=== PATIENT | male | born 1990 | race American Indian/Alaskan Native ===

== ENCOUNTER 2017-01-20 08:18 | Emergency (ER) | payer SELFPAY ==
[2017-01-20] MEDS ORDERED: CLEOCIN 600 MG/50 mL 600 MG/50 ML BAG IV ONE (11:25)
[2017-01-20] MEDS ORDERED: XYLOCAINE 2% INFILTRATI ONE (11:29)
--- NOTE | 2017-01-20 11:35 | Emergency Department Report ---
ED General Adult HPI - General Chief complaint: Skin/Abscess/Foreign Body Stated complaint: LEFT ARMPIT ABSCESS Time Seen by Provider: 01/20/17 11:24 Source: patient Mode of arrival: Ambulatory Limitations: No Limitations - History of Present Illness -: Gradual, days(s) Consistency: constant Worsens with: none Associated Symptoms: denies other symptoms Treatments Prior to Arrival: NSAID - Related Data Previous Rx's Medication Instructions Recorded Last Taken Type Gentamicin 0.3% Ophth Soln 2 drops OP Q4H #1 bottle 12/28/13 Unknown Rx HYDROcodone/ACETAMINOPHEN [[place] 1 each PO Q6HR #20 tablet 12/28/13 Unknown Rx 5/325 Tablet] Ibuprofen [Motrin] 600 mg PO Q8H PRN #50 tablet 12/28/13 Unknown Rx HYDROcodone/ACETAMINOPHEN 1 each PO BID #10 tablet 01/20/17 Unknown Rx [Hydrocodon-Acetaminophen 5-325] Sulfamethoxazole/Trimethoprim 1 each PO BID #20 tablet 01/20/17 Unknown Rx [Bactrim DS TAB] Allergies Allergy/AdvReac Type Severity Reaction Status Date / Time No Known Allergies Allergy Verified 12/28/13 04:32 ED Review of Systems ROS: Stated complaint: LEFT ARMPIT ABSCESS Other details as noted in HPI Comment: Unobtainable due to pts medical conditions Constitutional: no symptoms reported, see HPI. denies: chills, fever, malaise Eyes: as per HPI. denies: eye pain ENT: as per HPI. denies: ear pain, throat pain Respiratory: no symptoms reported, see HPI. denies: cough, orthopnea Cardiovascular: as per HPI. denies: chest pain, palpitations, dyspnea on exertion, orthopnea Endocrine: no symptoms reported, see HPI. denies: excessive sweating, flushing , intolerance to cold, intolerance to heat Gastrointestinal: as per HPI. denies: abdominal pain, nausea, vomiting Genitourinary: as per HPI. denies: urgency, dysuria Musculoskeletal: as per HPI. denies: back pain Skin: as per HPI, lesions. denies: rash Neurological: as per HPI. denies: headache, weakness Psychiatric: as per HPI. denies: anxiety, depression Hematological/Lymphatic: as per HPI. denies: easy bleeding ED Past Medical Hx - Past Medical History Previous Medical History?: Yes Hx HIV: Yes - Social History Smoking Status: Current Every Day Smoker Substance Use Type: None - Medications Home Medications: Home Medications Medication Instructions Recorded Confirmed Last Taken Type Gentamicin 0.3% Ophth Soln 2 drops OP Q4H #1 bottle 12/28/13 Unknown Rx HYDROcodone/ACETAMINOPHEN [[place] 1 each PO Q6HR #20 tablet 12/28/13 Unknown Rx 5/325 Tablet] Ibuprofen [Motrin] 600 mg PO Q8H PRN #50 tablet 12/28/13 Unknown Rx HYDROcodone/ACETAMINOPHEN 1 each PO BID #10 tablet 01/20/17 Unknown Rx [Hydrocodon-Acetaminophen 5-325] Sulfamethoxazole/Trimethoprim 1 each PO BID #20 tablet 01/20/17 Unknown Rx [Bactrim DS TAB] ED Physical Exam - General Limitations: No Limitations General appearance: alert, in no apparent distress - Head Head exam: Present: atraumatic - Eye Eye exam: Present: PERRL Pupils: Present: normal accommodation - ENT ENT exam: Present: mucous membranes moist - Neck Neck exam: Present: full ROM - Respiratory Respiratory exam: Present: normal lung sounds bilaterally - Cardiovascular Cardiovascular Exam: Present: regular rate - GI/Abdominal GI/Abdominal exam: Present: soft - Rectal Rectal exam: Present: deferred - Extremities Exam Extremities exam: Present: full ROM, tenderness, normal capillary refill - Back Exam Back exam: Present: normal inspection, full ROM. Absent: tenderness, CVA tenderness (R), CVA tenderness (L) - Neurological Exam Neurological exam: Present: alert, oriented X3, CN II-XII intact, normal gait - Psychiatric Psychiatric exam: Present: normal affect, normal mood - Skin Skin exam: Present: warm, dry, intact, normal color, other (ABSCESS UNDER L ARM) . Absent: rash ED Course Vital Signs 01/20/17 01/20/17 08:25 13:15 Temperature 98 F Pulse Rate 86 Respiratory 20 18 Rate Blood Pressure 136/85 O2 Sat by Pulse 99 Oximetry - Reevaluation(s) Reevaluation #1: 01/20/17 13:19 TO ER TODAY W LARGE L AXILLA ABSCESS HE HAS HAD BEFORE HIV OFF MEDS FOR YEARS HAD LABS DRAWN 2 W AGO AND HAS APPNT END MONTH FOR ANTIVIRALS NO FEVER NON TOXIC APPEARING CBC NOTED I/D PACKING IV ANBX RETURN TOMORROW FOR RECHECK Reevaluation #2: 01/20/17 12:57 PAIN MED PRN ON DC- HANDWRITTEN ON RX - I & D L AXILLA Type of Procedure: Simple Site: L AXILLA Blade Size: 11 I & D Procedure: betadine prep, sterile drapes applied, sterile dressing applied Progress: LIDO 2 ML FOR ANESTH. I/D WO DIFF LOCULATIONS OPENED LARGE AMOUNT DRAINAGE PACKING INSERTED ED Medical Decision Making - Lab Data Result diagrams: 01/20/17 11:50 01/20/17 11:50 - Medical Decision Making NO FEVER CBC WNL I/D W PACKING RETURN TOMORROW Critical care attestation.: If time is entered above; I have spent that time in minutes in the direct care of this critically ill patient, excluding procedure time. ED Disposition Clinical Impression: Abscess, HIV (human immunodeficiency virus infection) Disposition: DC-01 TO HOME OR SELFCARE Is pt being admited?: No Does the pt Need Aspirin: No Condition: Stable Instructions: Abscess (ED) Additional Instructions: RETURN HERE TOMORROW AFTERNOON MED ORDERED EPSOM SALT SOAKS IN TUB FOR 20 MINUTES THREE TIMES PER DAY LEAVE PACKING IN UNTIL YOU COME TOMORROW FU WITH HIV Prescriptions: HYDROcodone/ACETAMINOPHEN [Hydrocodon-Acetaminophen 5-325] 1 each PO BID #10 tablet Sulfamethoxazole/Trimethoprim [Bactrim DS TAB] 1 each PO BID #20 tablet Referrals: PRIMARY CARE, [Primary Care Provider] - 3-5 Days JAXON ORTIZ MD [Staff Physician] - 3-5 Days [facility] [Outside] - [facility] - 3[facility]5 Days [facility] [place] [place]] - 3-5 Days [facility] [Outside] - 3-5 Days [facility] [Outside] - 3-5 Days [facility] [Outside] - 3-5 Days Time of Disposition: 12:51
[2017-01-20 12:01] LABS: Basophils % (Auto) 0.2 % (0.0-1.8); Eosinophils % (Auto) 0.7 % (0.0-4.3); Hematocrit 30.1 % (35.5-45.6); Hemoglobin 10.1 gm/dl (11.8-15.2); Mean Corpuscular HGB Conc 34 % (32-34); Mean Corpuscular Hemoglobin 31 pg (28-32); Mean Corpuscular Volume 92 fl (84-94); Platelet Count 295 K/mm3 (140-440); Red Blood Count 3.26 M/mm3 (3.65-5.03); Red Cell Distribution Width 14.8 % (13.2-15.2); White Blood Count 5.7 K/mm3 (4.5-11.0)
[2017-01-20 12:19] LABS: Alanine Aminotransferase 36 units/L (7-56); Albumin 3.8 g/dL (3.9-5); Albumin/Globulin Ratio 0.8 %; Alkaline Phosphatase 107 units/L (35-129); Anion Gap 15 mmol/L; BUN/Creatinine Ratio 17; Blood Urea Nitrogen 12 mg/dL (9-20); Calcium 9.2 mg/dL (8.4-10.2); Carbon Dioxide 27 mmol/L (22-30); Chloride 102.7 mmol/L (98-107); Glucose 79 mg/dL (75-100); Potassium 4.3 mmol/L (3.6-5.0); Sodium 140 mmol/L (137-145); Total Protein 8.8 g/dL (6.3-8.2)
[2017-01-20] MEDS ORDERED: PERCOCET 5/325 PO ONE (12:54)
[2017-01-20 13:25] VITALS: BP 148/107
== END 2017-01-20 13:26 | disposition home or self-care (01) ==
LOC: ED 08:18
DX: L02.412 Cutaneous abscess of left axilla (principal); Z53.21 Procedure and treatment not carried out due to patient leaving prior to being seen by health care provider
CPT/HCPCS: 36415; 80053; 85025; 96365; 99283

== ENCOUNTER 2017-01-21 08:24 | Emergency (ER) | payer SELFPAY ==
--- NOTE | 2017-01-21 08:59 | Emergency Department Report ---
Abscess Boil HPI - HPI Chief Complaint: Wound/Laceration Stated Complaint: RECHECK Time Seen by Provider: 01/21/17 08:57 Duration: 3 Days Location: Upper Extremity Severity: Mild History: Yes Purulent Drainage, Yes Previous History (recheck), No Fever, No Pain, No Numbness, No Foreign Body, No Insect Bite Home Medications: Previous Rx's Medication Instructions Recorded Last Taken Type Gentamicin 0.3% Ophth Soln 2 drops OP Q4H #1 bottle 12/28/13 Unknown Rx HYDROcodone/ACETAMINOPHEN [[place] 1 each PO Q6HR #20 tablet 12/28/13 Unknown Rx 5/325 Tablet] Ibuprofen [Motrin] 600 mg PO Q8H PRN #50 tablet 12/28/13 Unknown Rx HYDROcodone/ACETAMINOPHEN 1 each PO BID #10 tablet 01/20/17 Unknown Rx [Hydrocodon-Acetaminophen 5-325] Sulfamethoxazole/Trimethoprim 1 each PO BID #20 tablet 01/20/17 Unknown Rx [Bactrim DS TAB] Allergies/Adverse Reactions: Allergies Allergy/AdvReac Type Severity Reaction Status Date / Time No Known Allergies Allergy Verified 12/28/13 04:32 ED Review of Systems ROS: Stated complaint: RECHECK Other details as noted in HPI Comment: Unobtainable due to pts medical conditions Constitutional: no symptoms reported, see HPI. denies: chills, fever Eyes: as per HPI. denies: eye pain ENT: as per HPI. denies: ear pain, throat pain Respiratory: no symptoms reported, see HPI. denies: cough, orthopnea Cardiovascular: as per HPI. denies: chest pain, palpitations, dyspnea on exertion, orthopnea Endocrine: no symptoms reported, see HPI. denies: excessive sweating, flushing Gastrointestinal: as per HPI. denies: abdominal pain, nausea, vomiting Genitourinary: as per HPI. denies: urgency, dysuria Musculoskeletal: as per HPI. denies: back pain Skin: as per HPI, lesions. denies: rash Neurological: as per HPI. denies: headache, weakness Psychiatric: as per HPI. denies: anxiety, depression Hematological/Lymphatic: as per HPI. denies: easy bleeding ED Past Medical Hx - Past Medical History Previous Medical History?: Yes Hx HIV: Yes Additional medical history: Boils, Left axillary boil - Surgical History Past Surgical History?: No - Social History Smoking Status: Current Every Day Smoker Substance Use Type: Alcohol, Marijuana, Prescribed - Medications Home Medications: Home Medications Medication Instructions Recorded Confirmed Last Taken Type Gentamicin 0.3% Ophth Soln 2 drops OP Q4H #1 bottle 12/28/13 Unknown Rx HYDROcodone/ACETAMINOPHEN [[place] 1 each PO Q6HR #20 tablet 12/28/13 Unknown Rx 5/325 Tablet] Ibuprofen [Motrin] 600 mg PO Q8H PRN #50 tablet 12/28/13 Unknown Rx HYDROcodone/ACETAMINOPHEN 1 each PO BID #10 tablet 01/20/17 Unknown Rx [Hydrocodon-Acetaminophen 5-325] Sulfamethoxazole/Trimethoprim 1 each PO BID #20 tablet 01/20/17 Unknown Rx [Bactrim DS TAB] ED Abscess Boil Physical Exam - Exam General: Vital signs noted. No distress. Alert and acting appropriately. Front/Back of Body, Lg (Color): 1 - MUCH IMPROVED TODAY. PACKING REMOVED. NO FEVER. Exam: Yes Tenderness, Yes Normal Neurologic Exam, Yes Normal Circulation, No Fluctuance, No Surrounding Cellulites/Erythema, No Lymphangitis, No Crepitation , No Heart Murmur ED Course Vital Signs 01/21/17 08:28 Temperature 98.7 F Pulse Rate 100 H Respiratory 20 Rate Blood Pressure 135/81 O2 Sat by Pulse 98 Oximetry - Reevaluation(s) Reevaluation #1: 01/21/17 12:25 VSS NAD NO FEVER MUCH IMPROVED TODAY IV ANBX MOM W PT- EDUCATED ON CARE DC HOME W FU Critical care attestation.: If time is entered above; I have spent that time in minutes in the direct care of this critically ill patient, excluding procedure time. ED Medical Decision Making - Medical Decision Making FOLLOW UP SEE NOTE ED Disposition Clinical Impression: Hidradenitis, HIV (human immunodeficiency virus infection) Disposition: DC-01 TO HOME OR SELFCARE Is pt being admited?: No Does the pt Need Aspirin: No Condition: Stable Additional Instructions: SAME PLAN YESTERDAY EPSOM SALTS ANTIBIOTICS PAIN MED PRN FU FOR HIV MEDS GEN SURG FOR EVAL OF HIRDRAD. Time of Disposition: 10:54
[2017-01-21] MEDS ORDERED: CLEOCIN 300 MG/50 mL 300 MG/50 ML BAG IV ONE (09:30)
[2017-01-21 11:37] VITALS: BP 119/67
== END 2017-01-21 11:41 | disposition home or self-care (01) ==
LOC: ED 08:24
DX: L73.2 Hidradenitis suppurativa (principal); F17.200 Nicotine dependence, unspecified, uncomplicated; F12.10 Cannabis abuse, uncomplicated
CPT/HCPCS: 96365; 99282

== ENCOUNTER 2018-10-23 07:21 | Emergency (ER) | payer SELFPAY ==
[2018-10-23 08:37] LABS: Basophils % (Auto) 0.3 % (0.0-1.8); Eosinophils # (Auto) 0.1 K/mm3 (0.0-0.4); Eosinophils % (Auto) 1.3 % (0.0-4.3); Hematocrit 41.2 % (35.5-45.6); Lymphocytes # (Auto) 2.3 K/mm3 (1.2-5.4); Lymphocytes % (Auto) 47.1 % (13.4-35.0); Mean Corpuscular HGB Conc 34 % (32-34); Mean Corpuscular Volume 101 fl (84-94); Monocytes # (Auto) 0.3 K/mm3 (0.0-0.8); Monocytes % (Auto) 6.7 % (0.0-7.3); Platelet Count 235 K/mm3 (140-440); Red Blood Count 4.06 M/mm3 (3.65-5.03); Red Cell Distribution Width 12.7 % (13.2-15.2)
[2018-10-23] MEDS ORDERED: ZOFRAN IV ONE (09:00)
[2018-10-23] MEDS ORDERED: MORPHINE IV ONE (09:00)
[2018-10-23] MEDS ORDERED: NACL 0.9% 1000 ML 1,000 ML IV ONE (09:00)
[2018-10-23 09:05] LABS: Bilirubin,Urine NEG (Negative); Blood,Urine NEG (Negative); Color,Urine Yellow (Yellow); Mucus,Urine 1+ /HPF; Urobilinogen,Urine < 2.0 mg/dL (<2.0)
[2018-10-23 09:09] LABS: Alanine Aminotransferase 7 units/L (7-56); Albumin 3.8 g/dL (3.9-5); BUN/Creatinine Ratio 11; Blood Urea Nitrogen 11 mg/dL (9-20); Calcium 8.8 mg/dL (8.4-10.2); Hemolysis Index 20
--- NOTE | 2018-10-23 09:26 | Emergency Department Report ---
ED Abdominal Pain HPI - General Chief Complaint: Abdominal Pain Stated Complaint: HEADACHE/CRAMPS/RECTAL AND ORAL Time Seen by Provider: 10/23/18 08:10 Source: patient Mode of arrival: Ambulatory Limitations: No Limitations - History of Present Illness Initial Comments: This is a 28-year-old male nontoxic, well nourished in appearance, no acute signs of distress presents to the ED with c/o of nausea and vomiting and abdominal pain 1 day. Patient describes vomiting as food content and yellow gastric acid. Patient describes abdominal pain as cramping and aching with level of 3/10 diffuse. Patient denies chest pain, short of breath, fever, chill s, headache, stiff neck, numbness or tingling. Patient denies any diarrhea or constipation. Patient denies any recent travels. Patient denies any drug allergies. PMH includes HIV with last CD4 count was 3 months ago and is unsure of results. Agrees to following a provider for HIV. MD Complaint: abdominal pain -: days(s) (1) Location: diffuse Radiation: none Migration to: no migration Severity: mild Severity scale (0 -10): 3 Quality: cramping, aching Consistency: constant Improves With: nothing Worsens With: nothing Associated Symptoms: nausea, vomiting. denies: diarrhea, fever, chills, c onstipation, dysuria, hematemesis, hematochezia, melena, hematuria, anorexia, syncope - Related Data Previous Rx's Medication Instructions Recorded Last Taken Type Gentamicin 0.3% Ophth Soln 2 drops OP Q4H #1 bottle 12/28/13 Unknown Rx HYDROcodone/ACETAMINOPHEN [[place] 1 each PO Q6HR #20 tablet 12/28/13 Unknown Rx 5/325 Tablet] Ibuprofen [Motrin] 600 mg PO Q8H PRN #50 tablet 12/28/13 Unknown Rx HYDROcodone/ACETAMINOPHEN 1 each PO BID #10 tablet 01/20/17 Unknown Rx [Hydrocodon-Acetaminophen 5-325] Sulfamethoxazole/Trimethoprim 1 each PO BID #20 tablet 01/20/17 Unknown Rx [Bactrim DS TAB] Clindamycin [Clindamycin CAP] 300 mg PO Q8H 10 Days #30 cap 02/16/18 Unknown Rx Ibuprofen [Motrin] 600 mg PO Q8H PRN #12 tablet 02/16/18 Unknown Rx Acetaminophen/Codeine [Tylenol 1 tab PO Q6H PRN #12 tab 10/23/18 Unknown Rx /Codeine # 3 tab] Ciprofloxacin HCl [Ciprofloxacin 500 mg PO Q12HR #14 tab 10/23/18 Unknown Rx TAB] Ondansetron [Zofran Odt] 4 mg PO Q8HR PRN #20 tab.rapdis 10/23/18 Unknown Rx metroNIDAZOLE [Flagyl] 500 mg PO Q12HR #14 tab 10/23/18 Unknown Rx Allergies Allergy/AdvReac Type Severity Reaction Status Date / Time No Known Allergies Allergy Verified 12/28/13 04:32 ED Review of Systems ROS: Stated complaint: HEADACHE/CRAMPS/RECTAL AND ORAL Other details as noted in HPI Constitutional: denies: chills, fever Eyes: denies: eye pain, eye discharge, vision change ENT: denies: ear pain, throat pain Respiratory: denies: cough, shortness of breath, wheezing Cardiovascular: denies: chest pain, palpitations Endocrine: no symptoms reported Gastrointestinal: abdominal pain, nausea, vomiting. denies: diarrhea Genitourinary: denies: urgency, dysuria Musculoskeletal: denies: back pain, joint swelling, arthralgia Skin: denies: rash, lesions Neurological: denies: headache, weakness, paresthesias Psychiatric: denies: anxiety, depression Hematological/Lymphatic: denies: easy bleeding, easy bruising ED Past Medical Hx - Past Medical History Previous Medical History?: Yes Hx HIV: Yes Additional medical history: Boils, Left axillary boil - Surgical History Past Surgical History?: No - Social History Smoking Status: Current Some Day Smoker Substance Use Type: None - Medications Home Medications: Home Medications Medication Instructions Recorded Confirmed Last Taken Type Gentamicin 0.3% Ophth Soln 2 drops OP Q4H #1 bottle 12/28/13 Unknown Rx HYDROcodone/ACETAMINOPHEN [[place] 1 each PO Q6HR #20 tablet 12/28/13 Unknown Rx 5/325 Tablet] Ibuprofen [Motrin] 600 mg PO Q8H PRN #50 tablet 12/28/13 Unknown Rx HYDROcodone/ACETAMINOPHEN 1 each PO BID #10 tablet 01/20/17 Unknown Rx [Hydrocodon-Acetaminophen 5-325] Sulfamethoxazole/Trimethoprim 1 each PO BID #20 tablet 01/20/17 Unknown Rx [Bactrim DS TAB] Clindamycin [Clindamycin CAP] 300 mg PO Q8H 10 Days #30 cap 02/16/18 Unknown Rx Ibuprofen [Motrin] 600 mg PO Q8H PRN #12 tablet 02/16/18 Unknown Rx Acetaminophen/Codeine [Tylenol 1 tab PO Q6H PRN #12 tab 10/23/18 Unknown Rx /Codeine # 3 tab] Ciprofloxacin HCl [Ciprofloxacin 500 mg PO Q12HR #14 tab 10/23/18 Unknown Rx TAB] Ondansetron [Zofran Odt] 4 mg PO Q8HR PRN #20 tab.rapdis 10/23/18 Unknown Rx metroNIDAZOLE [Flagyl] 500 mg PO Q12HR #14 tab 10/23/18 Unknown Rx ED Physical Exam - General Limitations: No Limitations General appearance: alert, in no apparent distress - Head Head exam: Present: atraumatic, normocephalic - Eye Eye exam: Present: normal appearance - Neck Neck exam: Present: normal inspection, full ROM. Absent: tenderness, meningismus, lymphadenopathy - Respiratory Respiratory exam: Present: normal lung sounds bilaterally. Absent: respiratory distress, wheezes, rales, rhonchi, stridor, chest wall tenderness, accessory muscle use, decreased breath sounds, prolonged expiratory - Cardiovascular Cardiovascular Exam: Present: regular rate, normal rhythm, normal heart sounds. Absent: bradycardia, tachycardia, irregular rhythm, systolic murmur, diastolic murmur, rubs, gallop - GI/Abdominal GI/Abdominal exam: Present: soft, tenderness (diffuse), normal bowel sounds. Absent: distended, guarding, rebound, rigid, diminished bowel sounds - Expanded GI/Abdominal Exam Expanded GI/Abdominal exam: Absent: psoas sign, Desir's sign, Rovsing's sign, tenderness at Mcburney's Point, ascites - Extremities Exam Extremities exam: Present: normal inspection, full ROM, normal capillary refill. Absent: tenderness - Back Exam Back exam: Present: normal inspection, full ROM. Absent: tenderness, CVA tenderness (R), CVA tenderness (L), muscle spasm, paraspinal tenderness, v ertebral tenderness, rash noted - Neurological Exam Neurological exam: Present: alert, oriented X3, normal gait - Psychiatric Psychiatric exam: Present: normal affect, normal mood - Skin Skin exam: Present: warm, dry, intact, normal color. Absent: rash ED Course Vital Signs 10/23/18 10/23/18 10/23/18 08:35 08:37 08:40 Temperature 98.7 F Pulse Rate 69 Respiratory 18 Rate Blood Pressure 119/83 O2 Sat by Pulse 100 99 Oximetry - Reevaluation(s) Reevaluation #1: 10/23/18 09:26 Patient is speaking in full sentences with no signs of distress noted. - Consultations Consultation #1: 10/23/18 12:13 Patient has been consulted with Osei Lee about patient history, physical exam, and labs/CT results and examined and screened patient and agrees to ED plan of care and discharge plan of care. ED Medical Decision Making - Lab Data Result diagrams: 10/23/18 08:22 10/23/18 08:22 - Medical Decision Making This is a 28-year-old male that presents with colitis. Patient is stable and was examined by me. There is no abdominal tenderness. Negative signs of symptoms of appendicitis. Labs obtained. UA obtained. CT of abdomen obtained and dictated by the radiologist. Patient is notified of the report with no questions noted by the patient. Vital signs are stable prior to discharge. Patient received Flagyl and Levaquin in the ER. Patient received medical treatment in the ED which patient stated symptoms has resovled and subsided. Was instructed note to operate any machinery due to possible drowsiness and stated someone will drive the patient home. A by mouth challenge has been obtained and patient tolerated well with no nausea vomiting. Patient was notified of strict precatuions of appendictis symptoms and to return to the ED if symptoms occurs as soon as possible. Patient was also instructed to Follow-up with a primary care doctor in 3-5 days or if symptoms worsen and continue return to emergency room as soon as possible. At time of discharge, the patient does not seem toxic or ill in appearance. No acute signs of distress noted. Patient agrees to discharge treatment plan of care. No further questions noted by the patient. Critical care attestation.: If time is entered above; I have spent that time in minutes in the direct care of this critically ill patient, excluding procedure time. ED Disposition Clinical Impression: Colitis Disposition: DC-01 TO HOME OR SELFCARE Is pt being admited?: No Does the pt Need Aspirin: No Condition: Stable Instructions: Infectious Colitis (ED) Additional Instructions: Follow-up with a primary care/solutions engineer doctor in 2 days or if symptoms worsen and continue return to emergency room as soon as possible. Prescriptions: Ciprofloxacin HCl [Ciprofloxacin TAB] 500 mg PO Q12HR #14 tab metroNIDAZOLE [Flagyl] 500 mg PO Q12HR #14 tab Acetaminophen/Codeine [Tylenol /Codeine # 3 tab] 1 tab PO Q6H PRN #12 tab PRN Reason: Pain , Severe (7-10) Ondansetron [Zofran Odt] 4 mg PO Q8HR PRN #20 tab.rapdis PRN Reason: Nausea Referrals: JR ROUSSEAU MD [Primary Care Provider] - 3-5 Days PRIMARY CAREMD [Referring] - 3-5 Days GEMMA LAFLEUR MD [Staff Physician] - 2-3 Days [facility] [Provider Group] - 2-3 Days Forms: Work/School Release Form(ED)
--- NOTE | 2018-10-23 11:24 | Cat Scan Report ---
CT ABDOMEN AND PELVIS WITH CONTRAST HISTORY: abd pain COMPARISON: None TECHNIQUE: Routine abdominal and pelvic CT exam performed with IV contrast but no oral contrast. CONTRAST: 100 cc of Omnipaque 300 was injected intravenously without incident. Informed consent was o btained prior to the administration of the contrast. FINDINGS: CT ABDOMEN: Lung Bases: Clear. Liver: A 12 mm right hepatic hypodensity is likely a benign cavernous hemangioma. Biliary: No significant abnormality. Spleen: No significant abnormality. Unenlarged. Pancreas: No significant abnormality. Adrenals: No significant abnormality. Kidneys: No significant abnormality. Lymphatics: No lymphadenopathy. Vasculature: No significant abnormality. Bowel/Peritoneum: Concentric wall thickening and edema of the a ascending and transverse colon. The r est of the colon is normal. The appendix is normal. Normal small bowel. CT PELVIC: : Normal urinary bladder, prostate and seminal vesicles.. Osseous Structures: No significant abnormality. Additional Findings: Normal rectum and sigmoid colon. No free air or ascites. IMPRESSION: 1. Nonspecific colitis involving the ascending and transverse colon. No signs of abscess or perforati on. 2. Appendix with no evidence of acute appendicitis. 3. Probable benign cavernous hemangioma of the right hepatic lobe. Signer Name: Bruno Gee MD Signed: 10/23/2018 11:20 AM Workstation Name: [id number]
[2018-10-23] MEDS ORDERED: FLAGYL 500 MG/100 ML 500 MG/100 ML BAG IV ONE (11:28)
[2018-10-23] MEDS ORDERED: LEVAQUIN 750MG/150ML 750 MG/150 ML BAG IV ONE (11:28)
[2018-10-23 13:09] VITALS: BP 121/81
== END 2018-10-23 13:08 | disposition home or self-care (01) ==
LOC: ED 07:21
DX: K52.9 Noninfective gastroenteritis and colitis, unspecified (principal); Z79.899 Other long term (current) drug therapy
CPT/HCPCS: 36415; 74177; 80053; 81001; 83690; 85025; 96361; 96365; 96367; 96375; 99284; J1956; J2270; J2405; J7030; Q9967

== ENCOUNTER 2020-10-09 12:55 | Inpatient (IN) | payer SELFPAY ==
[2020-10-09 13:35] LABS: Hemoglobin 11.1 gm/dl (11.8-15.2); Mean Corpuscular HGB Conc 35 % (32-34); Mean Corpuscular Volume 90 fl (84-94); Platelet Count 562 K/mm3 (140-440); Red Blood Count 3.54 M/mm3 (3.65-5.03); Red Cell Distribution Width 14.2 % (13.2-15.2)
[2020-10-09 13:52] LABS: Albumin 3.1 g/dL (3.9-5); BUN/Creatinine Ratio 15; Blood Urea Nitrogen 17 mg/dL (9-20); Calcium 8.9 mg/dL (8.4-10.2); Hemolysis Index 0
[2020-10-09 13:53] LABS: Alanine Aminotransferase < 5 units/L (7-56)
[2020-10-09] MEDS ORDERED: cefTRIAXone/NS 2 GM/100 ML 2 GM/100 ML BAG IV ONE (14:05)
[2020-10-09] MEDS ORDERED: VANCOMYCIN 750 MG in SODIUM CHLORIDE 0.9% 500 ML 500 ML IV ONE (14:05)
[2020-10-09] MEDS ORDERED: AZITHROMYCIN/NS 500 MG/250 ML 500 MG/250 ML BAG IV ONE (14:05)
[2020-10-09] MEDS ORDERED: SODIUM CHLORIDE 0.9% 1000 ML 1,000 ML IV ONE (14:10)
--- NOTE | 2020-10-09 14:17 | Emergency Department Report ---
HPI - General Chief Complaint: Dyspnea/Respdistress Time Seen by Provider: 10/09/20 13:47 - HPI HPI: 29-year-old male with history of hidradenitis suppurativa and HIV not on antiretroviral therapy for the past 1.5 years presents with numerous complaints, most significantly shortness of breath for the past 3 months which has been acutely worsening over the past week. The patient states that he has felt short of breath persistently for the past 3 months it has slowly but progressively gotten worse. For the past 1 month he has had a cough which is mostly dry but sometimes produces scant mucus. His shortness of breath has worsened over the last week to the point where he feels profoundly short of breath when he tries to exert himself even minimally. He has been having night sweats and subjective fevers. He also states that for the past 6 months he has had an open wound above his rectum with pus. He has had diarrhea for the past 6 months. He says he also has some nausea. He denies any associated chest pain, headache, neck pain, vision change, back pain, dysuria, focal weakness, sensory changes. He denies any penile lesions or rashes. He denies testicular pain. ED Past Medical Hx - Past Medical History Previous Medical History?: Yes Hx HIV: Yes Additional medical history: Boils, Left axillary boil, Rectal boil - Surgical History Past Surgical History?: No - Social History Smoking Status: Current Some Day Smoker Substance Use Type: Alcohol, Marijuana - Medications Home Medications: Home Medications Medication Instructions Recorded Confirmed Last Taken Type Gentamicin 0.3% Ophth Soln 2 drops OP Q4H #1 bottle 12/28/13 Unknown Rx HYDROcodone/ACETAMINOPHEN [[place] 1 each PO Q6HR #20 tablet 12/28/13 Unknown Rx 5/325 Tablet] Ibuprofen [Motrin] 600 mg PO Q8H PRN #50 tablet 12/28/13 Unknown Rx HYDROcodone/ACETAMINOPHEN 1 each PO BID #10 tablet 01/20/17 Unknown Rx [Hydrocodon-Acetaminophen 5-325] Sulfamethoxazole/Trimethoprim 1 each PO BID #20 tablet 01/20/17 Unknown Rx [Bactrim DS TAB] Clindamycin [Clindamycin CAP] 300 mg PO Q8H 10 Days #30 cap 02/16/18 Unknown Rx Ibuprofen [Motrin] 600 mg PO Q8H PRN #12 tablet 02/16/18 Unknown Rx Acetaminophen/Codeine [Tylenol 1 tab PO Q6H PRN #12 tab 10/23/18 Unknown Rx /Codeine # 3 tab] Ciprofloxacin HCl [Ciprofloxacin 500 mg PO Q12HR #14 tab 10/23/18 Unknown Rx TAB] Ondansetron [Zofran Odt] 4 mg PO Q8HR PRN #20 tab.rapdis 10/23/18 Unknown Rx metroNIDAZOLE [Flagyl] 500 mg PO Q12HR #14 tab 10/23/18 Unknown Rx Clindamycin [Clindamycin CAP] 300 mg PO Q8H 10 Days #30 cap 11/07/18 Unknown Rx Ondansetron [Zofran Odt] 4 mg PO Q8HR PRN #12 tab.rapdis 11/07/18 Unknown Rx diphenhydrAMINE [Benadryl CAP] 25 mg PO Q6HR PRN #30 capsule 11/07/18 Unknown Rx predniSONE [Deltasone] 40 mg PO QDAY 5 Days #10 tab 11/07/18 Unknown Rx ED Review of Systems ROS: Stated complaint: SOB,RECTAL INFECTION,OPEN WOUND Other details as noted in HPI Constitutional: chills, fever, malaise Eyes: denies: eye pain, vision change ENT: denies: throat pain, congestion Respiratory: cough, shortness of breath, SOB with exertion. denies: wheezing Cardiovascular: denies: chest pain, palpitations, edema, syncope Gastrointestinal: abdominal pain, nausea, diarrhea, other (Open wound to buttocks). denies: vomiting, melena Genitourinary: denies: dysuria, frequency, hematuria, testicular pain Musculoskeletal: denies: back pain, joint swelling Skin: denies: rash Neurological: denies: headache, weakness, numbness Physical Exam - Physical Exam Vital Signs: Vital Signs 10/09/20 13:09 Temperature 98.9 F Pulse Rate 128 H Respiratory 22 Rate Blood Pressure 135/97 O2 Sat by Pulse 88 Oximetry Physical Exam: GENERAL: Thin, frail appearing male in no acute distress. HEENT: Normocephalic. No obvious signs of trauma. Dry mucous membranes. No signs of thrush EYES: Extraocular movements are intact. Pupils are equal round and reactive to light bilaterally NECK: Supple. Trachea is midline. LUNGS: Tachypneic but without accessory muscle use. equal chest rise bilaterally. Coarse breath sounds throughout without discrete wheezes, rales, or rhonchi. HEART/CARDIOVASCULAR: Tachycardic but with regular rhythm. No murmurs or rubs. VASCULAR: 2+ peripheral pulses. Cap refill < 2 seconds ABDOMEN: Abdomen is soft and nondistended. There is mild generalized tenderness but no guarding or rebound tenderness RECTAL: ([place] present) digital rectal exam deferred. The anus appears within normal limits. Superior to the anus/rectum, in the superior aspect of t he gluteal cleft is a 2 x 2 centimeter open wound with exposed granulation tissue. No surrounding erythema, warmth, or fluctuance. SKIN: Skin is warm and dry NEURO: Patient is awake, alert, and oriented. transfer controller II-XII grossly intact. No focal deficits. Normal motor and sensory exam throughout. Normal speech. MUSCULOSKELETAL: No obvious deformities. No significant tenderness. Normal ROM throughout. BACK/SPINE: No costovertebral angle tenderness. ED Course Vital Signs 10/09/20 13:09 Temperature 98.9 F Pulse Rate 128 H Respiratory 22 Rate Blood Pressure 135/97 O2 Sat by Pulse 88 Oximetry ED Medical Decision Making - Lab Data Result diagrams: 10/09/20 13:18 10/09/20 14:22 Lab Results 10/09/20 10/09/20 10/09/20 Range/Units 13:18 13:18 14:14 WBC 5.1 (4.5-11.0) K/mm3 RBC 3.54 L (3.65-5.03) M/mm3 Hgb 11.1 L (11.8-15.2) gm/dl Hct 32.0 L (35.5-45.6) % MCV 90 (84-94) fl MCH 31 (28-32) pg MCHC 35 H (32-34) % RDW 14.2 (13.2-15.2) % Plt Count 562 H (140-440) K/mm3 Add Manual Diff Complete Total Counted 100 Seg Neuts % (Manual) 86.0 H (40.0-70.0) % Lymphocytes % (Manual) 11.0 L (13.4-35.0) % Monocytes % (Manual) 3.0 (0.0-7.3) % Nucleated RBC % Not Reportable Seg Neutrophils # Man 4.4 (1.8-7.7) K/mm3 Band Neutrophils # 0.0 K/mm3 Lymphocytes # (Manual) 0.6 L (1.2-5.4) K/mm3 Abs React Lymphs (Man) 0.0 K/mm3 Monocytes # (Manual) 0.2 (0.0-0.8) K/mm3 Eosinophils # (Manual) 0.0 (0.0-0.4) K/mm3 Basophils # (Manual) 0.0 (0.0-0.1) K/mm3 Metamyelocytes # 0.0 K/mm3 Myelocytes # 0.0 K/mm3 Promyelocytes # 0.0 K/mm3 Blast Cells # 0.0 K/mm3 WBC Morphology Not Reportable Hypersegmented Neuts Not Reportable Hyposegmented Neuts Not Reportable Hypogranular Neuts Not Reportable Smudge Cells Not Reportable Toxic Granulation Not Reportable Toxic Vacuolation Not Reportable Dohle Bodies Not Reportable Pelger-Huet Anomaly Not Reportable Yuri Rods Not Reportable Platelet Estimate Consistent w auto Clumped Platelets Not Reportable Plt Clumps, EDTA Not Reportable Large Platelets Not Reportable Giant Platelets Rare Platelet Satelliting Not Reportable Plt Morphology Comment Not Reportable RBC Morphology Normal Dimorphic RBCs Not Reportable Polychromasia Not Reportable Hypochromasia Not Reportable Poikilocytosis Not Reportable Anisocytosis Not Reportable Microcytosis Not Reportable Macrocytosis Not Reportable Spherocytes Not Reportable Pappenheimer Bodies Not Reportable Sickle Cells Not Reportable Target Cells Not Reportable Tear Drop Cells Not Reportable Ovalocytes Not Reportable Helmet Cells Not Reportable Doe-[place] Bodies Not Reportable Elwin Rings Not Reportable Naz Cells Not Reportable Bite Cells Not Reportable Crenated Cell Not Reportable Elliptocytes Not Reportable Acanthocytes (Spur) Not Reportable Rouleaux Not Reportable Hemoglobin C Crystals Not Reportable Schistocytes Not Reportable Malaria parasites Not Reportable Benigno Bodies Not Reportable Hem Pathologist Commnt No D-Dimer (0-234) ng/mlDDU ABG pH 7.462 H (7.320-7.450) POC ABG pCO2 22.1 L (32.0-48.0) mmHg POC ABG pO2 76.8 L (83-108) mmHg POC ABG HCO3 15.4 ABG O2 Saturation 94.5 (0-100) POC ABG Base Excess -6.7 ABG Hemoglobin 11.1 L (12.0-17.5) ABG Oxyhemoglobin 93.8 L (94-98) ABG Methemoglobin 0.3 (0.0-1.5) ABG Sodium 133.8 L (136.0-145.0) mmol/L ABG Potassium 3.5 (3.40-4.50) mmol/L ABG Chloride 105.0 (98-107) mmol/L ABG Glucose 94 (65-95) mg/dL ABG Lactate 1.54 (0.18-30.0) Carboxyhemoglobin 0.4 L (0.5-1.5) FiO2 % 21.0 Sodium 132 L (137-145) mmol/L Potassium 3.6 (3.6-5.0) mmol/L Chloride 100.7 (98-107) mmol/L Carbon Dioxide 16 L (22-30) mmol/L Anion Gap 19 mmol/L BUN 17 (9-20) mg/dL Creatinine 1.1 (0.8-1.3) mg/dL Estimated GFR > 60 ml/min BUN/Creatinine Ratio 15 % Glucose 102 H (75-100) mg/dL Lactic Acid (0.7-2.0) mmol/L Calcium 8.9 (8.4-10.2) mg/dL Ferritin (30.0-300.0) ng/mL Total Bilirubin 0.30 (0.1-1.2) mg/dL AST 38 (5-40) units/L ALT < 5 L (7-56) units/L Alkaline Phosphatase 77 (35-129) units/L Lactate Dehydrogenase (91-180) units/L Troponin T (0.00-0.029) ng/mL C-Reactive Protein (0.00-1.30) mg/dL NT-Pro-B Natriuret Pep (0-450) pg/mL Total Protein 8.7 H (6.3-8.2) g/dL Albumin 3.1 L (3.9-5) g/dL Albumin/Globulin Ratio 0.6 % Procalcitonin (<0.15) ng/mL Arterial Blood Glucose 94 (65-95) mg/dL 10/09/20 10/09/20 10/09/20 Range/Units 14:22 14:22 14:22 WBC (4.5-11.0) K/mm3 RBC (3.65-5.03) M/mm3 Hgb (11.8-15.2) gm/dl Hct (35.5-45.6) % MCV (84-94) fl MCH (28-32) pg MCHC (32-34) % RDW (13.2-15.2) % Plt Count (140-440) K/mm3 Add Manual Diff Total Counted Seg Neuts % (Manual) (40.0-70.0) % Lymphocytes % (Manual) (13.4-35.0) % Monocytes % (Manual) (0.0-7.3) % Nucleated RBC % Seg Neutrophils # Man (1.8-7.7) K/mm3 Band Neutrophils # K/mm3 Lymphocytes # (Manual) (1.2-5.4) K/mm3 Abs React Lymphs (Man) K/mm3 Monocytes # (Manual) (0.0-0.8) K/mm3 Eosinophils # (Manual) (0.0-0.4) K/mm3 Basophils # (Manual) (0.0-0.1) K/mm3 Metamyelocytes # K/mm3 Myelocytes # K/mm3 Promyelocytes # K/mm3 Blast Cells # K/mm3 WBC Morphology Hypersegmented Neuts Hyposegmented Neuts Hypogranular Neuts Smudge Cells Toxic Granulation Toxic Vacuolation Dohle Bodies Pelger-Huet Anomaly Yuri Rods Platelet Estimate Clumped Platelets Plt Clumps, EDTA Large Platelets Giant Platelets Platelet Satelliting Plt Morphology Comment RBC Morphology Dimorphic RBCs Polychromasia Hypochromasia Poikilocytosis Anisocytosis Microcytosis Macrocytosis Spherocytes Pappenheimer Bodies Sickle Cells Target Cells Tear Drop Cells Ovalocytes Helmet Cells Doe-[place] Bodies Elwin Rings Naz Cells Bite Cells Crenated Cell Elliptocytes Acanthocytes (Spur) Rouleaux Hemoglobin C Crystals Schistocytes Malaria parasites Benigno Bodies Hem Pathologist Commnt D-Dimer 365.83 H (0-234) ng/mlDDU ABG pH (7.320-7.450) POC ABG pCO2 (32.0-48.0) mmHg POC ABG pO2 (83-108) mmHg POC ABG HCO3 ABG O2 Saturation (0-100) POC ABG Base Excess ABG Hemoglobin (12.0-17.5) ABG Oxyhemoglobin (94-98) ABG Methemoglobin (0.0-1.5) ABG Sodium (136.0-145.0) mmol/L ABG Potassium (3.40-4.50) mmol/L ABG Chloride (98-107) mmol/L ABG Glucose (65-95) mg/dL ABG Lactate (0.18-30.0) Carboxyhemoglobin (0.5-1.5) FiO2 % Sodium (137-145) mmol/L Potassium (3.6-5.0) mmol/L Chloride (98-107) mmol/L Carbon Dioxide (22-30) mmol/L Anion Gap mmol/L BUN (9-20) mg/dL Creatinine (0.8-1.3) mg/dL Estimated GFR ml/min BUN/Creatinine Ratio % Glucose 94 (75-100) mg/dL Lactic Acid 1.40 (0.7-2.0) mmol/L Calcium (8.4-10.2) mg/dL Ferritin (30.0-300.0) ng/mL Total Bilirubin (0.1-1.2) mg/dL AST (5-40) units/L ALT (7-56) units/L Alkaline Phosphatase (35-129) units/L Lactate Dehydrogenase 581 H (91-180) units/L Troponin T (0.00-0.029) ng/mL C-Reactive Protein 5.50 H (0.00-1.30) mg/dL NT-Pro-B Natriuret Pep (0-450) pg/mL Total Protein (6.3-8.2) g/dL Albumin (3.9-5) g/dL Albumin/Globulin Ratio % Procalcitonin (<0.15) ng/mL Arterial Blood Glucose (65-95) mg/dL 10/09/20 10/09/20 10/09/20 Range/Units 14:22 14:22 14:22 WBC (4.5-11.0) K/mm3 RBC (3.65-5.03) M/mm3 Hgb (11.8-15.2) gm/dl Hct (35.5-45.6) % MCV (84-94) fl MCH (28-32) pg MCHC (32-34) % RDW (13.2-15.2) % Plt Count (140-440) K/mm3 Add Manual Diff Total Counted Seg Neuts % (Manual) (40.0-70.0) % Lymphocytes % (Manual) (13.4-35.0) % Monocytes % (Manual) (0.0-7.3) % Nucleated RBC % Seg Neutrophils # Man (1.8-7.7) K/mm3 Band Neutrophils # K/mm3 Lymphocytes # (Manual) (1.2-5.4) K/mm3 Abs React Lymphs (Man) K/mm3 Monocytes # (Manual) (0.0-0.8) K/mm3 Eosinophils # (Manual) (0.0-0.4) K/mm3 Basophils # (Manual) (0.0-0.1) K/mm3 Metamyelocytes # K/mm3 Myelocytes # K/mm3 Promyelocytes # K/mm3 Blast Cells # K/mm3 WBC Morphology Hypersegmented Neuts Hyposegmented Neuts Hypogranular Neuts Smudge Cells Toxic Granulation Toxic Vacuolation Dohle Bodies Pelger-Huet Anomaly Yuri Rods Platelet Estimate Clumped Platelets Plt Clumps, EDTA Large Platelets Giant Platelets Platelet Satelliting Plt Morphology Comment RBC Morphology Dimorphic RBCs Polychromasia Hypochromasia Poikilocytosis Anisocytosis Microcytosis Macrocytosis Spherocytes Pappenheimer Bodies Sickle Cells Target Cells Tear Drop Cells Ovalocytes Helmet Cells Doe-[place] Bodies Elwin Rings [place] Cells Bite Cells Crenated Cell Elliptocytes Acanthocytes (Spur) Rouleaux Hemoglobin C Crystals Schistocytes Malaria parasites Benigno Bodies Hem Pathologist Commnt D-Dimer (0-234) ng/mlDDU ABG pH (7.320-7.450) POC ABG pCO2 (32.0-48.0) mmHg POC ABG pO2 (83-108) mmHg POC ABG HCO3 ABG O2 Saturation (0-100) POC ABG Base Excess ABG Hemoglobin (12.0-17.5) ABG Oxyhemoglobin (94-98) ABG Methemoglobin (0.0-1.5) ABG Sodium (136.0-145.0) mmol/L ABG Potassium (3.40-4.50) mmol/L ABG Chloride (98-107) mmol/L ABG Glucose (65-95) mg/dL ABG Lactate (0.18-30.0) Carboxyhemoglobin (0.5-1.5) FiO2 % Sodium (137-145) mmol/L Potassium (3.6-5.0) mmol/L Chloride (98-107) mmol/L Carbon Dioxide (22-30) mmol/L Anion Gap mmol/L BUN (9-20) mg/dL Creatinine (0.8-1.3) mg/dL Estimated GFR ml/min BUN/Creatinine Ratio % Glucose (75-100) mg/dL Lactic Acid (0.7-2.0) mmol/L Calcium (8.4-10.2) mg/dL Ferritin 1322.0 H (30.0-300.0) ng/mL Total Bilirubin (0.1-1.2) mg/dL AST (5-40) units/L ALT (7-56) units/L Alkaline Phosphatase (35-129) units/L Lactate Dehydrogenase (91-180) units/L Troponin T < 0.010 (0.00-0.029) ng/mL C-Reactive Protein (0.00-1.30) mg/dL NT-Pro-B Natriuret Pep 47.57 (0-450) pg/mL Total Protein (6.3-8.2) g/dL Albumin (3.9-5) g/dL Albumin/Globulin Ratio % Procalcitonin 0.07 (<0.15) ng/mL Arterial Blood Glucose (65-95) mg/dL - Radiology Data CHEST 2 VIEWS INDICATION: SOB with Hx of HIV. COMPARISON: None. FINDINGS: Support devices: None. Heart: Within normal limits. Lungs/Pleura: Relatively diffuse bilateral lung opacity. No significant pleural effusion. IMPRESSION: Bilateral pneumonia. Signer Name: Rad Fowler MD Signed: 10/09/2020 1:15 PM Workstation Name: [email or web address] CTA CHEST WITH CONTRAST INDICATION / CLINICAL INFORMATION: SOB, assess for PE omni 350 100 ml. History of HIV. TECHNIQUE: Axial CT images were obtained through the chest after injection of IV contrast. 3 plane MIP and/or 3D reconstructions were produced. All CT scans at this location are performed using CT dose reduction for ALARA by means of automated exposure control. COMPARISON: No prior chest CT. CT abdomen pelvis dated 10/23/18. FINDINGS: PULMONARY ARTERIES: No pulmonary emboli. THORACIC AORTA: No significant abnormality. HEART: No significant abnormality. CORONARY ARTERY CALCIFICATION: None. MEDIASTINUM / TROY: No significant abnormality. PLEURA: No pleural effusion. No pneumothorax. LUNGS: Extensive, bilateral reticular and airspace opacities which are new since the prior study. On there are some groundglass opacities, this is not a dominant feature. ADDITIONAL FINDINGS: None. UPPER ABDOMEN: No acute findings. SKELETAL STRUCTURES: No significant osseous abnormality. IMPRESSION: 1. No CT evidence for pulmonary embolism. 2. Extensive bilateral reticular and airspace pulmonary opacities likely representing atypical/viral pneumonia. Findings are not typical of Covid pneumonia. Findings could represent other atypical pneumonia such as pneumocystis pneumonia. Signer Name: Yuli Quintana MD Signed: 10/09/2020 2:04 PM Workstation Name: [id number] CT ABDOMEN AND PELVIS WITH CONTRAST INDICATION / CLINICAL INFORMATION: HIV, abdominal/rectal pain OMNI 350 100 ML. TECHNIQUE: Axial CT images were obtained through the abdomen and pelvis after IV contrast. All CT scans at this location are performed using CT dose reduction for ALARA by means of automated exposure control. COMPARISON: CT dated 10/13/18 FINDINGS: LOWER CHEST: Extensive bibasilar reticular and airspace opacities. LIVER: No significant abnormality. GALLBLADDER: No significant abnormality. BILE DUCTS: No significant abnormality. PANCREAS: No significant abnormality. SPLEEN: No significant abnormality. ADRENALS: No significant abnormality. RIGHT KIDNEY / URETER: No significant abnormality. LEFT KIDNEY / URETER: No significant abnormality. STOMACH / SMALL BOWEL: Fluid-filled small bowel with nonobstructive pattern. Short segment intussusception in the mid small bowel best seen on axial series 3 image 97 and coronal image 26. COLON: No significant abnormality of the colon. There is a small gas and fluid collection along the right side of the distal rectum as seen on axial image 160. This collection measures 1.5 x 1.0 x 1.1 cm. APPENDIX: No significant abnormality. PERITONEUM: No free fluid. No free air. No fluid collection. LYMPH NODES: No significant adenopathy. AORTA / ARTERIES: No s ignificant abnormality. IVC / VEINS: No significant abnormality. URINARY BLADDER: No significant abnormality. REPRODUCTIVE ORGANS: No significant abnormality. ADDITIONAL FINDINGS: None. SKELETAL SYSTEM: No significant abnormality. IMPRESSION: 1. Small right perirectal gas and fluid collection may represent a small perirectal abscess. 2. Small, short segment small bowel intussusception. This finding is typically transient. 3. Extensive bibasilar pulmonary opacities likely representing atypical/viral pneumonia. Signer Name: Yuli Quintana MD Signed: 10/09/2020 2:10 PM Workstation Name: [id number] - Medical Decision Making 29-year-old male with history of HIV and hidradenitis not currently on antiretroviral therapy presents with a number of complaints. The patient has had shortness of breath for the last 3 months which is worsening and progressive as well as 1 month of cough and shortness of breath on exertion. He has been having night sweats and subjective fevers. He is also had 6 months of diarrhea as well as an open wound superior to his rectum. On initial assessment, he is afebrile but with heart rate in the 120s. His oxygen saturation was measured at 88% on room air. He is in no acute distress but he is tachypneic. He has dry mucous membranes but no signs of thrush. Lung auscultation reveals coarse breath sounds throughout. He has minimal generalized abdominal tenderness without guarding or rebound. He has a 2 x 2 centimeter open wound in the superior aspect of the gluteal cleft without surrounding erythema, warmth, or fluctuance. Work-up was started in triage and the patient underwent chest x-ray which showed signs of bilateral pneumonia. Given concern for possible PCP pneumonia, I have ordered a room air arterial blood gas. In the meantime we will treat for sepsis with IV vancomycin, IV ceftriaxone, and IV azithromycin. We will also order the coronavirus order set. We will obtain a full set of labs and cultures as per sepsis order set. We will give 2 L of IV fluids. We will follow up the result of the ABG and initiate supplemental oxygen to keep his oxygen saturation above 92%. ABG reveals pH of 7.46, PCO2 of 20.1, and PO2 of 76.8 on room air. The AA gradient is 45.3. Given my clinical suspicion for possible PCP pneumonia we will administer Bactrim DS x2 and 40 mg of prednisone now. 2 L via nasal ca nnula been provided and the patient's oxygen saturation is now 99 to 100%. Labs have resulted and reveal white blood cell count of 5.1, hemoglobin of 11.1. There is no significant kidney dysfunction, creatinine is at 1.1. He does have hyponatremia with a sodium of 132. His bicarb is 16. IV fluids are running. CTA of the chest reveals no evidence of pulmonary embolism but there are bilateral reticular opacities most typical of PCP pneumonia and not typical of Covid pneumonia. CT of the abdomen and pelvis reveals small rectal abscess. There is also finding of short segment intussusception although there are no signs of obstruction. The patient has minimal abdominal tenderness on exam. We will add metronidazole for anaerobic coverage. Given that the CT findings support my clinical suspicion for PCP pneumonia, he will be put on 2 L nasal cannula of supplemental oxygen continuously. I discussed with the patient all of the diagnostic results and his diagnoses along with the need for admission for further management. The patient expressed understanding and agreement with the plan of care. The patient's absolute lymphocyte count is 600, which correlates with a CD4 count less than 200, consistent with AIDS I spoke with Dr. Tay regarding the case and he accepts the patient for admission and will assume care. Critical Care Time: Yes (40 mins) Critical care time in (mins) excluding proc time.: 40 Critical care attestation.: If time is entered above; I have spent that time in minutes in the direct care of this critically ill patient, excluding procedure time. Critical care time was spent in the evaluation, work-up, and management of critical hypoxic respiratory failure requiring supplemental oxygen and in the interpretation of arterial blood gases ED Disposition Clinical Impression: PCP (pneumocystis jiroveci pneumonia), Rectal abscess, AIDS (acquired immune deficiency syndrome), HIV (human immunodeficiency virus infection), Sepsis Respiratory failure Qualifiers: Chronicity: acute on chronic Respiratory failure complication: hypoxia Qualified Code(s): J96.21 - Acute and chronic respiratory failure with hypoxia Disposition: 09 OP ADMIT IP TO THIS HOSP Is pt being admited?: Yes Condition: Fair Instructions: Bacterial Pneumonia (ED) Referrals: PRIMARY CARE, [Primary Care Provider] - 3-5 Days
--- NOTE | 2020-10-09 14:20 | XRay Report ---
CHEST 2 VIEWS INDICATION: SOB with Hx of HIV. COMPARISON: None. FINDINGS: Support devices: None. Heart: Within normal limits. Lungs/Pleura: Relatively diffuse bilateral lung opacity. No significant pleural effusion. IMPRESSION: Bilateral pneumonia. Signer Name: Rad Fowler MD Signed: 10/09/2020 2:15 PM Workstation Name: [id number]
[2020-10-09] MEDS ORDERED: predniSONE 20 MG TAB PO ONE (14:36)
[2020-10-09] MEDS ORDERED: SULFAMETHOXAZOLE/TRIMETHOPRIM 800/160MG DS TAB PO ONE (14:36)
[2020-10-09] MEDS ORDERED: metroNIDAZOLE 500 MG TAB PO ONE (14:38)
[2020-10-09] MEDS ORDERED: VANCOMYCIN/NS 1 GM/250 ML 1 GM/250 ML BAG IV ONE (15:00)
[2020-10-09 15:05] LABS: Total Cells Counted 100
[2020-10-09 15:06] LABS: C-Reactive Protein 5.5 mg/dL (0.00-1.30)
[2020-10-09 15:07] LABS: Giant Platelets Rare; Platelet Estimate Consistent w Auto; RBC Morphology Normal
--- NOTE | 2020-10-09 15:09 | Cat Scan Report ---
CTA CHEST WITH CONTRAST INDICATION / CLINICAL INFORMATION: SOB, assess for PE omni 350 100 ml. History of HIV. TECHNIQUE: Axial CT images were obtained through the chest after injection of IV contrast. 3 plane ND P and/or 3D reconstructions were produced. All CT scans at this location are performed using CT dose reduction for ALARA by means of automated exposure control. COMPARISON: No prior chest CT. CT abdomen pelvis dated 10/23/18. FINDINGS: PULMONARY ARTERIES: No pulmonary emboli. THORACIC AORTA: No significant abnormality. HEART: No significant abnormality. CORONARY ARTERY CALCIFICATION: None. MEDIASTINUM / TROY: No significant abnormality. PLEURA: No pleural effusion. No pneumothorax. LUNGS: Extensive, bilateral reticular and airspace opacities which are new since the prior study. On there are some groundglass opacities, this is not a dominant feature. ADDITIONAL FINDINGS: None. UPPER ABDOMEN: No acute findings. SKELETAL STRUCTURES: No significant osseous abnormality. IMPRESSION: 1. No CT evidence for pulmonary embolism. 2. Extensive bilateral reticular and airspace pulmonary opacities likely representing atypical/viral pneumonia. Findings are not typical of Covid pneumonia. Findings could represent other atypical pneum onia such as pneumocystis pneumonia. Signer Name: Yuli Quintana MD Signed: 10/09/2020 3:04 PM Workstation Name: [id number]
--- NOTE | 2020-10-09 15:14 | Cat Scan Report ---
CT ABDOMEN AND PELVIS WITH CONTRAST INDICATION / CLINICAL INFORMATION: HIV, abdominal/rectal pain OMNI 350 100 ML. TECHNIQUE: Axial CT images were obtained through the abdomen and pelvis after IV contrast. All CT sc ans at this location are performed using CT dose reduction for ALARA by means of automated exposure c ontrol. COMPARISON: CT dated 10/13/18 FINDINGS: LOWER CHEST: Extensive bibasilar reticular and airspace opacities. LIVER: No significant abnormality. GALLBLADDER: No significant abnormality. BILE DUCTS: No significant abnormality. PANCREAS: No significant abnormality. SPLEEN: No significant abnormality. ADRENALS: No significant abnormality. RIGHT KIDNEY / URETER: No significant abnormality. LEFT KIDNEY / URETER: No significant abnormality. STOMACH / SMALL BOWEL: Fluid-filled small bowel with nonobstructive pattern. Short segment intussusce ption in the mid small bowel best seen on axial series 3 image 97 and coronal image 26. COLON: No significant abnormality of the colon. There is a small gas and fluid collection along the r ight side of the distal rectum as seen on axial image 160. This collection measures 1.5 x 1.0 x 1.1 c m. APPENDIX: No significant abnormality. PERITONEUM: No free fluid. No free air. No fluid collection. LYMPH NODES: No significant adenopathy. AORTA / ARTERIES: No significant abnormality. IVC / VEINS: No significant abnormality. URINARY BLADDER: No significant abnormality. REPRODUCTIVE ORGANS: No significant abnormality. ADDITIONAL FINDINGS: None. SKELETAL SYSTEM: No significant abnormality. IMPRESSION: 1. Small right perirectal gas and fluid collection may represent a small perirectal abscess. 2. Small, short segment small bowel intussusception. This finding is typically transient. 3. Extensive bibasilar pulmonary opacities likely representing atypical/viral pneumonia. Signer Name: Yuli Quintana MD Signed: 10/09/2020 3:10 PM Workstation Name: [id number]
[2020-10-09 17:35] LABS: Bilirubin,Urine NEG (Negative); Blood,Urine NEG (Negative); Color,Urine Yellow (Yellow); Mucus,Urine FEW /HPF; Urobilinogen,Urine < 2.0 mg/dL (<2.0)
[2020-10-09] MEDS: SODIUM CHLORIDE 0.9% 1000 ML 1,000 ML IV SCH (21:23)
--- NOTE | 2020-10-10 06:11 | History and Physical Report ---
History of Present Illness Date of examination: 10/09/20 Date of admission: 10/09/20 19:48 Chief complaint: Shortness of breath for 3 months History of present illness: 29-year-old male with history of HIV not on any antiretroviral therapy along with her chronic gluteal cleft ulcer presents with shortness of breath for 3 months which has been worsening over the past 1 week. Patient feels short of breath on minimal exertion. Patient was hypoxic when he came to the emergency room. Patient had a work-up in facility and is not sure of what the diagnosis was. He states he is not Covid. No exposure to Covid. No other symptoms of HIV. Like chronic diarrhea. All seizures. His main complaint is shortness of breath on minimal exertion for the past 3 months. No penile lesions. Gluteal cleft ulcer 3 to 6 months. - Past Medical History Previous Medical History?: Yes --HIV: Yes Additional medical history: Boils, Left axillary boil, Rectal boil - Surgical History Past Surgical History?: No - Social History Smoking Status: Current Some Day Smoker Substance Use Type: Alcohol, Marijuana Family history Htn -Review of Systems ROS: Stated complaint: SOB,RECTAL INFECTION,OPEN WOUND Other details as noted in HPI Constitutional: chills, fever, malaise Eyes: denies: eye pain, vision change ENT: denies: throat pain, congestion Respiratory: cough, shortness of breath, SOB with exertion. denies: wheezing Cardiovascular: denies: chest pain, palpitations, edema, syncope Gastrointestinal: abdominal pain, nausea, diarrhea, other (Open wound to b uttocks). denies: vomiting, melena Genitourinary: denies: dysuria, frequency, hematuria, testicular pain Musculoskeletal: denies: back pain, joint swelling Skin: denies: rash Neurological: denies: headache, weakness, numbness Medications and Allergies Allergies Allergy/AdvReac Type Severity Reaction Status Date / Time No Known Allergies Allergy Verified 12/28/13 04:32 Home Medications Medication Instructions Recorded Confirmed Last Taken Type HYDROcodone/ACETAMINOPHEN [[place] 1 each PO Q6HR #20 tablet 12/28/13 10/09/20 Unknown Rx 5/325 Tablet] Active Meds: Active Medications Acetaminophen (Acetaminophen 325 Mg Tab) 650 mg PO Q4H PRN PRN Reason: Pain MILD(1-3)/Fever >100.5/LAMA Sodium Chloride (Nacl 0.9% 1000 Ml) 1,000 mls @ 75 mls/hr IV DIRECT [facility] Last Admin: 10/09/20 21:23 Dose: 75 mls/hr Documented by: Ondansetron HCl (Ondansetron 4 Mg/2 Ml Inj) 4 mg IV Q8H PRN PRN Reason: Nausea And Vomiting Pneumococcal Polyvalent Vaccine (Pneumococcal 23 Valent 0.5 Ml Vial) 0.5 ml IM .ONCE ONE Stop: 10/10/20 12:01 Sodium Chloride (Sodium Chloride 0.9% 10 Ml Flush Syringe) 10 ml IV BID [facility] Last Admin: 10/09/20 21:23 Dose: 10 ml Documented by: Sodium Chloride (Sodium Chloride 0.9% 10 Ml Flush Syringe) 10 ml IV PRN PRN PRN Reason: LINE FLUSH Exam - Constitutional Vitals: Temp Pulse Resp BP Pulse Ox 97.7 F 85 16 127/92 94 10/10/20 04:52 10/10/20 04:52 10/10/20 04:52 10/10/20 04:52 10/10/20 04:52 General appearance: Present: mild distress, cachectic - EENT Eyes: Present: PERRL ENT: hearing intact, clear oral mucosa - Neck Neck: Present: supple, normal ROM - Respiratory Respiratory effort: normal Respiratory: bilateral: CTA, rhonchi, wheezing - Cardiovascular Heart rate: 78 Rhythm: regular Heart Sounds: Present: S1 & S2. Absent: rub, click - Extremities Extremities: no ischemia, pulses intact, pulses symmetrical, No edema Peripheral Pulses: within normal limits - Abdominal General gastrointestinal: Present: soft, non-tender, non-distended, normal bowel sounds, other (2 cm x 1 cm superficial ulcer on the gluteal cleft. [place]. No active drainage.) Male genitourinary: Present: normal - Rectal Rectal Exam: deferred - Integumentary Integumentary: Present: clear, warm, dry - Musculoskeletal Musculoskeletal: gait normal, strength equal bilaterally - Psychiatric Psychiatric: appropriate mood/affect, intact judgment & insight - Neurologic Neurologic: CNII-XII intact, moves all extremities - Allied Health Allied health notes reviewed: nursing, case management HEART Score - HEART Score Troponin: Troponin T < 0.010 ng/mL (0.00-0.029) 10/09/20 14:22 Results - Labs CBC & Chem 7: 10/09/20 13:18 10/09/20 14:22 Labs: Laboratory Last Values WBC 5.1 K/mm3 (4.5-11.0) 10/09/20 13:18 RBC 3.54 M/mm3 (3.65-5.03) L 10/09/20 13:18 Hgb 11.1 gm/dl (11.8-15.2) L 10/09/20 13:18 Hct 32.0 % (35.5-45.6) L 10/09/20 13:18 MCV 90 fl (84-94) 10/09/20 13:18 MCH 31 pg (28-32) 10/09/20 13:18 MCHC 35 % (32-34) H 10/09/20 13:18 RDW 14.2 % (13.2-15.2) 10/09/20 13:18 Plt Count 562 K/mm3 (140-440) H 10/09/20 13:18 Add Manual Diff Complete 10/09/20 13:18 Total Counted 100 10/09/20 13:18 Seg Neuts % (Manual) 86.0 % (40.0-70.0) H 10/09/20 13:18 Lymphocytes % (Manual) 11.0 % (13.4-35.0) L 10/09/20 13:18 Monocytes % (Manual) 3.0 % (0.0-7.3) 10/09/20 13:18 Nucleated RBC % Not Reportable 10/09/20 13:18 Seg Neutrophils # Man 4.4 K/mm3 (1.8-7.7) 10/09/20 13:18 Band Neutrophils # 0.0 K/mm3 10/09/20 13:18 Lymphocytes # (Manual) 0.6 K/mm3 (1.2-5.4) L 10/09/20 13:18 Abs React Lymphs (Man) 0.0 K/mm3 10/09/20 13:18 Monocytes # (Manual) 0.2 K/mm3 (0.0-0.8) 10/09/20 13:18 Eosinophils # (Manual) 0.0 K/mm3 (0.0-0.4) 10/09/20 13:18 Basophils # (Manual) 0.0 K/mm3 (0.0-0.1) 10/09/20 13:18 Metamyelocytes # 0.0 K/mm3 10/09/20 13:18 Myelocytes # 0.0 K/mm3 10/09/20 13:18 Promyelocytes # 0.0 K/mm3 10/09/20 13:18 Blast Cells # 0.0 K/mm3 10/09/20 13:18 WBC Morphology Not Reportable 10/09/20 13:18 Hypersegmented Neuts Not Reportable 10/09/20 13:18 Hyposegmented Neuts Not Reportable 10/09/20 13:18 Hypogranular Neuts Not Reportable 10/09/20 13:18 Smudge Cells Not Reportable 10/09/20 13:18 Toxic Granulation Not Reportable 10/09/20 13:18 Toxic Vacuolation Not Reportable 10/09/20 13:18 Dohle Bodies Not Reportable 10/09/20 13:18 Pelger-Huet Anomaly Not Reportable 10/09/20 13:18 Yuri Rods Not Reportable 10/09/20 13:18 Platelet Estimate Consistent w auto 10/09/20 13:18 Clumped Platelets Not Reportable 10/09/20 13:18 Plt Clumps, EDTA Not Reportable 10/09/20 13:18 Large Platelets Not Reportable 10/09/20 13:18 Giant Platelets Rare 10/09/20 13:18 Platelet Satelliting Not Reportable 10/09/20 13:18 Plt Morphology Comment Not Reportable 10/09/20 13:18 RBC Morphology Normal 10/09/20 13:18 Dimorphic RBCs Not Reportable 10/09/20 13:18 Polychromasia Not Reportable 10/09/20 13:18 Hypochromasia Not Reportable 10/09/20 13:18 Poikilocytosis Not Reportable 10/09/20 13:18 Anisocytosis Not Reportable 10/09/20 13:18 Microcytosis Not Reportable 10/09/20 13:18 Macrocytosis Not Reportable 10/09/20 13:18 Spherocytes Not Reportable 10/09/20 13:18 Pappenheimer Bodies Not Reportable 10/09/20 13:18 Sickle Cells Not Reportable 10/09/20 13:18 Target Cells Not Reportable 10/09/20 13:18 Tear Drop Cells Not Reportable 10/09/20 13:18 Ovalocytes Not Reportable 10/09/20 13:18 Helmet Cells Not Reportable 10/09/20 13:18 Doe-Townsend Bodies Not Reportable 10/09/20 13:18 Cedar Rings Not Reportable 10/09/20 13:18 Naz Cells Not Reportable 10/09/20 13:18 Bite Cells Not Reportable 10/09/20 13:18 Crenated Cell Not Reportable 10/09/20 13:18 Elliptocytes Not Reportable 10/09/20 13:18 Acanthocytes (Spur) Not Reportable 10/09/20 13:18 Rouleaux Not Reportable 10/09/20 13:18 Hemoglobin C Crystals Not Reportable 10/09/20 13:18 Schistocytes Not Reportable 10/09/20 13:18 Malaria parasites Not Reportable 10/09/20 13:18 Benigno Bodies Not Reportable 10/09/20 13:18 Hem Pathologist Commnt No 10/09/20 13:18 D-Dimer 365.83 ng/mlDDU (0-234) H 10/09/20 14:22 ABG pH 7.462 (7.320-7.450) H 10/09/20 14:14 POC ABG pCO2 22.1 mmHg (32.0-48.0) L 10/09/20 14:14 POC ABG pO2 76.8 mmHg (83-108) L 10/09/20 14:14 POC ABG HCO3 15.4 10/09/20 14:14 ABG O2 Saturation 94.5 (0-100) 10/09/20 14:14 POC ABG Base Excess -6.7 10/09/20 14:14 ABG Hemoglobin 11.1 (12.0-17.5) L 10/09/20 14:14 ABG Oxyhemoglobin 93.8 (94-98) L 10/09/20 14:14 ABG Methemoglobin 0.3 (0.0-1.5) 10/09/20 14:14 ABG Sodium 133.8 mmol/L (136.0-145.0) L 10/09/20 14:14 ABG Potassium 3.5 mmol/L (3.40-4.50) 10/09/20 14:14 ABG Chloride 105.0 mmol/L (98-107) 10/09/20 14:14 ABG Glucose 94 mg/dL (65-95) 10/09/20 14:14 ABG Lactate 1.54 (0.18-30.0) 10/09/20 14:14 Carboxyhemoglobin 0.4 (0.5-1.5) L 10/09/20 14:14 FiO2 % 21.0 10/09/20 14:14 Sodium 132 mmol/L (137-145) L 10/09/20 13:18 Potassium 3.6 mmol/L (3.6-5.0) 10/09/20 13:18 Chloride 100.7 mmol/L (98-107) 10/09/20 13:18 Carbon Dioxide 16 mmol/L (22-30) L 10/09/20 13:18 Anion Gap 19 mmol/L 10/09/20 13:18 BUN 17 mg/dL (9-20) 10/09/20 13:18 Creatinine 1.1 mg/dL (0.8-1.3) 10/09/20 13:18 Estimated GFR > 60 ml/min 10/09/20 13:18 BUN/Creatinine Ratio 15 % 10/09/20 13:18 Glucose 94 mg/dL (75-100) 10/09/20 14:22 Lactic Acid 2.40 mmol/L (0.7-2.0) H* 10/09/20 16:44 Calcium 8.9 mg/dL (8.4-10.2) 10/09/20 13:18 Ferritin 1322.0 ng/mL (30.0-300.0) H 10/09/20 14:22 Total Bilirubin 0.30 mg/dL (0.1-1.2) 10/09/20 13:18 AST 38 units/L (5-40) 10/09/20 13:18 ALT < 5 units/L (7-56) L 10/09/20 13:18 Alkaline Phosphatase 77 units/L (35-129) 10/09/20 13:18 Lactate Dehydrogenase 581 units/L (91-180) H 10/09/20 14:22 Troponin T < 0.010 ng/mL (0.00-0.029) 10/09/20 14:22 C-Reactive Protein 5.50 mg/dL (0.00-1.30) H 10/09/20 14:22 NT-Pro-B Natriuret Pep 47.57 pg/mL (0-450) 10/09/20 14:22 Total Protein 8.7 g/dL (6.3-8.2) H 10/09/20 13:18 Albumin 3.1 g/dL (3.9-5) L 10/09/20 13:18 Albumin/Globulin Ratio 0.6 % 10/09/20 13:18 Procalcitonin 0.07 ng/mL (<0.15) 10/09/20 14:22 Arterial Blood Glucose 94 mg/dL (65-95) 10/09/20 14:14 Urine Color Yellow (Yellow) 10/09/20 Unknown Urine Turbidity Clear (Clear) 10/09/20 Unknown Urine pH 6.0 (5.0-7.0) 10/09/20 Unknown Ur Specific [place] 1.054 (1.003-1.030) H 10/09/20 Unknown Urine Protein 30 mg/dl mg/dL (Negative) 10/09/20 Unknown Urine Glucose (UA) Neg mg/dL (Negative) 10/09/20 Unknown Urine Ketones Neg mg/dL (Negative) 10/09/20 Unknown Urine Blood Neg (Negative) 10/09/20 Unknown Urine Nitrite Neg (Negative) 10/09/20 Unknown Urine Bilirubin Neg (Negative) 10/09/20 Unknown Urine Urobilinogen < 2.0 mg/dL (<2.0) 10/09/20 Unknown Ur Leukocyte Esterase Neg (Negative) 10/09/20 Unknown Urine WBC (Auto) 4.0 /HPF (0.0-6.0) 10/09/20 Unknown Urine RBC (Auto) 1.0 /HPF (0.0-6.0) 10/09/20 Unknown U Epithel Cells (Auto) < 1.0 /HPF (0-13.0) 10/09/20 Unknown Urine Mucus Few /HPF 10/09/20 Unknown Short CBC 10/09/20 Range/Units 13:18 WBC 5.1 (4.5-11.0) K/mm3 Hgb 11.1 L (11.8-15.2) gm/dl Hct 32.0 L (35.5-45.6) % Plt Count 562 H (140-440) K/mm3 BMP 10/09/20 10/09/20 13:18 14:22 Sodium 132 L Potassium 3.6 Chloride 100.7 Carbon Dioxide 16 L BUN 17 Creatinine 1.1 Glucose 102 H 94 Calcium 8.9 Cardiac Enzymes 10/09/20 Range/Units 14:22 Troponin T < 0.010 (0.00-0.029) ng/mL Liver Function 10/09/20 Range/Units 13:18 Total Bilirubin 0.30 (0.1-1.2) mg/dL AST 38 (5-40) units/L ALT < 5 L (7-56) units/L Alkaline Phosphatase 77 (35-129) units/L Albumin 3.1 L (3.9-5) g/dL Urine 10/09/20 Range/Units Unknown Urine Color Yellow (Yellow) Urine pH 6.0 (5.0-7.0) Ur Specific [place] 1.054 H (1.003-1.030) Urine Protein 30 mg/dl (Negative) mg/dL Urine Glucose (UA) Neg (Negative) mg/dL Microbiology: Microbiology 10/09/20 14:22 Peripheral/Venous Blood Culture - Preliminary Culture in Progress 10/09/20 14:22 Peripheral/Venous Blood Culture - Preliminary Culture in Progress - Imaging and Cardiology Chest x-ray: report reviewed CT scan - abdomen: report reviewed CT scan - chest: report reviewed Imaging and Cardiology: Chest x-ray Bilateral pneumonia Abdominal CAT scan/pelvis CAT scan Small perirectal gas and fluid collection may represent a small perirectal abscess Small short segment small bowel intussusception and this finding is very transient. Extensive bibasilar pulmonary opacities likely representing atypical very viral pneumonia. Chest CTA No CT evidence for pulmonary embolism. Extensive bilateral reticular and airspace pulmonary opacities likely representing atypical/viral pneumonia. Findings are not typical for Covid pneumonia. Findings could represent other reticular atypical pneumonia such as pneumocystis pneumonia. Lal/IV: Voiding Method Urinal Assessment and Plan Advance Directives: Yes (Full code) VTE prophylaxis?: Chemical Plan of care discussed with patient/family: Yes - Patient Problems (1) Acute respiratory failure with hypoxia Current Visit: Yes Status: Acute Plan to address problem: Patient on supplemental oxygen (2) PCP (pneumocystis jiroveci pneumonia) Current Visit: Yes Status: Acute Qualifiers: Laterality: bilateral Plan to address problem: Clinical picture consistent with PCP pneumonia Patient is IV Zithromax and IV Bactrim ID consult requested (3) HIV (human immunodeficiency virus infection) Current Visit: Yes Status: Chronic Qualifiers: HIV symptom status: symptomatic Qualified Code(s): B20 - Human immunodeficiency virus [HIV] disease Plan to address problem: Patient not taking antiretroviral because HIV program was called on from April 09, 2020 Patient encouraged to get Medicaid and gyne HIV program and follow-up with ID (4) Rectal abscess Current Visit: Yes Status: Acute Plan to address problem: Surgical consult requested wound care consult requested (5) Hyponatremia Current Visit: Yes Status: Acute Plan to address problem: IV normal saline for now (6) Malnutrition Current Visit: Yes Status: Chronic Qualifiers: Protein-calorie malnutrition severity: mild Plan to address problem: Patient started on dietary supplements (7) DVT prophylaxis Current Visit: Yes Status: Acute Plan to address problem: On heparin and GI prophylaxis
[2020-10-10] MEDS ORDERED: IPRATROPIUM/ALBUTEROL SULFATE 3 ML AMPUL.NEB IH PRN (06:19)
[2020-10-10] MEDS: WATER IV SCH ×2 (07:00→13:28)
[2020-10-10] MEDS: TMP IV SCH ×2 (07:00→13:28)
[2020-10-10] MEDS: DEXTROSE 5% IV SCH ×2 (07:00→13:28)
[2020-10-10] MEDS: SMX IV SCH ×2 (07:00→13:28)
--- NOTE | 2020-10-10 10:37 | Progress Note ---
Subjective Date of service: 10/10/20 Interval history: Shortness of breath for 3 months History of present illness: 29-year-old male with history of HIV not on any antiretroviral therapy along w ith her chronic gluteal cleft ulcer presents with shortness of breath for 3 months which has been worsening over the past 1 week. Patient feels short of breath on minimal exertion. Patient was hypoxic when he came to the emergency room. Patient had a work-up in facility and is not sure of what the diagnosis was. He states he is not Covid. No exposure to Covid. No other symptoms of HIV. Like chronic diarrhea. All seizures. His main complaint is shortness of breath on minimal exertion for the past 3 months. No penile lesions. Gluteal cleft ulcer 3 to 6 months. 10/10 patient is alert and oriented, no apparent distress and he offers no specific complaints except shortness of breath on exertion, denies fever chills Denies chest pain, palpitations, dizziness or nausea or abdominal pain. Lab results reviewed. Assessment and plan Shortness of breath/hypoxia Rule out COVID-19 pneumonia Patient states his shortness of breath is worse for the past 1 week with minimal effort Denies paroxysmal nocturnal dyspnea Chest x-ray reviewed Oxygen saturation 93 to 94% with oxygen supplements via nasal cannula Check echocardiogram to rule out LV dysfunction Covid 19 test ordered Patient states that he was tested negative for COVID-19, 4 months ago CTA chest results reviewed-negative for PE Inflammatory markers reviewed/elevated CRP, LDH and ferritin Check D-dimer Procalcitonin in the normal range HIV positive Bilateral infiltrates on chest x-ray Rule out PCP pneumonia ID consulted Continue present antibiotics Perirectal abscess CT of the abdomen pelvis results reviewed Continue present antibiotic Await ID evaluation General surgery consulted Anemia Normocytic type No overt bleed Hyponatremia Mild Monitor electrolytes Protein calorie malnutrition Severe Patient states that he lost 35 pounds in the past 6 months Dietary consult Tobacco abuse Smoking cessation counseling was done Objective - Constitutional Vitals: Vital Signs - 12hr 10/10/20 04:52 Temperature 97.7 F Pulse Rate 85 Respiratory 16 Rate Blood Pressure 127/92 O2 Sat by Pulse 94 Oximetry General appearance: Present: no acute distress, cachectic - EENT Eyes: PERRL, EOM intact ENT: hearing intact, clear oral mucosa, no thrush - Neck Neck: supple, normal ROM, no masses or JVD - Respiratory Respiratory effort: normal Respiratory: bilateral: CTA, diminished, negative: rhonchi - Cardiovascular Rhythm: regular Heart Sounds: Present: S1 & S2 Extremities: No edema - Gastrointestinal General gastrointestinal: Present: soft, non-tender Rectal Exam: deferred - Genitourinary Male genitourinary: deferred - Musculoskeletal Musculoskeletal: strength equal bilaterally - Neurologic Neurologic: no focal deficits, moves all extremities - Psychiatric Psychiatric: appropriate mood/affect - Labs CBC & Chem 7: 10/09/20 13:18 10/09/20 14:22 Labs: Abnormal lab results 10/09/20 10/09/20 10/09/20 Range/Units 13:18 13:18 14:14 RBC 3.54 L (3.65-5.03) M/mm3 Hgb 11.1 L (11.8-15.2) gm/dl Hct 32.0 L (35.5-45.6) % MCHC 35 H (32-34) % Plt Count 562 H (140-440) K/mm3 Seg Neuts % (Manual) 86.0 H (40.0-70.0) % Lymphocytes % (Manual) 11.0 L (13.4-35.0) % Lymphocytes # (Manual) 0.6 L (1.2-5.4) K/mm3 D-Dimer (0-234) ng/mlDDU ABG pH 7.462 H (7.320-7.450) POC ABG pCO2 22.1 L (32.0-48.0) mmHg POC ABG pO2 76.8 L (83-108) mmHg ABG Hemoglobin 11.1 L (12.0-17.5) ABG Oxyhemoglobin 93.8 L (94-98) ABG Sodium 133.8 L (136.0-145.0) mmol/L Carboxyhemoglobin 0.4 L (0.5-1.5) Sodium 132 L (137-145) mmol/L Carbon Dioxide 16 L (22-30) mmol/L Glucose 102 H (75-100) mg/dL Lactic Acid (0.7-2.0) mmol/L Ferritin (30.0-300.0) ng/mL ALT < 5 L (7-56) units/L Lactate Dehydrogenase (91-180) units/L C-Reactive Protein (0.00-1.30) mg/dL Total Protein 8.7 H (6.3-8.2) g/dL Albumin 3.1 L (3.9-5) g/dL Ur Specific [place] (1.003-1.030) 10/09/20 10/09/20 10/09/20 Range/Units 14:22 14:22 14:22 RBC (3.65-5.03) M/mm3 Hgb (11.8-15.2) gm/dl Hct (35.5-45.6) % MCHC (32-34) % Plt Count (140-440) K/mm3 Seg Neuts % (Manual) (40.0-70.0) % Lymphocytes % (Manual) (13.4-35.0) % Lymphocytes # (Manual) (1.2-5.4) K/mm3 D-Dimer 365.83 H (0-234) ng/mlDDU ABG pH (7.320-7.450) POC ABG pCO2 (32.0-48.0) mmHg POC ABG pO2 (83-108) mmHg ABG Hemoglobin (12.0-17.5) ABG Oxyhemoglobin (94-98) ABG Sodium (136.0-145.0) mmol/L Carboxyhemoglobin (0.5-1.5) Sodium (137-145) mmol/L Carbon Dioxide (22-30) mmol/L Glucose (75-100) mg/dL Lactic Acid (0.7-2.0) mmol/L Ferritin 1322.0 H (30.0-300.0) ng/mL ALT (7-56) units/L Lactate Dehydrogenase 581 H (91-180) units/L C-Reactive Protein 5.50 H (0.00-1.30) mg/dL Total Protein (6.3-8.2) g/dL Albumin (3.9-5) g/dL Ur Specific [place] (1.003-1.030) 10/09/20 10/09/20 Range/Units 16:44 Unknown RBC (3.65-5.03) M/mm3 Hgb (11.8-15.2) gm/dl Hct (35.5-45.6) % MCHC (32-34) % Plt Count (140-440) K/mm3 Seg Neuts % (Manual) (40.0-70.0) % Lymphocytes % (Manual) (13.4-35.0) % Lymphocytes # (Manual) (1.2-5.4) K/mm3 D-Dimer (0-234) ng/mlDDU ABG pH (7.320-7.450) POC ABG pCO2 (32.0-48.0) mmHg POC ABG pO2 (83-108) mmHg ABG Hemoglobin (12.0-17.5) ABG Oxyhemoglobin (94-98) ABG Sodium (136.0-145.0) mmol/L Carboxyhemoglobin (0.5-1.5) Sodium (137-145) mmol/L Carbon Dioxide (22-30) mmol/L Glucose (75-100) mg/dL Lactic Acid 2.40 H* (0.7-2.0) mmol/L Ferritin (30.0-300.0) ng/mL ALT (7-56) units/L Lactate Dehydrogenase (91-180) units/L C-Reactive Protein (0.00-1.30) mg/dL Total Protein (6.3-8.2) g/dL Albumin (3.9-5) g/dL Ur Specific [place] 1.054 H (1.003-1.030) HEART Score - HEART Score Troponin: Troponin T < 0.010 ng/mL (0.00-0.029) 10/09/20 14:22
[2020-10-10] MEDS: HEPARIN 5,000 UNIT/1 ML VIAL SUB-Q SCH ×2 (10:48→21:43)
[2020-10-10] MEDS: SODIUM CHLORIDE 0.9% 1000 ML 1,000 ML IV SCH (11:03)
--- NOTE | 2020-10-10 11:33 | Consultation ---
History of Present Illness Consult date: 10/10/20 - History of present illness History of present illness: 29 year old HIV+ male presented to ED with chief complaint of worsening shortness of breath of the last 3 months. He has been having chronic gluteal ulcers for the last 3-6 months that have been painful. He had a CT scan of the abdomen and pelvis that a 1x1 cm lea-rectal abscess in the distal segment. Pt denies any rectal pain, fever, chills or drainage from his anus. Past History Past Medical History: other (HIV) Past Surgical History: No surgical history Medications and Allergies Allergies Allergy/AdvReac Type Severity Reaction Status Date / Time No Known Allergies Allergy Verified 12/28/13 04:32 Home Medications Medication Instructions Recorded Confirmed Last Taken Type HYDROcodone/ACETAMINOPHEN [[place] 1 each PO Q6HR #20 tablet 12/28/13 10/09/20 Unknown Rx 5/325 Tablet] Active Meds: Active Medications Acetaminophen (Acetaminophen 325 Mg Tab) 650 mg PO Q4H PRN PRN Reason: Pain MILD(1-3)/Fever >100.5/LAMA Albuterol (Albuterol 2.5 Mg/3 Ml Nebu) 2.5 mg IH Q3HRT PRN PRN Reason: Wheezing Heparin Sodium (Porcine) (Heparin 5,000 Unit/1 Ml Vial) 5,000 unit SUB-Q Q12HR IRIS Last Admin: 10/10/20 10:48 Dose: 5,000 unit Documented by: Sodium Chloride (Nacl 0.9% 1000 Ml) 1,000 mls @ 75 mls/hr IV DIRECT IRIS Last Admin: 10/10/20 11:03 Dose: 75 mls/hr Documented by: Trimethoprim/Sulfamethoxazole (260 mg/ Dextrose) 516.25 mls @ 350 mls/hr IV Q6H IRIS; Protocol Last Admin: 10/10/20 07:00 Dose: 350 mls/hr Documented by: Azithromycin (Zithromax/Ns) 500 mg in 250 mls @ 250 mls/hr IV Q24H [facility] Ondansetron HCl (Ondansetron 4 Mg/2 Ml Inj) 4 mg IV Q8H PRN PRN Reason: Nausea And Vomiting Pneumococcal Polyvalent Vaccine (Pneumococcal 23 Valent 0.5 Ml Vial) 0.5 ml IM .ONCE ONE Stop: 10/10/20 12:01 Sodium Chloride (Sodium Chloride 0.9% 10 Ml Flush Syringe) 10 ml IV BID IRIS Last Admin: 10/09/20 21:23 Dose: 10 ml Documented by: Sodium Chloride (Sodium Chloride 0.9% 10 Ml Flush Syringe) 10 ml IV PRN PRN PRN Reason: LINE FLUSH Review of Systems All systems: negative - Constitutional no fever, no chills - Cardiovascular no chest pain - Respiratory cough, shortness of breath, dyspnea on exertion - Gastrointestinal diarrhea, no abdominal pain, no nausea, no vomiting - Genitourinary no dysuria - Integumentary wounds Exam Vital Signs Temp Pulse Resp BP Pulse Ox 98.9 F 128 H 22 135/97 88 10/09/20 13:09 10/09/20 13:09 10/09/20 13:09 10/09/20 13:10/09/20 13:09 - General physical appearance Positive: well developed, no distress, moderate pain - Respiratory Positive: normal respiratory effort, other (coughing) - Rectum Rectum: normal spincter tone, no tenderness, other (no defnintive areas of fluctuance) - Integumentary other (chronic ulcerated wound at the apex of gluteal cleft. a smaller one on the left buttock cheek. no active drainage) - Neurologic Neurologic: alert and oriented to time, place and person Results - Labs 10/09/20 13:18 10/09/20 14:22 Abnormal lab results 10/09/20 10/09/20 10/09/20 Range/Units 13:18 13:18 14:14 RBC 3.54 L (3.65-5.03) M/mm3 Hgb 11.1 L (11.8-15.2) gm/dl Hct 32.0 L (35.5-45.6) % MCHC 35 H (32-34) % Plt Count 562 H (140-440) K/mm3 Seg Neuts % (Manual) 86.0 H (40.0-70.0) % Lymphocytes % (Manual) 11.0 L (13.4-35.0) % Lymphocytes # (Manual) 0.6 L (1.2-5.4) K/mm3 D-Dimer (0-234) ng/mlDDU ABG pH 7.462 H (7.320-7.450) POC ABG pCO2 22.1 L (32.0-48.0) mmHg POC ABG pO2 76.8 L (83-108) mmHg ABG Hemoglobin 11.1 L (12.0-17.5) ABG Oxyhemoglobin 93.8 L (94-98) ABG Sodium 133.8 L (136.0-145.0) mmol/L Carboxyhemoglobin 0.4 L (0.5-1.5) Sodium 132 L (137-145) mmol/L Carbon Dioxide 16 L (22-30) mmol/L Glucose 102 H (75-100) mg/dL Lactic Acid (0.7-2.0) mmol/L Ferritin (30.0-300.0) ng/mL ALT < 5 L (7-56) units/L Lactate Dehydrogenase (91-180) units/L C-Reactive Protein (0.00-1.30) mg/dL Total Protein 8.7 H (6.3-8.2) g/dL Albumin 3.1 L (3.9-5) g/dL Ur Specific [place] (1.003-1.030) 10/09/20 10/09/20 10/09/20 Range/Units 14:22 14:22 14:22 RBC (3.65-5.03) M/mm3 Hgb (11.8-15.2) gm/dl Hct (35.5-45.6) % MCHC (32-34) % Plt Count (140-440) K/mm3 Seg Neuts % (Manual) (40.0-70.0) % Lymphocytes % (Manual) (13.4-35.0) % Lymphocytes # (Manual) (1.2-5.4) K/mm3 D-Dimer 365.83 H (0-234) ng/mlDDU ABG pH (7.320-7.450) POC ABG pCO2 (32.0-48.0) mmHg POC ABG pO2 (83-108) mmHg ABG Hemoglobin (12.0-17.5) ABG Oxyhemoglobin (94-98) ABG Sodium (136.0-145.0) mmol/L Carboxyhemoglobin (0.5-1.5) Sodium (137-145) mmol/L Carbon Dioxide (22-30) mmol/L Glucose (75-100) mg/dL Lactic Acid (0.7-2.0) mmol/L Ferritin 1322.0 H (30.0-300.0) ng/mL ALT (7-56) units/L Lactate Dehydrogenase 581 H (91-180) units/L C-Reactive Protein 5.50 H (0.00-1.30) mg/dL Total Protein (6.3-8.2) g/dL Albumin (3.9-5) g/dL Ur Specific [place] (1.003-1.030) 10/09/20 10/09/20 Range/Units 16:44 Unknown RBC (3.65-5.03) M/mm3 Hgb (11.8-15.2) gm/dl Hct (35.5-45.6) % MCHC (32-34) % Plt Count (140-440) K/mm3 Seg Neuts % (Manual) (40.0-70.0) % Lymphocytes % (Manual) (13.4-35.0) % Lymphocytes # (Manual) (1.2-5.4) K/mm3 D-Dimer (0-234) ng/mlDDU ABG pH (7.320-7.450) POC ABG pCO2 (32.0-48.0) mmHg POC ABG pO2 (83-108) mmHg ABG Hemoglobin (12.0-17.5) ABG Oxyhemoglobin (94-98) ABG Sodium (136.0-145.0) mmol/L Carboxyhemoglobin (0.5-1.5) Sodium (137-145) mmol/L Carbon Dioxide (22-30) mmol/L Glucose (75-100) mg/dL Lactic Acid 2.40 H* (0.7-2.0) mmol/L Ferritin (30.0-300.0) ng/mL ALT (7-56) units/L Lactate Dehydrogenase (91-180) units/L C-Reactive Protein (0.00-1.30) mg/dL Total Protein (6.3-8.2) g/dL Albumin (3.9-5) g/dL Ur Specific [place] 1.054 H (1.003-1.030) Diabetes panel 10/09/20 10/09/20 Range/Units 13:18 14:22 Sodium 132 L (137-145) mmol/L Potassium 3.6 (3.6-5.0) mmol/L Chloride 100.7 (98-107) mmol/L Carbon Dioxide 16 L (22-30) mmol/L BUN 17 (9-20) mg/dL Creatinine 1.1 (0.8-1.3) mg/dL Glucose 102 H 94 (75-100) mg/dL Calcium 8.9 (8.4-10.2) mg/dL AST 38 (5-40) units/L ALT < 5 L (7-56) units/L Alkaline Phosphatase 77 (35-129) units/L Total Protein 8.7 H (6.3-8.2) g/dL Albumin 3.1 L (3.9-5) g/dL Calcium panel 10/09/20 Range/Units 13:18 Calcium 8.9 (8.4-10.2) mg/dL Albumin 3.1 L (3.9-5) g/dL Pituitary panel 10/09/20 10/09/20 Range/Units 13:18 14:22 Sodium 132 L (137-145) mmol/L Potassium 3.6 (3.6-5.0) mmol/L Chloride 100.7 (98-107) mmol/L Carbon Dioxide 16 L (22-30) mmol/L BUN 17 (9-20) mg/dL Creatinine 1.1 (0.8-1.3) mg/dL Glucose 102 H 94 (75-100) mg/dL Calcium 8.9 (8.4-10.2) mg/dL Adrenal panel 10/09/20 10/09/20 Range/Units 13:18 14:22 Sodium 132 L (137-145) mmol/L Potassium 3.6 (3.6-5.0) mmol/L Chloride 100.7 (98-107) mmol/L Carbon Dioxide 16 L (22-30) mmol/L BUN 17 (9-20) mg/dL Creatinine 1.1 (0.8-1.3) mg/dL Glucose 102 H 94 (75-100) mg/dL Calcium 8.9 (8.4-10.2) mg/dL Total Bilirubin 0.30 (0.1-1.2) mg/dL AST 38 (5-40) units/L ALT < 5 L (7-56) units/L Alkaline Phosphatase 77 (35-129) units/L Total Protein 8.7 H (6.3-8.2) g/dL Albumin 3.1 L (3.9-5) g/dL - Imaging CT scan - abdomen: report reviewed, image reviewed CT scan - chest: report reviewed CT scan - pelvis: report reviewed, image reviewed Assessment and Plan 29 year old male, HIV + with chronic skin ulcers on buttocks that ave very symptomatic. Incidental finding of small lea-rectal abscess. Pt is afberile and stable. After discussing with patient options for treatment, pt would like to hold off on surgical I&D of lea-rectal abscess at this time as he is not having any symptoms of it currently. His focus is on the painful skin ulcers at the top of his gluteal left and left cheek. Continue wound care per wound care nurse and would recommend outpatient wound care follow up.
[2020-10-10] MEDS ORDERED: PNEUMOCOCCAL 23 Valent 0.5 ML VIAL IM ONE (12:00)
--- NOTE | 2020-10-10 13:56 | Consultation ---
History of Present Illness - Reason for Consult Consult date: 10/10/20 HIV, ?PJP pneumonia Requesting physician: GIBSON BARKSDALE - History of Present Illness 29-year-old male with history of HIV diagnosed in 2010, off ART for 18 months since he loss his insurance due to unemployment, used to be seen by IDP, was on descovy and prezcovix, chronic gluteal cleft ulcer, admitted on 11/05/2020 secondary to 2-month history of worsening dry cough and shortness of breath. Patient also reports 40+ pounds weight loss in 6 months. Patient reports that he developed a gluteal cleft ulcer that has not healed for over 6 months. Patient reports he was not able to ambulate due to shortness of breath. Denies any nausea, vomiting, diarrhea. Upon arrival, temperature 98.9, HR 128, RR 22, O2 sat 88%, BP 135/97. Initial WBC 5.1, hemoglobin 11.1, platelets 562. D- dimer 365. CRP 1.1. Ferritin 1322. Urinalysis negative. Blood cultures no growth today. CTA shows no PE, extensive reticular airspace disease bilaterally. Review of Systems: positive in bold print General: fever, chills, malaise, 40+ weight loss in 6 m Cutaneous: Mid gluteal cleft ulcer Head: headaches or injury Eyes: changes in vision, eye pain, double vision Ears: ear pain, ear discharge, ringing or hearing loss Nose: nose bleeding, stuffiness Mouth & throat: bleeding gums, horseness, no dental problems, or swollen glands Neck: no pain, node enlargement/lumps, tyroid enlargement or tenderness Respiratory: SOB, cough, GÓMEZ, wheezing, sputum, hemoptysis, pleuritic chest pain Cardiovascular: chest pain, leg edema, cyanosis, GÓMEZ, orthopnea Musculoskeletal: edema, deformities, pain Gastrointestinal: nausea, vomiting, hematemesis, diarrhea, constipation, melena, bright red blood in stools, fecal incontinence, jaundice Genitourinary/Reproductive: frequent urination, dysuria, hematuria, incontinence Neurogical: seizures, headaches, weakness, paresthesias, loss of speech or vision; memory loss, vertigo, tremors, numbness Psychiatric: stable mood; excessive anxiety, sadness or moodiness Past History Past Medical History: other (HIV) Past Surgical History: No surgical history Medications and Allergies Allergies Allergy/AdvReac Type Severity Reaction Status Date / Time No Known Allergies Allergy Verified 12/28/13 04:32 Home Medications Medication Instructions Recorded Confirmed Last Taken Type HYDROcodone/ACETAMINOPHEN [[place] 1 each PO Q6HR #20 tablet 12/28/13 10/09/20 Unknown Rx 5/325 Tablet] Active Meds: Active Medications Acetaminophen (Acetaminophen 325 Mg Tab) 650 mg PO Q4H PRN PRN Reason: Pain MILD(1-3)/Fever >100.5/LAMA Albuterol (Albuterol 2.5 Mg/3 Ml Nebu) 2.5 mg IH Q3HRT PRN PRN Reason: Wheezing Heparin Sodium (Porcine) (Heparin 5,000 Unit/1 Ml Vial) 5,000 unit SUB-Q Q12HR [facility] Last Admin: 10/10/20 10:48 Dose: 5,000 unit Documented by: Sodium Chloride (Nacl 0.9% 1000 Ml) 1,000 mls @ 75 mls/hr IV DIRECT IRIS Last Admin: 10/10/20 11:03 Dose: 75 mls/hr Documented by: Trimethoprim/Sulfamethoxazole (260 mg/ Dextrose) 516.25 mls @ 350 mls/hr IV Q6H [facility]; Protocol Last Admin: 10/10/20 13:28 Dose: 350 mls/hr Documented by: Azithromycin (Zithromax/Ns) 500 mg in 250 mls @ 250 mls/hr IV Q24H [facility] Last Admin: 10/10/20 13:00 Dose: 250 mls/hr Documented by: Ondansetron HCl (Ondansetron 4 Mg/2 Ml Inj) 4 mg IV Q8H PRN PRN Reason: Nausea And Vomiting Sodium Chloride (Sodium Chloride 0.9% 10 Ml Flush Syringe) 10 ml IV BID [facility] Last Admin: 10/10/20 10:00 Dose: 10 ml Documented by: Sodium Chloride (Sodium Chloride 0.9% 10 Ml Flush Syringe) 10 ml IV PRN PRN PRN Reason: LINE FLUSH Physical Examination - Physical Exam Narrative exam: General appearance: Alert in NAD cachectic Eyes: anicteric sclerae, moist conjunctivae; no lid-lag; PERRLA HENT: Normocephalic, Atraumatic; normal external ears, nares open, oropharynx clear Neck: supple, tracheal midline, no JVD Lungs: Bilateral crackles CV: RRR no murmur Abdomen: Soft, non-tender; no masses or hepatosplenomegaly Extremities: no edema, no cyanosis Skin: Mid gluteal cleft ulcer with exudate and whitish slough Psych: no agitated Neuro: alert and oriented x 3. Moving all extermities - Constitutional Vitals: Vital Signs Temp Pulse Resp BP Pulse Ox 97.5 F L 92 H 20 132/88 96 10/10/20 10:16 10/10/20 10:16 10/10/20 10:16 10/10/20 10:16 10/10/20 10:16 Temperature -Last 24 Hours Temperature 97.5 F Temperature 97.7 F Temperature 97.6 F Results - Labs CBC & Chem 7: 10/09/20 13:18 10/09/20 14:22 Labs: Abnormal lab results 10/09/20 10/09/20 10/09/20 Range/Units 13:18 13:18 14:14 RBC 3.54 L (3.65-5.03) M/mm3 Hgb 11.1 L (11.8-15.2) gm/dl Hct 32.0 L (35.5-45.6) % MCHC 35 H (32-34) % Plt Count 562 H (140-440) K/mm3 Seg Neuts % (Manual) 86.0 H (40.0-70.0) % Lymphocytes % (Manual) 11.0 L (13.4-35.0) % Lymphocytes # (Manual) 0.6 L (1.2-5.4) K/mm3 D-Dimer (0-234) ng/mlDDU ABG pH 7.462 H (7.320-7.450) POC ABG pCO2 22.1 L (32.0-48.0) mmHg POC ABG pO2 76.8 L (83-108) mmHg ABG Hemoglobin 11.1 L (12.0-17.5) ABG Oxyhemoglobin 93.8 L (94-98) ABG Sodium 133.8 L (136.0-145.0) mmol/L Carboxyhemoglobin 0.4 L (0.5-1.5) Sodium 132 L (137-145) mmol/L Carbon Dioxide 16 L (22-30) mmol/L Glucose 102 H (75-100) mg/dL Lactic Acid (0.7-2.0) mmol/L Ferritin (30.0-300.0) ng/mL ALT < 5 L (7-56) units/L Lactate Dehydrogenase (91-180) units/L C-Reactive Protein (0.00-1.30) mg/dL Total Protein 8.7 H (6.3-8.2) g/dL Albumin 3.1 L (3.9-5) g/dL Ur Specific [place] (1.003-1.030) 10/09/20 10/09/20 10/09/20 Range/Units 14:22 14:22 14:22 RBC (3.65-5.03) M/mm3 Hgb (11.8-15.2) gm/dl Hct (35.5-45.6) % MCHC (32-34) % Plt Count (140-440) K/mm3 Seg Neuts % (Manual) (40.0-70.0) % Lymphocytes % (Manual) (13.4-35.0) % Lymphocytes # (Manual) (1.2-5.4) K/mm3 D-Dimer 365.83 H (0-234) ng/mlDDU ABG pH (7.320-7.450) POC ABG pCO2 (32.0-48.0) mmHg POC ABG pO2 (83-108) mmHg ABG Hemoglobin (12.0-17.5) ABG Oxyhemoglobin (94-98) ABG Sodium (136.0-145.0) mmol/L Carboxyhemoglobin (0.5-1.5) Sodium (137-145) mmol/L Carbon Dioxide (22-30) mmol/L Glucose (75-100) mg/dL Lactic Acid (0.7-2.0) mmol/L Ferritin 1322.0 H (30.0-300.0) ng/mL ALT (7-56) units/L Lactate Dehydrogenase 581 H (91-180) units/L C-Reactive Protein 5.50 H (0.00-1.30) mg/dL Total Protein (6.3-8.2) g/dL Albumin (3.9-5) g/dL Ur Specific [place] (1.003-1.030) 10/09/20 10/09/20 Range/Units 16:44 Unknown RBC (3.65-5.03) M/mm3 Hgb (11.8-15.2) gm/dl Hct (35.5-45.6) % MCHC (32-34) % Plt Count (140-440) K/mm3 Seg Neuts % (Manual) (40.0-70.0) % Lymphocytes % (Manual) (13.4-35.0) % Lymphocytes # (Manual) (1.2-5.4) K/mm3 D-Dimer (0-234) ng/mlDDU ABG pH (7.320-7.450) POC ABG pCO2 (32.0-48.0) mmHg POC ABG pO2 (83-108) mmHg ABG Hemoglobin (12.0-17.5) ABG Oxyhemoglobin (94-98) ABG Sodium (136.0-145.0) mmol/L Carboxyhemoglobin (0.5-1.5) Sodium (137-145) mmol/L Carbon Dioxide (22-30) mmol/L Glucose (75-100) mg/dL Lactic Acid 2.40 H* (0.7-2.0) mmol/L Ferritin (30.0-300.0) ng/mL ALT (7-56) units/L Lactate Dehydrogenase (91-180) units/L C-Reactive Protein (0.00-1.30) mg/dL Total Protein (6.3-8.2) g/dL Albumin (3.9-5) g/dL Ur Specific [place] 1.054 H (1.003-1.030) Assessment and Plan Cultures: Blood culture pending Urine culture pending Assessment: 29-year-old male with history of HIV diagnosed in 2010, off ART for 18 months since he loss his insurance due to unemployment, used to be seen by IDP, was on descovy and prezcovix, chronic gluteal cleft ulcer, admitted on 11/05/2020 secondary to 2-month history of worsening dry cough and shortness of breath/GÓMEZ and 40+ pounds weight loss in 6 months: #Sepsis: Present on admission with elevated lactate, tachycardia, tachypnea and hypoxia; likely secondary to bilateral pneumonia. #Bilateral pneumonia: Highly suspicious for moderate PJP pneumonia. pO2>70. SARS-CoV-2 PCR negative. LDH>500. Patient with HIV without any ART for 18 months. #Acute hypoxic respiratory failure: Currently on nasal cannula oxygen. pO2>70. #Mid gluteal cleft chronic ulcer infection and right sided perirectal abscess: Unclear etiology. Patient denies history of genital herpes. CRP 5.5. CT shows small right-sided perirectal abscess 1.5 x 1 x 1 cm. No evidence of osteomyelitis. #HIV: diagnosed in 2010, off ART for 18 months since he loss his insurance due to unemployment, used to be seen by IDP, was on descovy and prezcovix, unknown CD4 and viral load. Recommendations: - Induced sputum for PJP DFA - Serum Beta glucan - Start Bactrim DS 2 tablets p.o. daily for PJP - Obtain gluteal ulcer wound culture - Start ceftriaxone, flagyl and vanco for mid gluteal cleft chronic ulcer infec tion and right sided perirectal abscess - Wound care consult - Check Cd4/VL - Check RPR/Crypto ag Will follow. Babs Stanton MD Infectious Diseases Computer Repairer [facility] M [phone] O [phone]
[2020-10-10] MEDS ORDERED: AZITHROMYCIN/NS 500 MG/250 ML 500 MG/250 ML BAG IV SCH (14:00)
[2020-10-10] MEDS: metroNIDAZOLE/NS 500 MG/100 ML 500 MG/100 ML BAG IV SCH ×2 (15:00→21:42)
[2020-10-10] MEDS ORDERED: VANCOMYCIN PHARMACY TO DOSE IV SCH (15:00)
[2020-10-10] MEDS: cefTRIAXone/NS 2 GM/100 ML 2 GM/100 ML BAG IV SCH (16:23)
[2020-10-10] MEDS ORDERED: VANCOMYCIN/NS 1 GM/250 ML 1 GM/250 ML BAG IV ONE (18:00)
[2020-10-10] MEDS: ALBUTEROL 2.5 MG/3 ML NEBU IH PRN (19:03)
[2020-10-10] MEDS: ACETAMINOPHEN 325 MG TAB PO PRN (20:10)
[2020-10-10] MEDS: LORazepam 2 MG/ML VIAL IV PRN (20:11)
[2020-10-10] MEDS: SULFAMETHOXAZOLE/TRIMETHOPRIM 800/160MG DS TAB PO SCH (21:43)
[2020-10-11] MEDS: SODIUM CHLORIDE 0.9% 1000 ML 1,000 ML IV SCH (03:23)
[2020-10-11] MEDS: LORazepam 2 MG/ML VIAL IV PRN ×2 (03:32→10:07)
[2020-10-11] MEDS: metroNIDAZOLE/NS 500 MG/100 ML 500 MG/100 ML BAG IV SCH ×2 (05:06→13:20)
[2020-10-11] MEDS: SULFAMETHOXAZOLE/TRIMETHOPRIM 800/160MG DS TAB PO SCH (05:08)
[2020-10-11] MEDS ORDERED: ALPRAZolam 0.25 MG TAB PO ONE (05:10)
[2020-10-11] MEDS ORDERED: SODIUM CHLORIDE 0.9% 1000 ML 1,000 ML IV SCH (05:15)
[2020-10-11] MEDS: VANCOMYCIN 750 MG in SODIUM CHLORIDE 0.9% 250ML 250 ML IV SCH ×2 (05:49→17:38)
[2020-10-11] MEDS: ALBUTEROL 2.5 MG/3 ML NEBU IH PRN (07:20)
--- NOTE | 2020-10-11 09:32 | Progress Note ---
Assessment and Plan Cultures: Blood culture pending Urine culture pending Assessment: 29-year-old male with history of HIV diagnosed in 2010, off ART for 18 months since he loss his insurance due to unemployment, used to be seen by IDP, was on descovy and prezcovix, chronic gluteal cleft ulcer, admitted on 11/05/2020 secondary to 2-month history of worsening dry cough and shortness of breath/GÓMEZ and 40+ pounds weight loss in 6 months: #Sepsis: Present on admission with elevated lactate, tachycardia, tachypnea and hypoxia; likely secondary to bilateral pneumonia. #Bilateral pneumonia: Highly suspicious for moderate PJP pneumonia. pO2>70. SARS-CoV-2 PCR negative. LDH>500. Patient with HIV without any ART for 18 gerry hs. #Acute hypoxic respiratory failure: Currently on nasal cannula oxygen. pO2>70. #Mid gluteal cleft chronic ulcer infection and right sided perirectal abscess: Unclear etiology. Patient denies history of genital herpes. CRP 5.5. CT shows small right-sided perirectal abscess 1.5 x 1 x 1 cm. No evidence of osteomyelitis. #HIV: diagnosed in 2010, off ART for 18 months since he loss his insurance due to unemployment, used to be seen by IDP, was on descovy and prezcovix, unknown CD4 and viral load. Recommendations: - Pulmonary consult, hypoxia worsening - Close monitoring - Obtain ABG - Induced sputum for PJP DFA - Ordered Serum Beta glucan - Change Bactrim DS 2 tablets p.o. TID to IV Bactrim 15-20 mg/kg/day of trimethopin for PJP - Add prednisone 40 mg PO BID for 5 days then taper - Obtain gluteal ulcer wound culture, pending - Continue ceftriaxone, flagyl and vanco for mid gluteal cleft chronic ulcer infection and right sided perirectal abscess - Wound care consult - Check Cd4/VL - Check RPR/Crypto ag Will follow. Babs Stanton MD Infectious Diseases Oncology Nurse [facility] M [phone] O [phone] Subjective Date of service: 10/11/20 Principal diagnosis: Bilateral pneumonia Interval history: Patient feels about the same, still shortness of breath and cough. No fever. Objective - Exam Narrative Exam: General appearance: Alert in NAD cachectic Eyes: anicteric sclerae, moist conjunctivae; no lid-lag; PERRLA HENT: Normocephalic, Atraumatic; normal external ears, nares open, oropharynx clear Neck: supple, tracheal midline, no JVD Lungs: Bilateral crackles CV: RRR no murmur Abdomen: Soft, non-tender; no masses or hepatosplenomegaly Extremities: no edema, no cyanosis Skin: Mid gluteal cleft ulcer with exudate and whitish slough Psych: no agitated Neuro: alert and oriented x 3. Moving all extermities - Constitutional Vitals: Vital Signs Temp Pulse Resp BP Pulse Ox 98.6 F 125 H 24 122/78 90 10/11/20 04:41 10/11/20 08:17 10/11/20 08:07 10/11/20 08:16 10/11/20 08:07 Temperature -Last 24 Hours Temperature 98.6 F Temperature 98.5 F Temperature 98.4 F Temperature 97.5 F - Labs CBC & Chem 7: 10/09/20 13:18 10/09/20 14:22
--- NOTE | 2020-10-11 09:34 | Progress Note ---
Subjective Date of service: 10/11/20 Interval history: Shortness of breath for 3 months History of present illness: 29-year-old male with history of HIV not on any antiretroviral therapy along w ith her chronic gluteal cleft ulcer presents with shortness of breath for 3 months which has been worsening over the past 1 week. Patient feels short of breath on minimal exertion. Patient was hypoxic when he came to the emergency room. Patient had a work-up in facility and is not sure of what the diagnosis was. He states he is not Covid. No exposure to Covid. No other symptoms of HIV. Like chronic diarrhea. All seizures. His main complaint is shortness of breath on minimal exertion for the past 3 months. No penile lesions. Gluteal cleft ulcer 3 to 6 months. 10/10 patient is alert and oriented, no apparent distress and he offers no specific complaints except shortness of breath on exertion, denies fever chills Denies chest pain, palpitations, dizziness or nausea or abdominal pain. Lab results reviewed. 10/11 patient is alert and oriented resting with eyes closed, responds appro priately, is severely tachypneic with respiratory rate around 40-50, denies any chest pain. Denies nausea or abdominal pain. Denies fever. Patient is on 10 L via [place] nasal cannula. Transfer patient to [facility] Assessment and plan Acute hypoxic respiratory failure/severe dyspnea tested negative for COVID-19 Patient states his shortness of breath is worse for the past 1 week with minimal effort Denies paroxysmal nocturnal dyspnea We will order stat chest x-ray and stat ABG Patient is placed on [place] nasal cannula at 10 L We will give 1 dose of IV Lasix 20 mg empirically Discussed with respiratory therapist to get a stat ABG We will transfer the patient to [facility] We will request pulmonary consult with Dr. Loving Oxygen saturation 93 to 94% with oxygen supplements via salter nasal cannula Check echocardiogram to rule out LV dysfunction Patient states that he was tested negative for COVID-19, 4 months ago CTA chest results reviewed-negative for PE Inflammatory markers reviewed/elevated CRP, LDH and ferritin Procalcitonin in the normal range HIV positive Bilateral infiltrates on chest x-ray Likely PCP pneumonia ID consulted and ID note reviewed Medications reviewed Perirectal abscess/perineal wounds CT of the abdomen pelvis results reviewed General surgery consulted and note reviewed Medical management with no plans for surgery Continue IV antibiotics as recommended by ID Anemia Normocytic type No overt bleed Hyponatremia Mild Monitor electrolytes Today's labs are pending Protein calorie malnutrition Severe Patient states that he lost 35 pounds in the past 6 months Dietary consult Tobacco abuse Smoking cessation counseling was done Objective - Constitutional Vitals: Vital Signs - 12hr 10/10/20 10/10/20 10/11/20 21:32 22:00 04:41 Temperature 98.5 F 98.6 F Pulse Rate 119 H 151 H Pulse Rate [ Apical] Respiratory 24 18 32 H Rate Respiratory 18 Rate [Sacrum] Blood Pressure 125/76 167/100 O2 Sat by Pulse 88 100 81 L Oximetry 10/11/20 10/11/20 10/11/20 08:07 08:16 08:17 Temperature Pulse Rate 125 H Pulse Rate [ 133 H Apical] Respiratory 24 Rate Respiratory Rate [Sacrum] Blood Pressure 122/78 O2 Sat by Pulse 90 Oximetry General appearance: Present: severe distress (Severely tachypneic but alert and oriented), cachectic - EENT Eyes: PERRL, EOM intact ENT: hearing intact, clear oral mucosa - Neck Neck: supple, normal ROM - Respiratory Respiratory effort: labored Respiratory: bilateral: CTA, negative: rales (Faint basal Rales) - Cardiovascular Rhythm: other (Tachycardia) Heart Sounds: Present: S1 & S2 Extremities: No edema - Gastrointestinal General gastrointestinal: Present: soft, non-tender Rectal Exam: deferred - Genitourinary Male genitourinary: deferred - Integumentary Integumentary: clear - Neurologic Neurologic: no focal deficits, moves all extremities - Psychiatric Psychiatric: appropriate mood/affect - Labs CBC & Chem 7: 10/09/20 13:18 10/09/20 14:22 HEART Score - HEART Score Troponin: Troponin T < 0.010 ng/mL (0.00-0.029) 10/09/20 14:22
[2020-10-11] MEDS ORDERED: FUROSEMIDE 40 MG/4 ML INJ IV NR (09:38)
[2020-10-11] MEDS: ACETAMINOPHEN 325 MG TAB PO PRN (09:57)
[2020-10-11] MEDS: cefTRIAXone/NS 2 GM/100 ML 2 GM/100 ML BAG IV SCH (09:58)
[2020-10-11] MEDS: HEPARIN 5,000 UNIT/1 ML VIAL SUB-Q SCH ×2 (09:59→22:33)
[2020-10-11] MEDS: methylPREDNISolone Sod Succinate 40 MG/1 ML INJ IV SCH (09:59)
[2020-10-11] MEDS ORDERED: predniSONE 20 MG TAB PO SCH (10:00)
--- NOTE | 2020-10-11 10:03 | XRay Report ---
CHEST 1 VIEW 10/11/2020 8:55 AM INDICATION / CLINICAL INFORMATION: dyspnea. COMPARISON: 10/09/2020. FINDINGS: SUPPORT DEVICES: None. HEART / MEDIASTINUM: No significant abnormality. LUNGS / PLEURA: Persistent bilateral interstitial/airspace disease with overall slight worsening. Thi s is predominantly on the basis of mild decrease in lung volumes. No pneumothorax or pleural fluid. ADDITIONAL FINDINGS: No significant additional findings. IMPRESSION: Mild interval worsening. Signer Name: Rad Fowler MD Signed: 10/11/2020 9:59 AM Workstation Name: [id number]
[2020-10-11] MEDS: SMX IV SCH ×2 (11:06→19:21)
[2020-10-11] MEDS: TMP IV SCH ×2 (11:06→19:21)
[2020-10-11] MEDS: DEXTROSE 5% IV SCH ×2 (11:06→19:21)
[2020-10-11] MEDS: WATER IV SCH ×2 (11:06→19:21)
[2020-10-11 14:47] LABS: Albumin 2.8 g/dL (3.9-5); BUN/Creatinine Ratio 10; Blood Urea Nitrogen 11 mg/dL (9-20); Calcium 8.8 mg/dL (8.4-10.2); Hemolysis Index 0
[2020-10-11 14:53] LABS: Alanine Aminotransferase < 5 units/L (7-56)
--- NOTE | 2020-10-12 00:11 | Consultation ---
History of Present Illness Consult date: 10/12/20 Requesting physician: GABRIELLE SLOAN Reason for consult: dyspnea History of present illness: 29 yo admitted with weight loss, fevers, SOB, dry cough, poor appetite. No chest pain or hemoptysis. Notably has HIV and off his meds for > 1 year. Admits to substance abuse issues with THC. Active Medications Acetaminophen (Acetaminophen 325 Mg Tab) 650 mg PO Q4H PRN PRN Reason: Pain MILD(1-3)/Fever >100.5/LAMA Last Admin: 10/11/20 09:57 Dose: 650 mg Documented by: Albuterol (Albuterol 2.5 Mg/3 Ml Nebu) 2.5 mg IH Q3HRT PRN PRN Reason: Wheezing Last Admin: 10/11/20 07:20 Dose: 2.5 mg Documented by: Heparin Sodium (Porcine) (Heparin 5,000 Unit/1 Ml Vial) 5,000 unit SUB-Q Q12HR IRIS Last Admin: 10/11/20 09:59 Dose: 5,000 unit Documented by: Ceftriaxone Sodium (Rocephin/Ns 2 Gm/100 Ml) 2 gm in 100 mls @ 200 mls/hr IV Q24HR IRIS; Protocol Last Admin: 10/11/20 09:58 Dose: 200 mls/hr Documented by: Metronidazole (Flagyl 500 Mg/100 Ml) 500 mg in 100 mls @ 100 mls/hr IV Q8HR S ; Protocol Last Admin: 10/11/20 13:20 Dose: 100 mls/hr Documented by: Vancomycin HCl 750 mg/ Sodium (Chloride) 265 mls @ 166.667 mls/hr IV Q12H IRIS Last Admin: 10/11/20 17:38 Dose: 166.667 mls/hr Documented by: Sodium Chloride (Nacl 0.9% 1000 Ml) 1,000 mls @ 42 mls/hr IV DIRECT IRIS Trimethoprim/Sulfamethoxazole (300 mg/ Dextrose) 518.75 mls @ 350 mls/hr IV Q6H IRIS; Protocol Stop: 11/01/20 06:29 Last Admin: 10/11/20 19:21 Dose: 350 mls/hr Documented by: Lorazepam (Lorazepam 2 Mg/Ml Vial) 1 mg IV Q6HR PRN PRN Reason: Anxiety Last Admin: 10/11/20 10:07 Dose: 1 mg Documented by: Methylprednisolone Sodium Succinate (Methylprednisolone Sod Succinate 40 Mg/1 Ml Inj) 40 mg IV Q12HR IRIS Stop: 10/15/20 22:01 Last Admin: 10/11/20 09:59 Dose: 40 mg Documented by: Methylprednisolone Sodium Succinate (Methylprednisolone Sod Succinate 40 Mg/1 Ml Inj) 40 mg IV Q24HR IRIS Stop: 10/20/20 10:01 Methylprednisolone Sodium Succinate (Methylprednisolone Sod Succinate 40 Mg/1 Ml Inj) 20 mg IV Q24HR IRIS Stop: 10/31/20 10:01 Ondansetron HCl (Ondansetron 4 Mg/2 Ml Inj) 4 mg IV Q8H PRN PRN Reason: Nausea And Vomiting Sodium Chloride (Sodium Chloride 0.9% 10 Ml Flush Syringe) 10 ml IV BID [facility] Last Admin: 10/11/20 09:59 Dose: Not Given Documented by: Sodium Chloride (Sodium Chloride 0.9% 10 Ml Flush Syringe) 10 ml IV PRN PRN PRN Reason: LINE FLUSH Past History Past Medical History: other (HIV) Past Surgical History: No surgical history Social history: smoking, full code. denies: alcohol abuse, prescription drug abuse, IV drug use Family history: other (no pulm issues reported) Medications and Allergies Allergies Allergy/AdvReac Type Severity Reaction Status Date / Time No Known Allergies Allergy Verified 12/28/13 04:32 Home Medications Medication Instructions Recorded Confirmed Last Taken Type HYDROcodone/ACETAMINOPHEN [Enochs 1 each PO Q6HR #20 tablet 12/28/13 10/09/20 Unknown Rx 5/325 Tablet] Active Meds: Active Medications Acetaminophen (Acetaminophen 325 Mg Tab) 650 mg PO Q4H PRN PRN Reason: Pain MILD(1-3)/Fever >100.5/LAMA Last Admin: 10/11/20 09:57 Dose: 650 mg Documented by: Albuterol (Albuterol 2.5 Mg/3 Ml Nebu) 2.5 mg IH Q3HRT PRN PRN Reason: Wheezing Last Admin: 10/11/20 07:20 Dose: 2.5 mg Documented by: Heparin Sodium (Porcine) (Heparin 5,000 Unit/1 Ml Vial) 5,000 unit SUB-Q Q12HR IRIS Last Admin: 10/11/20 09:59 Dose: 5,000 unit Documented by: Ceftriaxone Sodium (Rocephin/Ns 2 Gm/100 Ml) 2 gm in 100 mls @ 200 mls/hr IV Q24HR [facility]; Protocol Last Admin: 10/11/20 09:58 Dose: 200 mls/hr Documented by: Metronidazole (Flagyl 500 Mg/100 Ml) 500 mg in 100 mls @ 100 mls/hr IV Q8HR IRIS; Protocol Last Admin: 10/11/20 13:20 Dose: 100 mls/hr Documented by: Vancomycin HCl 750 mg/ Sodium (Chloride) 265 mls @ 166.667 mls/hr IV Q12H [facility] Last Admin: 10/11/20 17:38 Dose: 166.667 mls/hr Documented by: Sodium Chloride (Nacl 0.9% 1000 Ml) 1,000 mls @ 42 mls/hr IV DIRECT IRIS Trimethoprim/Sulfamethoxazole (300 mg/ Dextrose) 518.75 mls @ 350 mls/hr IV Q6H [facility]; Protocol Stop: 11/01/20 06:29 Last Admin: 10/11/20 19:21 Dose: 350 mls/hr Documented by: Lorazepam (Lorazepam 2 Mg/Ml Vial) 1 mg IV Q6HR PRN PRN Reason: Anxiety Last Admin: 10/11/20 10:07 Dose: 1 mg Documented by: Methylprednisolone Sodium Succinate (Methylprednisolone Sod Succinate 40 Mg/1 Ml Inj) 40 mg IV Q12HR [facility] Stop: 10/15/20 22:01 Last Admin: 10/11/20 09:59 Dose: 40 mg Documented by: Methylprednisolone Sodium Succinate (Methylprednisolone Sod Succinate 40 Mg/1 Ml Inj) 40 mg IV Q24HR [facility] Stop: 10/20/20 10:01 Methylprednisolone Sodium Succinate (Methylprednisolone Sod Succinate 40 Mg/1 Ml Inj) 20 mg IV Q24HR [facility] Stop: 10/31/20 10:01 Ondansetron HCl (Ondansetron 4 Mg/2 Ml Inj) 4 mg IV Q8H PRN PRN Reason: Nausea And Vomiting Sodium Chloride (Sodium Chloride 0.9% 10 Ml Flush Syringe) 10 ml IV BID [facility] Last Admin: 10/11/20 09:59 Dose: Not Given Documented by: Sodium Chloride (Sodium Chloride 0.9% 10 Ml Flush Syringe) 10 ml IV PRN PRN PRN Reason: LINE FLUSH Review of Systems All systems: negative Physical Examination Vital signs: Vital Signs Temp Pulse Resp BP Pulse Ox 98.9 F 128 H 22 135/97 88 10/09/20 13:09 10/09/20 13:09 10/09/20 13:09 10/09/20 13:09 10/09/20 13:09 General appearance: no acute distress, alert Eyes: non-icteric Neck: supple Effort: mildly labored Ascultation: Bilateral: rales Cardiovascular: regular rate and rhythm (no mrg) Gastrointestinal: normoactive bowel sounds, soft, non-tender, non-distended Integumentary: normal Extremities: no cyanosis, no edema, pink and warm Musculoskeletal: no deformities normal mental status, non-focal exam, pupils equal and round, CN II-XII normal mood appropriate, affect normal Results - Laboratory Findings CBC and BMP: 10/09/20 13:18 10/11/20 13:41 ABG ABG pH 7.403 (7.320-7.450) 10/11/20 09:20 POC ABG pCO2 25.5 mmHg (32.0-48.0) L 10/11/20 09:20 POC ABG pO2 65.7 mmHg (83-108) L 10/11/20 09:20 POC ABG HCO3 15.5 10/11/20 09:20 ABG O2 Saturation 91.8 (0-100) 10/11/20 09:20 PT/INR, D-dimer D-Dimer 365.83 ng/mlDDU (0-234) H 10/09/20 14:22 Abnormal lab findings: Abnormal Labs 10/09/20 10/09/20 10/09/20 13:18 13:18 14:14 RBC 3.54 L Hgb 11.1 L Hct 32.0 L MCHC 35 H Plt Count 562 H Seg Neuts % (Manual) 86.0 H Lymphocytes % (Manual) 11.0 L Lymphocytes # (Manual) 0.6 L D-Dimer ABG pH 7.462 H POC ABG pCO2 22.1 L POC ABG pO2 76.8 L ABG Hemoglobin 11.1 L ABG Oxyhemoglobin 93.8 L ABG Sodium 133.8 L ABG Chloride ABG Glucose Carboxyhemoglobin 0.4 L Sodium 132 L Carbon Dioxide 16 L Glucose 102 H Lactic Acid Ferritin AST ALT < 5 L Lactate Dehydrogenase C-Reactive Protein Total Protein 8.7 H Albumin 3.1 L Arterial Blood Glucose Arterial Blood Ionized Calcium Ur Specific [place] 10/09/20 10/09/20 10/09/20 14:22 14:22 14:22 RBC Hgb Hct MCHC Plt Count Seg Neuts % (Manual) Lymphocytes % (Manual) Lymphocytes # (Manual) D-Dimer 365.83 H ABG pH POC ABG pCO2 POC ABG pO2 ABG Hemoglobin ABG Oxyhemoglobin ABG Sodium ABG Chloride ABG Glucose Carboxyhemoglobin Sodium Carbon Dioxide Glucose Lactic Acid Ferritin 1322.0 H AST ALT Lactate Dehydrogenase 581 H C-Reactive Protein 5.50 H Total Protein Albumin Arterial Blood Glucose Arterial Blood Ionized Calcium Ur Specific [place] 10/09/20 10/09/20 10/11/20 16:44 Unknown 09:20 RBC Hgb Hct MCHC Plt Count Seg Neuts % (Manual) Lymphocytes % (Manual) Lymphocytes # (Manual) D-Dimer ABG pH POC ABG pCO2 25.5 L POC ABG pO2 65.7 L ABG Hemoglobin 8.7 L ABG Oxyhemoglobin 90.7 L ABG Sodium 134.1 L ABG Chloride 112.0 H ABG Glucose 101 H Carboxyhemoglobin Sodium Carbon Dioxide Glucose Lactic Acid 2.40 H* Ferritin AST ALT Lactate Dehydrogenase C-Reactive Protein Total Protein Albumin Arterial Blood Glucose 101 H Arterial Blood Ionized Calcium 4.5 L Ur Specific [place] 1.054 H 10/11/20 13:41 RBC Hgb Hct MCHC Plt Count Seg Neuts % (Manual) Lymphocytes % (Manual) Lymphocytes # (Manual) D-Dimer ABG pH POC ABG pCO2 POC ABG pO2 ABG Hemoglobin ABG Oxyhemoglobin ABG Sodium ABG Chloride ABG Glucose Carboxyhemoglobin Sodium 133 L Carbon Dioxide 16 L Glucose Lactic Acid Ferritin AST 42 H ALT < 5 L Lactate Dehydrogenase C-Reactive Protein Total Protein Albumin 2.8 L Arterial Blood Glucose Arterial Blood Ionized Calcium Ur Specific [place] - Diagnostic Findings Chest x-ray: report reviewed, image reviewed CT scan - chest: report reviewed, image reviewed Assessment and Plan Imp: 1. HIV/AIDS 2. Pneumonia, probably PJP 3. Acute respiratory failure, hypoxia 4. Sepsis 5. Hyponatremia Rec: 1. Agree with empiric treatment for PJP + IV steroids as ordered; obtain sputum samples is possible but may require Bronch/BAL this week; Dr. Loving to review in AM 2. Cont. O2 support, DVT PPx 3. D/c IVFs 4. Further plans pending clinical course Plan of care reviewed with patient, he understands/agrees Thanks kindly for the consult; will follow with you
[2020-10-12] MEDS: metroNIDAZOLE/NS 500 MG/100 ML 500 MG/100 ML BAG IV SCH ×4 (00:25→21:16)
[2020-10-12] MEDS: WATER IV SCH ×4 (03:36→23:11)
[2020-10-12] MEDS: DEXTROSE 5% IV SCH ×4 (03:36→23:11)
[2020-10-12] MEDS: SMX IV SCH ×4 (03:36→23:11)
[2020-10-12] MEDS: TMP IV SCH ×4 (03:36→23:11)
[2020-10-12] MEDS: methylPREDNISolone Sod Succinate 40 MG/1 ML INJ IV SCH ×3 (03:40→21:20)
[2020-10-12] MEDS: VANCOMYCIN 750 MG in SODIUM CHLORIDE 0.9% 250ML 250 ML IV SCH ×2 (05:23→18:47)
[2020-10-12 07:56] LABS: Hematocrit 24.4 % (35.5-45.6); Hemoglobin 8.5 gm/dl (11.8-15.2); Mean Corpuscular HGB Conc 35 % (32-34); Mean Corpuscular Volume 89 fl (84-94); Platelet Count 543 K/mm3 (140-440); Red Blood Count 2.74 M/mm3 (3.65-5.03); Red Cell Distribution Width 14.3 % (13.2-15.2)
[2020-10-12 08:20] LABS: BUN/Creatinine Ratio 15; Blood Urea Nitrogen 16 mg/dL (9-20); Hemolysis Index 0
[2020-10-12] MEDS ORDERED: FUROSEMIDE 20 MG/2 ML INJ IV NR (09:11)
--- NOTE | 2020-10-12 09:29 | Progress Note ---
Assessment and Plan Cultures: Blood culture pending Urine culture pending Assessment: 29-year-old male with history of HIV diagnosed in 2010, off ART for 18 months since he loss his insurance due to unemployment, used to be seen by IDP, was on descovy and prezcovix, chronic gluteal cleft ulcer, admitted on 11/05/2020 secondary to 2-month history of worsening dry cough and shortness of breath/GÓMEZ and 40+ pounds weight loss in 6 months: #Sepsis: Present on admission with elevated lactate, tachycardia, tachypnea and hypoxia; likely secondary to bilateral pneumonia. #Bilateral pneumonia: Highly suspicious for moderate PJP pneumonia. pO2>70. SARS-CoV-2 PCR negative. LDH>500. Patient with HIV without any ART for 18 months. #Acute hypoxic respiratory failure: Currently on nasal cannula oxygen. pO2>70. #Mid gluteal cleft chronic ulcer infection and right sided perirectal abscess: Unclear etiology. Patient denies history of genital herpes. CRP 5.5. CT shows small right-sided perirectal abscess 1.5 x 1 x 1 cm. No evidence of osteomyelitis. #HIV: diagnosed in 2010, off ART for 18 months since he loss his insurance due to unemployment, used to be seen by IDP, was on descovy and prezcovix, unknown CD4 and viral load. Recommendations: - Induced sputum for PJP DFA - Ordered Serum Beta glucan - IV Bactrim 15-20 mg/kg/day of trimethopin for PJP - prednisone 40 mg PO BID for 5 days then taper - Obtain gluteal ulcer wound culture, pending - Continue ceftriaxone, flagyl and vanco for mid gluteal cleft chronic ulcer infection and right sided perirectal abscess - Wound care consult - Check Cd4/VL - Check RPR/Crypto ag Nicanor Reynolds MD [facility] O: [phone] F: [phone] Subjective Date of service: 10/12/20 Principal diagnosis: Bilateral pneumonia Interval history: Afebrile over the last 24 hours, white count 9.9. Cultures remain no growth so far. Objective - Exam Narrative Exam: Physical Exam: Constitutional: Alert, cooperative. No acute distress Head, Ears, Nose: Normocephalic, atraumatic. Eyes: Conjunctivae/corneas clear. No icterus. No ptosis. Neck: Supple, no meningeal signs Oral: dentition fair, no thrush Cardiovascular: S1, S2 normal. Respiratory: Good air entry, clear to auscultation bilaterally GI: Soft, non-tender; bowel sounds normal. No peritoneal signs. Musculoskeletal: No pedal edema, no cyanosis. Skin: No rash or abscess Hem/Lymphatic: No palpable cervical or supraclavicular nodes. Psych: Mood ok. Affect normal Neurological: Awake, alert, oriented. No gross abnormality - Constitutional Vitals: Vital Signs Temp Pulse Resp BP Pulse Ox 99.1 F 86 28 H 127/79 95 10/12/20 04:53 10/12/20 04:53 10/12/20 04:53 10/12/20 04:53 10/12/20 07:47 Temperature -Last 24 Hours Temperature 99.1 F Temperature 99 F Temperature 97.8 F Temperature 98.6 F Temperature 97.9 F Temperature 100.0 F - Labs CBC & Chem 7: 10/12/20 07:02 10/12/20 07:02 Labs: Abnormal lab results 10/11/20 10/11/20 10/12/20 Range/Units 09:20 13:41 07:02 RBC 2.74 L (3.65-5.03) M/mm3 Hgb 8.5 L (11.8-15.2) gm/dl Hct 24.4 L D (35.5-45.6) % MCHC 35 H (32-34) % Plt Count 543 H (140-440) K/mm3 POC ABG pCO2 25.5 L (32.0-48.0) mmHg POC ABG pO2 65.7 L (83-108) mmHg ABG Hemoglobin 8.7 L (12.0-17.5) ABG Oxyhemoglobin 90.7 L (94-98) ABG Sodium 134.1 L (136.0-145.0) mmol/L ABG Chloride 112.0 H (98-107) mmol/L ABG Glucose 101 H (65-95) mg/dL Sodium 133 L (137-145) mmol/L Carbon Dioxide 16 L (22-30) mmol/L Glucose (75-100) mg/dL AST 42 H (5-40) units/L ALT < 5 L (7-56) units/L Albumin 2.8 L (3.9-5) g/dL Arterial Blood Glucose 101 H (65-95) mg/dL Arterial Blood Ionized Calcium 4.5 L (4.6-5.3) mg/dL 10/12/20 Range/Units 07:02 RBC (3.65-5.03) M/mm3 Hgb (11.8-15.2) gm/dl Hct (35.5-45.6) % MCHC (32-34) % Plt Count (140-440) K/mm3 POC ABG pCO2 (32.0-48.0) mmHg POC ABG pO2 (83-108) mmHg ABG Hemoglobin (12.0-17.5) ABG Oxyhemoglobin (94-98) ABG Sodium (136.0-145.0) mmol/L ABG Chloride (98-107) mmol/L ABG Glucose (65-95) mg/dL Sodium 135 L (137-145) mmol/L Carbon Dioxide 17 L (22-30) mmol/L Glucose 149 H (75-100) mg/dL AST (5-40) units/L ALT (7-56) units/L Albumin (3.9-5) g/dL Arterial Blood Glucose (65-95) mg/dL Arterial Blood Ionized Calcium (4.6-5.3) mg/dL
[2020-10-12] MEDS: HEPARIN 5,000 UNIT/1 ML VIAL SUB-Q SCH ×2 (09:42→21:18)
[2020-10-12] MEDS: cefTRIAXone/NS 2 GM/100 ML 2 GM/100 ML BAG IV SCH (09:42)
--- NOTE | 2020-10-12 09:44 | Progress Note ---
Assessment and Plan 29 y/o male with known HIV, noncompliant with therapy admitted with acute respiratory failure concern for PJP 1. Agree with empiric therapy for PJP 2. Agree with steroids 3. Gave lasix again today, follow up echo 4. Ordered continuous bipap therapy to help ease work of breathing 5. Discussed the possibility of intubation with patient and he is in agreement if this necessary, hopeful we can avoid this. Guarded prognosis. Subjective Date of service: 10/12/20 Principal diagnosis: Bilateral pneumonia Interval history: No acute events. Was moved to IMCU but then moved back to floor. Currently on 30 and 80%. Patient is awake and alert, tachypnic. Objective Vital Signs - 12hr 10/11/20 10/11/20 10/11/20 21:41 21:51 22:00 Temperature Pulse Rate 92 H 93 H 92 H Pulse Rate [ From Monitor] Respiratory 40 H 42 H 41 H Rate Blood Pressure 111/67 111/67 111/77 O2 Sat by Pulse 94 95 94 Oximetry 10/11/20 10/12/20 10/12/20 23:14 00:00 01:13 Temperature 97.8 F 99 F Pulse Rate 87 Pulse Rate [ From Monitor] Respiratory 22 26 H 91 H Rate Blood Pressure 130/80 127/79 O2 Sat by Pulse 96 98 90 Oximetry 10/12/20 10/12/20 10/12/20 02:00 04:00 04:53 Temperature 99.1 F Pulse Rate 86 Pulse Rate [ 96 H From Monitor] Respiratory 26 H 28 H Rate Blood Pressure 127/79 O2 Sat by Pulse 100 98 95 Oximetry 10/12/20 07:47 Temperature Pulse Rate Pulse Rate [ From Monitor] Respiratory Rate Blood Pressure O2 Sat by Pulse 95 Oximetry Constitutional: no acute distress, alert Eyes: non-icteric Neck: supple Effort: mildly labored Ascultation: Bilateral: rales Cardiovascular: regular rate and rhythm (no mrg) Gastrointestinal: normoactive bowel sounds, soft, non-tender, non-distended Integumentary: normal Extremities: no cyanosis, no edema, pink and warm Neurologic: normal mental status, non-focal exam, pupils equal and round, CN II- XII normal Psychiatric: mood appropriate, affect normal CBC and BMP: 10/12/20 07:02 10/12/20 07:02 ABG, PT/INR, D-dimer: ABG ABG pH 7.403 (7.320-7.450) 10/11/20 09:20 POC ABG pCO2 25.5 mmHg (32.0-48.0) L 10/11/20 09:20 POC ABG pO2 65.7 mmHg (83-108) L 10/11/20 09:20 POC ABG HCO3 15.5 10/11/20 09:20 ABG O2 Saturation 91.8 (0-100) 10/11/20 09:20 PT/INR, D-dimer D-Dimer 365.83 ng/mlDDU (0-234) H 10/09/20 14:22 Abnormal lab findings: Abnormal Labs 10/09/20 10/09/20 10/09/20 13:18 13:18 14:14 RBC 3.54 L Hgb 11.1 L Hct 32.0 L MCHC 35 H Plt Count 562 H Seg Neuts % (Manual) 86.0 H Lymphocytes % (Manual) 11.0 L Lymphocytes # (Manual) 0.6 L D-Dimer ABG pH 7.462 H POC ABG pCO2 22.1 L POC ABG pO2 76.8 L ABG Hemoglobin 11.1 L ABG Oxyhemoglobin 93.8 L ABG Sodium 133.8 L ABG Chloride ABG Glucose Carboxyhemoglobin 0.4 L Sodium 132 L Carbon Dioxide 16 L Glucose 102 H Lactic Acid Ferritin AST ALT < 5 L Lactate Dehydrogenase C-Reactive Protein Total Protein 8.7 H Albumin 3.1 L Arterial Blood Glucose Arterial Blood Ionized Calcium Ur Specific [place] 10/09/20 10/09/20 10/09/20 14:22 14:22 14:22 RBC Hgb Hct MCHC Plt Count Seg Neuts % (Manual) Lymphocytes % (Manual) Lymphocytes # (Manual) D-Dimer 365.83 H ABG pH POC ABG pCO2 POC ABG pO2 ABG Hemoglobin ABG Oxyhemoglobin ABG Sodium ABG Chloride ABG Glucose Carboxyhemoglobin Sodium Carbon Dioxide Glucose Lactic Acid Ferritin 1322.0 H AST ALT Lactate Dehydrogenase 581 H C-Reactive Protein 5.50 H Total Protein Albumin Arterial Blood Glucose Arterial Blood Ionized Calcium Ur Specific [place] 10/09/20 10/09/20 10/11/20 16:44 Unknown 09:20 RBC Hgb Hct MCHC Plt Count Seg Neuts % (Manual) Lymphocytes % (Manual) Lymphocytes # (Manual) D-Dimer ABG pH POC ABG pCO2 25.5 L POC ABG pO2 65.7 L ABG Hemoglobin 8.7 L ABG Oxyhemoglobin 90.7 L ABG Sodium 134.1 L ABG Chloride 112.0 H ABG Glucose 101 H Carboxyhemoglobin Sodium Carbon Dioxide Glucose Lactic Acid 2.40 H* Ferritin AST ALT Lactate Dehydrogenase C-Reactive Protein Total Protein Albumin Arterial Blood Glucose 101 H Arterial Blood Ionized Calcium 4.5 L Ur Specific [place] 1.054 H 10/11/20 10/12/20 10/12/20 13:41 07:02 07:02 RBC 2.74 L Hgb 8.5 L Hct 24.4 L D MCHC 35 H Plt Count 543 H Seg Neuts % (Manual) Lymphocytes % (Manual) Lymphocytes # (Manual) D-Dimer ABG pH POC ABG pCO2 POC ABG pO2 ABG Hemoglobin ABG Oxyhemoglobin ABG Sodium ABG Chloride ABG Glucose Carboxyhemoglobin Sodium 133 L 135 L Carbon Dioxide 16 L 17 L Glucose 149 H Lactic Acid Ferritin AST 42 H ALT < 5 L Lactate Dehydrogenase C-Reactive Protein Total Protein Albumin 2.8 L Arterial Blood Glucose Arterial Blood Ionized Calcium Ur Specific [place]
[2020-10-12] MEDS: LORazepam 2 MG/ML VIAL IV PRN (09:49)
[2020-10-13] MEDS: LORazepam 2 MG/ML VIAL IV PRN (00:27)
[2020-10-13] MEDS: SMX IV SCH ×5 (05:15→23:24)
[2020-10-13] MEDS: WATER IV SCH ×5 (05:15→23:24)
[2020-10-13] MEDS: DEXTROSE 5% IV SCH ×5 (05:15→23:24)
[2020-10-13] MEDS: TMP IV SCH ×5 (05:15→23:24)
[2020-10-13] MEDS: metroNIDAZOLE/NS 500 MG/100 ML 500 MG/100 ML BAG IV SCH ×3 (05:30→22:10)
[2020-10-13] MEDS: VANCOMYCIN 750 MG in SODIUM CHLORIDE 0.9% 250ML 250 ML IV SCH ×2 (06:55→17:53)
--- NOTE | 2020-10-13 08:17 | Progress Note ---
Assessment and Plan - Patient Problems (1) Acute respiratory failure with hypoxia Current Visit: Yes Status: Acute Plan to address problem: Patient on supplemental oxygen On 40 liters HFNC O2 (2) PCP (pneumocystis jiroveci pneumonia) Current Visit: Yes Status: Acute Qualifiers: Laterality: bilateral Plan to address problem: Clinical picture consistent with PCP pneumonia Patient is IV Zithromax and IV Bactrim ID consult requested (3) HIV (human immunodeficiency virus infection) Current Visit: Yes Status: Chronic Qualifiers: HIV symptom status: symptomatic Qualified Code(s): B20 - Human immunode ficiency virus [HIV] disease Plan to address problem: Patient not taking antiretroviral because HIV program was called on from April 09, 2020 Patient encouraged to get Medicaid and gyne HIV program and follow-up with ID (4) Rectal abscess Current Visit: Yes Status: Acute Plan to address problem: Surgical consult requested wound care consult requested (5) Hyponatremia Current Visit: Yes Status: Acute Plan to address problem: IV normal saline for now (6) Malnutrition Current Visit: Yes Status: Chronic Qualifiers: Protein-calorie malnutrition severity: mild Plan to address problem: Patient started on dietary supplements (7) DVT prophylaxis Current Visit: Yes Status: Acute Plan to address problem: On heparin and GI prophylaxis Subjective Date of service: 10/12/20 Principal diagnosis: Bilateral pneumonia Interval history: History of present illness: 29-year-old male with history of HIV not on any antiretroviral therapy along wit h her chronic gluteal cleft ulcer presents with shortness of breath for 3 months which has been worsening over the past 1 week. Patient feels short of breath on minimal exertion. Patient was hypoxic when he came to the emergency room. Patient had a work-up in facility and is not sure of what the diagnosis was. He states he is not Covid. No exposure to Covid. No other symptoms of HIV. Like chronic diarrhea. All seizures. His main complaint is shortness of breath on minimal exertion for the past 3 months. No penile lesions. Gluteal cleft ulcer 3 to 6 months. 10/12/2020 On 40 L nasal cannula oxygen Objective - Constitutional Vitals: Vital Signs - 12hr 10/12/20 10/12/20 10/12/20 21:45 21:47 21:51 Temperature 98.1 F Pulse Rate 73 98 H Respiratory 38 H 32 H Rate Blood Pressure 123/77 O2 Sat by Pulse 94 96 91 Oximetry 10/13/20 10/13/20 10/13/20 03:00 05:17 05:20 Temperature 98.0 F 98.0 F Pulse Rate 87 87 Respiratory 36 H 26 H Rate Blood Pressure 117/81 O2 Sat by Pulse 95 100 Oximetry General appearance: Present: mild distress, well-nourished - EENT Eyes: PERRL, EOM intact ENT: hearing intact, clear oral mucosa Ears: bilateral: normal - Neck Neck: supple, normal ROM - Respiratory Respiratory effort: normal Respiratory: bilateral: CTA - Breasts Breasts: normal - Cardiovascular Heart rate: 78 Rhythm: regular Heart Sounds: Present: S1 & S2. Absent: gallop, rub Extremities: pulses intact, No edema, normal color, Full ROM - Gastrointestinal General gastrointestinal: Present: soft, non-tender, non-distended, normal bowel sounds - Genitourinary Male genitourinary: normal - Integumentary Integumentary: clear, warm, dry - Musculoskeletal Musculoskeletal: 1, strength equal bilaterally - Neurologic Neurologic: moves all extremities - Psychiatric Psychiatric: memory intact, appropriate mood/affect, intact judgment & insight - Labs CBC & Chem 7: 10/12/20 07:02 10/12/20 07:02 Labs: Abnormal lab results 10/12/20 10/12/20 Range/Units 07:02 07:02 Hct 24.4 L D (35.5-45.6) % Sodium 135 L (137-145) mmol/L Carbon Dioxide 17 L (22-30) mmol/L Glucose 149 H (75-100) mg/dL HEART Score - HEART Score Troponin: Troponin T < 0.010 ng/mL (0.00-0.029) 10/09/20 14:22
[2020-10-13] MEDS: cefTRIAXone/NS 2 GM/100 ML 2 GM/100 ML BAG IV SCH (09:43)
[2020-10-13] MEDS: HEPARIN 5,000 UNIT/1 ML VIAL SUB-Q SCH ×2 (09:44→22:11)
[2020-10-13] MEDS: methylPREDNISolone Sod Succinate 40 MG/1 ML INJ IV SCH ×2 (09:44→22:11)
--- NOTE | 2020-10-13 13:35 | Progress Note ---
Assessment and Plan Cultures: Blood culture pending Urine culture pending Assessment: 29-year-old male with history of HIV diagnosed in 2010, off ART for 18 months since he loss his insurance due to unemployment, used to be seen by IDP, was on descovy and prezcovix, chronic gluteal cleft ulcer, admitted on 11/05/2020 secondary to 2-month history of worsening dry cough and shortness of breath/GÓMEZ and 40+ pounds weight loss in 6 months: #Sepsis: Present on admission with elevated lactate, tachycardia, tachypnea and hypoxia; likely secondary to bilateral pneumonia. #Bilateral pneumonia: Highly suspicious for moderate PJP pneumonia. pO2>70. SARS-CoV-2 PCR negative. LDH>500. Patient with HIV without any ART for 18 months. #Acute hypoxic respiratory failure: Currently on nasal cannula oxygen. pO2>70. #Mid gluteal cleft chronic ulcer infection and right sided perirectal abscess: Unclear etiology. Patient denies history of genital herpes. CRP 5.5. CT shows small right-sided perirectal abscess 1.5 x 1 x 1 cm. No evidence of osteomyelitis. #HIV: diagnosed in 2010, off ART for 18 months since he loss his insurance due to unemployment, used to be seen by IDP, was on descovy and prezcovix, unknown CD4 and viral load. Recommendations: - Induced sputum for PJP DFA - Ordered Serum Beta glucan - IV Bactrim 15-20 mg/kg/day of trimethopin for PJP - prednisone 40 mg PO BID for 5 days then taper - Obtain gluteal ulcer wound culture, pending - Continue ceftriaxone, flagyl and vanco for mid gluteal cleft chronic ulcer infection and right sided perirectal abscess - Wound care consult - Check Cd4/VL - Check RPR/Crypto ag Nicanor Reynolds MD [facility], [place], [facility] ([facility]) O: [phone] F: [phone] Subjective Date of service: 10/13/20 Principal diagnosis: Bilateral pneumonia Interval history: Afebrile, white count 9.9. Cultures remain no growth so far. Requiring BiPAP Objective - Exam Narrative Exam: Physical Exam: Constitutional: Alert, cooperative. No acute distress Head, Ears, Nose: Normocephalic, atraumatic. Eyes: Conjunctivae/corneas clear. No icterus. Neck: Supple, no meningeal signs Oral: dentition fair, no thrush Cardiovascular: S1, S2 normal. Respiratory: Good air entry, clear to auscultation bilaterally GI: Soft, non-tender; bowel sounds normal. No peritoneal signs. Musculoskeletal: No pedal edema, no cyanosis. Skin: No rash or abscess Hem/Lymphatic: No palpable cervical or supraclavicular nodes. Psych: Mood ok. Affect normal Neurological: Awake, alert, oriented. No gross abnormality - Constitutional Vitals: Vital Signs Temp Pulse Resp BP Pulse Ox 98.0 F 87 26 H 117/81 100 10/13/20 05:20 10/13/20 05:17 10/13/20 05:17 10/13/20 05:17 10/13/20 05:17 Temperature -Last 24 Hours Temperature 98.0 F Temperature 98.0 F Temperature 98.1 F Temperature 98.2 F - Labs CBC & Chem 7: 10/12/20 07:02 10/12/20 07:02
--- NOTE | 2020-10-13 14:42 | Progress Note ---
Assessment and Plan 29 y/o male with known HIV, noncompliant with therapy admitted with acute respiratory failure concern for PJP 10/13/20: Continue supplemental oxygen and bipap PRN. Prognosis still remains very guarded. 1. Agree with empiric therapy for PJP 2. Agree with steroids 3. Gave lasix again today, follow up echo 4. Ordered continuous bipap therapy to help ease work of breathing 5. Discussed the possibility of intubation with patient and he is in agreement if this necessary, hopeful we can avoid this. Guarded prognosis. Subjective Date of service: 10/13/20 Principal diagnosis: Bilateral pneumonia Interval history: Patient did bipap for a few hours and then requested to be off. Stable on HFNC but at 40 and 100%. Sat documented at 96. Objective Vital Signs - 12hr 10/13/20 10/13/20 10/13/20 03:00 05:17 05:20 Temperature 98.0 F 98.0 F Pulse Rate 87 87 Respiratory 36 H 26 H Rate Blood Pressure 117/81 O2 Sat by Pulse 95 100 Oximetry 10/13/20 14:00 Temperature Pulse Rate Respiratory Rate Blood Pressure O2 Sat by Pulse 96 Oximetry Constitutional: no acute distress, alert Eyes: non-icteric Neck: supple Effort: mildly labored Ascultation: Bilateral: rales Cardiovascular: regular rate and rhythm (no mrg) Gastrointestinal: normoactive bowel sounds, soft, non-tender, non-distended Integumentary: normal Extremities: no cyanosis, no edema, pink and warm Neurologic: normal mental status, non-focal exam, pupils equal and round, CN II- XII normal Psychiatric: mood appropriate, affect normal CBC and BMP: 10/12/20 07:02 10/12/20 07:02 ABG, PT/INR, D-dimer: ABG ABG pH 7.403 (7.320-7.450) 10/11/20 09:20 POC ABG pCO2 25.5 mmHg (32.0-48.0) L 10/11/20 09:20 POC ABG pO2 65.7 mmHg (83-108) L 10/11/20 09:20 POC ABG HCO3 15.5 10/11/20 09:20 ABG O2 Saturation 91.8 (0-100) 10/11/20 09:20 PT/INR, D-dimer D-Dimer 365.83 ng/mlDDU (0-234) H 10/09/20 14:22 Abnormal lab findings: Abnormal Labs 10/09/20 10/09/20 10/09/20 13:18 13:18 14:14 RBC 3.54 L Hgb 11.1 L Hct 32.0 L MCHC 35 H Plt Count 562 H Seg Neuts % (Manual) 86.0 H Lymphocytes % (Manual) 11.0 L Lymphocytes # (Manual) 0.6 L D-Dimer ABG pH 7.462 H POC ABG pCO2 22.1 L POC ABG pO2 76.8 L ABG Hemoglobin 11.1 L ABG Oxyhemoglobin 93.8 L ABG Sodium 133.8 L ABG Chloride ABG Glucose Carboxyhemoglobin 0.4 L Sodium 132 L Carbon Dioxide 16 L Glucose 102 H Lactic Acid Ferritin AST ALT < 5 L Lactate Dehydrogenase C-Reactive Protein Total Protein 8.7 H Albumin 3.1 L Arterial Blood Glucose Arterial Blood Ionized Calcium Ur Specific [place] 10/09/20 10/09/20 10/09/20 14:22 14:22 14:22 RBC Hgb Hct MCHC Plt Count Seg Neuts % (Manual) Lymphocytes % (Manual) Lymphocytes # (Manual) D-Dimer 365.83 H ABG pH POC ABG pCO2 POC ABG pO2 ABG Hemoglobin ABG Oxyhemoglobin ABG Sodium ABG Chloride ABG Glucose Carboxyhemoglobin Sodium Carbon Dioxide Glucose Lactic Acid Ferritin 1322.0 H AST ALT Lactate Dehydrogenase 581 H C-Reactive Protein 5.50 H Total Protein Albumin Arterial Blood Glucose Arterial Blood Ionized Calcium Ur Specific [place] 10/09/20 10/09/20 10/11/20 16:44 Unknown 09:20 RBC Hgb Hct MCHC Plt Count Seg Neuts % (Manual) Lymphocytes % (Manual) Lymphocytes # (Manual) D-Dimer ABG pH POC ABG pCO2 25.5 L POC ABG pO2 65.7 L ABG Hemoglobin 8.7 L ABG Oxyhemoglobin 90.7 L ABG Sodium 134.1 L ABG Chloride 112.0 H ABG Glucose 101 H Carboxyhemoglobin Sodium Carbon Dioxide Glucose Lactic Acid 2.40 H* Ferritin AST ALT Lactate Dehydrogenase C-Reactive Protein Total Protein Albumin Arterial Blood Glucose 101 H Arterial Blood Ionized Calcium 4.5 L Ur Specific [place] 1.054 H 10/11/20 10/12/2021 13:41 07:02 07:02 RBC 2.74 L Hgb 8.5 L Hct 24.4 L D MCHC 35 H Plt Count 543 H Seg Neuts % (Manual) Lymphocytes % (Manual) Lymphocytes # (Manual) D-Dimer ABG pH POC ABG pCO2 POC ABG pO2 ABG Hemoglobin ABG Oxyhemoglobin ABG Sodium ABG Chloride ABG Glucose Carboxyhemoglobin Sodium 133 L 135 L Carbon Dioxide 16 L 17 L Glucose 149 H Lactic Acid Ferritin AST 42 H ALT < 5 L Lactate Dehydrogenase C-Reactive Protein Total Protein Albumin 2.8 L Arterial Blood Glucose Arterial Blood Ionized Calcium Ur Specific [place]
[2020-10-13] MEDS: FLORANEX GRANULE PACKET PO SCH (23:23)
[2020-10-14] MEDS: DEXTROSE 5% IV SCH ×3 (05:09→18:50)
[2020-10-14] MEDS: WATER IV SCH ×3 (05:09→18:50)
[2020-10-14] MEDS: TMP IV SCH ×3 (05:09→18:50)
[2020-10-14] MEDS: SMX IV SCH ×3 (05:09→18:50)
[2020-10-14] MEDS: VANCOMYCIN 750 MG in SODIUM CHLORIDE 0.9% 250ML 250 ML IV SCH ×2 (05:10→17:14)
[2020-10-14] MEDS: metroNIDAZOLE/NS 500 MG/100 ML 500 MG/100 ML BAG IV SCH ×3 (05:10→21:42)
--- NOTE | 2020-10-14 06:58 | Progress Note ---
Assessment and Plan - Patient Problems (1) Acute respiratory failure with hypoxia Current Visit: Yes Status: Acute Plan to address problem: Patient on supplemental oxygen On 40 liters HFNC O2 (2) PCP (pneumocystis jiroveci pneumonia) Current Visit: Yes Status: Acute Qualifiers: Laterality: bilateral Plan to address problem: Clinical picture consistent with PCP pneumonia Patient is IV Zithromax and IV Bactrim ID consult appreciated Highly suspicious for moderate PJP pneumonia. pO2>70. SARS-CoV-2 PCR negative. LDH>500. Patient with HIV without any ART for 18 months. (3) HIV (human immunodeficiency virus infection) Current Visit: Yes Status: Chronic Qualifiers: HIV symptom status: symptomatic Qualified Code(s): B20 - Human immunodeficiency virus [HIV] disease Plan to address problem: Patient not taking antiretroviral because HIV program was called on from April 09, 2020 Patient encouraged to get Medicaid and gyne HIV program and follow-up with ID (4) Rectal abscess Current Visit: Yes Status: Acute Plan to address problem: Surgical consult requested wound care consult requested Mid gluteal cleft chronic ulcer infection and right sided perirectal abscess: Unclear etiology. Patient denies history of genital herpes. CRP 5.5. CT shows small right-sided perirectal abscess 1.5 x 1 x 1 cm. No evidence of osteomyelitis. (5) Hyponatremia Current Visit: Yes Status: Acute Plan to address problem: IV normal saline for now Na 135 (6) Malnutrition Current Visit: Yes Status: Chronic Qualifiers: Protein-calorie malnutrition severity: mild Plan to address problem: Patient started on dietary supplements (7) DVT prophylaxis Current Visit: Yes Status: Acute Plan to address problem: On heparin and GI prophylaxis Subjective Date of service: 10/13/20 Principal diagnosis: Bilateral pneumonia Interval history: History of present illness: 29-year-old male with history of HIV not on any antiretroviral therapy along with her chronic gluteal cleft ulcer presents with shortness of breath for 3 months which has been worsening over the past 1 week. Patient feels short of breath on minimal exertion. Patient was hypoxic when he came to the emergency room. Patient had a work-up in facility and is not sure of what the diagnosis was. He states he is not Covid. No exposure to Covid. No other symptoms of HIV. Like chronic diarrhea. All seizures. His main complaint is shortness of breath on minimal exertion for the past 3 months. No penile lesions. Gluteal cleft ulcer 3 to 6 months. 10/12/2020 On 40 L nasal cannula oxygen 10/13/2020 On 40 L high flow nasal cannula oxygen Objective - Constitutional Vitals: Vital Signs - 12hr 10/13/20 10/13/20 10/13/20 21:23 21:25 21:26 Temperature 98.0 F 98.0 F Pulse Rate 92 H Respiratory 24 Rate Blood Pressure 121/79 O2 Sat by Pulse 91 99 Oximetry 10/14/20 10/14/20 02:55 04:17 Temperature Pulse Rate 90 Respiratory 26 H Rate Blood Pressure O2 Sat by Pulse 94 95 Oximetry General appearance: Present: mild distress, well-nourished - EENT Eyes: PERRL, EOM intact ENT: hearing intact, clear oral mucosa Ears: bilateral: normal - Neck Neck: supple, normal ROM - Respiratory Respiratory effort: normal Respiratory: bilateral: CTA, rhonchi (Scattered rhonchi) - Breasts Breasts: normal - Cardiovascular Rhythm: regular Heart Sounds: Present: S1 & S2. Absent: gallop, rub Extremities: pulses intact, No edema, normal color, Full ROM - Gastrointestinal General gastrointestinal: Present: soft, non-tender, non-distended, normal bowel sounds - Genitourinary Male genitourinary: normal - Integumentary Integumentary: clear, warm, dry - Musculoskeletal Musculoskeletal: 1, strength equal bilaterally - Neurologic Neurologic: moves all extremities - Psychiatric Psychiatric: memory intact, appropriate mood/affect, intact judgment & insight - Labs CBC & Chem 7: 10/12/20 07:02 10/12/20 07:02 HEART Score - HEART Score Troponin: Troponin T < 0.010 ng/mL (0.00-0.029) 10/09/20 14:22
[2020-10-14] MEDS: cefTRIAXone/NS 2 GM/100 ML 2 GM/100 ML BAG IV SCH (09:29)
[2020-10-14] MEDS: HEPARIN 5,000 UNIT/1 ML VIAL SUB-Q SCH ×2 (09:30→21:41)
[2020-10-14] MEDS: methylPREDNISolone Sod Succinate 40 MG/1 ML INJ IV SCH ×2 (09:30→21:40)
[2020-10-14] MEDS: FLORANEX GRANULE PACKET PO SCH ×2 (09:36→21:41)
[2020-10-14] MEDS: ONDANSETRON 4 MG/2 ML INJ IV PRN ×2 (10:15→21:40)
--- NOTE | 2020-10-14 12:53 | Progress Note ---
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 Patient feels short of breath on minimal exertion. Patient was hypoxic when he came to the emergency room. Patient had a work-up in facility and is not sure of what the diagnosis was. He states he is not Covid. No exposure to Covid. No other symptoms of HIV. Like chronic diarrhea. All seizures. His main complaint is shortness of breath on minimal exertion for the past 3 months. No penile lesions. Gluteal cleft ulcer 3 to 6 months. 10/12/2020 On 40 L nasal cannula oxygen 10/13/2020 On 40 L high flow nasal cannula oxygen 10/14: Patient remains on high flow oxygen, Pulmonary FOLLOWING, Metabolic Acidosis noted, will give some sodium bicarb. Continue weaning oxygen. Anemia. (1) Acute respiratory failure with hypoxia Current Visit: Yes Status: Acute Plan to address problem: Patient on supplemental oxygen On 40 liters HFNC O2 (2) PCP (pneumocystis jiroveci pneumonia) Current Visit: Yes Status: Acute Qualifiers: Laterality: bilateral Plan to address problem: Clinical picture consistent with PCP pneumonia Patient is IV Zithromax and IV Bactrim ID consult appreciated Highly suspicious for moderate PJP pneumonia. pO2>70. SARS-CoV-2 PCR negative. LDH>500. Patient with HIV without any ART for 18 months. (3) HIV (human immunodeficiency virus infection) Current Visit: Yes Status: Chronic Qualifiers: HIV symptom status: symptomatic Qualified Code(s): B20 - Human immunodeficiency virus [HIV] disease Plan to address problem: Patient not taking antiretroviral because HIV program was called on from April 09, 2020 Patient encouraged to get Medicaid and gyne HIV program and follow-up with ID (4) Rectal abscess Current Visit: Yes Status: Acute Plan to address problem: Surgical consult requested wound care consult requested Mid gluteal cleft chronic ulcer infection and right sided perirectal abscess: Unclear etiology. Patient denies history of genital herpes. CRP 5.5. CT shows small right-sided perirectal abscess 1.5 x 1 x 1 cm. No evidence of osteomyelitis. (5) Hyponatremia Current Visit: Yes Status: Acute Plan to address problem: IV normal saline for now Na 135 (6) Malnutrition Current Visit: Yes Status: Chronic Qualifiers: Protein-calorie malnutrition severity: mild Plan to address problem: Patient started on dietary supplements (7) DVT prophylaxis Current Visit: Yes Status: Acute Plan to address problem: On heparin and GI prophylaxis History Interval history: Patient seen and examined still on high flow oxygen but with good positive attitude. Hospitalist Physical - Physical exam Narrative exam: General appearance: Present: mild distress on high flow oxygen, well-nourished - EENT Eyes: PERRL, EOM intact ENT: hearing intact, clear oral mucosa Ears: bilateral: normal - Neck Neck: supple, normal ROM - Respiratory Respiratory effort: normal Respiratory: bilateral: CTA, rhonchi (Scattered rhonchi) - Breasts Breasts: normal - Cardiovascular Rhythm: regular Heart Sounds: Present: S1 & S2. Absent: gallop, rub Extremities: pulses intact, No edema, normal color, Full ROM - Gastrointestinal General gastrointestinal: Present: soft, non-tender, non-distended, normal bowel sounds - Genitourinary Male genitourinary: normal - Integumentary Integumentary: clear, warm, dry - Musculoskeletal Musculoskeletal: 1, strength equal bilaterally - Neurologic Neurologic: moves all extremities - Psychiatric Psychiatric: memory intact, appropriate mood/affect, intact judgment & insight - Constitutional Vitals: Temp Pulse Resp BP Pulse Ox 98.0 F 90 26 H 121/79 97 10/13/20 21:25 10/14/20 02:55 10/14/20 02:55 10/13/20 21:23 10/14/20 08:00 General appearance: Present: mild distress, well-nourished HEART Score - HEART Score Troponin: Troponin T < 0.010 ng/mL (0.00-0.029) 10/09/20 14:22 Results - Labs CBC & Chem 7: 10/12/20 07:02 10/12/20 07:02 Labs: Laboratory Last Values WBC 9.9 K/mm3 (4.5-11.0) 10/12/20 07:02 RBC 2.74 M/mm3 (3.65-5.03) L 10/12/20 07:02 Hgb 8.5 gm/dl (11.8-15.2) L 10/12/20 07:02 Hct 24.4 % (35.5-45.6) L D 10/12/20 07:02 MCV 89 fl (84-94) 10/12/20 07:02 MCH 31 pg (28-32) 10/12/20 07:02 MCHC 35 % (32-34) H 10/12/20 07:02 RDW 14.3 % (13.2-15.2) 10/12/20 07:02 Plt Count 543 K/mm3 (140-440) H 10/12/20 07:02 Add Manual Diff Complete 10/09/20 13:18 Total Counted 100 10/09/20 13:18 Seg Neuts % (Manual) 86.0 % (40.0-70.0) H 10/09/20 13:18 Lymphocytes % (Manual) 11.0 % (13.4-35.0) L 10/09/20 13:18 Monocytes % (Manual) 3.0 % (0.0-7.3) 10/09/20 13:18 Nucleated RBC % Not Reportable 10/09/20 13:18 Seg Neutrophils # Man 4.4 K/mm3 (1.8-7.7) 10/09/20 13:18 Band Neutrophils # 0.0 K/mm3 10/09/20 13:18 Lymphocytes # (Manual) 0.6 K/mm3 (1.2-5.4) L 10/09/20 13:18 Abs React Lymphs (Man) 0.0 K/mm3 10/09/20 13:18 Monocytes # (Manual) 0.2 K/mm3 (0.0-0.8) 10/09/20 13:18 Eosinophils # (Manual) 0.0 K/mm3 (0.0-0.4) 10/09/20 13:18 Basophils # (Manual) 0.0 K/mm3 (0.0-0.1) 10/09/20 13:18 Metamyelocytes # 0.0 K/mm3 10/09/20 13:18 Myelocytes # 0.0 K/mm3 10/09/20 13:18 Promyelocytes # 0.0 K/mm3 10/09/20 13:18 Blast Cells # 0.0 K/mm3 10/09/20 13:18 WBC Morphology Not Reportable 10/09/20 13:18 Hypersegmented Neuts Not Reportable 10/09/20 13:18 Hyposegmented Neuts Not Reportable 10/09/20 13:18 Hypogranular Neuts Not Reportable 10/09/20 13:18 Smudge Cells Not Reportable 10/09/20 13:18 Toxic Granulation Not Reportable 10/09/20 13:18 Toxic Vacuolation Not Reportable 10/09/20 13:18 Dohle Bodies Not Reportable 10/09/20 13:18 Pelger-Huet Anomaly Not Reportable 10/09/20 13:18 Yuri Rods Not Reportable 10/09/20 13:18 Platelet Estimate Consistent w auto 10/09/20 13:18 Clumped Platelets Not Reportable 10/09/20 13:18 Plt Clumps, EDTA Not Reportable 10/09/20 13:18 Large Platelets Not Reportable 10/09/20 13:18 Giant Platelets Rare 10/09/20 13:18 Platelet Satelliting Not Reportable 10/09/20 13:18 Plt Morphology Comment Not Reportable 10/09/20 13:18 RBC Morphology Normal 10/09/20 13:18 Dimorphic RBCs Not Reportable 10/09/20 13:18 Polychromasia Not Reportable 10/09/20 13:18 Hypochromasia Not Reportable 10/09/20 13:18 Poikilocytosis Not Reportable 10/09/20 13:18 Anisocytosis Not Reportable 10/09/20 13:18 Microcytosis Not Reportable 10/09/20 13:18 Macrocytosis Not Reportable 10/09/20 13:18 Spherocytes Not Reportable 10/09/20 13:18 Pappenheimer Bodies Not Reportable 10/09/20 13:18 Sickle Cells Not Reportable 10/09/20 13:18 Target Cells Not Reportable 10/09/20 13:18 Tear Drop Cells Not Reportable 10/09/20 13:18 Ovalocytes Not Reportable 10/09/20 13:18 Helmet Cells Not Reportable 10/09/20 13:18 [place] Bodies Not Reportable 10/09/20 13:18 [place] Rings Not Reportable 10/09/20 13:18 Naz Cells Not Reportable 10/09/20 13:18 Bite Cells Not Reportable 10/09/20 13:18 Crenated Cell Not Reportable 10/09/20 13:18 Elliptocytes Not Reportable 10/09/20 13:18 Acanthocytes (Spur) Not Reportable 10/09/20 13:18 Rouleaux Not Reportable 10/09/20 13:18 Hemoglobin C Crystals Not Reportable 10/09/20 13:18 Schistocytes Not Reportable 10/09/20 13:18 Malaria parasites Not Reportable 10/09/20 13:18 Benigno Bodies Not Reportable 10/09/20 13:18 Hem Pathologist Commnt No 10/09/20 13:18 D-Dimer 365.83 ng/mlDDU (0-234) H 10/09/20 14:22 ABG pH 7.403 (7.320-7.450) 10/11/20 09:20 POC ABG pCO2 25.5 mmHg (32.0-48.0) L 10/11/20 09:20 POC ABG pO2 65.7 mmHg (83-108) L 10/11/20 09:20 POC ABG HCO3 15.5 10/11/20 09:20 ABG O2 Saturation 91.8 (0-100) 10/11/20 09:20 POC ABG Base Excess -8.1 10/11/20 09:20 ABG Hemoglobin 8.7 (12.0-17.5) L 10/11/20 09:20 ABG Oxyhemoglobin 90.7 (94-98) L 10/11/20 09:20 ABG Methemoglobin 0.3 (0.0-1.5) 10/11/20 09:20 ABG Sodium 134.1 mmol/L (136.0-145.0) L 10/11/20 09:20 ABG Potassium 3.7 mmol/L (3.40-4.50) 10/11/20 09:20 ABG Chloride 112.0 mmol/L (98-107) H 10/11/20 09:20 ABG Glucose 101 mg/dL (65-95) H 10/11/20 09:20 ABG Lactate 1.54 (0.18-30.0) 10/09/20 14:14 Carboxyhemoglobin 0.9 (0.5-1.5) 10/11/20 09:20 FiO2 % 68.0 10/11/20 09:20 Sodium 135 mmol/L (137-145) L 10/12/20 07:02 Potassium 4.2 mmol/L (3.6-5.0) 10/12/20 07:02 Chloride 103.3 mmol/L (98-107) 10/12/20 07:02 Carbon Dioxide 17 mmol/L (22-30) L 10/12/20 07:02 Anion Gap 19 mmol/L 10/12/20 07:02 BUN 16 mg/dL (9-20) 10/12/20 07:02 Creatinine 1.1 mg/dL (0.8-1.3) 10/12/20 07:02 Estimated GFR > 60 ml/min 10/12/20 07:02 BUN/Creatinine Ratio 15 % 10/12/20 07:02 Glucose 149 mg/dL (75-100) H 10/12/20 07:02 Lactic Acid 1.00 mmol/L (0.7-2.0) 10/10/20 06:57 Calcium 9.0 mg/dL (8.4-10.2) 10/12/20 07:02 Ferritin 1322.0 ng/mL (30.0-300.0) H 10/09/20 14:22 Total Bilirubin < 0.20 mg/dL (0.1-1.2) 10/11/20 13:41 AST 42 units/L (5-40) H 10/11/20 13:41 ALT < 5 units/L (7-56) L 10/11/20 13:41 Alkaline Phosphatase 59 units/L (35-129) 10/11/20 13:41 Lactate Dehydrogenase 581 units/L (91-180) H 10/09/20 14:22 Troponin T < 0.010 ng/mL (0.00-0.029) 10/09/20 14:22 C-Reactive Protein 5.50 mg/dL (0.00-1.30) H 10/09/20 14:22 NT-Pro-B Natriuret Pep 47.57 pg/mL (0-450) 10/09/20 14:22 Total Protein 6.7 g/dL (6.3-8.2) D 10/11/20 13:41 Albumin 2.8 g/dL (3.9-5) L 10/11/20 13:41 Albumin/Globulin Ratio 0.7 % 10/11/20 13:41 Procalcitonin 0.07 ng/mL (<0.15) 10/09/20 14:22 Arterial Blood Glucose 101 mg/dL (65-95) H 10/11/20 09:20 Arterial Blood Ionized Calcium 4.5 mg/dL (4.6-5.3) L 10/11/20 09:20 Urine Color Yellow (Yellow) 10/09/20 Unknown Urine Turbidity Clear (Clear) 10/09/20 Unknown Urine pH 6.0 (5.0-7.0) 10/09/20 Unknown Ur Specific [place] 1.054 (1.003-1.030) H 10/09/20 Unknown Urine Protein 30 mg/dl mg/dL (Negative) 10/09/20 Unknown Urine Glucose (UA) Neg mg/dL (Negative) 10/09/20 Unknown Urine Ketones Neg mg/dL (Negative) 10/09/20 Unknown Urine Blood Neg (Negative) 10/09/20 Unknown Urine Nitrite Neg (Negative) 10/09/20 Unknown Urine Bilirubin Neg (Negative) 10/09/20 Unknown Urine Urobilinogen < 2.0 mg/dL (<2.0) 10/09/20 Unknown Ur Leukocyte Esterase Neg (Negative) 10/09/20 Unknown Urine WBC (Auto) 4.0 /HPF (0.0-6.0) 10/09/20 Unknown Urine RBC (Auto) 1.0 /HPF (0.0-6.0) 10/09/20 Unknown U Epithel Cells (Auto) < 1.0 /HPF (0-13.0) 10/09/20 Unknown Urine Mucus Few /HPF 10/09/20 Unknown Vancomycin Trough 14.2 ug/mL (5.0-20.0) 10/12/20 16:41 Coronavirus (PCR) Negative (Negative) 10/10/20 09:50 Microbiology: Microbiology 10/09/20 14:22 Peripheral/Venous Blood Culture - Preliminary NO GROWTH AFTER 4 DAYS 10/09/20 14:22 Peripheral/Venous Blood Culture - Preliminary NO GROWTH AFTER 4 DAYS Lal/IV: Voiding Method Urinal Active Medications - Current Medications Current Medications: Generic Name Dose Route Start Last Admin Trade Name Freq PRN Reason Stop Dose Admin Acetaminophen 650 mg 10/09/20 18:00 10/11/20 09:57 Acetaminophen 325 Mg Tab PO 650 mg Q4H PRN Administration Pain MILD(1-3)/Fever >100.5/LAMA Albuterol 2.5 mg 10/10/20 06:41 10/11/20 07:20 Albuterol 2.5 Mg/3 Ml Nebu IH 2.5 mg Q3HRT PRN Administration Wheezing Heparin Sodium (Porcine) 5,000 unit 10/10/20 10:00 10/14/20 09:30 Heparin 5,000 Unit/1 Ml Vial SUB-Q 5,000 unit Q12HR IRIS Administration Ceftriaxone Sodium 2 gm in 100 mls @ 200 mls/hr 10/10/20 16:00 10/14/20 09:29 Rocephin/Ns 2 Gm/100 Ml IV 200 mls/hr Q24HR IRIS Administration Protocol Metronidazole 500 mg in 100 mls @ 100 mls/hr 10/10/20 15:00 10/14/20 05:10 Flagyl 500 Mg/100 Ml IV 100 mls/hr Q8HR IRIS Administration Protocol Vancomycin HCl 750 mg/ Sodium 265 mls @ 166.667 mls/hr 10/11/20 06:00 10/14/20 05:10 Chloride IV 166.667 mls/hr Q12H IRIS Administration Trimethoprim/Sulfamethoxazole 518.75 mls @ 350 mls/hr 10/11/20 11:00 10/14/20 10:15 300 mg/ Dextrose IV 11/01/20 06:29 350 mls/hr Q6H IRIS Administration Protocol Lactobacillus Acidophilus 1 each 10/13/20 22:00 10/14/20 09:36 Floranex Granule Packet PO 1 each BID IRIS Administration Lorazepam 1 mg 10/10/20 19:20 10/13/20 00:27 Lorazepam 2 Mg/Ml Vial IV 1 mg Q6HR PRN Administration Anxiety Methylprednisolone Sodium Succinate 40 mg 10/11/20 10:00 10/14/20 09:30 Methylprednisolone Sod Succinate 40 Mg/1 Ml Inj IV 10/15/20 22:01 40 mg Q12HR IRIS Administration Methylprednisolone Sodium Succinate 40 mg 10/16/20 10:00 Methylprednisolone Sod Succinate 40 Mg/1 Ml Inj IV 10/20/20 10:01 Q24HR IRIS Methylprednisolone Sodium Succinate 20 mg 10/21/20 10:00 Methylprednisolone Sod Succinate 40 Mg/1 Ml Inj IV 10/31/20 10:01 Q24HR IRIS Ondansetron HCl 4 mg 10/09/20 18:00 10/14/20 10:15 Ondansetron 4 Mg/2 Ml Inj IV 4 mg Q8H PRN Administration Nausea And Vomiting Sodium Chloride 10 ml 10/09/20 22:00 10/14/20 09:36 Sodium Chloride 0.9% 10 Ml Flush Syringe IV 10 ml BID IRIS Administration Sodium Chloride 10 ml 10/09/20 18:00 Sodium Chloride 0.9% 10 Ml Flush Syringe IV PRN PRN LINE FLUSH Nutrition/Malnutrition Assess - Dietary Evaluation Nutrition/Malnutrition Findings: Nutrition Notes Start: 10/10/20 09: 11 Freq: Status: Active Protocol: Document 10/13/20 10:53 (Rec: 10/13/20 10:56 [email or web address]) Nutrition Notes Initial or Follow up Reassessment Current Diagnosis Respiratory Failure Other Pertinent Diagnosis HIV, SOB, Pneumocystis jiroveci Pneumonia Current Diet regular Labs/Tests Na 135 Pertinent Medications Reviewed Height 5 ft 6 in Weight 58.8 kg [place] Body Weight (kg) 64.54 BMI 20.9 Weight change and time frame wt change noted Weight Status Underweight Subjective/Other Information Pt reports eating 80% of meals when he is hungry for them. If not, he will drink 2 ONS. Pt states diarrhea is improving. Percent of energy/protein needs met: 100%/100% Burn Absent Trauma Absent GI Symptoms None Current % PO Negligible Minimum of two criteria Yes Energy Intake (non-severe) <75% Estimated Energy Requirement >7 days Interpretation of Weight Loss (severe) >10% in 6 months Body Fat Depletion Mild depletion (non-severe) Muscle Mass Mild Depletion (non-severe) #2 Nutrition Diagnosis Increased nutrient needs ( specify in comment below) Comments: protein Diagnosis Progress(for reassessment Continues documentation) #1 Nutrition Diagnosis Malnutrition Diagnosis Progress(for reassessment Continues documentation) Is patient on ventilator? No Is Patient Ambulatory and/or Out of Bed No REE-([facility]-confined to bed) 7465.870 Calculation Used for Recommendations [facility] Additional Notes Protein: (1.25-1.5g/kg) 66-79g Fluid: 1 ml/kcal Nutrition Intervention Change Diet Order: Continue Add Supplement/Snack (indicate name/kcal Ensure Enlive BID /protein ) Provides kCal: 700 Provides Protein (gm) 40 Goal #1 Meet at least 80% of protein and energy needs Goal #2 Wound healing Goal #3 Weight gain/maintenance Follow-Up By: 10/18/20 Additional Comments FU for intakes
--- NOTE | 2020-10-14 14:27 | Progress Note ---
Assessment and Plan 29 y/o male with known HIV, noncompliant with therapy admitted with acute respiratory failure concern for PJP 10/14/20: Slow improvement. Continue to wean FiO2 as tolerated for sats >88%. 10/13/20: Continue supplemental oxygen and bipap PRN. Prognosis still remains very guarded. 1. Agree with empiric therapy for PJP 2. Agree with steroids 3. Gave lasix again today, follow up echo 4. Ordered continuous bipap therapy to help ease work of breathing 5. Discussed the possibility of intubation with patient and he is in agreement if this necessary, hopeful we can avoid this. Guarded prognosis. Subjective Date of service: 10/14/20 Principal diagnosis: Bilateral pneumonia Interval history: No acute events. Remains on HFNC. Stable. Objective Vital Signs - 12hr 10/14/20 10/14/20 10/14/20 02:55 04:17 08:00 Temperature Pulse Rate 90 Respiratory 26 H Rate Blood Pressure O2 Sat by Pulse 94 95 97 Oximetry 10/14/20 12:14 Temperature 97.7 F Pulse Rate 84 Respiratory 20 Rate Blood Pressure 134/96 O2 Sat by Pulse 95 Oximetry Constitutional: no acute distress, alert Eyes: non-icteric Neck: supple Effort: mildly labored Ascultation: Bilateral: rales Cardiovascular: regular rate and rhythm (no mrg) Gastrointestinal: normoactive bowel sounds, soft, non-tender, non-distended Integumentary: normal Extremities: no cyanosis, no edema, pink and warm Neurologic: normal mental status, non-focal exam, pupils equal and round, CN II- XII normal Psychiatric: mood appropriate, affect normal CBC and BMP: 10/12/20 07:02 10/12/20 07:02 ABG, PT/INR, D-dimer: ABG ABG pH 7.403 (7.320-7.450) 10/11/20 09:20 POC ABG pCO2 25.5 mmHg (32.0-48.0) L 10/11/20 09:20 POC ABG pO2 65.7 mmHg (83-108) L 10/11/20 09:20 POC ABG HCO3 15.5 10/11/20 09:20 ABG O2 Saturation 91.8 (0-100) 10/11/20 09:20 PT/INR, D-dimer D-Dimer 365.83 ng/mlDDU (0-234) H 10/09/20 14:22 Abnormal lab findings: Abnormal Labs 10/09/20 10/09/20 10/09/20 13:18 13:18 14:14 RBC 3.54 L Hgb 11.1 L Hct 32.0 L MCHC 35 H Plt Count 562 H Seg Neuts % (Manual) 86.0 H Lymphocytes % (Manual) 11.0 L Lymphocytes # (Manual) 0.6 L D-Dimer ABG pH 7.462 H POC ABG pCO2 22.1 L POC ABG pO2 76.8 L ABG Hemoglobin 11.1 L ABG Oxyhemoglobin 93.8 L ABG Sodium 133.8 L ABG Chloride ABG Glucose Carboxyhemoglobin 0.4 L Sodium 132 L Carbon Dioxide 16 L Glucose 102 H Lactic Acid Ferritin AST ALT < 5 L Lactate Dehydrogenase C-Reactive Protein Total Protein 8.7 H Albumin 3.1 L Arterial Blood Glucose Arterial Blood Ionized Calcium Ur Specific [place] 10/09/20 10/09/20 10/09/20 14:22 14:22 14:22 RBC Hgb Hct MCHC Plt Count Seg Neuts % (Manual) Lymphocytes % (Manual) Lymphocytes # (Manual) D-Dimer 365.83 H ABG pH POC ABG pCO2 POC ABG pO2 ABG Hemoglobin ABG Oxyhemoglobin ABG Sodium ABG Chloride ABG Glucose Carboxyhemoglobin Sodium Carbon Dioxide Glucose Lactic Acid Ferritin 1322.0 H AST ALT Lactate Dehydrogenase 581 H C-Reactive Protein 5.50 H Total Protein Albumin Arterial Blood Glucose Arterial Blood Ionized Calcium Ur Specific [place] 10/09/20 10/09/20 10/11/20 16:44 Unknown 09:20 RBC Hgb Hct MCHC Plt Count Seg Neuts % (Manual) Lymphocytes % (Manual) Lymphocytes # (Manual) D-Dimer ABG pH POC ABG pCO2 25.5 L POC ABG pO2 65.7 L ABG Hemoglobin 8.7 L ABG Oxyhemoglobin 90.7 L ABG Sodium 134.1 L ABG Chloride 112.0 H ABG Glucose 101 H Carboxyhemoglobin Sodium Carbon Dioxide Glucose Lactic Acid 2.40 H* Ferritin AST ALT Lactate Dehydrogenase C-Reactive Protein Total Protein Albumin Arterial Blood Glucose 101 H Arterial Blood Ionized Calcium 4.5 L Ur Specific [place] 1.054 H 10/11/20 10/12/20 10/12/20 13:41 07:02 07:02 RBC 2.74 L Hgb 8.5 L Hct 24.4 L D MCHC 35 H Plt Count 543 H Seg Neuts % (Manual) Lymphocytes % (Manual) Lymphocytes # (Manual) D-Dimer ABG pH POC ABG pCO2 POC ABG pO2 ABG Hemoglobin ABG Oxyhemoglobin ABG Sodium ABG Chloride ABG Glucose Carboxyhemoglobin Sodium 133 L 135 L Carbon Dioxide 16 L 17 L Glucose 149 H Lactic Acid Ferritin AST 42 H ALT < 5 L Lactate Dehydrogenase C-Reactive Protein Total Protein Albumin 2.8 L Arterial Blood Glucose Arterial Blood Ionized Calcium Ur Specific [place]
--- NOTE | 2020-10-14 15:27 | Progress Note ---
Assessment and Plan Cultures: Blood culture pending Urine culture pending Assessment: 29-year-old male with history of HIV diagnosed in 2010, off ART for 18 months since he loss his insurance due to unemployment, used to be seen by IDP, was on descovy and prezcovix, chronic gluteal cleft ulcer, admitted on 11/05/2020 secondary to 2-month history of worsening dry cough and shortness of breath/GÓMEZ and 40+ pounds weight loss in 6 months: #Sepsis: Present on admission with elevated lactate, tachycardia, tachypnea and hypoxia; likely secondary to bilateral pneumonia. #Bilateral pneumonia: Highly suspicious for moderate PJP pneumonia. pO2>70. SARS-CoV-2 PCR negative. LDH>500. Patient with HIV without any ART for 18 months. #Acute hypoxic respiratory failure: Currently on nasal cannula oxygen. pO2>70. #Mid gluteal cleft chronic ulcer infection and right sided perirectal abscess: Unclear etiology. Patient denies history of genital herpes. CRP 5.5. CT shows small right-sided perirectal abscess 1.5 x 1 x 1 cm. No evidence of osteomyelitis. #HIV: diagnosed in 2010, off ART for 18 months since he loss his insurance due to unemployment, used to be seen by IDP, was on descovy and prezcovix, unknown CD4 and viral load. Recommendations: - Induced sputum for PJP DFA - Ordered Serum Beta glucan - IV Bactrim 15-20 mg/kg/day of trimethopin for PJP, when improved enough for discharge can send with Bactrim 2xDS every 8 hours - prednisone 40 mg PO BID for 5 days then taper - Obtain gluteal ulcer wound culture, pending - Continue ceftriaxone, flagyl and vanco for mid gluteal cleft chronic ulcer infection and right sided perirectal abscess - Wound care consult - Check Cd4/VL - Check RPR/Crypto ag Nicanor Reynolds MD [facility] O: [phone] F: [phone] Subjective Date of service: 10/14/20 Principal diagnosis: Bilateral pneumonia Interval history: Afebrile, normal white count. Requiring 40 L high flow nasal cannula Objective - Exam Narrative Exam: Physical Exam: Constitutional: Alert, cooperative. No acute distress Head, Ears, Nose: Normocephalic, atraumatic. Eyes: Conjunctivae/corneas clear. Neck: Supple, no meningeal signs Oral: dentition fair, no thrush Cardiovascular: S1, S2 normal. Respiratory: Good air entry, clear to auscultation bilaterally GI: Soft, non-tender; bowel sounds normal. No peritoneal signs. Musculoskeletal: No pedal edema, no cyanosis. Skin: No rash or abscess Hem/Lymphatic: No palpable cervical or supraclavicular nodes. Psych: Mood ok. Affect normal Neurological: Awake, alert, oriented. No gross abnormality - Constitutional Vitals: Vital Signs Temp Pulse Resp BP Pulse Ox 97.7 F 84 20 134/96 93 10/14/20 12:14 10/14/20 12:14 10/14/20 12:14 10/14/20 12:14 10/14/20 14:00 Temperature -Last 24 Hours Temperature 97.7 F Temperature 98.0 F Temperature 98.0 F - Labs CBC & Chem 7: 10/12/20 07:02 10/12/20 07:02
[2020-10-15] MEDS: DEXTROSE 5% IV SCH ×4 (00:09→17:17)
[2020-10-15] MEDS: SMX IV SCH ×4 (00:09→17:17)
[2020-10-15] MEDS: WATER IV SCH ×4 (00:09→17:17)
[2020-10-15] MEDS: TMP IV SCH ×4 (00:09→17:17)
[2020-10-15] MEDS: LORazepam 2 MG/ML VIAL IV PRN (01:27)
[2020-10-15] MEDS: VANCOMYCIN 750 MG in SODIUM CHLORIDE 0.9% 250ML 250 ML IV SCH ×2 (05:17→19:00)
[2020-10-15] MEDS: metroNIDAZOLE/NS 500 MG/100 ML 500 MG/100 ML BAG IV SCH ×3 (05:17→23:05)
--- NOTE | 2020-10-15 11:56 | Progress Note ---
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 Patient feels short of breath on minimal exertion. Patient was hypoxic when he came to the emergency room. Patient had a work-up in facility and is not sure of what the diagnosis was. He states he is not Covid. No exposure to Covid. No other symptoms of HIV. Like chronic diarrhea. All seizures. His main complaint is shortness of breath on minimal exertion for the past 3 months. No penile lesions. Gluteal cleft ulcer 3 to 6 months. 10/12/2020 On 40 L nasal cannula oxygen 10/13/2020 On 40 L high flow nasal cannula oxygen 10/14: Patient remains on high flow oxygen, Pulmonary FOLLOWING, Metabolic Acidosis noted, will give some sodium bicarb. Continue weaning oxygen. Anemia. 10/15: Patient with complex medical condition continues on recommendation by ID including Bactrim and Zithromax. Noted some nausea. Will premedicate before administration of Bactrim. Wound care consult recommended again. Follow cultures. Prior cultures showing staph aureus sensitivity not yet determined. Patient continues to require high flow oxygen and pulmonary is following weaning as tolerated. Continue aggressive pulmonary toilet. Monitor labs. Dietitian input for moderate to severe protein calorie malnutrition. (1) Acute respiratory failure with hypoxia Current Visit: Yes Status: Acute Plan to address problem: Patient on supplemental oxygen On 40 liters HFNC O2 (2) PCP (pneumocystis jiroveci pneumonia) Current Visit: Yes Status: Acute Qualifiers: Laterality: bilateral Plan to address problem: Clinical picture consistent with PCP pneumonia Patient is IV Zithromax and IV Bactrim ID consult appreciated Highly suspicious for moderate PJP pneumonia. pO2>70. SARS-CoV-2 PCR negative. LDH>500. Patient with HIV without any ART for 18 months. (3) HIV (human immunodeficiency virus infection) Current Visit: Yes Status: Chronic Qualifiers: HIV symptom status: symptomatic Qualified Code(s): B20 - Human immunodeficiency virus [HIV] disease Plan to address problem: Patient not taking antiretroviral because HIV program was called on from April 09, 2020 Patient encouraged to get Medicaid and gyne HIV program and follow-up with ID (4) Rectal abscess Current Visit: Yes Status: Acute Plan to address problem: Surgical consult requested wound care consult requested Mid gluteal cleft chronic ulcer infection and right sided perirectal abscess: Unclear etiology. Patient denies history of genital herpes. CRP 5.5. CT shows small right-sided perirectal abscess 1.5 x 1 x 1 cm. No evidence of osteomyelitis. (5) Hyponatremia Current Visit: Yes Status: Acute Plan to address problem: IV normal saline for now Na 135 (6) Malnutrition moderate to severe Current Visit: Yes Status: Chronic Qualifiers: Protein-calorie malnutrition severity: mild Plan to address problem: Patient started on dietary supplements (7) DVT prophylaxis Current Visit: Yes Status: Acute Plan to address problem: On heparin and GI prophylaxis History Interval history: Patient seen and examined still on high flow oxygen but with good positive attitude. Sleeping but arousable Hospitalist Physical - Physical exam Narrative exam: General appearance: Present: mild distress on high flow oxygen, well-nourished - EENT Eyes: PERRL, EOM intact ENT: hearing intact, clear oral mucosa Ears: bilateral: normal - Neck Neck: supple, normal ROM - Respiratory Respiratory effort: normal Respiratory: bilateral: CTA, rhonchi (Scattered rhonchi) - Breasts Breasts: normal - Cardiovascular Rhythm: regular Heart Sounds: Present: S1 & S2. Absent: gallop, rub Extremities: pulses intact, No edema, normal color, Full ROM - Gastrointestinal General gastrointestinal: Present: soft, non-tender, non-distended, normal bowel sounds - Genitourinary Male genitourinary: normal - Integumentary Integumentary: Sacral wound dressing noted - Musculoskeletal Musculoskeletal: 1, strength equal bilaterally - Neurologic Neurologic: moves all extremities - Psychiatric Psychiatric: memory intact, appropriate mood/affect, intact judgment & insight - Constitutional Vitals: Temp Pulse Resp BP Pulse Ox 97.9 F 94 H 24 162/102 96 10/14/20 20:08 10/14/20 20:08 10/14/20 20:08 10/14/20 20:08 10/15/20 11:28 General appearance: Present: mild distress, well-nourished HEART Score - HEART Score Troponin: Troponin T < 0.010 ng/mL (0.00-0.029) 10/09/20 14:22 Results - Labs CBC & Chem 7: 10/12/20 07:02 10/12/20 07:02 Labs: Laboratory Last Values WBC 9.9 K/mm3 (4.5-11.0) 10/12/20 07:02 RBC 2.74 M/mm3 (3.65-5.03) L 10/12/20 07:02 Hgb 8.5 gm/dl (11.8-15.2) L 10/12/20 07:02 Hct 24.4 % (35.5-45.6) L D 10/12/20 07:02 MCV 89 fl (84-94) 10/12/20 07:02 MCH 31 pg (28-32) 10/12/20 07:02 MCHC 35 % (32-34) H 10/12/20 07:02 RDW 14.3 % (13.2-15.2) 10/12/20 07:02 Plt Count 543 K/mm3 (140-440) H 10/12/20 07:02 Add Manual Diff Complete 10/09/20 13:18 Total Counted 100 10/09/20 13:18 Seg Neuts % (Manual) 86.0 % (40.0-70.0) H 10/09/20 13:18 Lymphocytes % (Manual) 11.0 % (13.4-35.0) L 10/09/20 13:18 Monocytes % (Manual) 3.0 % (0.0-7.3) 10/09/20 13:18 Nucleated RBC % Not Reportable 10/09/20 13:18 Seg Neutrophils # Man 4.4 K/mm3 (1.8-7.7) 10/09/20 13:18 Band Neutrophils # 0.0 K/mm3 10/09/20 13:18 Lymphocytes # (Manual) 0.6 K/mm3 (1.2-5.4) L 10/09/20 13:18 Abs React Lymphs (Man) 0.0 K/mm3 10/09/20 13:18 Monocytes # (Manual) 0.2 K/mm3 (0.0-0.8) 10/09/20 13:18 Eosinophils # (Manual) 0.0 K/mm3 (0.0-0.4) 10/09/20 13:18 Basophils # (Manual) 0.0 K/mm3 (0.0-0.1) 10/09/20 13:18 Metamyelocytes # 0.0 K/mm3 10/09/20 13:18 Myelocytes # 0.0 K/mm3 10/09/20 13:18 Promyelocytes # 0.0 K/mm3 10/09/20 13:18 Blast Cells # 0.0 K/mm3 10/09/20 13:18 WBC Morphology Not Reportable 10/09/20 13:18 Hypersegmented Neuts Not Reportable 10/09/20 13:18 Hyposegmented Neuts Not Reportable 10/09/20 13:18 Hypogranular Neuts Not Reportable 10/09/20 13:18 Smudge Cells Not Reportable 10/09/20 13:18 Toxic Granulation Not Reportable 10/09/20 13:18 Toxic Vacuolation Not Reportable 10/09/20 13:18 Dohle Bodies Not Reportable 10/09/20 13:18 Pelger-Huet Anomaly Not Reportable 10/09/20 13:18 Yuri Rods Not Reportable 10/09/20 13:18 Platelet Estimate Consistent w auto 10/09/20 13:18 Clumped Platelets Not Reportable 10/09/20 13:18 Plt Clumps, EDTA Not Reportable 10/09/20 13:18 Large Platelets Not Reportable 10/09/20 13:18 Giant Platelets Rare 10/09/20 13:18 Platelet Satelliting Not Reportable 10/09/20 13:18 Plt Morphology Comment Not Reportable 10/09/20 13:18 RBC Morphology Normal 10/09/20 13:18 Dimorphic RBCs Not Reportable 10/09/20 13:18 Polychromasia Not Reportable 10/09/20 13:18 Hypochromasia Not Reportable 10/09/20 13:18 Poikilocytosis Not Reportable 10/09/20 13:18 Anisocytosis Not Reportable 10/09/20 13:18 Microcytosis Not Reportable 10/09/20 13:18 Macrocytosis Not Reportable 10/09/20 13:18 Spherocytes Not Reportable 10/09/20 13:18 Pappenheimer Bodies Not Reportable 10/09/20 13:18 Sickle Cells Not Reportable 10/09/20 13:18 Target Cells Not Reportable 10/09/20 13:18 Tear Drop Cells Not Reportable 10/09/20 13:18 Ovalocytes Not Reportable 10/09/20 13:18 Helmet Cells Not Reportable 10/09/20 13:18 [place] Bodies Not Reportable 10/09/20 13:18 Weare Rings Not Reportable 10/09/20 13:18 Naz Cells Not Reportable 10/09/20 13:18 Bite Cells Not Reportable 10/09/20 13:18 Crenated Cell Not Reportable 10/09/20 13:18 Elliptocytes Not Reportable 10/09/20 13:18 Acanthocytes (Spur) Not Reportable 10/09/20 13:18 Rouleaux Not Reportable 10/09/20 13:18 Hemoglobin C Crystals Not Reportable 10/09/20 13:18 Schistocytes Not Reportable 10/09/20 13:18 Malaria parasites Not Reportable 10/09/20 13:18 Benigno Bodies Not Reportable 10/09/20 13:18 Hem Pathologist Commnt No 10/09/20 13:18 D-Dimer 365.83 ng/mlDDU (0-234) H 10/09/20 14:22 ABG pH 7.403 (7.320-7.450) 10/11/20 09:20 POC ABG pCO2 25.5 mmHg (32.0-48.0) L 10/11/20 09:20 POC ABG pO2 65.7 mmHg (83-108) L 10/11/20 09:20 POC ABG HCO3 15.5 10/11/20 09:20 ABG O2 Saturation 91.8 (0-100) 10/11/20 09:20 POC ABG Base Excess -8.1 10/11/20 09:20 ABG Hemoglobin 8.7 (12.0-17.5) L 10/11/20 09:20 ABG Oxyhemoglobin 90.7 (94-98) L 10/11/20 09:20 ABG Methemoglobin 0.3 (0.0-1.5) 10/11/20 09:20 ABG Sodium 134.1 mmol/L (136.0-145.0) L 10/11/20 09:20 ABG Potassium 3.7 mmol/L (3.40-4.50) 10/11/20 09:20 ABG Chloride 112.0 mmol/L (98-107) H 10/11/20 09:20 ABG Glucose 101 mg/dL (65-95) H 10/11/20 09:20 ABG Lactate 1.54 (0.18-30.0) 10/09/20 14:14 Carboxyhemoglobin 0.9 (0.5-1.5) 10/11/20 09:20 FiO2 % 68.0 10/11/20 09:20 Sodium 135 mmol/L (137-145) L 10/12/20 07:02 Potassium 4.2 mmol/L (3.6-5.0) 10/12/20 07:02 Chloride 103.3 mmol/L (98-107) 10/12/20 07:02 Carbon Dioxide 17 mmol/L (22-30) L 10/12/20 07:02 Anion Gap 19 mmol/L 10/12/20 07:02 BUN 16 mg/dL (9-20) 10/12/20 07:02 Creatinine 1.1 mg/dL (0.8-1.3) 10/12/20 07:02 Estimated GFR > 60 ml/min 10/12/20 07:02 BUN/Creatinine Ratio 15 % 10/12/20 07:02 Glucose 149 mg/dL (75-100) H 10/12/20 07:02 Lactic Acid 1.00 mmol/L (0.7-2.0) 10/10/20 06:57 Calcium 9.0 mg/dL (8.4-10.2) 10/12/20 07:02 Ferritin 1322.0 ng/mL (30.0-300.0) H 10/09/20 14:22 Total Bilirubin < 0.20 mg/dL (0.1-1.2) 10/11/20 13:41 AST 42 units/L (5-40) H 10/11/20 13:41 ALT < 5 units/L (7-56) L 10/11/20 13:41 Alkaline Phosphatase 59 units/L (35-129) 10/11/20 13:41 Lactate Dehydrogenase 581 units/L (91-180) H 10/09/20 14:22 Troponin T < 0.010 ng/mL (0.00-0.029) 10/09/20 14:22 C-Reactive Protein 5.50 mg/dL (0.00-1.30) H 10/09/20 14:22 NT-Pro-B Natriuret Pep 47.57 pg/mL (0-450) 10/09/20 14:22 Total Protein 6.7 g/dL (6.3-8.2) D 10/11/20 13:41 Albumin 2.8 g/dL (3.9-5) L 10/11/20 13:41 Albumin/Globulin Ratio 0.7 % 10/11/20 13:41 Procalcitonin 0.07 ng/mL (<0.15) 10/09/20 14:22 Arterial Blood Glucose 101 mg/dL (65-95) H 10/11/20 09:20 Arterial Blood Ionized Calcium 4.5 mg/dL (4.6-5.3) L 10/11/20 09:20 Urine Color Yellow (Yellow) 10/09/20 Unknown Urine Turbidity Clear (Clear) 10/09/20 Unknown Urine pH 6.0 (5.0-7.0) 10/09/20 Unknown Ur Specific [place] 1.054 (1.003-1.030) H 10/09/20 Unknown Urine Protein 30 mg/dl mg/dL (Negative) 10/09/20 Unknown Urine Glucose (UA) Neg mg/dL (Negative) 10/09/20 Unknown Urine Ketones Neg mg/dL (Negative) 10/09/20 Unknown Urine Blood Neg (Negative) 10/09/20 Unknown Urine Nitrite Neg (Negative) 10/09/20 Unknown Urine Bilirubin Neg (Negative) 10/09/20 Unknown Urine Urobilinogen < 2.0 mg/dL (<2.0) 10/09/20 Unknown Ur Leukocyte Esterase Neg (Negative) 10/09/20 Unknown Urine WBC (Auto) 4.0 /HPF (0.0-6.0) 10/09/20 Unknown Urine RBC (Auto) 1.0 /HPF (0.0-6.0) 10/09/20 Unknown U Epithel Cells (Auto) < 1.0 /HPF (0-13.0) 10/09/20 Unknown Urine Mucus Few /HPF 10/09/20 Unknown Vancomycin Trough 14.2 ug/mL (5.0-20.0) 10/12/20 16:41 Coronavirus (PCR) Negative (Negative) 10/10/20 09:50 Microbiology: Microbiology 10/09/20 14:22 Peripheral/Venous Blood Culture - Final NO GROWTH AFTER 5 DAYS 10/09/20 14:22 Peripheral/Venous Blood Culture - Final NO GROWTH AFTER 5 DAYS 10/11/20 00:39 Buttock Wound Culture - Preliminary Staphylococcus Aureus Lal/IV: Voiding Method Bedpan Active Medications - Current Medications Current Medications: Generic Name Dose Route Start Last Admin Trade Name Freq PRN Reason Stop Dose Admin Acetaminophen 650 mg 10/09/20 18:00 10/11/20 09:57 Acetaminophen 325 Mg Tab PO 650 mg Q4H PRN Administration Pain MILD(1-3)/Fever >100.5/LAMA Albuterol 2.5 mg 10/10/20 06:41 10/11/20 07:20 Albuterol 2.5 Mg/3 Ml Nebu IH 2.5 mg Q3HRT PRN Administration Wheezing Heparin Sodium (Porcine) 5,000 unit 10/10/20 10:00 10/14/20 21:41 Heparin 5,000 Unit/1 Ml Vial SUB-Q 5,000 unit Q12HR IRIS Administration Ceftriaxone Sodium 2 gm in 100 mls @ 200 mls/hr 10/10/20 16:00 10/14/20 09:29 Rocephin/Ns 2 Gm/100 Ml IV 200 mls/hr Q24HR IRIS Administration Protocol Metronidazole 500 mg in 100 mls @ 100 mls/hr 10/10/20 15:00 10/15/20 06:44 Flagyl 500 Mg/100 Ml IV Infused Q8HR IRIS Infusion Protocol Vancomycin HCl 750 mg/ Sodium 265 mls @ 166.667 mls/hr 10/11/20 06:00 10/15/20 05:17 Chloride IV 166.667 mls/hr Q12H IRIS Administration Trimethoprim/Sulfamethoxazole 518.75 mls @ 350 mls/hr 10/11/20 11:00 10/15/20 06:44 300 mg/ Dextrose IV 11/01/20 06:29 Infused Q6H IRIS Infusion Protocol Lactobacillus Acidophilus 1 each 10/13/20 22:00 10/14/20 21:41 Floranex Granule Packet PO 1 each BID IRIS Administration Lorazepam 1 mg 10/10/20 19:20 10/15/20 01:27 Lorazepam 2 Mg/Ml Vial IV 1 mg Q6HR PRN Administration Anxiety Methylprednisolone Sodium Succinate 40 mg 10/11/20 10:00 10/14/20 21:40 Methylprednisolone Sod Succinate 40 Mg/1 Ml Inj IV 10/15/20 22:01 40 mg Q12HR IRIS Administration Methylprednisolone Sodium Succinate 40 mg 10/16/20 10:00 Methylprednisolone Sod Succinate 40 Mg/1 Ml Inj IV 10/20/20 10:01 Q24HR IRIS Methylprednisolone Sodium Succinate 20 mg 10/21/20 10:00 Methylprednisolone Sod Succinate 40 Mg/1 Ml Inj IV 10/31/20 10:01 Q24HR IRIS Ondansetron HCl 4 mg 10/09/20 18:00 10/14/20 21:40 Ondansetron 4 Mg/2 Ml Inj IV 4 mg Q8H PRN Administration Nausea And Vomiting Sodium Chloride 10 ml 10/09/20 22:00 10/14/20 21:43 Sodium Chloride 0.9% 10 Ml Flush Syringe IV 10 ml BID IIRS Administration Sodium Chloride 10 ml 10/09/20 18:00 Sodium Chloride 0.9% 10 Ml Flush Syringe IV PRN PRN LINE FLUSH Nutrition/Malnutrition Assess - Dietary Evaluation Nutrition/Malnutrition Findings: Nutrition Notes Start: 10/10/20 09:11 Freq: Status: Active Protocol: Document 10/13/20 10:53 (Rec: 10/13/20 10:56 [email or web address]) Nutrition Notes Initial or Follow up Reassessment Current Diagnosis Respiratory Failure Other Pertinent Diagnosis HIV, SOB, Pneumocystis jiroveci Pneumonia Current Diet regular Labs/Tests Na 135 Pertinent Medications Reviewed Height 5 ft 6 in Weight 58.8 kg [place] Body Weight (kg) 64.54 BMI 20.9 Weight change and time frame wt change noted Weight Status Underweight Subjective/Other Information Pt reports eating 80% of meals when he is hungry for them. If not, he will drink 2 ONS. Pt states diarrhea is improving. Percent of energy/protein needs met: 100%/100% Burn Absent Trauma Absent GI Symptoms None Current % PO Negligible Minimum of two criteria Yes Energy Intake (non-severe) <75% Estimated Energy Requirement >7 days Interpretation of Weight Loss (severe) >10% in 6 months Body Fat Depletion Mild depletion (non-severe) Muscle Mass Mild Depletion (non-severe) #2 Nutrition Diagnosis Increased nutrient needs ( specify in comment below) Comments: protein Diagnosis Progress(for reassessment Continues documentation) #1 Nutrition Diagnosis Malnutrition Diagnosis Progress(for reassessment Continues documentation) Is patient on ventilator? No Is Patient Ambulatory and/or Out of Bed No [facility] 8035.945 Calculation Used for Recommendations [facility] Additional Notes Protein: (1.25-1.5g/kg) 66-79g Fluid: 1 ml/kcal Nutrition Intervention Change Diet Order: Continue Add Supplement/Snack (indicate name/kcal Ensure Enlive BID /protein ) Provides kCal: 700 Provides Protein (gm) 40 Goal #1 Meet at least 80% of protein and energy needs Goal #2 Wound healing Goal #3 Weight gain/maintenance Follow-Up By: 10/18/20 Additional Comments FU for intakes
[2020-10-15] MEDS: HEPARIN 5,000 UNIT/1 ML VIAL SUB-Q SCH ×2 (12:13→23:05)
[2020-10-15] MEDS: methylPREDNISolone Sod Succinate 40 MG/1 ML INJ IV SCH ×2 (12:14→23:04)
--- NOTE | 2020-10-15 12:16 | Progress Note ---
Assessment and Plan 29 y/o male with known HIV, noncompliant with therapy admitted with acute respiratory failure concern for PJP 10/15/20: Echo essentially normal. Improving with steroids and abx. Would keep as dry as possible. Continue to wean HFNC for sats >88% 10/14/20: Slow improvement. Continue to wean FiO2 as tolerated for sats >88%. 10/13/20: Continue supplemental oxygen and bipap PRN. Prognosis still remains very guarded. 1. Agree with empiric therapy for PJP 2. Agree with steroids 3. Gave lasix again today, follow up echo 4. Ordered continuous bipap therapy to help ease work of breathing 5. Discussed the possibility of intubation with patient and he is in agreement if this necessary, hopeful we can avoid this. Guarded prognosis. Subjective Date of service: 10/15/20 Principal diagnosis: Bilateral pneumonia Interval history: No acute events. Down to 50%. Was found off of HFNC all together and room air sat was 85%. No distress noted. Feels better and worse, per patient. Remainder is negative. Objective Vital Signs - 12hr 10/15/20 10/15/20 10:35 11:28 O2 Sat by Pulse 99 96 Oximetry Constitutional: no acute distress, alert Eyes: non-icteric Neck: supple Effort: mildly labored Ascultation: Bilateral: rales Cardiovascular: regular rate and rhythm (no mrg) Gastrointestinal: normoactive bowel sounds, soft, non-tender, non-distended Integumentary: normal Extremities: no cyanosis, no edema, pink and warm Neurologic: normal mental status, non-focal exam, pupils equal and round, CN II- XII normal Psychiatric: mood appropriate, affect normal CBC and BMP: 10/12/20 07:02 10/12/20 07:02 ABG, PT/INR, D-dimer: ABG ABG pH 7.403 (7.320-7.450) 10/11/20 09:20 POC ABG pCO2 25.5 mmHg (32.0-48.0) L 10/11/20 09:20 POC ABG pO2 65.7 mmHg (83-108) L 10/11/20 09:20 POC ABG HCO3 15.5 10/11/20 09:20 ABG O2 Saturation 91.8 (0-100) 10/11/20 09:20 PT/INR, D-dimer D-Dimer 365.83 ng/mlDDU (0-234) H 10/09/20 14:22 Abnormal lab findings: Abnormal Labs 10/09/20 10/09/20 10/09/20 13:18 13:18 14:14 RBC 3.54 L Hgb 11.1 L Hct 32.0 L MCHC 35 H Plt Count 562 H Seg Neuts % (Manual) 86.0 H Lymphocytes % (Manual) 11.0 L Lymphocytes # (Manual) 0.6 L D-Dimer ABG pH 7.462 H POC ABG pCO2 22.1 L POC ABG pO2 76.8 L ABG Hemoglobin 11.1 L ABG Oxyhemoglobin 93.8 L ABG Sodium 133.8 L ABG Chloride ABG Glucose Carboxyhemoglobin 0.4 L Sodium 132 L Carbon Dioxide 16 L Glucose 102 H Lactic Acid Ferritin AST ALT < 5 L Lactate Dehydrogenase C-Reactive Protein Total Protein 8.7 H Albumin 3.1 L Arterial Blood Glucose Arterial Blood Ionized Calcium Ur Specific [place] 10/09/20 10/09/20 10/09/20 14:22 14:22 14:22 RBC Hgb Hct MCHC Plt Count Seg Neuts % (Manual) Lymphocytes % (Manual) Lymphocytes # (Manual) D-Dimer 365.83 H ABG pH POC ABG pCO2 POC ABG pO2 ABG Hemoglobin ABG Oxyhemoglobin ABG Sodium ABG Chloride ABG Glucose Carboxyhemoglobin Sodium Carbon Dioxide Glucose Lactic Acid Ferritin 1322.0 H AST ALT Lactate Dehydrogenase 581 H C-Reactive Protein 5.50 H Total Protein Albumin Arterial Blood Glucose Arterial Blood Ionized Calcium Ur Specific [place] 10/09/20 10/09/20 10/11/20 16:44 Unknown 09:20 RBC Hgb Hct MCHC Plt Count Seg Neuts % (Manual) Lymphocytes % (Manual) Lymphocytes # (Manual) D-Dimer ABG pH POC ABG pCO2 25.5 L POC ABG pO2 65.7 L ABG Hemoglobin 8.7 L ABG Oxyhemoglobin 90.7 L ABG Sodium 134.1 L ABG Chloride 112.0 H ABG Glucose 101 H Carboxyhemoglobin Sodium Carbon Dioxide Glucose Lactic Acid 2.40 H* Ferritin AST ALT Lactate Dehydrogenase C-Reactive Protein Total Protein Albumin Arterial Blood Glucose 101 H Arterial Blood Ionized Calcium 4.5 L Ur Specific [place] 1.054 H 10/11/20 10/12/20 10/12/20 13:41 07:02 07:02 RBC 2.74 L Hgb 8.5 L Hct 24.4 L D MCHC 35 H Plt Count 543 H Seg Neuts % (Manual) Lymphocytes % (Manual) Lymphocytes # (Manual) D-Dimer ABG pH POC ABG pCO2 POC ABG pO2 ABG Hemoglobin ABG Oxyhemoglobin ABG Sodium ABG Chloride ABG Glucose Carboxyhemoglobin Sodium 133 L 135 L Carbon Dioxide 16 L 17 L Glucose 149 H Lactic Acid Ferritin AST 42 H ALT < 5 L Lactate Dehydrogenase C-Reactive Protein Total Protein Albumin 2.8 L Arterial Blood Glucose Arterial Blood Ionized Calcium Ur Specific [place]
[2020-10-15] MEDS: FLORANEX GRANULE PACKET PO SCH ×2 (12:17→23:05)
--- NOTE | 2020-10-15 14:22 | Progress Note ---
Assessment and Plan Cultures: Blood culture pending Urine culture pending Wound culture (gluteal wound): staph aureus pending FARHAN Assessment: 29-year-old male with history of HIV diagnosed in 2010, off ART for 18 months since he loss his insurance due to unemployment, used to be seen by IDP, was on descovy and prezcovix, chronic gluteal cleft ulcer, admitted on 11/05/2020 secondary to 2-month history of worsening dry cough and shortness of breath/GÓMEZ and 40+ pounds weight loss in 6 months: #Sepsis: Present on admission with elevated lactate, tachycardia, tachypnea and hypoxia; likely secondary to bilateral pneumonia. #Bilateral pneumonia: Highly suspicious for moderate PJP pneumonia. pO2>70. SARS-CoV-2 PCR negative. LDH>500. Patient with HIV without any ART for 18 months. #Acute hypoxic respiratory failure: Currently on nasal cannula oxygen. pO2>70. #Mid gluteal cleft chronic ulcer infection and right sided perirectal abscess: Unclear etiology. Patient denies history of genital herpes. CRP 5.5. CT shows small right-sided perirectal abscess 1.5 x 1 x 1 cm. No evidence of osteomyelitis. #HIV: diagnosed in 2010, off ART for 18 months since he loss his insurance due to unemployment, used to be seen by IDP, was on descovy and prezcovix, unknown CD4 and viral load. Recommendations: - Induced sputum for PJP DFA - Ordered Serum Beta glucan - IV Bactrim 15-20 mg/kg/day of trimethopin for PJP, when improved enough for discharge can send with Bactrim 2xDS every 8 hours - prednisone 40 mg PO BID for 5 days then taper - Continue ceftriaxone, flagyl and vanco for mid gluteal cleft chronic ulcer infection and right sided perirectal abscess - Wound care consult - Check Cd4/VL - Check RPR/Crypto ag Nicanor Reynolds MD [facility] [place] [facility] O: [phone] F: [phone] Subjective Date of service: 10/15/20 Principal diagnosis: Bilateral pneumonia Interval history: Afebrile, remains on high flow nasal cannula now 20 L. Objective - Exam Narrative Exam: Physical Exam: Constitutional: Alert, cooperative. No acute distress Head, Ears, Nose: Normocephalic, atraumatic. Eyes: Conjunctivae/corneas clear. Neck: Supple, no meningeal signs Oral: dentition fair, no thrush Cardiovascular: S1, S2 normal. Respiratory: Good air entry, clear to auscultation bilaterally GI: Soft, non-tender; bowel sounds normal. No peritoneal signs. Musculoskeletal: No pedal edema, no cyanosis. Skin: No rash or abscess Hem/Lymphatic: No palpable cervical or supraclavicular nodes. Psych: Mood ok. Affect normal Neurological: Awake, alert, oriented. No gross abnormality - Constitutional Vitals: Vital Signs Temp Pulse Resp BP Pulse Ox 97.9 F 94 H 24 162/102 96 10/14/20 20:08 10/14/20 20:08 10/14/20 20:08 10/14/20 20:08 10/15/20 11:28 Temperature -Last 24 Hours Temperature 97.9 F Temperature 97.9 F - Labs CBC & Chem 7: 10/12/20 07:02 10/12/20 07:02
[2020-10-15] MEDS: cefTRIAXone/NS 2 GM/100 ML 2 GM/100 ML BAG IV SCH (15:30)
[2020-10-15] MEDS: ONDANSETRON 4 MG/2 ML INJ IV PRN (23:04)
[2020-10-16] MEDS: TMP IV SCH ×4 (00:45→16:44)
[2020-10-16] MEDS: SMX IV SCH ×4 (00:45→16:44)
[2020-10-16] MEDS: WATER IV SCH ×4 (00:45→16:44)
[2020-10-16] MEDS: DEXTROSE 5% IV SCH ×4 (00:45→16:44)
[2020-10-16] MEDS ORDERED: ONDANSETRON 4 MG/2 ML INJ IV ONE (03:11)
[2020-10-16 05:55] LABS: Hematocrit 25.8 % (35.5-45.6); Hemoglobin 8.8 gm/dl (11.8-15.2); Mean Corpuscular HGB Conc 34 % (32-34); Mean Corpuscular Volume 88 fl (84-94); Platelet Count 662 K/mm3 (140-440); Red Blood Count 2.92 M/mm3 (3.65-5.03); Red Cell Distribution Width 14.4 % (13.2-15.2)
[2020-10-16 06:15] LABS: BUN/Creatinine Ratio 19; Blood Urea Nitrogen 19 mg/dL (9-20); Calcium 9.2 mg/dL (8.4-10.2); Hemolysis Index 4
[2020-10-16] MEDS: metroNIDAZOLE/NS 500 MG/100 ML 500 MG/100 ML BAG IV SCH ×3 (06:45→21:27)
[2020-10-16] MEDS ORDERED: VANCOMYCIN 750 MG in SODIUM CHLORIDE 0.9% 250ML 250 ML IV SCH (07:45)
--- NOTE | 2020-10-16 08:45 | Progress Note ---
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 Patient feels short of breath on minimal exertion. Patient was hypoxic when he came to the emergency room. Patient had a work-up in facility and is not sure of what the diagnosis was. He states he is not Covid. No exposure to Covid. No other symptoms of HIV. Like chronic diarrhea. All seizures. His main complaint is shortness of breath on minimal exertion for the past 3 months. No penile lesions. Gluteal cleft ulcer 3 to 6 months. 10/12/2020 On 40 L nasal cannula oxygen 10/13/2020 On 40 L high flow nasal cannula oxygen 10/14: Patient remains on high flow oxygen, Pulmonary FOLLOWING, Metabolic Acidosis noted, will give some sodium bicarb. Continue weaning oxygen. Anemia. 10/15: Patient with complex medical condition continues on recommendation by ID including Bactrim and Zithromax. Noted some nausea. Will premedicate before administration of Bactrim. Wound care consult recommended again. Follow cultures. Prior cultures showing staph aureus sensitivity not yet determined. Patient continues to require high flow oxygen and pulmonary is following weaning as tolerated. Continue aggressive pulmonary toilet. Monitor labs. Dietitian input for moderate to severe protein calorie malnutrition. 10/16: Continue supportive care, continue Highflow and wean as tolerated, will give a dose of sodium bicarb (1) Acute respiratory failure with hypoxia Current Visit: Yes Status: Acute Plan to address problem: Patient on supplemental oxygen On 40 liters HFNC O2 (2) PCP (pneumocystis jiroveci pneumonia) Current Visit: Yes Status: Acute Qualifiers: Laterality: bilateral Plan to address problem: Clinical picture consistent with PCP pneumonia Patient is IV Zithromax and IV Bactrim ID consult appreciated Highly suspicious for moderate PJP pneumonia. pO2>70. SARS-CoV-2 PCR negative. LDH>500. Patient with HIV without any ART for 18 months. (3) HIV (human immunodeficiency virus infection) Current Visit: Yes Status: Chronic Qualifiers: HIV symptom status: symptomatic Qualified Code(s): B20 - Human immunode ficiency virus [HIV] disease Plan to address problem: Patient not taking antiretroviral because HIV program was called on from April 09, 2020 Patient encouraged to get Medicaid and gyne HIV program and follow-up with ID (4) Rectal abscess Current Visit: Yes Status: Acute Plan to address problem: Surgical consult requested wound care consult requested Mid gluteal cleft chronic ulcer infection and right sided perirectal abscess: Unclear etiology. Patient denies history of genital herpes. CRP 5.5. CT shows small right-sided perirectal abscess 1.5 x 1 x 1 cm. No evidence of osteomyelitis. (5) Hyponatremia Current Visit: Yes Status: Acute Plan to address problem: IV normal saline for now Na 135 (6) Malnutrition moderate to severe Current Visit: Yes Status: Chronic Qualifiers: Protein-calorie malnutrition severity: mild Plan to address problem: Patient started on dietary supplements (7)Anemia of chronic disease (8) Metabolic Acidosis (9) DVT prophylaxis Current Visit: Yes Status: Acute Plan to address problem: On heparin and GI prophylaxis History Interval history: Patient seen and examined still on high flow oxygen but with good positive attitude. No new complaints, cheerful Hospitalist Physical - Physical exam Narrative exam: General appearance: Present: mild distress on high flow oxygen, well-nourished - EENT Eyes: PERRL, EOM intact ENT: hearing intact, clear oral mucosa Ears: bilateral: normal - Neck Neck: supple, normal ROM - Respiratory Respiratory effort: normal Respiratory: bilateral: CTA, rhonchi (Scattered rhonchi) - Breasts Breasts: normal - Cardiovascular Rhythm: regular Heart Sounds: Present: S1 & S2. Absent: gallop, rub Extremities: pulses intact, No edema, normal color, Full ROM - Gastrointestinal General gastrointestinal: Present: soft, non-tender, non-distended, normal bowel sounds - Genitourinary Male genitourinary: normal - Integumentary Integumentary: Sacral wound dressing noted - Musculoskeletal Musculoskeletal: 1, strength equal bilaterally - Neurologic Neurologic: moves all extremities - Psychiatric Psychiatric: memory intact, appropriate mood/affect, intact judgment & insight - Constitutional Vitals: Temp Pulse Resp BP Pulse Ox 98.0 F 75 18 124/83 96 10/16/20 04:32 10/16/20 05:10 10/16/20 05:10 10/16/20 05:10 10/16/20 05:10 General appearance: Present: mild distress, well-nourished HEART Score - HEART Score Troponin: Troponin T < 0.010 ng/mL (0.00-0.029) 10/09/20 14:22 Results - Labs CBC & Chem 7: 10/16/20 05:17 10/16/20 05:17 Labs: Laboratory Last Values WBC 3.9 K/mm3 (4.5-11.0) L 10/16/20 05:17 RBC 2.92 M/mm3 (3.65-5.03) L 10/16/20 05:17 Hgb 8.8 gm/dl (11.8-15.2) L 10/16/20 05:17 Hct 25.8 % (35.5-45.6) L 10/16/20 05:17 MCV 88 fl (84-94) 10/16/20 05:17 MCH 30 pg (28-32) 10/16/20 05:17 MCHC 34 % (32-34) 10/16/20 05:17 RDW 14.4 % (13.2-15.2) 10/16/20 05:17 Plt Count 662 K/mm3 (140-440) H 10/16/20 05:17 Add Manual Diff Complete 10/09/20 13:18 Total Counted 100 10/09/20 13:18 Seg Neuts % (Manual) 86.0 % (40.0-70.0) H 10/09/20 13:18 Lymphocytes % (Manual) 11.0 % (13.4-35.0) L 10/09/20 13:18 Monocytes % (Manual) 3.0 % (0.0-7.3) 10/09/20 13:18 Nucleated RBC % Not Reportable 10/09/20 13:18 Seg Neutrophils # Man 4.4 K/mm3 (1.8-7.7) 10/09/20 13:18 Band Neutrophils # 0.0 K/mm3 10/09/20 13:18 Lymphocytes # (Manual) 0.6 K/mm3 (1.2-5.4) L 10/09/20 13:18 Abs React Lymphs (Man) 0.0 K/mm3 10/09/20 13:18 Monocytes # (Manual) 0.2 K/mm3 (0.0-0.8) 10/09/20 13:18 Eosinophils # (Manual) 0.0 K/mm3 (0.0-0.4) 10/09/20 13:18 Basophils # (Manual) 0.0 K/mm3 (0.0-0.1) 10/09/20 13:18 Metamyelocytes # 0.0 K/mm3 10/09/20 13:18 Myelocytes # 0.0 K/mm3 10/09/20 13:18 Promyelocytes # 0.0 K/mm3 10/09/20 13:18 Blast Cells # 0.0 K/mm3 10/09/20 13:18 WBC Morphology Not Reportable 10/09/20 13:18 Hypersegmented Neuts Not Reportable 10/09/20 13:18 Hyposegmented Neuts Not Reportable 10/09/20 13:18 Hypogranular Neuts Not Reportable 10/09/20 13:18 Smudge Cells Not Reportable 10/09/20 13:18 Toxic Granulation Not Reportable 10/09/20 13:18 Toxic Vacuolation Not Reportable 10/09/20 13:18 Dohle Bodies Not Reportable 10/09/20 13:18 Pelger-Huet Anomaly Not Reportable 10/09/20 13:18 Yuri Rods Not Reportable 10/09/20 13:18 Platelet Estimate Consistent w auto 10/09/20 13:18 Clumped Platelets Not Reportable 10/09/20 13:18 Plt Clumps, EDTA Not Reportable 10/09/20 13:18 Large Platelets Not Reportable 10/09/20 13:18 Giant Platelets Rare 10/09/20 13:18 Platelet Satelliting Not Reportable 10/09/20 13:18 Plt Morphology Comment Not Reportable 10/09/20 13:18 RBC Morphology Normal 10/09/20 13:18 Dimorphic RBCs Not Reportable 10/09/20 13:18 Polychromasia Not Reportable 10/09/20 13:18 Hypochromasia Not Reportable 10/09/20 13:18 Poikilocytosis Not Reportable 10/09/20 13:18 Anisocytosis Not Reportable 10/09/20 13:18 Microcytosis Not Reportable 10/09/20 13:18 Macrocytosis Not Reportable 10/09/20 13:18 Spherocytes Not Reportable 10/09/20 13:18 Pappenheimer Bodies Not Reportable 10/09/20 13:18 Sickle Cells Not Reportable 10/09/20 13:18 Target Cells Not Reportable 10/09/20 13:18 Tear Drop Cells Not Reportable 10/09/20 13:18 Ovalocytes Not Reportable 10/09/20 13:18 Helmet Cells Not Reportable 10/09/20 13:18 Doe-Tigard Bodies Not Reportable 10/09/20 13:18 Gilman Rings Not Reportable 10/09/20 13:18 Naz Cells Not Reportable 10/09/20 13:18 Bite Cells Not Reportable 10/09/20 13:18 Crenated Cell Not Reportable 10/09/20 13:18 Elliptocytes Not Reportable 10/09/20 13:18 Acanthocytes (Spur) Not Reportable 10/09/20 13:18 Rouleaux Not Reportable 10/09/20 13:18 Hemoglobin C Crystals Not Reportable 10/09/20 13:18 Schistocytes Not Reportable 10/09/20 13:18 Malaria parasites Not Reportable 10/09/20 13:18 Benigno Bodies Not Reportable 10/09/20 13:18 Hem Pathologist Commnt No 10/09/20 13:18 D-Dimer 365.83 ng/mlDDU (0-234) H 10/09/20 14:22 ABG pH 7.403 (7.320-7.450) 10/11/20 09:20 POC ABG pCO2 25.5 mmHg (32.0-48.0) L 10/11/20 09:20 POC ABG pO2 65.7 mmHg (83-108) L 10/11/20 09:20 POC ABG HCO3 15.5 10/11/20 09:20 ABG O2 Saturation 91.8 (0-100) 10/11/20 09:20 POC ABG Base Excess -8.1 10/11/20 09:20 ABG Hemoglobin 8.7 (12.0-17.5) L 10/11/20 09:20 ABG Oxyhemoglobin 90.7 (94-98) L 10/11/20 09:20 ABG Methemoglobin 0.3 (0.0-1.5) 10/11/20 09:20 ABG Sodium 134.1 mmol/L (136.0-145.0) L 10/11/20 09:20 ABG Potassium 3.7 mmol/L (3.40-4.50) 10/11/20 09:20 ABG Chloride 112.0 mmol/L (98-107) H 10/11/20 09:20 ABG Glucose 101 mg/dL (65-95) H 10/11/20 09:20 ABG Lactate 1.54 (0.18-30.0) 10/09/20 14:14 Carboxyhemoglobin 0.9 (0.5-1.5) 10/11/20 09:20 FiO2 % 68.0 10/11/20 09:20 Sodium 132 mmol/L (137-145) L 10/16/20 05:17 Potassium 4.3 mmol/L (3.6-5.0) 10/16/20 05:17 Chloride 100.6 mmol/L (98-107) 10/16/20 05:17 Carbon Dioxide 18 mmol/L (22-30) L 10/16/20 05:17 Anion Gap 18 mmol/L 10/16/20 05:17 BUN 19 mg/dL (9-20) 10/16/20 05:17 Creatinine 1.0 mg/dL (0.8-1.3) 10/16/20 05:17 Estimated GFR > 60 ml/min 10/16/20 05:17 BUN/Creatinine Ratio 19 % 10/16/20 05:17 Glucose 114 mg/dL (75-100) H 10/16/20 05:17 Lactic Acid 1.00 mmol/L (0.7-2.0) 10/10/20 06:57 Calcium 9.2 mg/dL (8.4-10.2) 10/16/20 05:17 Ferritin 1322.0 ng/mL (30.0-300.0) H 10/09/20 14:22 Total Bilirubin < 0.20 mg/dL (0.1-1.2) 10/11/20 13:41 AST 42 units/L (5-40) H 10/11/20 13:41 ALT < 5 units/L (7-56) L 10/11/20 13:41 Alkaline Phosphatase 59 units/L (35-129) 10/11/20 13:41 Lactate Dehydrogenase 581 units/L (91-180) H 10/09/20 14:22 Troponin T < 0.010 ng/mL (0.00-0.029) 10/09/20 14:22 C-Reactive Protein 5.50 mg/dL (0.00-1.30) H 10/09/20 14:22 NT-Pro-B Natriuret Pep 47.57 pg/mL (0-450) 10/09/20 14:22 Total Protein 6.7 g/dL (6.3-8.2) D 10/11/20 13:41 Albumin 2.8 g/dL (3.9-5) L 10/11/20 13:41 Albumin/Globulin Ratio 0.7 % 10/11/20 13:41 Procalcitonin 0.07 ng/mL (<0.15) 10/09/20 14:22 Arterial Blood Glucose 101 mg/dL (65-95) H 10/11/20 09:20 Arterial Blood Ionized Calcium 4.5 mg/dL (4.6-5.3) L 10/11/20 09:20 Urine Color Yellow (Yellow) 10/09/20 Unknown Urine Turbidity Clear (Clear) 10/09/20 Unknown Urine pH 6.0 (5.0-7.0) 10/09/20 Unknown Ur Specific [place] 1.054 (1.003-1.030) H 10/09/20 Unknown Urine Protein 30 mg/dl mg/dL (Negative) 10/09/20 Unknown Urine Glucose (UA) Neg mg/dL (Negative) 10/09/20 Unknown Urine Ketones Neg mg/dL (Negative) 10/09/20 Unknown Urine Blood Neg (Negative) 10/09/20 Unknown Urine Nitrite Neg (Negative) 10/09/20 Unknown Urine Bilirubin Neg (Negative) 10/09/20 Unknown Urine Urobilinogen < 2.0 mg/dL (<2.0) 10/09/20 Unknown Ur Leukocyte Esterase Neg (Negative) 10/09/20 Unknown Urine WBC (Auto) 4.0 /HPF (0.0-6.0) 10/09/20 Unknown Urine RBC (Auto) 1.0 /HPF (0.0-6.0) 10/09/20 Unknown U Epithel Cells (Auto) < 1.0 /HPF (0-13.0) 10/09/20 Unknown Urine Mucus Few /HPF 10/09/20 Unknown Vancomycin Trough 14.2 ug/mL (5.0-20.0) 10/12/20 16:41 Coronavirus (PCR) Negative (Negative) 10/10/20 09:50 Microbiology: Microbiology 10/11/20 00:39 Buttock Wound Culture - Preliminary Methicillin Resist S. Aureus Lal/IV: Voiding Method Urinal Active Medications - Current Medications Current Medications: Generic Name Dose Route Start Last Admin Trade Name Freq PRN Reason Stop Dose Admin Acetaminophen 650 mg 10/09/20 18:00 10/11/20 09:57 Acetaminophen 325 Mg Tab PO 650 mg Q4H PRN Administration Pain MILD(1-3)/Fever >100.5/LAMA Albuterol 2.5 mg 10/10/20 06:41 10/11/20 07:20 Albuterol 2.5 Mg/3 Ml Nebu IH 2.5 mg Q3HRT PRN Administration Wheezing Heparin Sodium (Porcine) 5,000 unit 10/10/20 10:00 10/15/20 23:05 Heparin 5,000 Unit/1 Ml Vial SUB-Q 5,000 unit Q12HR IRIS Administration Ceftriaxone Sodium 2 gm in 100 mls @ 200 mls/hr 10/10/20 16:00 10/15/20 15:30 Rocephin/Ns 2 Gm/100 Ml IV 200 mls/hr Q24HR IRIS Administration Protocol Metronidazole 500 mg in 100 mls @ 100 mls/hr 10/10/20 15:00 10/16/20 06:45 Flagyl 500 Mg/100 Ml IV 100 mls/hr Q8HR IRIS Administration Protocol Trimethoprim/Sulfamethoxazole 518.75 mls @ 350 mls/hr 10/11/20 11:00 10/16/20 05:11 300 mg/ Dextrose IV 11/01/20 06:29 350 mls/hr Q6H IRIS Administration Protocol Vancomycin HCl 750 mg/ Sodium 265 mls @ 166.667 mls/hr 10/16/20 07:45 Chloride IV Q12H IRIS Lactobacillus Acidophilus 1 each 10/13/20 22:00 10/15/20 23:05 Floranex Granule Packet PO Not Given BID IRIS Lorazepam 1 mg 10/10/20 19:20 10/15/20 01:27 Lorazepam 2 Mg/Ml Vial IV 1 mg Q6HR PRN Administration Anxiety Methylprednisolone Sodium Succinate 40 mg 10/16/20 10:00 Methylprednisolone Sod Succinate 40 Mg/1 Ml Inj IV 10/20/20 10:01 Q24HR IRIS Methylprednisolone Sodium Succinate 20 mg 10/21/20 10:00 Methylprednisolone Sod Succinate 40 Mg/1 Ml Inj IV 10/31/20 10:01 Q24HR IRIS Ondansetron HCl 4 mg 10/09/20 18:00 10/15/20 23:04 Ondansetron 4 Mg/2 Ml Inj IV 4 mg Q8H PRN Administration Nausea And Vomiting Sodium Chloride 10 ml 10/09/20 22:00 10/15/20 23:05 Sodium Chloride 0.9% 10 Ml Flush Syringe IV 10 ml BID IRIS Administration Sodium Chloride 10 ml 10/09/20 18:00 10/16/20 05:12 Sodium Chloride 0.9% 10 Ml Flush Syringe IV 10 ml PRN PRN Administration LINE FLUSH Nutrition/Malnutrition Assess - Dietary Evaluation Nutrition/Malnutrition Findings: Nutrition Notes Start: 10/10/20 09:11 Freq: Status: Active Protocol: Document 10/13/20 10:53 (Rec: 10/13/20 10:56 [id number]) Nutrition Notes Initial or Follow up Reassessment Current Diagnosis Respiratory Failure Other Pertinent Diagnosis HIV, SOB, Pneumocystis jiroveci Pneumonia Current Diet regular Labs/Tests Na 135 Pertinent Medications Reviewed Height 5 ft 6 in Weight 58.8 kg [place] Body Weight (kg) 64.54 BMI 20.9 Weight change and time frame wt change noted Weight Status Underweight Subjective/Other Information Pt reports eating 80% of meals when he is hungry for them. If not, he will drink 2 ONS. Pt states diarrhea is improving. Percent of energy/protein needs met: 100%/100% Burn Absent Trauma Absent GI Symptoms None Current % PO Negligible Minimum of two criteria Yes Energy Intake (non-severe) <75% Estimated Energy Requirement >7 days Interpretation of Weight Loss (severe) >10% in 6 months Body Fat Depletion Mild depletion (non-severe) Muscle Mass Mild Depletion (non-severe) #2 Nutrition Diagnosis Increased nutrient needs ( specify in comment below) Comments: protein Diagnosis Progress(for reassessment Continues documentation) #1 Nutrition Diagnosis Malnutrition Diagnosis Progress(for reassessment Continues documentation) Is patient on ventilator? No Is Patient Ambulatory and/or Out of Bed No REE-([facility]-confined to bed) [phone] Calculation Used for Recommendations Veto [place] Additional Notes Protein: (1.25-1.5g/kg) 66-79g Fluid: 1 ml/kcal Nutrition Intervention Change Diet Order: Continue Add Supplement/Snack (indicate name/kcal Ensure Enlive BID /protein ) Provides kCal: 700 Provides Protein (gm) 40 Goal #1 Meet at least 80% of protein and energy needs Goal #2 Wound healing Goal #3 Weight gain/maintenance Follow-Up By: 10/18/20 Additional Comments FU for intakes
[2020-10-16] MEDS: FLORANEX GRANULE PACKET PO SCH ×2 (10:22→10:23)
[2020-10-16] MEDS: cefTRIAXone/NS 2 GM/100 ML 2 GM/100 ML BAG IV SCH (10:22)
[2020-10-16] MEDS: methylPREDNISolone Sod Succinate 40 MG/1 ML INJ IV SCH (10:22)
[2020-10-16] MEDS: HEPARIN 5,000 UNIT/1 ML VIAL SUB-Q SCH ×2 (10:22→21:28)
[2020-10-16] MEDS: SODIUM BICARBONATE 650 MG TAB PO SCH ×2 (14:24→21:28)
[2020-10-16] MEDS: VANCOMYCIN 750 MG in SODIUM CHLORIDE 0.9% 250ML 250 ML IV SCH (15:57)
[2020-10-16] MEDS: ONDANSETRON 4 MG/2 ML INJ IV PRN (20:01)
--- NOTE | 2020-10-16 20:26 | Progress Note ---
Assessment and Plan Imp: 1. HIV/AIDS 2. Pneumonia, probably PJP 3. Acute respiratory failure, hypoxia 4. Sepsis 5. Hyponatremia Rec: 1. Empiric treatment for PJP + IV steroids; f/u CXR periodically 2. Cont. O2 support, weaning to keep sats 88% or >; DVT PPx Plan of care reviewed with patient, he understands/agrees Subjective Date of service: 10/16/20 Principal diagnosis: Bilateral pneumonia Interval history: No events. On HFNC. SOB better. No new complaints. Active Medications Acetaminophen (Acetaminophen 325 Mg Tab) 650 mg PO Q4H PRN PRN Reason: Pain MILD(1-3)/Fever >100.5/LAMA Last Admin: 10/11/20 09:57 Dose: 650 mg Documented by: Albuterol (Albuterol 2.5 Mg/3 Ml Nebu) 2.5 mg IH Q3HRT PRN PRN Reason: Wheezing Last Admin: 10/11/20 07:20 Dose: 2.5 mg Documented by: Heparin Sodium (Porcine) (Heparin 5,000 Unit/1 Ml Vial) 5,000 unit SUB-Q Q12HR IRIS Last Admin: 10/16/20 10:22 Dose: 5,000 unit Documented by: Ceftriaxone Sodium (Rocephin/Ns 2 Gm/100 Ml) 2 gm in 100 mls @ 200 mls/hr IV Q24HR IRIS; Protocol Last Admin: 10/16/20 10:22 Dose: 200 mls/hr Documented by: Metronidazole (Flagyl 500 Mg/100 Ml) 500 mg in 100 mls @ 100 mls/hr IV Q8HR IRIS; Protocol Last Admin: 10/16/20 14:24 Dose: 100 mls/hr Documented by: Trimethoprim/Sulfamethoxazole (300 mg/ Dextrose) 518.75 mls @ 350 mls/hr IV Q6H IRIS; Protocol Stop: 11/01/20 06:29 Last Admin: 10/16/20 16:44 Dose: 350 mls/hr Documented by: Vancomycin HCl (Vancomycin/Ns 1 Gm/250 Ml) 1 gm in 250 mls @ 166.667 mls/hr IV Q12H IRIS Lactobacillus Acidophilus (Floranex Granule Packet) 1 each PO BID IRIS Last Admin: 10/16/20 10:23 Dose: Not Given Documented by: Lorazepam (Lorazepam 2 Mg/Ml Vial) 1 mg IV Q6HR PRN PRN Reason: Anxiety Last Admin: 10/15/20 01:27 Dose: 1 mg Documented by: Methylprednisolone Sodium Succinate (Methylprednisolone Sod Succinate 40 Mg/1 Ml Inj) 40 mg IV Q24HR [facility] Stop: 10/20/20 10:01 Last Admin: 10/16/20 10:22 Dose: 40 mg Documented by: Methylprednisolone Sodium Succinate (Methylprednisolone Sod Succinate 40 Mg/1 Ml Inj) 20 mg IV Q24HR [facility] Stop: 10/31/20 10:01 Ondansetron HCl (Ondansetron 4 Mg/2 Ml Inj) 4 mg IV Q8H PRN PRN Reason: Nausea And Vomiting Last Admin: 10/16/20 20:01 Dose: 4 mg Documented by: Sodium Bicarbonate (Sodium Bicarbonate 650 Mg Tab) 650 mg PO BID [facility] Stop: 10/18/20 22:01 Last Admin: 10/16/20 14:24 Dose: 650 mg Documented by: Sodium Chloride (Sodium Chloride 0.9% 10 Ml Flush Syringe) 10 ml IV BID [facility] Last Admin: 10/16/20 10:23 Dose: 10 ml Documented by: Sodium Chloride (Sodium Chloride 0.9% 10 Ml Flush Syringe) 10 ml IV PRN PRN PRN Reason: LINE FLUSH Last Admin: 10/16/20 05:12 Dose: 10 ml Documented by: Objective Vital Signs - 12hr 10/16/20 10/16/20 10/16/20 11:22 12:00 13:51 Temperature Pulse Rate 78 84 Respiratory 18 Rate Blood Pressure O2 Sat by Pulse 96 99 100 Oximetry 10/16/20 10/16/20 17:16 17:17 Temperature 98.2 F Pulse Rate 89 86 Respiratory 20 Rate Blood Pressure 142/102 O2 Sat by Pulse 95 94 Oximetry Constitutional: no acute distress, alert Eyes: non-icteric Neck: supple Effort: normal Ascultation: Bilateral: rales Cardiovascular: regular rate and rhythm (no mrg) Gastrointestinal: normoactive bowel sounds, soft, non-tender, non-distended Integumentary: normal Extremities: no cyanosis, no edema, pink and warm Neurologic: normal mental status, non-focal exam, pupils equal and round, CN II- XII normal Psychiatric: mood appropriate, affect normal CBC and BMP: 10/16/20 05:17 10/16/20 05:17 ABG, PT/INR, D-dimer: ABG ABG pH 7.403 (7.320-7.450) 10/11/20 09:20 POC ABG pCO2 25.5 mmHg (32.0-48.0) L 10/11/20 09:20 POC ABG pO2 65.7 mmHg (83-108) L 10/11/20 09:20 POC ABG HCO3 15.5 10/11/20 09:20 ABG O2 Saturation 91.8 (0-100) 10/11/20 09:20 PT/INR, D-dimer D-Dimer 365.83 ng/mlDDU (0-234) H 10/09/20 14:22 Abnormal lab findings: Abnormal Labs 10/09/20 10/09/20 10/09/20 13:18 13:18 14:14 WBC RBC 3.54 L Hgb 11.1 L Hct 32.0 L MCHC 35 H Plt Count 562 H Seg Neuts % (Manual) 86.0 H Lymphocytes % (Manual) 11.0 L Lymphocytes # (Manual) 0.6 L D-Dimer ABG pH 7.462 H POC ABG pCO2 22.1 L POC ABG pO2 76.8 L ABG Hemoglobin 11.1 L ABG Oxyhemoglobin 93.8 L ABG Sodium 133.8 L ABG Chloride ABG Glucose Carboxyhemoglobin 0.4 L Sodium 132 L Carbon Dioxide 16 L Glucose 102 H Lactic Acid Ferritin AST ALT < 5 L Lactate Dehydrogenase C-Reactive Protein Total Protein 8.7 H Albumin 3.1 L Arterial Blood Glucose Arterial Blood Ionized Calcium Ur Specific [place] 10/09/20 10/09/20 10/09/20 14:22 14:22 14:22 WBC RBC Hgb Hct MCHC Plt Count Seg Neuts % (Manual) Lymphocytes % (Manual) Lymphocytes # (Manual) D-Dimer 365.83 H ABG pH POC ABG pCO2 POC ABG pO2 ABG Hemoglobin ABG Oxyhemoglobin ABG Sodium ABG Chloride ABG Glucose Carboxyhemoglobin Sodium Carbon Dioxide Glucose Lactic Acid Ferritin 1322.0 H AST ALT Lactate Dehydrogenase 581 H C-Reactive Protein 5.50 H Total Protein Albumin Arterial Blood Glucose Arterial Blood Ionized Calcium Ur Specific [place] 10/09/20 10/09/20 10/11/20 16:44 Unknown 09:20 WBC RBC Hgb Hct MCHC Plt Count Seg Neuts % (Manual) Lymphocytes % (Manual) Lymphocytes # (Manual) D-Dimer ABG pH POC ABG pCO2 25.5 L POC ABG pO2 65.7 L ABG Hemoglobin 8.7 L ABG Oxyhemoglobin 90.7 L ABG Sodium 134.1 L ABG Chloride 112.0 H ABG Glucose 101 H Carboxyhemoglobin Sodium Carbon Dioxide Glucose Lactic Acid 2.40 H* Ferritin AST ALT Lactate Dehydrogenase C-Reactive Protein Total Protein Albumin Arterial Blood Glucose 101 H Arterial Blood Ionized Calcium 4.5 L Ur Specific [place] 1.054 H 10/11/20 10/12/20 10/12/20 13:41 07:02 07:02 WBC RBC 2.74 L Hgb 8.5 L Hct 24.4 L D MCHC 35 H Plt Count 543 H Seg Neuts % (Manual) Lymphocytes % (Manual) Lymphocytes # (Manual) D-Dimer ABG pH POC ABG pCO2 POC ABG pO2 ABG Hemoglobin ABG Oxyhemoglobin ABG Sodium ABG Chloride ABG Glucose Carboxyhemoglobin Sodium 133 L 135 L Carbon Dioxide 16 L 17 L Glucose 149 H Lactic Acid Ferritin AST 42 H ALT < 5 L Lactate Dehydrogenase C-Reactive Protein Total Protein Albumin 2.8 L Arterial Blood Glucose Arterial Blood Ionized Calcium Ur Specific [place] 10/16/20 10/16/20 05:17 05:17 WBC 3.9 L RBC 2.92 L Hgb 8.8 L Hct 25.8 L MCHC Plt Count 662 H Seg Neuts % (Manual) Lymphocytes % (Manual) Lymphocytes # (Manual) D-Dimer ABG pH POC ABG pCO2 POC ABG pO2 ABG Hemoglobin ABG Oxyhemoglobin ABG Sodium ABG Chloride ABG Glucose Carboxyhemoglobin Sodium 132 L Carbon Dioxide 18 L Glucose 114 H Lactic Acid Ferritin AST ALT Lactate Dehydrogenase C-Reactive Protein Total Protein Albumin Arterial Blood Glucose Arterial Blood Ionized Calcium Ur Specific [place] Chest x-ray: report reviewed, image reviewed
[2020-10-16] MEDS: VANCOMYCIN/NS 1 GM/250 ML 1 GM/250 ML BAG IV SCH (21:29)
[2020-10-17] MEDS: FLORANEX GRANULE PACKET PO SCH ×4 (00:25→21:31)
[2020-10-17] MEDS: WATER IV SCH ×4 (00:34→18:51)
[2020-10-17] MEDS: DEXTROSE 5% IV SCH ×4 (00:34→18:51)
[2020-10-17] MEDS: TMP IV SCH ×4 (00:34→18:51)
[2020-10-17] MEDS: SMX IV SCH ×4 (00:34→18:51)
[2020-10-17] MEDS: metroNIDAZOLE/NS 500 MG/100 ML 500 MG/100 ML BAG IV SCH ×3 (05:35→21:31)
[2020-10-17] MEDS: VANCOMYCIN/NS 1 GM/250 ML 1 GM/250 ML BAG IV SCH ×2 (10:00→22:31)
--- NOTE | 2020-10-17 10:01 | Progress Note ---
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 Patient feels short of breath on minimal exertion. Patient was hypoxic when he came to the emergency room. Patient had a work-up in facility and is not sure of what the diagnosis was. He states he is not Covid. No exposure to Covid. No other symptoms of HIV. Like chronic diarrhea. All seizures. His main complaint is shortness of breath on minimal exertion for the past 3 months. No penile lesions. Gluteal cleft ulcer 3 to 6 months. 10/12/2020 On 40 L nasal cannula oxygen 10/13/2020 On 40 L high flow nasal cannula oxygen 10/14: Patient remains on high flow oxygen, Pulmonary FOLLOWING, Metabolic Acidosis noted, will give some sodium bicarb. Continue weaning oxygen. Anemia. 10/15: Patient with complex medical condition continues on recommendation by ID including Bactrim and Zithromax. Noted some nausea. Will premedicate before administration of Bactrim. Wound care consult recommended again. Follow cultures. Prior cultures showing staph aureus sensitivity not yet determined. Patient continues to require high flow oxygen and pulmonary is following weaning as tolerated. Continue aggressive pulmonary toilet. Monitor labs. Dietitian input for moderate to severe protein calorie malnutrition. 10/16: Continue supportive care, continue Highflow and wean as tolerated, will give a dose of sodium bicarb 10/17: Continue supportive care antibiotics as recommended. Continue to wean oxygen as tolerated (1) Acute respiratory failure with hypoxia Current Visit: Yes Status: Acute Plan to address problem: Patient on supplemental oxygen On 40 liters HFNC O2 (2) PCP (pneumocystis jiroveci pneumonia) Current Visit: Yes Status: Acute Qualifiers: Laterality: bilateral Plan to address problem: Clinical picture consistent with PCP pneumonia Patient is IV Zithromax and IV Bactrim ID consult appreciated Highly suspicious for moderate PJP pneumonia. pO2>70. SARS-CoV-2 PCR negative. LDH>500. Patient with HIV without any ART for 18 months. (3) HIV (human immunodeficiency virus infection) Current Visit: Yes Status: Chronic Qualifiers: HIV symptom status: symptomatic Qualified Code(s): B20 - Human immunodefi ciency virus [HIV] disease Plan to address problem: Patient not taking antiretroviral because HIV program was called on from April 09, 2020 Patient encouraged to get Medicaid and gyne HIV program and follow-up with ID (4) Rectal abscess Current Visit: Yes Status: Acute Plan to address problem: Surgical consult requested wound care consult requested Mid gluteal cleft chronic ulcer infection and right sided perirectal abscess: Unclear etiology. Patient denies history of genital herpes. CRP 5.5. CT shows small right-sided perirectal abscess 1.5 x 1 x 1 cm. No evidence of osteomyelitis. (5) Hyponatremia Current Visit: Yes Status: Acute Plan to address problem: IV normal saline for now Na 135 (6) Malnutrition moderate to severe Current Visit: Yes Status: Chronic Qualifiers: Protein-calorie malnutrition severity: mild Plan to address problem: Patient started on dietary supplements (7)Anemia of chronic disease (8) Metabolic Acidosis (9) DVT prophylaxis Current Visit: Yes Status: Acute Plan to address problem: On heparin and GI prophylaxis History Interval history: Patient seen and examined still on high flow oxygen but with good positive attitude. No new complaints, cheerful Hospitalist Physical - Physical exam Narrative exam: General appearance: Present: mild distress on high flow oxygen, well-nourished - EENT Eyes: PERRL, EOM intact ENT: hearing intact, clear oral mucosa Ears: bilateral: normal - Neck Neck: supple, normal ROM - Respiratory Respiratory effort: normal Respiratory: bilateral: CTA, rhonchi (Scattered rhonchi) - Breasts Breasts: normal - Cardiovascular Rhythm: regular Heart Sounds: Present: S1 & S2. Absent: gallop, rub Extremities: pulses intact, No edema, normal color, Full ROM - Gastrointestinal General gastrointestinal: Present: soft, non-tender, non-distended, normal bowel sounds - Genitourinary Male genitourinary: normal - Integumentary Integumentary: Sacral wound dressing noted - Musculoskeletal Musculoskeletal: 1, strength equal bilaterally - Neurologic Neurologic: moves all extremities - Psychiatric Psychiatric: memory intact, appropriate mood/affect, intact judgment & insight - Constitutional Vitals: Temp Pulse Resp BP Pulse Ox 98.6 F 90 22 149/96 94 10/17/20 06:18 10/17/20 06:18 10/17/20 06:18 10/17/20 06:18 10/17/20 08:18 General appearance: Present: mild distress, well-nourished HEART Score - HEART Score Troponin: Troponin T < 0.010 ng/mL (0.00-0.029) 10/09/20 14:22 Results - Labs CBC & Chem 7: 10/16/20 05:17 10/16/20 05:17 Labs: Laboratory Last Values WBC 3.9 K/mm3 (4.5-11.0) L 10/16/20 05:17 RBC 2.92 M/mm3 (3.65-5.03) L 10/16/20 05:17 Hgb 8.8 gm/dl (11.8-15.2) L 10/16/20 05:17 Hct 25.8 % (35.5-45.6) L 10/16/20 05:17 MCV 88 fl (84-94) 10/16/20 05:17 MCH 30 pg (28-32) 10/16/20 05:17 MCHC 34 % (32-34) 10/16/20 05:17 RDW 14.4 % (13.2-15.2) 10/16/20 05:17 Plt Count 662 K/mm3 (140-440) H 10/16/20 05:17 Add Manual Diff Complete 10/09/20 13:18 Total Counted 100 10/09/20 13:18 Seg Neuts % (Manual) 86.0 % (40.0-70.0) H 10/09/20 13:18 Lymphocytes % (Manual) 11.0 % (13.4-35.0) L 10/09/20 13:18 Monocytes % (Manual) 3.0 % (0.0-7.3) 10/09/20 13:18 Nucleated RBC % Not Reportable 10/09/20 13:18 Seg Neutrophils # Man 4.4 K/mm3 (1.8-7.7) 10/09/20 13:18 Band Neutrophils # 0.0 K/mm3 10/09/20 13:18 Lymphocytes # (Manual) 0.6 K/mm3 (1.2-5.4) L 10/09/20 13:18 Abs React Lymphs (Man) 0.0 K/mm3 10/09/20 13:18 Monocytes # (Manual) 0.2 K/mm3 (0.0-0.8) 10/09/20 13:18 Eosinophils # (Manual) 0.0 K/mm3 (0.0-0.4) 10/09/20 13:18 Basophils # (Manual) 0.0 K/mm3 (0.0-0.1) 10/09/20 13:18 Metamyelocytes # 0.0 K/mm3 10/09/20 13:18 Myelocytes # 0.0 K/mm3 10/09/20 13:18 Promyelocytes # 0.0 K/mm3 10/09/20 13:18 Blast Cells # 0.0 K/mm3 10/09/20 13:18 WBC Morphology Not Reportable 10/09/20 13:18 Hypersegmented Neuts Not Reportable 10/09/20 13:18 Hyposegmented Neuts Not Reportable 10/09/20 13:18 Hypogranular Neuts Not Reportable 10/09/20 13:18 Smudge Cells Not Reportable 10/09/20 13:18 Toxic Granulation Not Reportable 10/09/20 13:18 Toxic Vacuolation Not Reportable 10/09/20 13:18 Dohle Bodies Not Reportable 10/09/20 13:18 Pelger-Huet Anomaly Not Reportable 10/09/20 13:18 Yuri Rods Not Reportable 10/09/20 13:18 Platelet Estimate Consistent w auto 10/09/20 13:18 Clumped Platelets Not Reportable 10/09/20 13:18 Plt Clumps, EDTA Not Reportable 10/09/20 13:18 Large Platelets Not Reportable 10/09/20 13:18 Giant Platelets Rare 10/09/20 13:18 Platelet Satelliting Not Reportable 10/09/20 13:18 Plt Morphology Comment Not Reportable 10/09/20 13:18 RBC Morphology Normal 10/09/20 13:18 Dimorphic RBCs Not Reportable 10/09/20 13:18 Polychromasia Not Reportable 10/09/20 13:18 Hypochromasia Not Reportable 10/09/20 13:18 Poikilocytosis Not Reportable 10/09/20 13:18 Anisocytosis Not Reportable 10/09/20 13:18 Microcytosis Not Reportable 10/09/20 13:18 Macrocytosis Not Reportable 10/09/20 13:18 Spherocytes Not Reportable 10/09/20 13:18 Pappenheimer Bodies Not Reportable 10/09/20 13:18 Sickle Cells Not Reportable 10/09/20 13:18 Target Cells Not Reportable 10/09/20 13:18 Tear Drop Cells Not Reportable 10/09/20 13:18 Ovalocytes Not Reportable 10/09/20 13:18 Helmet Cells Not Reportable 10/09/20 13:18 Doe-Delacroix Bodies Not Reportable 10/09/20 13:18 Thornton Rings Not Reportable 10/09/20 13:18 Naz Cells Not Reportable 10/09/20 13:18 Bite Cells Not Reportable 10/09/20 13:18 Crenated Cell Not Reportable 10/09/20 13:18 Elliptocytes Not Reportable 10/09/20 13:18 Acanthocytes (Spur) Not Reportable 10/09/20 13:18 Rouleaux Not Reportable 10/09/20 13:18 Hemoglobin C Crystals Not Reportable 10/09/20 13:18 Schistocytes Not Reportable 10/09/20 13:18 Malaria parasites Not Reportable 10/09/20 13:18 Benigno Bodies Not Reportable 10/09/20 13:18 Hem Pathologist Commnt No 10/09/20 13:18 D-Dimer 365.83 ng/mlDDU (0-234) H 10/09/20 14:22 ABG pH 7.403 (7.320-7.450) 10/11/20 09:20 POC ABG pCO2 25.5 mmHg (32.0-48.0) L 10/11/20 09:20 POC ABG pO2 65.7 mmHg (83-108) L 10/11/20 09:20 POC ABG HCO3 15.5 10/11/20 09:20 ABG O2 Saturation 91.8 (0-100) 10/11/20 09:20 POC ABG Base Excess -8.1 10/11/20 09:20 ABG Hemoglobin 8.7 (12.0-17.5) L 10/11/20 09:20 ABG Oxyhemoglobin 90.7 (94-98) L 10/11/20 09:20 ABG Methemoglobin 0.3 (0.0-1.5) 10/11/20 09:20 ABG Sodium 134.1 mmol/L (136.0-145.0) L 10/11/20 09:20 ABG Potassium 3.7 mmol/L (3.40-4.50) 10/11/20 09:20 ABG Chloride 112.0 mmol/L (98-107) H 10/11/20 09:20 ABG Glucose 101 mg/dL (65-95) H 10/11/20 09:20 ABG Lactate 1.54 (0.18-30.0) 10/09/20 14:14 Carboxyhemoglobin 0.9 (0.5-1.5) 10/11/20 09:20 FiO2 % 68.0 10/11/20 09:20 Sodium 132 mmol/L (137-145) L 10/16/20 05:17 Potassium 4.3 mmol/L (3.6-5.0) 10/16/20 05:17 Chloride 100.6 mmol/L (98-107) 10/16/20 05:17 Carbon Dioxide 18 mmol/L (22-30) L 10/16/20 05:17 Anion Gap 18 mmol/L 10/16/20 05:17 BUN 19 mg/dL (9-20) 10/16/20 05:17 Creatinine 1.0 mg/dL (0.8-1.3) 10/16/20 05:17 Estimated GFR > 60 ml/min 10/16/20 05:17 BUN/Creatinine Ratio 19 % 10/16/20 05:17 Glucose 114 mg/dL (75-100) H 10/16/20 05:17 Lactic Acid 1.00 mmol/L (0.7-2.0) 10/10/20 06:57 Calcium 9.2 mg/dL (8.4-10.2) 10/16/20 05:17 Ferritin 1322.0 ng/mL (30.0-300.0) H 10/09/20 14:22 Total Bilirubin < 0.20 mg/dL (0.1-1.2) 10/11/20 13:41 AST 42 units/L (5-40) H 10/11/20 13:41 ALT < 5 units/L (7-56) L 10/11/20 13:41 Alkaline Phosphatase 59 units/L (35-129) 10/11/20 13:41 Lactate Dehydrogenase 581 units/L (91-180) H 10/09/20 14:22 Troponin T < 0.010 ng/mL (0.00-0.029) 10/09/20 14:22 C-Reactive Protein 5.50 mg/dL (0.00-1.30) H 10/09/20 14:22 NT-Pro-B Natriuret Pep 47.57 pg/mL (0-450) 10/09/20 14:22 Total Protein 6.7 g/dL (6.3-8.2) D 10/11/20 13:41 Albumin 2.8 g/dL (3.9-5) L 10/11/20 13:41 Albumin/Globulin Ratio 0.7 % 10/11/20 13:41 Procalcitonin 0.07 ng/mL (<0.15) 10/09/20 14:22 Arterial Blood Glucose 101 mg/dL (65-95) H 10/11/20 09:20 Arterial Blood Ionized Calcium 4.5 mg/dL (4.6-5.3) L 10/11/20 09:20 Urine Color Yellow (Yellow) 10/09/20 Unknown Urine Turbidity Clear (Clear) 10/09/20 Unknown Urine pH 6.0 (5.0-7.0) 10/09/20 Unknown Ur Specific [place] 1.054 (1.003-1.030) H 10/09/20 Unknown Urine Protein 30 mg/dl mg/dL (Negative) 10/09/20 Unknown Urine Glucose (UA) Neg mg/dL (Negative) 10/09/20 Unknown Urine Ketones Neg mg/dL (Negative) 10/09/20 Unknown Urine Blood Neg (Negative) 10/09/20 Unknown Urine Nitrite Neg (Negative) 10/09/20 Unknown Urine Bilirubin Neg (Negative) 10/09/20 Unknown Urine Urobilinogen < 2.0 mg/dL (<2.0) 10/09/20 Unknown Ur Leukocyte Esterase Neg (Negative) 10/09/20 Unknown Urine WBC (Auto) 4.0 /HPF (0.0-6.0) 10/09/20 Unknown Urine RBC (Auto) 1.0 /HPF (0.0-6.0) 10/09/20 Unknown U Epithel Cells (Auto) < 1.0 /HPF (0-13.0) 10/09/20 Unknown Urine Mucus Few /HPF 10/09/20 Unknown Vancomycin Trough 9.4 ug/mL (5.0-20.0) 10/16/20 08:04 Coronavirus (PCR) Negative (Negative) 10/10/20 09:50 Microbiology: Microbiology 10/11/20 00:39 Buttock Wound Culture - Final Methicillin Resist S. Aureus Lal/IV: Voiding Method Urinal Active Medications - Current Medications Current Medications: Generic Name Dose Route Start Last Admin Trade Name Freq PRN Reason Stop Dose Admin Acetaminophen 650 mg 10/09/20 18:00 10/11/20 09:57 Acetaminophen 325 Mg Tab PO 650 mg Q4H PRN Administration Pain MILD(1-3)/Fever >100.5/LAMA Albuterol 2.5 mg 10/10/20 06:41 10/11/20 07:20 Albuterol 2.5 Mg/3 Ml Nebu IH 2.5 mg Q3HRT PRN Administration Wheezing Heparin Sodium (Porcine) 5,000 unit 10/10/20 10:00 10/16/20 21:28 Heparin 5,000 Unit/1 Ml Vial SUB-Q 5,000 unit Q12HR IRIS Administration Ceftriaxone Sodium 2 gm in 100 mls @ 200 mls/hr 10/10/20 16:00 10/16/20 10:22 Rocephin/Ns 2 Gm/100 Ml IV 200 mls/hr Q24HR IRIS Administration Protocol Metronidazole 500 mg in 100 mls @ 100 mls/hr 10/10/20 15:00 10/17/20 05:35 Flagyl 500 Mg/100 Ml IV 100 mls/hr Q8HR IRIS Administration Protocol Trimethoprim/Sulfamethoxazole 518.75 mls @ 350 mls/hr 10/11/20 11:00 10/17/20 06:40 300 mg/ Dextrose IV 11/01/20 06:29 350 mls/hr Q6H IRIS Administration Protocol Vancomycin HCl 1 gm in 250 mls @ 166.667 mls/hr 10/16/20 22:00 10/16/20 21:29 Vancomycin/Ns 1 Gm/250 Ml IV 166.667 mls/hr Q12H IRIS Administration Lactobacillus Acidophilus 1 each 10/13/20 22:00 10/17/20 00:25 Floranex Granule Packet PO Not Given BID IRIS Lorazepam 1 mg 10/10/20 19:20 10/15/20 01:27 Lorazepam 2 Mg/Ml Vial IV 1 mg Q6HR PRN Administration Anxiety Methylprednisolone Sodium Succinate 40 mg 10/16/20 10:00 10/16/20 10:22 Methylprednisolone Sod Succinate 40 Mg/1 Ml Inj IV 10/20/20 10:01 40 mg Q24HR IRIS Administration Methylprednisolone Sodium Succinate 20 mg 10/21/20 10:00 Methylprednisolone Sod Succinate 40 Mg/1 Ml Inj IV 10/31/20 10:01 Q24HR IRIS Ondansetron HCl 4 mg 10/09/20 18:00 10/16/20 20:01 Ondansetron 4 Mg/2 Ml Inj IV 4 mg Q8H PRN Administration Nausea And Vomiting Sodium Bicarbonate 650 mg 10/16/20 12:00 10/16/20 21:28 Sodium Bicarbonate 650 Mg Tab PO 10/18/20 22:01 650 mg BID IRIS Administration Sodium Chloride 10 ml 10/09/20 22:00 10/17/20 05:35 Sodium Chloride 0.9% 10 Ml Flush Syringe IV 10 ml BID IRIS Administration Sodium Chloride 10 ml 10/09/20 18:00 10/16/20 05:12 Sodium Chloride 0.9% 10 Ml Flush Syringe IV 10 ml PRN PRN Administration LINE FLUSH Nutrition/Malnutrition Assess - Dietary Evaluation Nutrition/Malnutrition Findings: Nutrition Notes Start: 10/10/20 09:11 Freq: Status: Active Protocol: Document 10/13/20 10:53 (Rec: 10/13/20 10:56 [id number]) Nutrition Notes Initial or Follow up Reassessment Current Diagnosis Respiratory Failure Other Pertinent Diagnosis HIV, SOB, Pneumocystis jiroveci Pneumonia Current Diet regular Labs/Tests Na 135 Pertinent Medications Reviewed Height 5 ft 6 in Weight 58.8 kg [place] Body Weight (kg) 64.54 BMI 20.9 Weight change and time frame wt change noted Weight Status Underweight Subjective/Other Information Pt reports eating 80% of meals when he is hungry for them. If not, he will drink 2 ONS. Pt states diarrhea is improving. Percent of energy/protein needs met: 100%/100% Burn Absent Trauma Absent GI Symptoms None Current % PO Negligible Minimum of two criteria Yes Energy Intake (non-severe) <75% Estimated Energy Requirement >7 days Interpretation of Weight Loss (severe) >10% in 6 months Body Fat Depletion Mild depletion (non-severe) Muscle Mass Mild Depletion (non-severe) #2 Nutrition Diagnosis Increased nutrient needs ( specify in comment below) Comments: protein Diagnosis Progress(for reassessment Continues documentation) #1 Nutrition Diagnosis Malnutrition Diagnosis Progress(for reassessment Continues documentation) Is patient on ventilator? No Is Patient Ambulatory and/or Out of Bed No REE-([facility]-confined to bed) 4617.663 Calculation Used for Recommendations [facility] Additional Notes Protein: (1.25-1.5g/kg) 66-79g Fluid: 1 ml/kcal Nutrition Intervention Change Diet Order: Continue Add Supplement/Snack (indicate name/kcal Ensure Enlive BID /protein ) Provides kCal: 700 Provides Protein (gm) 40 Goal #1 Meet at least 80% of protein and energy needs Goal #2 Wound healing Goal #3 Weight gain/maintenance Follow-Up By: 10/18/20 Additional Comments FU for intakes
[2020-10-17] MEDS: cefTRIAXone/NS 2 GM/100 ML 2 GM/100 ML BAG IV SCH (10:12)
[2020-10-17] MEDS: methylPREDNISolone Sod Succinate 40 MG/1 ML INJ IV SCH (10:12)
[2020-10-17] MEDS: SODIUM BICARBONATE 650 MG TAB PO SCH ×2 (10:13→21:30)
[2020-10-17] MEDS: HEPARIN 5,000 UNIT/1 ML VIAL SUB-Q SCH ×2 (10:13→21:30)
[2020-10-17] MEDS: ONDANSETRON 4 MG/2 ML INJ IV PRN ×2 (13:09→21:43)
--- NOTE | 2020-10-17 19:42 | Progress Note ---
Assessment and Plan Imp: 1. HIV/AIDS 2. Pneumonia, probably PJP 3. Acute respiratory failure, hypoxia 4. Sepsis 5. Hyponatremia Rec: 1. Empiric treatment for PJP + IV steroids; f/u CXR in AM 2. Cont. O2 support, weaning to keep sats 88% or >; DVT PPx 3. Complex decision-making Plan of care reviewed with patient, he understands/agrees Subjective Date of service: 10/17/20 Principal diagnosis: Bilateral pneumonia Interval history: No events. On HFNC. SOB better. No new complaints. Active Medications Acetaminophen (Acetaminophen 325 Mg Tab) 650 mg PO Q4H PRN PRN Reason: Pain MILD(1-3)/Fever >100.5/LAMA Last Admin: 10/11/20 09:57 Dose: 650 mg Documented by: Albuterol (Albuterol 2.5 Mg/3 Ml Nebu) 2.5 mg IH Q3HRT PRN PRN Reason: Wheezing Last Admin: 10/11/20 07:20 Dose: 2.5 mg Documented by: Heparin Sodium (Porcine) (Heparin 5,000 Unit/1 Ml Vial) 5,000 unit SUB-Q Q12HR IRIS Last Admin: 10/17/20 10:13 Dose: 5,000 unit Documented by: Ceftriaxone Sodium (Rocephin/Ns 2 Gm/100 Ml) 2 gm in 100 mls @ 200 mls/hr IV Q24HR IRIS; Protocol Last Admin: 10/17/20 10:12 Dose: 200 mls/hr Documented by: Metronidazole (Flagyl 500 Mg/100 Ml) 500 mg in 100 mls @ 100 mls/hr IV Q8HR IRIS; Protocol Last Admin: 10/17/20 13:21 Dose: 100 mls/hr Documented by: Trimethoprim/Sulfamethoxazole (300 mg/ Dextrose) 518.75 mls @ 350 mls/hr IV Q6H IRIS; Protocol Stop: 11/01/20 06:29 Last Admin: 10/17/20 18:51 Dose: 350 mls/hr Documented by: Vancomycin HCl (Vancomycin/Ns 1 Gm/250 Ml) 1 gm in 250 mls @ 166.667 mls/hr IV Q12H IRIS Last Admin: 10/17/20 10:00 Dose: 166.667 mls/hr Documented by: Lactobacillus Acidophilus (Floranex Granule Packet) 1 each PO BID [facility] Last Admin: 10/17/20 13:09 Dose: Not Given Documented by: Lorazepam (Lorazepam 2 Mg/Ml Vial) 1 mg IV Q6HR PRN PRN Reason: Anxiety Last Admin: 10/15/20 01:27 Dose: 1 mg Documented by: Methylprednisolone Sodium Succinate (Methylprednisolone Sod Succinate 40 Mg/1 Ml Inj) 40 mg IV Q24HR [facility] Stop: 10/20/20 10:01 Last Admin: 10/17/20 10:12 Dose: 40 mg Documented by: Methylprednisolone Sodium Succinate (Methylprednisolone Sod Succinate 40 Mg/1 Ml Inj) 20 mg IV Q24HR [facility] Stop: 10/31/20 10:01 Ondansetron HCl (Ondansetron 4 Mg/2 Ml Inj) 4 mg IV Q8H PRN PRN Reason: Nausea And Vomiting Last Admin: 10/17/20 13:09 Dose: 4 mg Documented by: Sodium Bicarbonate (Sodium Bicarbonate 650 Mg Tab) 650 mg PO BID [facility] Stop: 10/18/20 22:01 Last Admin: 10/17/20 10:13 Dose: 650 mg Documented by: Sodium Chloride (Sodium Chloride 0.9% 10 Ml Flush Syringe) 10 ml IV BID [facility] Last Admin: 10/17/20 10:14 Dose: 10 ml Documented by: Sodium Chloride (Sodium Chloride 0.9% 10 Ml Flush Syringe) 10 ml IV PRN PRN PRN Reason: LINE FLUSH Last Admin: 10/16/20 05:12 Dose: 10 ml Documented by: Objective Vital Signs - 12hr 10/17/20 10/17/20 10/17/20 08:18 10:00 15:55 Temperature 98 F Pulse Rate 122 H Respiratory 20 Rate Blood Pressure 115/76 [Right] O2 Sat by Pulse 94 94 91 Oximetry 10/17/20 17:28 Temperature Pulse Rate Respiratory Rate Blood Pressure [Right] O2 Sat by Pulse 94 Oximetry Constitutional: no acute distress, alert Eyes: non-icteric Neck: supple Effort: normal Ascultation: Bilateral: rales Cardiovascular: regular rate and rhythm (no mrg) Gastrointestinal: normoactive bowel sounds, soft, non-tender, non-distended Integumentary: normal Extremities: no cyanosis, no edema, pink and warm Neurologic: normal mental status, non-focal exam, pupils equal and round, CN II- XII normal Psychiatric: mood appropriate, affect normal CBC and BMP: 10/16/20 05:17 10/16/20 05:17 ABG, PT/INR, D-dimer: ABG ABG pH 7.403 (7.320-7.450) 10/11/20 09:20 POC ABG pCO2 25.5 mmHg (32.0-48.0) L 10/11/20 09:20 POC ABG pO2 65.7 mmHg (83-108) L 10/11/20 09:20 POC ABG HCO3 15.5 10/11/20 09:20 ABG O2 Saturation 91.8 (0-100) 10/11/20 09:20 PT/INR, D-dimer D-Dimer 365.83 ng/mlDDU (0-234) H 10/09/20 14:22 Abnormal lab findings: Abnormal Labs 10/09/20 10/09/20 10/09/20 13:18 13:18 14:14 WBC RBC 3.54 L Hgb 11.1 L Hct 32.0 L MCHC 35 H Plt Count 562 H Seg Neuts % (Manual) 86.0 H Lymphocytes % (Manual) 11.0 L Lymphocytes # (Manual) 0.6 L D-Dimer ABG pH 7.462 H POC ABG pCO2 22.1 L POC ABG pO2 76.8 L ABG Hemoglobin 11.1 L ABG Oxyhemoglobin 93.8 L ABG Sodium 133.8 L ABG Chloride ABG Glucose Carboxyhemoglobin 0.4 L Sodium 132 L Carbon Dioxide 16 L Glucose 102 H Lactic Acid Ferritin AST ALT < 5 L Lactate Dehydrogenase C-Reactive Protein Total Protein 8.7 H Albumin 3.1 L Arterial Blood Glucose Arterial Blood Ionized Calcium Ur Specific [place] 10/09/20 10/09/20 10/09/20 14:22 14:22 14:22 WBC RBC Hgb Hct MCHC Plt Count Seg Neuts % (Manual) Lymphocytes % (Manual) Lymphocytes # (Manual) D-Dimer 365.83 H ABG pH POC ABG pCO2 POC ABG pO2 ABG Hemoglobin ABG Oxyhemoglobin ABG Sodium ABG Chloride ABG Glucose Carboxyhemoglobin Sodium Carbon Dioxide Glucose Lactic Acid Ferritin 1322.0 H AST ALT Lactate Dehydrogenase 581 H C-Reactive Protein 5.50 H Total Protein Albumin Arterial Blood Glucose Arterial Blood Ionized Calcium Ur Specific [place] 10/09/20 10/09/20 10/11/20 16:44 Unknown 09:20 WBC RBC Hgb Hct MCHC Plt Count Seg Neuts % (Manual) Lymphocytes % (Manual) Lymphocytes # (Manual) D-Dimer ABG pH POC ABG pCO2 25.5 L POC ABG pO2 65.7 L ABG Hemoglobin 8.7 L ABG Oxyhemoglobin 90.7 L ABG Sodium 134.1 L ABG Chloride 112.0 H ABG Glucose 101 H Carboxyhemoglobin Sodium Carbon Dioxide Glucose Lactic Acid 2.40 H* Ferritin AST ALT Lactate Dehydrogenase C-Reactive Protein Total Protein Albumin Arterial Blood Glucose 101 H Arterial Blood Ionized Calcium 4.5 L Ur Specific [place] 1.054 H 10/11/20 10/12/20 10/12/20 13:41 07:02 07:02 WBC RBC 2.74 L Hgb 8.5 L Hct 24.4 L D MCHC 35 H Plt Count 543 H Seg Neuts % (Manual) Lymphocytes % (Manual) Lymphocytes # (Manual) D-Dimer ABG pH POC ABG pCO2 POC ABG pO2 ABG Hemoglobin ABG Oxyhemoglobin ABG Sodium ABG Chloride ABG Glucose Carboxyhemoglobin Sodium 133 L 135 L Carbon Dioxide 16 L 17 L Glucose 149 H Lactic Acid Ferritin AST 42 H ALT < 5 L Lactate Dehydrogenase C-Reactive Protein Total Protein Albumin 2.8 L Arterial Blood Glucose Arterial Blood Ionized Calcium Ur Specific [place] 10/16/20 10/16/20 05:17 05:17 WBC 3.9 L RBC 2.92 L Hgb 8.8 L Hct 25.8 L MCHC Plt Count 662 H Seg Neuts % (Manual) Lymphocytes % (Manual) Lymphocytes # (Manual) D-Dimer ABG pH POC ABG pCO2 POC ABG pO2 ABG Hemoglobin ABG Oxyhemoglobin ABG Sodium ABG Chloride ABG Glucose Carboxyhemoglobin Sodium 132 L Carbon Dioxide 18 L Glucose 114 H Lactic Acid Ferritin AST ALT Lactate Dehydrogenase C-Reactive Protein Total Protein Albumin Arterial Blood Glucose Arterial Blood Ionized Calcium Ur Specific [place] Chest x-ray: report reviewed, image reviewed
[2020-10-18] MEDS: DEXTROSE 5% IV SCH ×5 (00:18→22:50)
[2020-10-18] MEDS: TMP IV SCH ×5 (00:18→22:50)
[2020-10-18] MEDS: SMX IV SCH ×5 (00:18→22:50)
[2020-10-18] MEDS: WATER IV SCH ×5 (00:18→22:50)
[2020-10-18] MEDS: metroNIDAZOLE/NS 500 MG/100 ML 500 MG/100 ML BAG IV SCH (05:11)
[2020-10-18] MEDS: ONDANSETRON 4 MG/2 ML INJ IV PRN (05:44)
[2020-10-18] MEDS: FLORANEX GRANULE PACKET PO SCH ×2 (09:24→22:11)
[2020-10-18] MEDS: methylPREDNISolone Sod Succinate 40 MG/1 ML INJ IV SCH (09:24)
[2020-10-18] MEDS: SODIUM BICARBONATE 650 MG TAB PO SCH ×2 (09:24→22:11)
[2020-10-18] MEDS: cefTRIAXone/NS 2 GM/100 ML 2 GM/100 ML BAG IV SCH (09:24)
[2020-10-18] MEDS: HEPARIN 5,000 UNIT/1 ML VIAL SUB-Q SCH ×2 (09:25→22:11)
[2020-10-18] MEDS: VANCOMYCIN/NS 1 GM/250 ML 1 GM/250 ML BAG IV SCH (09:30)
--- NOTE | 2020-10-18 11:01 | XRay Report ---
CHEST 1 VIEW 10/18/2020 9:50 AM INDICATION / CLINICAL INFORMATION: Pneumonia. COMPARISON: Chest radiograph 10/11/2020, CTA chest 10/09/2020 FINDINGS: SUPPORT DEVICES: None. HEART / MEDIASTINUM: No significant abnormality. LUNGS / PLEURA: There is bilateral diffuse interstitial lung disease which has a similar appearance t o the prior radiograph. No pneumothorax. ADDITIONAL FINDINGS: No significant additional findings. IMPRESSION: 1. No significant change in diffuse bilateral interstitial lung disease. Signer Name: Miquel Gutierrez MD Signed: 10/18/2020 10:57 AM Workstation Name: [id number]
--- NOTE | 2020-10-18 11:10 | Progress Note ---
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 Patient feels short of breath on minimal exertion. Patient was hypoxic when he came to the emergency room. Patient had a work-up in facility and is not sure of what the diagnosis was. He states he is not Covid. No exposure to Covid. No other symptoms of HIV. Like chronic diarrhea. All seizures. His main complaint is shortness of breath on minimal exertion for the past 3 months. No penile lesions. Gluteal cleft ulcer 3 to 6 months. 10/12/2020 On 40 L nasal cannula oxygen 10/13/2020 On 40 L high flow nasal cannula oxygen 10/14: Patient remains on high flow oxygen, Pulmonary FOLLOWING, Metabolic Acidosis noted, will give some sodium bicarb. Continue weaning oxygen. Anemia. 10/15: Patient with complex medical condition continues on recommendation by ID including Bactrim and Zithromax. Noted some nausea. Will premedicate before administration of Bactrim. Wound care consult recommended again. Follow cultures. Prior cultures showing staph aureus sensitivity not yet determined. Patient continues to require high flow oxygen and pulmonary is following weaning as tolerated. Continue aggressive pulmonary toilet. Monitor labs. Dietitian input for moderate to severe protein calorie malnutrition. 10/16: Continue supportive care, continue Highflow and wean as tolerated, will give a dose of sodium bicarb 10/17: Continue supportive care antibiotics as recommended. Continue to wean oxygen as tolerated 10/18: Patient currently being treated for PCP pneumonia rectal abscess currently on antibiotics followed by wound care team. He has been weaned down successfully from high flow and now is on 10 to 8 L of oxygen. Continue weaning continue antibiotic therapy as prescribed by ID. Can be discharged on oxygen was able to wean down to 3 to 4 L. Currently debilitated and likely will need PT OT reevaluation prior to discharge and may possibly need rehab placement. (1) Acute respiratory failure with hypoxia Current Visit: Yes Status: Acute Plan to address problem: Patient on supplemental oxygen On 40 liters HFNC O2 (2) PCP (pneumocystis jiroveci pneumonia) Current Visit: Yes Status: Acute Qualifiers: Laterality: bilateral Plan to address problem: Clinical picture consistent with PCP pneumonia Patient is IV Zithromax and IV Bactrim ID consult appreciated Highly suspicious for moderate PJP pneumonia. pO2>70. SARS-CoV-2 PCR negative. LDH>500. Patient with HIV without any ART for 18 months. (3) HIV (human immunodeficiency virus infection) Current Visit: Yes Status: Chronic Qualifiers: HIV symptom status: symptomatic Qualified Code(s): B20 - Human immunodeficiency virus [HIV] disease Plan to address problem: Patient not taking antiretroviral because HIV program was called on from April 09, 2020 Patient encouraged to get Medicaid and gyne HIV program and follow-up with ID (4) Rectal abscess Current Visit: Yes Status: Acute Plan to address problem: Surgical consult requested wound care consult requested Mid gluteal cleft chronic ulcer infection and right sided perirectal abscess: Unclear etiology. Patient denies history of genital herpes. CRP 5.5. CT shows small right-sided perirectal abscess 1.5 x 1 x 1 cm. No evidence of osteomyelitis. (5) Hyponatremia Current Visit: Yes Status: Acute Plan to address problem: IV normal saline for now Na 135 (6) Malnutrition moderate to severe Current Visit: Yes Status: Chronic Qualifiers: Protein-calorie malnutrition severity: mild Plan to address problem: Patient started on dietary supplements (7)Anemia of chronic disease (8) Metabolic Acidosis (9) DVT prophylaxis Current Visit: Yes Status: Acute Plan to address problem: On heparin and GI prophylaxis History Interval history: Patient seen and examined weaned down to 10 L of oxygen today doing well no worsening distress Hospitalist Physical - Physical exam Narrative exam: General appearance: Present: mild distress on 10 L salter nasal cannula, well- nourished - EENT Eyes: PERRL, EOM intact ENT: hearing intact, clear oral mucosa Ears: bilateral: normal - Neck Neck: supple, normal ROM - Respiratory Respiratory effort: normal Respiratory: bilateral: CTA, rhonchi (Scattered rhonchi) - Breasts Breasts: normal - Cardiovascular Rhythm: regular Heart Sounds: Present: S1 & S2. Absent: gallop, rub Extremities: pulses intact, No edema, normal color, Full ROM - Gastrointestinal General gastrointestinal: Present: soft, non-tender, non-distended, normal bowel sounds - Genitourinary Male genitourinary: normal - Integumentary Integumentary: Sacral wound dressing noted - Musculoskeletal Musculoskeletal: 1, strength equal bilaterally - Neurologic Neurologic: moves all extremities - Psychiatric Psychiatric: memory intact, appropriate mood/affect, intact judgment & insight - Constitutional Vitals: Temp Pulse Resp BP Pulse Ox 98.4 F 93 H 18 122/77 97 10/18/20 04:21 10/18/20 04:21 10/18/20 04:21 10/18/20 04:21 10/18/20 08:31 General appearance: Present: mild distress, well-nourished HEART Score - HEART Score Troponin: Troponin T < 0.010 ng/mL (0.00-0.029) 10/09/20 14:22 Results - Labs CBC & Chem 7: 10/16/20 05:17 10/16/20 05:17 Labs: Laboratory Last Values WBC 3.9 K/mm3 (4.5-11.0) L 10/16/20 05:17 RBC 2.92 M/mm3 (3.65-5.03) L 10/16/20 05:17 Hgb 8.8 gm/dl (11.8-15.2) L 10/16/20 05:17 Hct 25.8 % (35.5-45.6) L 10/16/20 05:17 MCV 88 fl (84-94) 10/16/20 05:17 MCH 30 pg (28-32) 10/16/20 05:17 MCHC 34 % (32-34) 10/16/20 05:17 RDW 14.4 % (13.2-15.2) 10/16/20 05:17 Plt Count 662 K/mm3 (140-440) H 10/16/20 05:17 Add Manual Diff Complete 10/09/20 13:18 Total Counted 100 10/09/20 13:18 Seg Neuts % (Manual) 86.0 % (40.0-70.0) H 10/09/20 13:18 Lymphocytes % (Manual) 11.0 % (13.4-35.0) L 10/09/20 13:18 Monocytes % (Manual) 3.0 % (0.0-7.3) 10/09/20 13:18 Nucleated RBC % Not Reportable 10/09/20 13:18 Seg Neutrophils # Man 4.4 K/mm3 (1.8-7.7) 10/09/20 13:18 Band Neutrophils # 0.0 K/mm3 10/09/20 13:18 Lymphocytes # (Manual) 0.6 K/mm3 (1.2-5.4) L 10/09/20 13:18 Abs React Lymphs (Man) 0.0 K/mm3 10/09/20 13:18 Monocytes # (Manual) 0.2 K/mm3 (0.0-0.8) 10/09/20 13:18 Eosinophils # (Manual) 0.0 K/mm3 (0.0-0.4) 10/09/20 13:18 Basophils # (Manual) 0.0 K/mm3 (0.0-0.1) 10/09/20 13:18 Metamyelocytes # 0.0 K/mm3 10/09/20 13:18 Myelocytes # 0.0 K/mm3 10/09/20 13:18 Promyelocytes # 0.0 K/mm3 10/09/20 13:18 Blast Cells # 0.0 K/mm3 10/09/20 13:18 WBC Morphology Not Reportable 10/09/20 13:18 Hypersegmented Neuts Not Reportable 10/09/20 13:18 Hyposegmented Neuts Not Reportable 10/09/20 13:18 Hypogranular Neuts Not Reportable 10/09/20 13:18 Smudge Cells Not Reportable 10/09/20 13:18 Toxic Granulation Not Reportable 10/09/20 13:18 Toxic Vacuolation Not Reportable 10/09/20 13:18 Dohle Bodies Not Reportable 10/09/20 13:18 Pelger-Huet Anomaly Not Reportable 10/09/20 13:18 Yuri Rods Not Reportable 10/09/20 13:18 Platelet Estimate Consistent w auto 10/09/20 13:18 Clumped Platelets Not Reportable 10/09/20 13:18 Plt Clumps, EDTA Not Reportable 10/09/20 13:18 Large Platelets Not Reportable 10/09/20 13:18 Giant Platelets Rare 10/09/20 13:18 Platelet Satelliting Not Reportable 10/09/20 13:18 Plt Morphology Comment Not Reportable 10/09/20 13:18 RBC Morphology Normal 10/09/20 13:18 Dimorphic RBCs Not Reportable 10/09/20 13:18 Polychromasia Not Reportable 10/09/20 13:18 Hypochromasia Not Reportable 10/09/20 13:18 Poikilocytosis Not Reportable 10/09/20 13:18 Anisocytosis Not Reportable 10/09/20 13:18 Microcytosis Not Reportable 10/09/20 13:18 Macrocytosis Not Reportable 10/09/20 13:18 Spherocytes Not Reportable 10/09/20 13:18 Pappenheimer Bodies Not Reportable 10/09/20 13:18 Sickle Cells Not Reportable 10/09/20 13:18 Target Cells Not Reportable 10/09/20 13:18 Tear Drop Cells Not Reportable 10/09/20 13:18 Ovalocytes Not Reportable 10/09/20 13:18 Helmet Cells Not Reportable 10/09/20 13:18 [place] Bodies Not Reportable 10/09/20 13:18 [place] Rings Not Reportable 10/09/20 13:18 Naz Cells Not Reportable 10/09/20 13:18 Bite Cells Not Reportable 10/09/20 13:18 Crenated Cell Not Reportable 10/09/20 13:18 Elliptocytes Not Reportable 10/09/20 13:18 Acanthocytes (Spur) Not Reportable 10/09/20 13:18 Rouleaux Not Reportable 10/09/20 13:18 Hemoglobin C Crystals Not Reportable 10/09/20 13:18 Schistocytes Not Reportable 10/09/20 13:18 Malaria parasites Not Reportable 10/09/20 13:18 Benigno Bodies Not Reportable 10/09/20 13:18 Hem Pathologist Commnt No 10/09/20 13:18 D-Dimer 365.83 ng/mlDDU (0-234) H 10/09/20 14:22 ABG pH 7.403 (7.320-7.450) 10/11/20 09:20 POC ABG pCO2 25.5 mmHg (32.0-48.0) L 10/11/20 09:20 POC ABG pO2 65.7 mmHg (83-108) L 10/11/20 09:20 POC ABG HCO3 15.5 10/11/20 09:20 ABG O2 Saturation 91.8 (0-100) 10/11/20 09:20 POC ABG Base Excess -8.1 10/11/20 09:20 ABG Hemoglobin 8.7 (12.0-17.5) L 10/11/20 09:20 ABG Oxyhemoglobin 90.7 (94-98) L 10/11/20 09:20 ABG Methemoglobin 0.3 (0.0-1.5) 10/11/20 09:20 ABG Sodium 134.1 mmol/L (136.0-145.0) L 10/11/20 09:20 ABG Potassium 3.7 mmol/L (3.40-4.50) 10/11/20 09:20 ABG Chloride 112.0 mmol/L (98-107) H 10/11/20 09:20 ABG Glucose 101 mg/dL (65-95) H 10/11/20 09:20 ABG Lactate 1.54 (0.18-30.0) 10/09/20 14:14 Carboxyhemoglobin 0.9 (0.5-1.5) 10/11/20 09:20 FiO2 % 68.0 10/11/20 09:20 Sodium 132 mmol/L (137-145) L 10/16/20 05:17 Potassium 4.3 mmol/L (3.6-5.0) 10/16/20 05:17 Chloride 100.6 mmol/L (98-107) 10/16/20 05:17 Carbon Dioxide 18 mmol/L (22-30) L 10/16/20 05:17 Anion Gap 18 mmol/L 10/16/20 05:17 BUN 19 mg/dL (9-20) 10/16/20 05:17 Creatinine 1.0 mg/dL (0.8-1.3) 10/16/20 05:17 Estimated GFR > 60 ml/min 10/16/20 05:17 BUN/Creatinine Ratio 19 % 10/16/20 05:17 Glucose 114 mg/dL (75-100) H 10/16/20 05:17 Lactic Acid 1.00 mmol/L (0.7-2.0) 10/10/20 06:57 Calcium 9.2 mg/dL (8.4-10.2) 10/16/20 05:17 Ferritin 1322.0 ng/mL (30.0-300.0) H 10/09/20 14:22 Total Bilirubin < 0.20 mg/dL (0.1-1.2) 10/11/20 13:41 AST 42 units/L (5-40) H 10/11/20 13:41 ALT < 5 units/L (7-56) L 10/11/20 13:41 Alkaline Phosphatase 59 units/L (35-129) 10/11/20 13:41 Lactate Dehydrogenase 581 units/L (91-180) H 10/09/20 14:22 Troponin T < 0.010 ng/mL (0.00-0.029) 10/09/20 14:22 C-Reactive Protein 5.50 mg/dL (0.00-1.30) H 10/09/20 14:22 NT-Pro-B Natriuret Pep 47.57 pg/mL (0-450) 10/09/20 14:22 Total Protein 6.7 g/dL (6.3-8.2) D 10/11/20 13:41 Albumin 2.8 g/dL (3.9-5) L 10/11/20 13:41 Albumin/Globulin Ratio 0.7 % 10/11/20 13:41 Procalcitonin 0.07 ng/mL (<0.15) 10/09/20 14:22 Arterial Blood Glucose 101 mg/dL (65-95) H 10/11/20 09:20 Arterial Blood Ionized Calcium 4.5 mg/dL (4.6-5.3) L 10/11/20 09:20 Urine Color Yellow (Yellow) 10/09/20 Unknown Urine Turbidity Clear (Clear) 10/09/20 Unknown Urine pH 6.0 (5.0-7.0) 10/09/20 Unknown Ur Specific Normal 1.054 (1.003-1.030) H 10/09/20 Unknown Urine Protein 30 mg/dl mg/dL (Negative) 10/09/20 Unknown Urine Glucose (UA) Neg mg/dL (Negative) 10/09/20 Unknown Urine Ketones Neg mg/dL (Negative) 10/09/20 Unknown Urine Blood Neg (Negative) 10/09/20 Unknown Urine Nitrite Neg (Negative) 10/09/20 Unknown Urine Bilirubin Neg (Negative) 10/09/20 Unknown Urine Urobilinogen < 2.0 mg/dL (<2.0) 10/09/20 Unknown Ur Leukocyte Esterase Neg (Negative) 10/09/20 Unknown Urine WBC (Auto) 4.0 /HPF (0.0-6.0) 10/09/20 Unknown Urine RBC (Auto) 1.0 /HPF (0.0-6.0) 10/09/20 Unknown U Epithel Cells (Auto) < 1.0 /HPF (0-13.0) 10/09/20 Unknown Urine Mucus Few /HPF 10/09/20 Unknown Vancomycin Trough 9.4 ug/mL (5.0-20.0) 10/16/20 08:04 Coronavirus (PCR) Negative (Negative) 10/10/20 09:50 Lal/IV: Voiding Method Urinal Active Medications - Current Medications Current Medications: Generic Name Dose Route Start Last Admin Trade Name Freq PRN Reason Stop Dose Admin Acetaminophen 650 mg 10/09/20 18:00 10/11/20 09:57 Acetaminophen 325 Mg Tab PO 650 mg Q4H PRN Administration Pain MILD(1-3)/Fever >100.5/LAMA Albuterol 2.5 mg 10/10/20 06:41 10/11/20 07:20 Albuterol 2.5 Mg/3 Ml Nebu IH 2.5 mg Q3HRT PRN Administration Wheezing Heparin Sodium (Porcine) 5,000 unit 10/10/20 10:00 10/18/20 09:25 Heparin 5,000 Unit/1 Ml Vial SUB-Q 5,000 unit Q12HR IRIS Administration Ceftriaxone Sodium 2 gm in 100 mls @ 200 mls/hr 10/10/20 16:00 10/18/20 09:24 Rocephin/Ns 2 Gm/100 Ml IV 200 mls/hr Q24HR IRIS Administration Protocol Metronidazole 500 mg in 100 mls @ 100 mls/hr 10/10/20 15:00 10/18/20 05:11 Flagyl 500 Mg/100 Ml IV 100 mls/hr Q8HR IRIS Administration Protocol Trimethoprim/Sulfamethoxazole 518.75 mls @ 350 mls/hr 10/11/20 11:00 10/18/20 05:45 300 mg/ Dextrose IV 11/01/20 06:29 350 mls/hr Q6H IRIS Administration Protocol Vancomycin HCl 1 gm in 250 mls @ 166.667 mls/hr 10/16/20 22:00 10/18/20 09:30 Vancomycin/Ns 1 Gm/250 Ml IV 166.667 mls/hr Q12H IRIS Administration Lactobacillus Acidophilus 1 each 10/13/20 22:00 10/18/20 09:24 Floranex Granule Packet PO 1 each BID IRIS Administration Lorazepam 1 mg 10/10/20 19:20 10/15/20 01:27 Lorazepam 2 Mg/Ml Vial IV 1 mg Q6HR PRN Administration Anxiety Methylprednisolone Sodium Succinate 40 mg 10/16/20 10:00 10/18/20 09:24 Methylprednisolone Sod Succinate 40 Mg/1 Ml Inj IV 10/20/20 10:01 40 mg Q24HR IRIS Administration Methylprednisolone Sodium Succinate 20 mg 10/21/20 10:00 Methylprednisolone Sod Succinate 40 Mg/1 Ml Inj IV 10/31/20 10:01 Q24HR IRIS Ondansetron HCl 4 mg 10/09/20 18:00 10/18/20 05:44 Ondansetron 4 Mg/2 Ml Inj IV 4 mg Q8H PRN Administration Nausea And Vomiting Sodium Bicarbonate 650 mg 10/16/20 12:00 10/18/20 09:24 Sodium Bicarbonate 650 Mg Tab PO 10/18/20 22:01 650 mg BID IRIS Administration Sodium Chloride 10 ml 10/09/20 22:00 10/18/20 09:25 Sodium Chloride 0.9% 10 Ml Flush Syringe IV 10 ml BID IRIS Administration Sodium Chloride 10 ml 10/09/20 18:00 10/16/20 05:12 Sodium Chloride 0.9% 10 Ml Flush Syringe IV 10 ml PRN PRN Administration LINE FLUSH Nutrition/Malnutrition Assess - Dietary Evaluation Nutrition/Malnutrition Findings: Nutrition Notes Start: 10/10/20 09:11 Freq: Status: Active Protocol: Document 10/13/20 10:53 (Rec: 10/13/20 10:56 [id number]) Nutrition Notes Initial or Follow up Reassessment Current Diagnosis Respiratory Failure Other Pertinent Diagnosis HIV, SOB, Pneumocystis jiroveci Pneumonia Current Diet regular Labs/Tests Na 135 Pertinent Medications Reviewed Height 5 ft 6 in Weight 58.8 kg [place] Body Weight (kg) 64.54 BMI 20.9 Weight change and time frame wt change noted Weight Status Underweight Subjective/Other Information Pt reports eating 80% of meals when he is hungry for them. If not, he will drink 2 ONS. Pt states diarrhea is improving. Percent of energy/protein needs met: 100%/100% Burn Absent Trauma Absent GI Symptoms None Current % PO Negligible Minimum of two criteria Yes Energy Intake (non-severe) <75% Estimated Energy Requirement >7 days Interpretation of Weight Loss (severe) >10% in 6 months Body Fat Depletion Mild depletion (non-severe) Muscle Mass Mild Depletion (non-severe) #2 Nutrition Diagnosis Increased nutrient needs ( specify in comment below) Comments: protein Diagnosis Progress(for reassessment Continues documentation) #1 Nutrition Diagnosis Malnutrition Diagnosis Progress(for reassessment Continues documentation) Is patient on ventilator? No Is Patient Ambulatory and/or Out of Bed No REE-([facility]-confined to bed) 1785.168 Calculation Used for Recommendations [facility] Additional Notes Protein: (1.25-1.5g/kg) 66-79g Fluid: 1 ml/kcal Nutrition Intervention Change Diet Order: Continue Add Supplement/Snack (indicate name/kcal Ensure Enlive BID /protein ) Provides kCal: 700 Provides Protein (gm) 40 Goal #1 Meet at least 80% of protein and energy needs Goal #2 Wound healing Goal #3 Weight gain/maintenance Follow-Up By: 10/18/20 Additional Comments FU for intakes
--- NOTE | 2020-10-18 12:00 | Progress Note ---
Assessment and Plan 29 y/o male with known HIV, noncompliant with therapy admitted with acute respiratory failure concern for PJP 10/18/20: Continue current therapy for PJP, oxygen sats better so if bronch is needed, can arrange for later in the week. Will ask ID. 10/15/20: Echo essentially normal. Improving with steroids and abx. Would keep as dry as possible. Continue to wean HFNC for sats >88% 10/14/20: Slow improvement. Continue to wean FiO2 as tolerated for sats >88%. 10/13/20: Continue supplemental oxygen and bipap PRN. Prognosis still remains very guarded. 1. Agree with empiric therapy for PJP 2. Agree with steroids 3. Gave lasix again today, follow up echo 4. Ordered continuous bipap therapy to help ease work of breathing 5. Discussed the possibility of intubation with patient and he is in agreement if this necessary, hopeful we can avoid this. Guarded prognosis. Subjective Date of service: 10/18/20 Principal diagnosis: Bilateral pneumonia Interval history: No acute events. Down to 8 liters salter. Good sats. Patient looks and feels much better. Remainder is negative. Objective Vital Signs - 12hr 10/18/20 10/18/20 10/18/20 02:00 04:21 08:31 Temperature 98.4 F Pulse Rate 93 H Respiratory 18 Rate Blood Pressure 122/77 O2 Sat by Pulse 95 93 97 Oximetry Constitutional: no acute distress, alert Eyes: non-icteric Neck: supple Effort: normal Ascultation: Bilateral: rales Cardiovascular: regular rate and rhythm (no mrg) Gastrointestinal: normoactive bowel sounds, soft, non-tender, non-distended Integumentary: normal Extremities: no cyanosis, no edema, pink and warm Neurologic: normal mental status, non-focal exam, pupils equal and round, CN II- XII normal Psychiatric: mood appropriate, affect normal CBC and BMP: 10/16/20 05:17 10/16/20 05:17 ABG, PT/INR, D-dimer: ABG ABG pH 7.403 (7.320-7.450) 10/11/20 09:20 POC ABG pCO2 25.5 mmHg (32.0-48.0) L 10/11/20 09:20 POC ABG pO2 65.7 mmHg (83-108) L 10/11/20 09:20 POC ABG HCO3 15.5 10/11/20 09:20 ABG O2 Saturation 91.8 (0-100) 10/11/20 09:20 PT/INR, D-dimer D-Dimer 365.83 ng/mlDDU (0-234) H 10/09/20 14:22 Abnormal lab findings: Abnormal Labs 10/09/20 10/09/20 10/09/20 13:18 13:18 14:14 WBC RBC 3.54 L Hgb 11.1 L Hct 32.0 L MCHC 35 H Plt Count 562 H Seg Neuts % (Manual) 86.0 H Lymphocytes % (Manual) 11.0 L Lymphocytes # (Manual) 0.6 L D-Dimer ABG pH 7.462 H POC ABG pCO2 22.1 L POC ABG pO2 76.8 L ABG Hemoglobin 11.1 L ABG Oxyhemoglobin 93.8 L ABG Sodium 133.8 L ABG Chloride ABG Glucose Carboxyhemoglobin 0.4 L Sodium 132 L Carbon Dioxide 16 L Glucose 102 H Lactic Acid Ferritin AST ALT < 5 L Lactate Dehydrogenase C-Reactive Protein Total Protein 8.7 H Albumin 3.1 L Arterial Blood Glucose Arterial Blood Ionized Calcium Ur Specific [place] 10/09/20 10/09/20 10/09/20 14:22 14:22 14:22 WBC RBC Hgb Hct MCHC Plt Count Seg Neuts % (Manual) Lymphocytes % (Manual) Lymphocytes # (Manual) D-Dimer 365.83 H ABG pH POC ABG pCO2 POC ABG pO2 ABG Hemoglobin ABG Oxyhemoglobin ABG Sodium ABG Chloride ABG Glucose Carboxyhemoglobin Sodium Carbon Dioxide Glucose Lactic Acid Ferritin 1322.0 H AST ALT Lactate Dehydrogenase 581 H C-Reactive Protein 5.50 H Total Protein Albumin Arterial Blood Glucose Arterial Blood Ionized Calcium Ur Specific [place] 10/09/20 10/09/20 10/11/20 16:44 Unknown 09:20 WBC RBC Hgb Hct MCHC Plt Count Seg Neuts % (Manual) Lymphocytes % (Manual) Lymphocytes # (Manual) D-Dimer ABG pH POC ABG pCO2 25.5 L POC ABG pO2 65.7 L ABG Hemoglobin 8.7 L ABG Oxyhemoglobin 90.7 L ABG Sodium 134.1 L ABG Chloride 112.0 H ABG Glucose 101 H Carboxyhemoglobin Sodium Carbon Dioxide Glucose Lactic Acid 2.40 H* Ferritin AST ALT Lactate Dehydrogenase C-Reactive Protein Total Protein Albumin Arterial Blood Glucose 101 H Arterial Blood Ionized Calcium 4.5 L Ur Specific [place] 1.054 H 10/11/20 10/12/20 10/12/20 13:41 07:02 07:02 WBC RBC 2.74 L Hgb 8.5 L Hct 24.4 L D MCHC 35 H Plt Count 543 H Seg Neuts % (Manual) Lymphocytes % (Manual) Lymphocytes # (Manual) D-Dimer ABG pH POC ABG pCO2 POC ABG pO2 ABG Hemoglobin ABG Oxyhemoglobin ABG Sodium ABG Chloride ABG Glucose Carboxyhemoglobin Sodium 133 L 135 L Carbon Dioxide 16 L 17 L Glucose 149 H Lactic Acid Ferritin AST 42 H ALT < 5 L Lactate Dehydrogenase C-Reactive Protein Total Protein Albumin 2.8 L Arterial Blood Glucose Arterial Blood Ionized Calcium Ur Specific [place] 10/16/20 10/16/20 05:17 05:17 WBC 3.9 L RBC 2.92 L Hgb 8.8 L Hct 25.8 L MCHC Plt Count 662 H Seg Neuts % (Manual) Lymphocytes % (Manual) Lymphocytes # (Manual) D-Dimer ABG pH POC ABG pCO2 POC ABG pO2 ABG Hemoglobin ABG Oxyhemoglobin ABG Sodium ABG Chloride ABG Glucose Carboxyhemoglobin Sodium 132 L Carbon Dioxide 18 L Glucose 114 H Lactic Acid Ferritin AST ALT Lactate Dehydrogenase C-Reactive Protein Total Protein Albumin Arterial Blood Glucose Arterial Blood Ionized Calcium Ur Specific [place]
--- NOTE | 2020-10-18 13:13 | Progress Note ---
Assessment and Plan Cultures: Blood culture pending Urine culture pending Wound culture (gluteal wound): MRSA Assessment: 29-year-old male with history of HIV diagnosed in 2010, off ART for 18 months since he loss his insurance due to unemployment, used to be seen by IDP, was on descovy and prezcovix, chronic gluteal cleft ulcer, admitted on 11/05/2020 secondary to 2-month history of worsening dry cough and shortness of breath/[id number] and 40+ pounds weight loss in 6 months: #Sepsis: Present on admission with elevated lactate, tachycardia, tachypnea and hypoxia; likely secondary to bilateral pneumonia. #Bilateral pneumonia: Highly suspicious for moderate PJP pneumonia. pO2>70. SARS-CoV-2 PCR negative. LDH>500. Patient with HIV without any ART for 18 months. #Acute hypoxic respiratory failure: Currently on nasal cannula oxygen. pO2>70. #Mid gluteal cleft chronic ulcer infection and right sided perirectal abscess: Unclear etiology. Patient denies history of genital herpes. CRP 5.5. CT shows small right-sided perirectal abscess 1.5 x 1 x 1 cm. No evidence of osteomyelitis. #HIV: diagnosed in 2010, off ART for 18 months since he loss his insurance due to unemployment, used to be seen by IDP, was on descovy and prezcovix, unknown CD4 and viral load. Recommendations: - IV Bactrim 15-20 mg/kg/day of trimethopin for PJP, when improved enough for discharge can send with Bactrim 2xDS every 8 hours - Stopped vanco, ceftriaxone, Flagyl - Wound care consult - Check Cd4/VL - Check RPR/Crypto ag Nicanor Reynolds MD [facility] ([facility] O: [phone] F: [phone] Subjective Date of service: 10/18/20 Principal diagnosis: Bilateral pneumonia Interval history: Afebrile, white count 3.9. Requiring 8 L nasal cannula Imaging personally reviewed: Chest x-ray: No change Objective - Exam Narrative Exam: Physical Exam: Constitutional: Alert, cooperative. No acute distress. Thin but not cachectic Head, Ears, Nose: Normocephalic, atraumatic. Eyes: Conjunctivae/corneas clear. Neck: Supple, no meningeal signs Oral: dentition fair, no thrush Cardiovascular: S1, S2 normal. Respiratory: Good air entry, clear to auscultation bilaterally GI: Soft, non-tender; bowel sounds normal. No peritoneal signs. Musculoskeletal: No pedal edema, no cyanosis. Skin: No rash or abscess Hem/Lymphatic: No palpable cervical or supraclavicular nodes. Psych: Mood ok. Affect normal Neurological: Awake, alert, oriented. No gross abnormality - Constitutional Vitals: Vital Signs Temp Pulse Resp BP Pulse Ox 98.4 F 93 H 18 122/77 97 10/18/20 04:21 10/18/20 04:21 10/18/20 04:21 10/18/20 04:21 10/18/20 08:31 Temperature -Last 24 Hours Temperature 98.4 F Temperature 98.0 F Temperature 98 F - Labs CBC & Chem 7: 10/16/20 05:17 10/16/20 05:17
[2020-10-19] MEDS: TMP IV SCH ×4 (05:40→23:29)
[2020-10-19] MEDS: DEXTROSE 5% IV SCH ×4 (05:40→23:29)
[2020-10-19] MEDS: SMX IV SCH ×4 (05:40→23:29)
[2020-10-19] MEDS: WATER IV SCH ×4 (05:40→23:29)
--- NOTE | 2020-10-19 07:47 | Progress Note ---
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 Patient feels short of breath on minimal exertion. Patient was hypoxic when he came to the emergency room. Patient had a work-up in facility and is not sure of what the diagnosis was. He states he is not Covid. No exposure to Covid. No other symptoms of HIV. Like chronic diarrhea. All seizures. His main complaint is shortness of breath on minimal exertion for the past 3 months. No penile lesions. Gluteal cleft ulcer 3 to 6 months. 10/12/2020 On 40 L nasal cannula oxygen 10/13/2020 On 40 L high flow nasal cannula oxygen 10/14: Patient remains on high flow oxygen, Pulmonary FOLLOWING, Metabolic Acidosis noted, will give some sodium bicarb. Continue weaning oxygen. Anemia. 10/15: Patient with complex medical condition continues on recommendation by ID including Bactrim and Zithromax. Noted some nausea. Will premedicate before administration of Bactrim. Wound care consult recommended again. Follow cultures. Prior cultures showing staph aureus sensitivity not yet determined. Patient continues to require high flow oxygen and pulmonary is following weaning as tolerated. Continue aggressive pulmonary toilet. Monitor labs. Dietitian input for moderate to severe protein calorie malnutrition. 10/16: Continue supportive care, continue Highflow and wean as tolerated, will give a dose of sodium bicarb 10/17: Continue supportive care antibiotics as recommended. Continue to wean oxygen as tolerated 10/18: Patient currently being treated for PCP pneumonia rectal abscess currently on antibiotics followed by wound care team. He has been weaned down successfully from high flow and now is on 10 to 8 L of oxygen. Continue weaning continue antibiotic therapy as prescribed by ID. Can be discharged on oxygen was able to wean down to 3 to 4 L. Currently debilitated and likely will need PT OT reevaluation prior to discharge and may possibly need rehab placement. 10/19/2020; patient is currently on 4 L of oxygen. PT evaluated and recommendation is to be determined. Patient may need to have placement. Continue antibiotic treatment per ID recommendation. Patient need home O2. Patient is uninsured. Will follow with case management. Once oxygen is arranged patient can be discharged. (1) Acute respiratory failure with hypoxia Current Visit: Yes Status: Acute Plan to address problem: Patient on supplemental oxygen On 40 liters HFNC O2 (2) PCP (pneumocystis jiroveci pneumonia) Current Visit: Yes Status: Acute Qualifiers: Laterality: bilateral Plan to address problem: Clinical picture consistent with PCP pneumonia Patient is IV Zithromax and IV Bactrim ID consult appreciated Highly suspicious for moderate PJP pneumonia. pO2>70. SARS-CoV-2 PCR negative. LDH>500. Patient with HIV without any ART for 18 months. (3) HIV (human immunodeficiency virus infection) Current Visit: Yes Status: Chronic Qualifiers: HIV symptom status: symptomatic Qualified Code(s): B20 - Human immunodeficiency virus [HIV] disease Plan to address problem: Patient not taking antiretroviral because HIV program was called on from April 09, 2020 Patient encouraged to get Medicaid and [facility]ne HIV program and follow-up with ID (4) Rectal abscess Current Visit: Yes Status: Acute Plan to address problem: Surgical consult requested wound care consult requested Mid gluteal cleft chronic ulcer infection and right sided perirectal abscess: Unclear etiology. Patient denies history of genital herpes. CRP 5.5. CT shows small right-sided perirectal abscess 1.5 x 1 x 1 cm. No evidence of osteomyelitis. (5) Hyponatremia Current Visit: Yes Status: Acute Plan to address problem: IV normal saline for now Na 135 (6) Malnutrition moderate to severe Current Visit: Yes Status: Chronic Qualifiers: Protein-calorie malnutrition severity: mild Plan to address problem: Patient started on dietary supplements (7)Anemia of chronic disease (8) Metabolic Acidosis (9) DVT prophylaxis Current Visit: Yes Status: Acute Plan to address problem: On heparin and GI prophylaxis History Interval history: Patient was seen and evaluated this morning Patient was on 4 L of oxygen Patient said he is feeling better today Hospitalist Physical - Physical exam Narrative exam: Not in cardiopulmonary distress. The patient appeared well nourished and normally developed. Vital signs as documented. Head exam is unremarkable. No scleral icterus . Neck is without jugular venous distension, thyromegaly, or carotid bruits. Lungs are clear to auscultation. Cardiac exam reveals regular rate and Rhythm. Abdominal exam reveals normal bowel sounds, nontender, no organomegaly. Extremities are nonedematous and both femoral and pedal pulses are normal. INSTRUCTIONAL SYSTEMS DESIGN CONSULTANT: Alert and oriented 3. No focal weakness. - Constitutional Vitals: Temp Pulse Resp BP Pulse Ox 98.0 F 97 H 20 151/107 98 10/19/20 04:35 10/19/20 06:00 10/19/20 04:35 10/19/20 04:35 10/19/20 04:35 General appearance: Present: mild distress, well-nourished HEART Score - HEART Score Troponin: Troponin T < 0.010 ng/mL (0.00-0.029) 10/09/20 14:22 Results - Labs CBC & Chem 7: 10/16/20 05:17 10/16/20 05:17 Labs: Laboratory Last Values WBC 3.9 K/mm3 (4.5-11.0) L 10/16/20 05:17 RBC 2.92 M/mm3 (3.65-5.03) L 10/16/20 05:17 Hgb 8.8 gm/dl (11.8-15.2) L 10/16/20 05:17 Hct 25.8 % (35.5-45.6) L 10/16/20 05:17 MCV 88 fl (84-94) 10/16/20 05:17 MCH 30 pg (28-32) 10/16/20 05:17 MCHC 34 % (32-34) 10/16/20 05:17 RDW 14.4 % (13.2-15.2) 10/16/20 05:17 Plt Count 662 K/mm3 (140-440) H 10/16/20 05:17 Add Manual Diff Complete 10/09/20 13:18 Total Counted 100 10/09/20 13:18 Seg Neuts % (Manual) 86.0 % (40.0-70.0) H 10/09/20 13:18 Lymphocytes % (Manual) 11.0 % (13.4-35.0) L 10/09/20 13:18 Monocytes % (Manual) 3.0 % (0.0-7.3) 10/09/20 13:18 Nucleated RBC % Not Reportable 10/09/20 13:18 Seg Neutrophils # Man 4.4 K/mm3 (1.8-7.7) 10/09/20 13:18 Band Neutrophils # 0.0 K/mm3 10/09/20 13:18 Lymphocytes # (Manual) 0.6 K/mm3 (1.2-5.4) L 10/09/20 13:18 Abs React Lymphs (Man) 0.0 K/mm3 10/09/20 13:18 Monocytes # (Manual) 0.2 K/mm3 (0.0-0.8) 10/09/20 13:18 Eosinophils # (Manual) 0.0 K/mm3 (0.0-0.4) 10/09/20 13:18 Basophils # (Manual) 0.0 K/mm3 (0.0-0.1) 10/09/20 13:18 Metamyelocytes # 0.0 K/mm3 10/09/20 13:18 Myelocytes # 0.0 K/mm3 10/09/20 13:18 Promyelocytes # 0.0 K/mm3 10/09/20 13:18 Blast Cells # 0.0 K/mm3 10/09/20 13:18 WBC Morphology Not Reportable 10/09/20 13:18 Hypersegmented Neuts Not Reportable 10/09/20 13:18 Hyposegmented Neuts Not Reportable 10/09/20 13:18 Hypogranular Neuts Not Reportable 10/09/20 13:18 Smudge Cells Not Reportable 10/09/20 13:18 Toxic Granulation Not Reportable 10/09/20 13:18 Toxic Vacuolation Not Reportable 10/09/20 13:18 Dohle Bodies Not Reportable 10/09/20 13:18 Pelger-Huet Anomaly Not Reportable 10/09/20 13:18 Yuri Rods Not Reportable 10/09/20 13:18 Platelet Estimate Consistent w auto 10/09/20 13:18 Clumped Platelets Not Reportable 10/09/20 13:18 Plt Clumps, EDTA Not Reportable 10/09/20 13:18 Large Platelets Not Reportable 10/09/20 13:18 Giant Platelets Rare 10/09/20 13:18 Platelet Satelliting Not Reportable 10/09/20 13:18 Plt Morphology Comment Not Reportable 10/09/20 13:18 RBC Morphology Normal 10/09/20 13:18 Dimorphic RBCs Not Reportable 10/09/20 13:18 Polychromasia Not Reportable 10/09/20 13:18 Hypochromasia Not Reportable 10/09/20 13:18 Poikilocytosis Not Reportable 10/09/20 13:18 Anisocytosis Not Reportable 10/09/20 13:18 Microcytosis Not Reportable 10/09/20 13:18 Macrocytosis Not Reportable 10/09/20 13:18 Spherocytes Not Reportable 10/09/20 13:18 Pappenheimer Bodies Not Reportable 10/09/20 13:18 Sickle Cells Not Reportable 10/09/20 13:18 Target Cells Not Reportable 10/09/20 13:18 Tear Drop Cells Not Reportable 10/09/20 13:18 Ovalocytes Not Reportable 10/09/20 13:18 Helmet Cells Not Reportable 10/09/20 13:18 Doe-Triana Bodies Not Reportable 10/09/20 13:18 [place] Rings Not Reportable 10/09/20 13:18 [place] Cells Not Reportable 10/09/20 13:18 Bite Cells Not Reportable 10/09/20 13:18 Crenated Cell Not Reportable 10/09/20 13:18 Elliptocytes Not Reportable 10/09/20 13:18 Acanthocytes (Spur) Not Reportable 10/09/20 13:18 Rouleaux Not Reportable 10/09/20 13:18 Hemoglobin C Crystals Not Reportable 10/09/20 13:18 Schistocytes Not Reportable 10/09/20 13:18 Malaria parasites Not Reportable 10/09/20 13:18 Benigno Bodies Not Reportable 10/09/20 13:18 Hem Pathologist Commnt No 10/09/20 13:18 D-Dimer 365.83 ng/mlDDU (0-234) H 10/09/20 14:22 ABG pH 7.403 (7.320-7.450) 10/11/20 09:20 POC ABG pCO2 25.5 mmHg (32.0-48.0) L 10/11/20 09:20 POC ABG pO2 65.7 mmHg (83-108) L 10/11/20 09:20 POC ABG HCO3 15.5 10/11/20 09:20 ABG O2 Saturation 91.8 (0-100) 10/11/20 09:20 POC ABG Base Excess -8.1 10/11/20 09:20 ABG Hemoglobin 8.7 (12.0-17.5) L 10/11/20 09:20 ABG Oxyhemoglobin 90.7 (94-98) L 10/11/20 09:20 ABG Methemoglobin 0.3 (0.0-1.5) 10/11/20 09:20 ABG Sodium 134.1 mmol/L (136.0-145.0) L 10/11/20 09:20 ABG Potassium 3.7 mmol/L (3.40-4.50) 10/11/20 09:20 ABG Chloride 112.0 mmol/L (98-107) H 10/11/20 09:20 ABG Glucose 101 mg/dL (65-95) H 10/11/20 09:20 ABG Lactate 1.54 (0.18-30.0) 10/09/20 14:14 Carboxyhemoglobin 0.9 (0.5-1.5) 10/11/20 09:20 FiO2 % 68.0 10/11/20 09:20 Sodium 132 mmol/L (137-145) L 10/16/20 05:17 Potassium 4.3 mmol/L (3.6-5.0) 10/16/20 05:17 Chloride 100.6 mmol/L (98-107) 10/16/20 05:17 Carbon Dioxide 18 mmol/L (22-30) L 10/16/20 05:17 Anion Gap 18 mmol/L 10/16/20 05:17 BUN 19 mg/dL (9-20) 10/16/20 05:17 Creatinine 1.0 mg/dL (0.8-1.3) 10/16/20 05:17 Estimated GFR > 60 ml/min 10/16/20 05:17 BUN/Creatinine Ratio 19 % 10/16/20 05:17 Glucose 114 mg/dL (75-100) H 10/16/20 05:17 Lactic Acid 1.00 mmol/L (0.7-2.0) 10/10/20 06:57 Calcium 9.2 mg/dL (8.4-10.2) 10/16/20 05:17 Ferritin 1322.0 ng/mL (30.0-300.0) H 10/09/20 14:22 Total Bilirubin < 0.20 mg/dL (0.1-1.2) 10/11/20 13:41 AST 42 units/L (5-40) H 10/11/20 13:41 ALT < 5 units/L (7-56) L 10/11/20 13:41 Alkaline Phosphatase 59 units/L (35-129) 10/11/20 13:41 Lactate Dehydrogenase 581 units/L (91-180) H 10/09/20 14:22 Troponin T < 0.010 ng/mL (0.00-0.029) 10/09/20 14:22 C-Reactive Protein 5.50 mg/dL (0.00-1.30) H 10/09/20 14:22 NT-Pro-B Natriuret Pep 47.57 pg/mL (0-450) 10/09/20 14:22 Total Protein 6.7 g/dL (6.3-8.2) D 10/11/20 13:41 Albumin 2.8 g/dL (3.9-5) L 10/11/20 13:41 Albumin/Globulin Ratio 0.7 % 10/11/20 13:41 Procalcitonin 0.07 ng/mL (<0.15) 10/09/20 14:22 Arterial Blood Glucose 101 mg/dL (65-95) H 10/11/20 09:20 Arterial Blood Ionized Calcium 4.5 mg/dL (4.6-5.3) L 10/11/20 09:20 Urine Color Yellow (Yellow) 10/09/20 Unknown Urine Turbidity Clear (Clear) 10/09/20 Unknown Urine pH 6.0 (5.0-7.0) 10/09/20 Unknown Ur Specific [place] 1.054 (1.003-1.030) H 10/09/20 Unknown Urine Protein 30 mg/dl mg/dL (Negative) 10/09/20 Unknown Urine Glucose (UA) Neg mg/dL (Negative) 10/09/20 Unknown Urine Ketones Neg mg/dL (Negative) 10/09/20 Unknown Urine Blood Neg (Negative) 10/09/20 Unknown Urine Nitrite Neg (Negative) 10/09/20 Unknown Urine Bilirubin Neg (Negative) 10/09/20 Unknown Urine Urobilinogen < 2.0 mg/dL (<2.0) 10/09/20 Unknown Ur Leukocyte Esterase Neg (Negative) 10/09/20 Unknown Urine WBC (Auto) 4.0 /HPF (0.0-6.0) 10/09/20 Unknown Urine RBC (Auto) 1.0 /HPF (0.0-6.0) 10/09/20 Unknown U Epithel Cells (Auto) < 1.0 /HPF (0-13.0) 10/09/20 Unknown Urine Mucus Few /HPF 10/09/20 Unknown Vancomycin Trough 9.4 ug/mL (5.0-20.0) 10/16/20 08:04 Coronavirus (PCR) Negative (Negative) 10/10/20 09:50 Lal/IV: Voiding Method Urinal Active Medications - Current Medications Current Medications: Generic Name Dose Route Start Last Admin Trade Name Freq PRN Reason Stop Dose Admin Acetaminophen 650 mg 10/09/20 18:00 10/11/20 09:57 Acetaminophen 325 Mg Tab PO 650 mg Q4H PRN Administration Pain MILD(1-3)/Fever >100.5/LAMA Albuterol 2.5 mg 10/10/20 06:41 10/11/20 07:20 Albuterol 2.5 Mg/3 Ml Nebu IH 2.5 mg Q3HRT PRN Administration Wheezing Heparin Sodium (Porcine) 5,000 unit 10/10/20 10:00 10/18/20 22:11 Heparin 5,000 Unit/1 Ml Vial SUB-Q 5,000 unit Q12HR IRIS Administration Trimethoprim/Sulfamethoxazole 518.75 mls @ 350 mls/hr 10/11/20 11:00 10/19/20 05:40 300 mg/ Dextrose IV 11/01/20 06:29 350 mls/hr Q6H IRIS Administration Protocol Lactobacillus Acidophilus 1 each 10/13/20 22:00 10/18/20 22:11 Floranex Granule Packet PO 1 each BID IRIS Administration Lorazepam 1 mg 10/10/20 19:20 10/15/20 01:27 Lorazepam 2 Mg/Ml Vial IV 1 mg Q6HR PRN Administration Anxiety Methylprednisolone Sodium Succinate 40 mg 10/16/20 10:00 10/18/20 09:24 Methylprednisolone Sod Succinate 40 Mg/1 Ml Inj IV 10/20/20 10:01 40 mg Q24HR IRIS Administration Methylprednisolone Sodium Succinate 20 mg 10/21/20 10:00 Methylprednisolone Sod Succinate 40 Mg/1 Ml Inj IV 10/31/20 10:01 Q24HR IRIS Ondansetron HCl 4 mg 10/09/20 18:00 10/18/20 05:44 Ondansetron 4 Mg/2 Ml Inj IV 4 mg Q8H PRN Administration Nausea And Vomiting Sodium Chloride 10 ml 10/09/20 22:00 10/18/20 22:12 Sodium Chloride 0.9% 10 Ml Flush Syringe IV 10 ml BID IRIS Administration Sodium Chloride 10 ml 10/09/20 18:00 10/16/20 05:12 Sodium Chloride 0.9% 10 Ml Flush Syringe IV 10 ml PRN PRN Administration LINE FLUSH Nutrition/Malnutrition Assess - Dietary Evaluation Nutrition/Malnutrition Findings: Nutrition Notes Start: 10/10/20 09:11 Freq: Status: Active Protocol: Document 10/18/20 13:50 (Rec: 10/18/20 13:53 MK [id number]) Nutrition Notes Initial or Follow up Reassessment Current Diagnosis Respiratory Failure Other Pertinent Diagnosis HIV, SOB, Pneumocystis jiroveci Pneumonia Current Diet regular Labs/Tests Na 132 Pertinent Medications Solu Medrol Zofran Height 5 ft 6 in Weight 55 kg [place] Body Weight (kg) 64.54 BMI 19.5 Weight Status Underweight Subjective/Other Information FU for intakes. Pt reports doing about the same with intakes. He would like Ensure Clear because the Enlives cause stomach pain. Percent of energy/protein needs met: 100%/100% Burn Absent Trauma Absent GI Symptoms None Current % PO Good (75-100%) Minimum of two criteria Yes Energy Intake (non-severe) <75% Estimated Energy Requirement >7 days Interpretation of Weight Loss (severe) >10% in 6 months Body Fat Depletion Mild depletion (non-severe) Muscle Mass Mild Depletion (non-severe) #2 Nutrition Diagnosis Increased nutrient needs ( specify in comment below) Comments: protein Diagnosis Progress(for reassessment Continues documentation) #1 Nutrition Diagnosis Malnutrition Diagnosis Progress(for reassessment Continues documentation) Is patient on ventilator? No Is Patient Ambulatory and/or Out of Bed No REE-([facility]-confined to bed) [phone] Calculation Used for Recommendations [facility] Additional Notes Protein: (1.25-1.5g/kg) 66-79g Fluid: 1 ml/kcal Nutrition Intervention Change Diet Order: Continue Add Supplement/Snack (indicate name/kcal Ensure Clear TID /protein ) Provides kCal: 720 Provides Protein (gm) 24 Goal #1 Meet at least 80% of protein and energy needs Goal #2 Wound healing Goal #3 Weight gain/maintenance Anticipated Discharge Needs: regular with ONS daily Follow-Up By: 10/20/20 Additional Comments FU for intakes and ONS tolerance
[2020-10-19] MEDS: methylPREDNISolone Sod Succinate 40 MG/1 ML INJ IV SCH (09:28)
[2020-10-19] MEDS: HEPARIN 5,000 UNIT/1 ML VIAL SUB-Q SCH ×2 (09:31→22:17)
[2020-10-19] MEDS: FLORANEX GRANULE PACKET PO SCH ×2 (09:32→22:17)
--- NOTE | 2020-10-19 11:35 | Progress Note ---
Assessment and Plan 29 y/o male with known HIV, noncompliant with therapy admitted with acute respiratory failure concern for PJP 10/19/20: Continue current therapy. Wean FiO2 for sats >88% 10/18/20: Continue current therapy for PJP, oxygen sats better so if bronch is needed, can arrange for later in the week. Will ask ID. 10/15/20: Echo essentially normal. Improving with steroids and abx. Would keep as dry as possible. Continue to wean HFNC for sats >88% 10/14/20: Slow improvement. Continue to wean FiO2 as tolerated for sats >88%. 10/13/20: Continue supplemental oxygen and bipap PRN. Prognosis still remains very guarded. 1. Agree with empiric therapy for PJP 2. Agree with steroids 3. Gave lasix again today, follow up echo 4. Ordered continuous bipap therapy to help ease work of breathing 5. Discussed the possibility of intubation with patient and he is in agreement if this necessary, hopeful we can avoid this. Guarded prognosis. Subjective Date of service: 10/19/20 Principal diagnosis: Bilateral pneumonia Interval history: no acute events. Stable on 5 liters with good sats. Objective Vital Signs - 12hr 10/19/20 10/19/20 10/19/20 04:35 06:00 08:00 Temperature 98.0 F Pulse Rate 97 H 97 H Respiratory 20 Rate Blood Pressure 151/107 O2 Sat by Pulse 98 98 Oximetry Constitutional: no acute distress, alert Eyes: non-icteric Neck: supple Effort: normal Ascultation: Bilateral: rales Cardiovascular: regular rate and rhythm (no mrg) Gastrointestinal: normoactive bowel sounds, soft, non-tender, non-distended Integumentary: normal Extremities: no cyanosis, no edema, pink and warm Neurologic: normal mental status, non-focal exam, pupils equal and round, CN II- XII normal Psychiatric: mood appropriate, affect normal CBC and BMP: 10/16/20 05:17 10/16/20 05:17 ABG, PT/INR, D-dimer: ABG ABG pH 7.403 (7.320-7.450) 10/11/20 09:20 POC ABG pCO2 25.5 mmHg (32.0-48.0) L 10/11/20 09:20 POC ABG pO2 65.7 mmHg (83-108) L 10/11/20 09:20 POC ABG HCO3 15.5 10/11/20 09:20 ABG O2 Saturation 91.8 (0-100) 10/11/20 09:20 PT/INR, D-dimer D-Dimer 365.83 ng/mlDDU (0-234) H 10/09/20 14:22 Abnormal lab findings: Abnormal Labs 10/09/20 10/09/20 10/09/20 13:18 13:18 14:14 WBC RBC 3.54 L Hgb 11.1 L Hct 32.0 L MCHC 35 H Plt Count 562 H Seg Neuts % (Manual) 86.0 H Lymphocytes % (Manual) 11.0 L Lymphocytes # (Manual) 0.6 L D-Dimer ABG pH 7.462 H POC ABG pCO2 22.1 L POC ABG pO2 76.8 L ABG Hemoglobin 11.1 L ABG Oxyhemoglobin 93.8 L ABG Sodium 133.8 L ABG Chloride ABG Glucose Carboxyhemoglobin 0.4 L Sodium 132 L Carbon Dioxide 16 L Glucose 102 H Lactic Acid Ferritin AST ALT < 5 L Lactate Dehydrogenase C-Reactive Protein Total Protein 8.7 H Albumin 3.1 L Arterial Blood Glucose Arterial Blood Ionized Calcium Ur Specific [place] 10/09/20 10/09/20 10/09/20 14:22 14:22 14:22 WBC RBC Hgb Hct MCHC Plt Count Seg Neuts % (Manual) Lymphocytes % (Manual) Lymphocytes # (Manual) D-Dimer 365.83 H ABG pH POC ABG pCO2 POC ABG pO2 ABG Hemoglobin ABG Oxyhemoglobin ABG Sodium ABG Chloride ABG Glucose Carboxyhemoglobin Sodium Carbon Dioxide Glucose Lactic Acid Ferritin 1322.0 H AST ALT Lactate Dehydrogenase 581 H C-Reactive Protein 5.50 H Total Protein Albumin Arterial Blood Glucose Arterial Blood Ionized Calcium Ur Specific [place] 10/09/20 10/09/20 10/11/20 16:44 Unknown 09:20 WBC RBC Hgb Hct MCHC Plt Count Seg Neuts % (Manual) Lymphocytes % (Manual) Lymphocytes # (Manual) D-Dimer ABG pH POC ABG pCO2 25.5 L POC ABG pO2 65.7 L ABG Hemoglobin 8.7 L ABG Oxyhemoglobin 90.7 L ABG Sodium 134.1 L ABG Chloride 112.0 H ABG Glucose 101 H Carboxyhemoglobin Sodium Carbon Dioxide Glucose Lactic Acid 2.40 H* Ferritin AST ALT Lactate Dehydrogenase C-Reactive Protein Total Protein Albumin Arterial Blood Glucose 101 H Arterial Blood Ionized Calcium 4.5 L Ur Specific [place] 1.054 H 10/11/20 10/12/20 10/12/20 13:41 07:02 07:02 WBC RBC 2.74 L Hgb 8.5 L Hct 24.4 L D MCHC 35 H Plt Count 543 H Seg Neuts % (Manual) Lymphocytes % (Manual) Lymphocytes # (Manual) D-Dimer ABG pH POC ABG pCO2 POC ABG pO2 ABG Hemoglobin ABG Oxyhemoglobin ABG Sodium ABG Chloride ABG Glucose Carboxyhemoglobin Sodium 133 L 135 L Carbon Dioxide 16 L 17 L Glucose 149 H Lactic Acid Ferritin AST 42 H ALT < 5 L Lactate Dehydrogenase C-Reactive Protein Total Protein Albumin 2.8 L Arterial Blood Glucose Arterial Blood Ionized Calcium Ur Specific [place] 10/16/20 10/16/20 05:17 05:17 WBC 3.9 L RBC 2.92 L Hgb 8.8 L Hct 25.8 L MCHC Plt Count 662 H Seg Neuts % (Manual) Lymphocytes % (Manual) Lymphocytes # (Manual) D-Dimer ABG pH POC ABG pCO2 POC ABG pO2 ABG Hemoglobin ABG Oxyhemoglobin ABG Sodium ABG Chloride ABG Glucose Carboxyhemoglobin Sodium 132 L Carbon Dioxide 18 L Glucose 114 H Lactic Acid Ferritin AST ALT Lactate Dehydrogenase C-Reactive Protein Total Protein Albumin Arterial Blood Glucose Arterial Blood Ionized Calcium Ur Specific [place]
--- NOTE | 2020-10-19 15:30 | Progress Note ---
Assessment and Plan Cultures: Blood culture pending Urine culture pending Wound culture (gluteal wound): MRSA Assessment: 29-year-old male with history of HIV diagnosed in 2010, off ART for 18 months since he loss his insurance due to unemployment, used to be seen by IDP, was on descovy and prezcovix, chronic gluteal cleft ulcer, admitted on 11/05/2020 secondary to 2-month history of worsening dry cough and shortness of breath/[id number] and 40+ pounds weight loss in 6 months: #Sepsis: Present on admission with elevated lactate, tachycardia, tachypnea and hypoxia; likely secondary to bilateral pneumonia. #Bilateral pneumonia: Highly suspicious for moderate PJP pneumonia. pO2>70. SARS-CoV-2 PCR negative. LDH>500. Patient with HIV without any ART for 18 months. #Acute hypoxic respiratory failure: Currently on nasal cannula oxygen. pO2>70. #Mid gluteal cleft chronic ulcer infection and right sided perirectal abscess: Unclear etiology. Patient denies history of genital herpes. CRP 5.5. CT shows small right-sided perirectal abscess 1.5 x 1 x 1 cm. No evidence of osteomyelitis. #HIV: diagnosed in 2010, off ART for 18 months since he loss his insurance due to unemployment, used to be seen by IDP, was on descovy and prezcovix, unknown CD4 and viral load. Recommendations: - IV Bactrim 15-20 mg/kg/day of trimethopin for PJP, when improved enough for discharge can send with Bactrim 2xDS every 8 hours to complete 3 total weeks of Bactrim. - Check Cd4/VL - Check RPR/Crypto ag Nicanor Reynolds MD [facility] O: [phone] F: [phone] Subjective Date of service: 10/19/20 Principal diagnosis: Bilateral pneumonia Interval history: Afebrile, normal white count. 5L NC Objective - Exam Narrative Exam: Physical Exam: Constitutional: Alert, cooperative. No acute distress. Thin but not cachectic Head, Ears, Nose: Normocephalic, atraumatic. Eyes: Conjunctivae/corneas clear. Neck: Supple, no meningeal signs Oral: dentition fair, no thrush Cardiovascular: S1, S2 normal. Respiratory: Good air entry, clear to auscultation bilaterally GI: Soft, non-tender; bowel sounds normal. No peritoneal signs. Musculoskeletal: No pedal edema, no cyanosis. Skin: No rash or abscess Hem/Lymphatic: No palpable cervical or supraclavicular nodes. Psych: Mood ok. Affect normal Neurological: Awake, alert, oriented. No gross abnormality - Constitutional Vitals: Vital Signs Temp Pulse Resp BP Pulse Ox 98.7 F 104 H 20 141/91 100 10/19/20 11:26 10/19/20 11:26 10/19/20 11:26 10/19/20 11:26 10/19/20 11:26 Temperature -Last 24 Hours Temperature 98.7 F Temperature 98.0 F Temperature 98.5 F Temperature 98.1 F - Labs CBC & Chem 7: 10/16/20 05:17 10/16/20 05:17
[2020-10-20] MEDS: WATER IV SCH ×3 (05:29→17:53)
[2020-10-20] MEDS: DEXTROSE 5% IV SCH ×3 (05:29→17:53)
[2020-10-20] MEDS: SMX IV SCH ×3 (05:29→17:53)
[2020-10-20] MEDS: TMP IV SCH ×3 (05:29→17:53)
[2020-10-20] MEDS: FLORANEX GRANULE PACKET PO SCH ×2 (09:54→21:58)
[2020-10-20] MEDS: methylPREDNISolone Sod Succinate 40 MG/1 ML INJ IV SCH (09:54)
[2020-10-20] MEDS: HEPARIN 5,000 UNIT/1 ML VIAL SUB-Q SCH ×2 (09:54→21:58)
--- NOTE | 2020-10-20 12:18 | Progress Note ---
Assessment and Plan 29 y/o male with known HIV, noncompliant with therapy admitted with acute respiratory failure concern for PJP 10/20/20: Wean FiO2 for sats >88%. Suggest walk test tomorrow. Maybe ready for discharge as early as tomorrow, or Sunday. 10/19/20: Continue current therapy. Wean FiO2 for sats >88% 10/18/20: Continue current therapy for PJP, oxygen sats better so if bronch is needed, can arrange for later in the week. Will ask ID. 10/15/20: Echo essentially normal. Improving with steroids and abx. Would keep as dry as possible. Continue to wean HFNC for sats >88% 10/14/20: Slow improvement. Continue to wean FiO2 as tolerated for sats >88%. 10/13/20: Continue supplemental oxygen and bipap PRN. Prognosis still remains very guarded. 1. Agree with empiric therapy for PJP 2. Agree with steroids 3. Gave lasix again today, follow up echo 4. Ordered continuous bipap therapy to help ease work of breathing 5. Discussed the possibility of intubation with patient and he is in agreement if this necessary, hopeful we can avoid this. Guarded prognosis. Subjective Date of service: 10/20/20 Principal diagnosis: Bilateral pneumonia Interval history: No acute events. Down to 4 liters and feels good. Today is his birthday. Speaking with a hospital employee in the room today. Objective Vital Signs - 12hr 10/20/20 10/20/20 10/20/20 04:00 06:00 09:58 Temperature 98.1 F Pulse Rate 104 H 104 H Pulse Rate [ Apical] Respiratory 20 Rate Blood Pressure 142/100 O2 Sat by Pulse 98 96 Oximetry 10/20/20 10:00 Temperature Pulse Rate Pulse Rate [ 79 Apical] Respiratory Rate Blood Pressure O2 Sat by Pulse 98 Oximetry Constitutional: no acute distress, alert Eyes: non-icteric Neck: supple Effort: normal Ascultation: Bilateral: rales Cardiovascular: regular rate and rhythm (no mrg) Gastrointestinal: normoactive bowel sounds, soft, non-tender, non-distended Integumentary: normal Extremities: no cyanosis, no edema, pink and warm Neurologic: normal mental status, non-focal exam, pupils equal and round, CN II- XII normal Psychiatric: mood appropriate, affect normal CBC and BMP: 10/16/20 05:17 10/16/20 05:17 ABG, PT/INR, D-dimer: ABG ABG pH 7.403 (7.320-7.450) 10/11/20 09:20 POC ABG pCO2 25.5 mmHg (32.0-48.0) L 10/11/20 09:20 POC ABG pO2 65.7 mmHg (83-108) L 10/11/20 09:20 POC ABG HCO3 15.5 10/11/20 09:20 ABG O2 Saturation 91.8 (0-100) 10/11/20 09:20 PT/INR, D-dimer D-Dimer 365.83 ng/mlDDU (0-234) H 10/09/20 14:22 Abnormal lab findings: Abnormal Labs 10/09/20 10/09/20 10/09/20 13:18 13:18 14:14 WBC RBC 3.54 L Hgb 11.1 L Hct 32.0 L MCHC 35 H Plt Count 562 H Seg Neuts % (Manual) 86.0 H Lymphocytes % (Manual) 11.0 L Lymphocytes # (Manual) 0.6 L D-Dimer ABG pH 7.462 H POC ABG pCO2 22.1 L POC ABG pO2 76.8 L ABG Hemoglobin 11.1 L ABG Oxyhemoglobin 93.8 L ABG Sodium 133.8 L ABG Chloride ABG Glucose Carboxyhemoglobin 0.4 L Sodium 132 L Carbon Dioxide 16 L Glucose 102 H Lactic Acid Ferritin AST ALT < 5 L Lactate Dehydrogenase C-Reactive Protein Total Protein 8.7 H Albumin 3.1 L Arterial Blood Glucose Arterial Blood Ionized Calcium Ur Specific [place] 10/09/20 10/09/20 10/09/20 14:22 14:22 14:22 WBC RBC Hgb Hct MCHC Plt Count Seg Neuts % (Manual) Lymphocytes % (Manual) Lymphocytes # (Manual) D-Dimer 365.83 H ABG pH POC ABG pCO2 POC ABG pO2 ABG Hemoglobin ABG Oxyhemoglobin ABG Sodium ABG Chloride ABG Glucose Carboxyhemoglobin Sodium Carbon Dioxide Glucose Lactic Acid Ferritin 1322.0 H AST ALT Lactate Dehydrogenase 581 H C-Reactive Protein 5.50 H Total Protein Albumin Arterial Blood Glucose Arterial Blood Ionized Calcium Ur Specific [place] 07/06/2710/09/20 10/11/20 16:44 Unknown 09:20 WBC RBC Hgb Hct MCHC Plt Count Seg Neuts % (Manual) Lymphocytes % (Manual) Lymphocytes # (Manual) D-Dimer ABG pH POC ABG pCO2 25.5 L POC ABG pO2 65.7 L ABG Hemoglobin 8.7 L ABG Oxyhemoglobin 90.7 L ABG Sodium 134.1 L ABG Chloride 112.0 H ABG Glucose 101 H Carboxyhemoglobin Sodium Carbon Dioxide Glucose Lactic Acid 2.40 H* Ferritin AST ALT Lactate Dehydrogenase C-Reactive Protein Total Protein Albumin Arterial Blood Glucose 101 H Arterial Blood Ionized Calcium 4.5 L Ur Specific [place] 1.054 H 10/11/20 10/12/20 10/12/20 13:41 07:02 07:02 WBC RBC 2.74 L Hgb 8.5 L Hct 24.4 L D MCHC 35 H Plt Count 543 H Seg Neuts % (Manual) Lymphocytes % (Manual) Lymphocytes # (Manual) D-Dimer ABG pH POC ABG pCO2 POC ABG pO2 ABG Hemoglobin ABG Oxyhemoglobin ABG Sodium ABG Chloride ABG Glucose Carboxyhemoglobin Sodium 133 L 135 L Carbon Dioxide 16 L 17 L Glucose 149 H Lactic Acid Ferritin AST 42 H ALT < 5 L Lactate Dehydrogenase C-Reactive Protein Total Protein Albumin 2.8 L Arterial Blood Glucose Arterial Blood Ionized Calcium Ur Specific [place] 10/16/20 10/16/20 05:17 05:17 WBC 3.9 L RBC 2.92 L Hgb 8.8 L Hct 25.8 L MCHC Plt Count 662 H Seg Neuts % (Manual) Lymphocytes % (Manual) Lymphocytes # (Manual) D-Dimer ABG pH POC ABG pCO2 POC ABG pO2 ABG Hemoglobin ABG Oxyhemoglobin ABG Sodium ABG Chloride ABG Glucose Carboxyhemoglobin Sodium 132 L Carbon Dioxide 18 L Glucose 114 H Lactic Acid Ferritin AST ALT Lactate Dehydrogenase C-Reactive Protein Total Protein Albumin Arterial Blood Glucose Arterial Blood Ionized Calcium Ur Specific [place]
[2020-10-20 14:06] LABS: BUN/Creatinine Ratio 13; Blood Urea Nitrogen 13 mg/dL (9-20); Calcium 8.7 mg/dL (8.4-10.2); Hemolysis Index 0
--- NOTE | 2020-10-20 14:31 | Progress Note ---
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 Patient feels short of breath on minimal exertion. Patient was hypoxic when he came to the emergency room. Patient had a work-up in facility and is not sure of what the diagnosis was. He states he is not Covid. No exposure to Covid. No other symptoms of HIV. Like chronic diarrhea. All seizures. His main complaint is shortness of breath on minimal exertion for the past 3 months. No penile lesions. Gluteal cleft ulcer 3 to 6 months. 10/12/2020 On 40 L nasal cannula oxygen 10/13/2020 On 40 L high flow nasal cannula oxygen 10/14: Patient remains on high flow oxygen, Pulmonary FOLLOWING, Metabolic Acidosis noted, will give some sodium bicarb. Continue weaning oxygen. Anemia. 10/15: Patient with complex medical condition continues on recommendation by ID including Bactrim and Zithromax. Noted some nausea. Will premedicate before administration of Bactrim. Wound care consult recommended again. Follow cultures. Prior cultures showing staph aureus sensitivity not yet determined. Patient continues to require high flow oxygen and pulmonary is following weaning as tolerated. Continue aggressive pulmonary toilet. Monitor labs. Dietitian input for moderate to severe protein calorie malnutrition. 10/16: Continue supportive care, continue Highflow and wean as tolerated, will give a dose of sodium bicarb 10/17: Continue supportive care antibiotics as recommended. Continue to wean oxygen as tolerated 10/18: Patient currently being treated for PCP pneumonia rectal abscess currently on antibiotics followed by wound care team. He has been weaned down successfully from high flow and now is on 10 to 8 L of oxygen. Continue weaning continue antibiotic therapy as prescribed by ID. Can be discharged on oxygen was able to wean down to 3 to 4 L. Currently debilitated and likely will need PT OT reevaluation prior to discharge and may possibly need rehab placement. 10/19/2020; patient is currently on 4 L of oxygen. PT evaluated and recommendation is to be determined. Patient may need to have placement. Continue antibiotic treatment per ID recommendation. Patient need home O2. Patient is uninsured. Will follow with case management. Once oxygen is arranged patient can be discharged. 10/20/2020: Patient currently on 4 L of oxygen. Continuing treatment with IV Bactrim per ID recommendation. Pulmonology recommended continued steroids and gave additional dose of Lasix. He will require home O2 but is uninsured which complicates matters. Will follow with case management regarding disposition and oxygen equipment. Patient is effectively homeless which complicates his disposition however we discussed possible plan of patient returning to mother's home and continuing recovery from his pneumonia. We discussed the need for outpatient HAART therapy for his HIV and patient understood the necessity of this therapy. He states he will follow-up at IDP clinic. Discussed with case management this morning who is also coordinating with mother and currently working to set up home oxygen. Total Time Spent with Patient (Minutes): 35 - Patient Problems (1) Acute respiratory failure with hypoxia Current Visit: Yes Status: Acute Plan to address problem: On 3 L NC O2 Pulmonology following Awaiting home O2 set up (2) PCP (pneumocystis jiroveci pneumonia) Current Visit: Yes Status: Acute Qualifiers: Laterality: bilateral Plan to address problem: High suspicion for PCP pneumonia in the setting of poor HAART compliance and HIV positive. Covid negative Treatment with IV Bactrim. ID recommends 6 weeks ID following (3) Rectal abscess Current Visit: Yes Status: Acute Plan to address problem: CT pelvis shows small right-sided perirectal abscess measuring 1.5 x 1 x 1cm. No evidence of osteo myelitis Surgery was consulted and after discussion with patient no surgical intervention will take place this hospital admission Patient is same states that abscess is significantly improved from earlier in hospital course Wound care following Bactrim IV (4) Sepsis Current Visit: Yes Status: Acute Plan to address problem: Treatment plan as above Now resolved (5) DVT prophylaxis Current Visit: Yes Status: Acute Plan to address problem: On heparin and GI prophylaxis (6) HIV (human immunodeficiency virus infection) Current Visit: Yes Status: Chronic Qualifiers: HIV symptom status: symptomatic Qualified Code(s): B20 - Human immunodeficiency virus [HIV] disease Plan to address problem: Patient has been off of antiretroviral therapy for 18 months Unclear CD4 count, ID ordered CD4/VL, RPR., crypto ID following We will get follow-up with outpatient HIV clinic History Interval history: This a.m. patient was doing well on encounter. Today is his birthday so patient was in good spirits. He is currently on 3 L nasal cannula. States he has better energy than prior days. He denied any acute/worsening symptoms of fevers, chills, chest pain, shortness of breath. We discussed placement and the overall care plan at bedside, patient understands and was agreeable to plan. Hospitalist Physical - Physical exam Narrative exam: Physical Exam: GENERAL APPEARANCE: Well developed, well nourished, alert and cooperative, and appears to be in no acute distress. on 3L NC. HEAD: normocephalic. EYES: PERRL, EOMI. Vision is grossly intact. NOSE: No nasal discharge. THROAT: Oral cavity and pharynx normal. No inflammation, swelling, exudate, or lesions. Teeth and gingiva in good general condition. NECK: Neck supple, non-tender without lymphadenopathy, masses or thyromegaly. CARDIAC: Normal S1 and S2. No S3, S4 or murmurs. Rhythm is regular. There is no peripheral edema, cyanosis or pallor. Extremities are warm and well perfused. Capillary refill is less than 2 seconds. No carotid bruits. LUNGS: Clear to auscultation and percussion without rales, rhonchi, wheezing or diminished breath sounds. ABDOMEN: Positive bowel sounds. Soft, nondistended, nontender. No guarding or rebound. No masses. MUSKULOSKELETAL: Adequately aligned spine. ROM intact spine and extremities. No joint erythema or tenderness. Normal muscular development. Normal gait. BACK: Examination of the spine reveals normal gait and posture, no spinal deformity, symmetry of spinal muscles, without tenderness, decreased range of motion or muscular spasm. EXTREMITIES: No significant deformity or joint abnormality. No edema. Peripheral pulses intact. No varicosities. LOWER EXTREMITY: Examination of both feet reveals all toes to be normal in size and symmetry, normal range of motion, normal sensation with distal capillary filling of less than 2 seconds without tenderness, swelling, discoloration, nodules, weakness or deformity; examination of both ankles, knees, legs, and hips reveals normal range of motion, normal sensation without tenderness, swelling, discoloration, crepitus, weakness or deformity. NEUROLOGICAL: CN II-XII intact. Strength and sensation symmetric and intact throughout. Reflexes 2+ throughout. Cerebellar testing normal. SKIN: Skin normal color, texture and turgor with no lesions or eruptions. PSYCHIATRIC: The mental examination revealed the patient was oriented to person, place, and time. The patient was able to demonstrate good judgement and reason, without hallucinations, abnormal affect or abnormal behaviors during the examination. Patient is not suicidal. - Constitutional Vitals: Temp Pulse Resp BP Pulse Ox 98.5 F 113 H 18 158/109 99 10/20/20 13:04 10/20/20 13:04 10/20/20 13:04 10/20/20 13:04 10/20/20 13:04 HEART Score - HEART Score Troponin: Troponin T < 0.010 ng/mL (0.00-0.029) 10/09/20 14:22 Results - Labs CBC & Chem 7: 10/16/20 05:17 10/20/20 13:09 Labs: Laboratory Last Values WBC 3.9 K/mm3 (4.5-11.0) L 10/16/20 05:17 RBC 2.92 M/mm3 (3.65-5.03) L 10/16/20 05:17 Hgb 8.8 gm/dl (11.8-15.2) L 10/16/20 05:17 Hct 25.8 % (35.5-45.6) L 10/16/20 05:17 MCV 88 fl (84-94) 10/16/20 05:17 MCH 30 pg (28-32) 10/16/20 05:17 MCHC 34 % (32-34) 10/16/20 05:17 RDW 14.4 % (13.2-15.2) 10/16/20 05:17 Plt Count 662 K/mm3 (140-440) H 10/16/20 05:17 Add Manual Diff Complete 10/09/20 13:18 Total Counted 100 10/09/20 13:18 Seg Neuts % (Manual) 86.0 % (40.0-70.0) H 10/09/20 13:18 Lymphocytes % (Manual) 11.0 % (13.4-35.0) L 10/09/20 13:18 Monocytes % (Manual) 3.0 % (0.0-7.3) 10/09/20 13:18 Nucleated RBC % Not Reportable 10/09/20 13:18 Seg Neutrophils # Man 4.4 K/mm3 (1.8-7.7) 10/09/20 13:18 Band Neutrophils # 0.0 K/mm3 10/09/20 13:18 Lymphocytes # (Manual) 0.6 K/mm3 (1.2-5.4) L 10/09/20 13:18 Abs React Lymphs (Man) 0.0 K/mm3 10/09/20 13:18 Monocytes # (Manual) 0.2 K/mm3 (0.0-0.8) 10/09/20 13:18 Eosinophils # (Manual) 0.0 K/mm3 (0.0-0.4) 10/09/20 13:18 Basophils # (Manual) 0.0 K/mm3 (0.0-0.1) 10/09/20 13:18 Metamyelocytes # 0.0 K/mm3 10/09/20 13:18 Myelocytes # 0.0 K/mm3 10/09/20 13:18 Promyelocytes # 0.0 K/mm3 10/09/20 13:18 Blast Cells # 0.0 K/mm3 10/09/20 13:18 WBC Morphology Not Reportable 10/09/20 13:18 Hypersegmented Neuts Not Reportable 10/09/20 13:18 Hyposegmented Neuts Not Reportable 10/09/20 13:18 Hypogranular Neuts Not Reportable 10/09/20 13:18 Smudge Cells Not Reportable 10/09/20 13:18 Toxic Granulation Not Reportable 10/09/20 13:18 Toxic Vacuolation Not Reportable 10/09/20 13:18 Dohle Bodies Not Reportable 10/09/20 13:18 Pelger-Huet Anomaly Not Reportable 10/09/20 13:18 Yuri Rods Not Reportable 10/09/20 13:18 Platelet Estimate Consistent w auto 10/09/20 13:18 Clumped Platelets Not Reportable 10/09/20 13:18 Plt Clumps, EDTA Not Reportable 10/09/20 13:18 Large Platelets Not Reportable 10/09/20 13:18 Giant Platelets Rare 10/09/20 13:18 Platelet Satelliting Not Reportable 10/09/20 13:18 Plt Morphology Comment Not Reportable 10/09/20 13:18 RBC Morphology Normal 10/09/20 13:18 Dimorphic RBCs Not Reportable 10/09/20 13:18 Polychromasia Not Reportable 10/09/20 13:18 Hypochromasia Not Reportable 10/09/20 13:18 Poikilocytosis Not Reportable 10/09/20 13:18 Anisocytosis Not Reportable 10/09/20 13:18 Microcytosis Not Reportable 10/09/20 13:18 Macrocytosis Not Reportable 10/09/20 13:18 Spherocytes Not Reportable 10/09/20 13:18 Pappenheimer Bodies Not Reportable 10/09/20 13:18 Sickle Cells Not Reportable 10/09/20 13:18 Target Cells Not Reportable 10/09/20 13:18 Tear Drop Cells Not Reportable 10/09/20 13:18 Ovalocytes Not Reportable 10/09/20 13:18 Helmet Cells Not Reportable 10/09/20 13:18 [place] Bodies Not Reportable 10/09/20 13:18 [place] Rings Not Reportable 10/09/20 13:18 [place] Cells Not Reportable 10/09/20 13:18 Bite Cells Not Reportable 10/09/20 13:18 Crenated Cell Not Reportable 10/09/20 13:18 Elliptocytes Not Reportable 10/09/20 13:18 Acanthocytes (Spur) Not Reportable 10/09/20 13:18 Rouleaux Not Reportable 10/09/20 13:18 Hemoglobin C Crystals Not Reportable 10/09/20 13:18 Schistocytes Not Reportable 10/09/20 13:18 Malaria parasites Not Reportable 10/09/20 13:18 Benigno Bodies Not Reportable 10/09/20 13:18 Hem Pathologist Commnt No 10/09/20 13:18 D-Dimer 365.83 ng/mlDDU (0-234) H 10/09/20 14:22 ABG pH 7.403 (7.320-7.450) 10/11/20 09:20 POC ABG pCO2 25.5 mmHg (32.0-48.0) L 10/11/20 09:20 POC ABG pO2 65.7 mmHg (83-108) L 10/11/20 09:20 POC ABG HCO3 15.5 10/11/20 09:20 ABG O2 Saturation 91.8 (0-100) 10/11/20 09:20 POC ABG Base Excess -8.1 10/11/20 09:20 ABG Hemoglobin 8.7 (12.0-17.5) L 10/11/20 09:20 ABG Oxyhemoglobin 90.7 (94-98) L 10/11/20 09:20 ABG Methemoglobin 0.3 (0.0-1.5) 10/11/20 09:20 ABG Sodium 134.1 mmol/L (136.0-145.0) L 10/11/20 09:20 ABG Potassium 3.7 mmol/L (3.40-4.50) 10/11/20 09:20 ABG Chloride 112.0 mmol/L (98-107) H 10/11/20 09:20 ABG Glucose 101 mg/dL (65-95) H 10/11/20 09:20 ABG Lactate 1.54 (0.18-30.0) 10/09/20 14:14 Carboxyhemoglobin 0.9 (0.5-1.5) 10/11/20 09:20 FiO2 % 68.0 10/11/20 09:20 Sodium 129 mmol/L (137-145) L 10/20/20 13:09 Potassium 4.3 mmol/L (3.6-5.0) 10/20/20 13:09 Chloride 95.1 mmol/L (98-107) L 10/20/20 13:09 Carbon Dioxide 20 mmol/L (22-30) L 10/20/20 13:09 Anion Gap 18 mmol/L 10/20/20 13:09 BUN 13 mg/dL (9-20) 10/20/20 13:09 Creatinine 1.0 mg/dL (0.8-1.3) 10/20/20 13:09 Estimated GFR > 60 ml/min 10/20/20 13:09 BUN/Creatinine Ratio 13 % 10/20/20 13:09 Glucose 101 mg/dL (75-100) H 10/20/20 13:09 Lactic Acid 1.00 mmol/L (0.7-2.0) 10/10/20 06:57 Calcium 8.7 mg/dL (8.4-10.2) 10/20/20 13:09 Ferritin 1322.0 ng/mL (30.0-300.0) H 10/09/20 14:22 Total Bilirubin < 0.20 mg/dL (0.1-1.2) 10/11/20 13:41 AST 42 units/L (5-40) H 10/11/20 13:41 ALT < 5 units/L (7-56) L 10/11/20 13:41 Alkaline Phosphatase 59 units/L (35-129) 10/11/20 13:41 Lactate Dehydrogenase 581 units/L (91-180) H 10/09/20 14:22 Troponin T < 0.010 ng/mL (0.00-0.029) 10/09/20 14:22 C-Reactive Protein 5.50 mg/dL (0.00-1.30) H 10/09/20 14:22 NT-Pro-B Natriuret Pep 47.57 pg/mL (0-450) 10/09/20 14:22 Total Protein 6.7 g/dL (6.3-8.2) D 10/11/20 13:41 Albumin 2.8 g/dL (3.9-5) L 10/11/20 13:41 Albumin/Globulin Ratio 0.7 % 10/11/20 13:41 Procalcitonin 0.07 ng/mL (<0.15) 10/09/20 14:22 Arterial Blood Glucose 101 mg/dL (65-95) H 10/11/20 09:20 Arterial Blood Ionized Calcium 4.5 mg/dL (4.6-5.3) L 10/11/20 09:20 Urine Color Yellow (Yellow) 10/09/20 Unknown Urine Turbidity Clear (Clear) 10/09/20 Unknown Urine pH 6.0 (5.0-7.0) 10/09/20 Unknown Ur Specific [place] 1.054 (1.003-1.030) H 10/09/20 Unknown Urine Protein 30 mg/dl mg/dL (Negative) 10/09/20 Unknown Urine Glucose (UA) Neg mg/dL (Negative) 10/09/20 Unknown Urine Ketones Neg mg/dL (Negative) 10/09/20 Unknown Urine Blood Neg (Negative) 10/09/20 Unknown Urine Nitrite Neg (Negative) 10/09/20 Unknown Urine Bilirubin Neg (Negative) 10/09/20 Unknown Urine Urobilinogen < 2.0 mg/dL (<2.0) 10/09/20 Unknown Ur Leukocyte Esterase Neg (Negative) 10/09/20 Unknown Urine WBC (Auto) 4.0 /HPF (0.0-6.0) 10/09/20 Unknown Urine RBC (Auto) 1.0 /HPF (0.0-6.0) 10/09/20 Unknown U Epithel Cells (Auto) < 1.0 /HPF (0-13.0) 10/09/20 Unknown Urine Mucus Few /HPF 10/09/20 Unknown Vancomycin Trough 9.4 ug/mL (5.0-20.0) 10/16/20 08:04 Coronavirus (PCR) Negative (Negative) 10/10/20 09:50 Lal/IV: Voiding Method Urinal Active Medications - Current Medications Current Medications: Generic Name Dose Route Start Last Admin Trade Name Freq PRN Reason Stop Dose Admin Acetaminophen 650 mg 10/09/20 18:00 10/11/20 09:57 Acetaminophen 325 Mg Tab PO 650 mg Q4H PRN Administration Pain MILD(1-3)/Fever >100.5/LAMA Albuterol 2.5 mg 10/10/20 06:41 10/11/20 07:20 Albuterol 2.5 Mg/3 Ml Nebu IH 2.5 mg Q3HRT PRN Administration Wheezing Heparin Sodium (Porcine) 5,000 unit 10/10/20 10:00 10/20/20 09:54 Heparin 5,000 Unit/1 Ml Vial SUB-Q 5,000 unit Q12HR IRIS Administration Trimethoprim/Sulfamethoxazole 518.75 mls @ 350 mls/hr 10/11/20 11:00 10/20/20 11:17 300 mg/ Dextrose IV 11/01/20 06:29 350 mls/hr Q6H IRIS Administration Protocol Lactobacillus Acidophilus 1 each 10/13/20 22:00 10/20/20 09:54 Floranex Granule Packet PO 1 each BID IRIS Administration Lorazepam 1 mg 10/10/20 19:20 10/15/20 01:27 Lorazepam 2 Mg/Ml Vial IV 1 mg Q6HR PRN Administration Anxiety Methylprednisolone Sodium Succinate 20 mg 10/21/20 10:00 Methylprednisolone Sod Succinate 40 Mg/1 Ml Inj IV 10/31/20 10:01 Q24HR IRIS Ondansetron HCl 4 mg 10/09/20 18:00 10/18/20 05:44 Ondansetron 4 Mg/2 Ml Inj IV 4 mg Q8H PRN Administration Nausea And Vomiting Sodium Chloride 10 ml 10/09/20 22:00 10/20/20 09:55 Sodium Chloride 0.9% 10 Ml Flush Syringe IV 10 ml BID IRIS Administration Sodium Chloride 10 ml 10/09/20 18:00 10/16/20 05:12 Sodium Chloride 0.9% 10 Ml Flush Syringe IV 10 ml PRN PRN Administration LINE FLUSH Nutrition/Malnutrition Assess - Dietary Evaluation Nutrition/Malnutrition Findings: Nutrition Notes Start: 10/10/20 09:11 Freq: Status: Active Protocol: Document 10/20/20 13:09 (Rec: 10/20/20 13:13 [id number]) Nutrition Notes Initial or Follow up Reassessment Current Diagnosis Respiratory Failure Other Pertinent Diagnosis HIV, SOB, Pneumocystis jiroveci Pneumonia Current Diet regular Labs/Tests Reviewed Pertinent Medications Reviewed Height 5 ft 6 in Weight 56 kg [place] Body Weight (kg) 64.54 BMI 19.9 Weight Status Underweight Subjective/Other Information FU or intakes. Pt drinking 100 % of 3 ONS daily. He is eating about 60% of meals either from the hospital or from food from friends/family. Percent of energy/protein needs met: 100%/100% Burn Absent Trauma Absent GI Symptoms None Current % PO Fair (50-74%) Minimum of two criteria Yes Energy Intake (non-severe) <75% Estimated Energy Requirement >7 days Interpretation of Weight Loss (severe) >10% in 6 months Body Fat Depletion Mild depletion (non-severe) Muscle Mass Mild Depletion (non-severe) #2 Nutrition Diagnosis Increased nutrient needs ( specify in comment below) Comments: protein Diagnosis Progress(for reassessment Continues documentation) #1 Nutrition Diagnosis Malnutrition As Evidenced by Signs and Symptoms pt meeting 100% protein and energy needs Diagnosis Progress(for reassessment Improved documentation) Is patient on ventilator? No Is Patient Ambulatory and/or Out of Bed No REE-([facility]-confined to bed) 3044.835 Calculation Used for Recommendations [facility] Additional Notes Protein: (1.25-1.5g/kg) 66-79g Fluid: 1 ml/kcal Nutrition Intervention Change Diet Order: Continue Add Supplement/Snack (indicate name/kcal Ensure Clear TID /protein ) Provides kCal: 720 Provides Protein (gm) 24 Goal #1 Meet at least 80% of protein and energy needs Goal #2 Wound healing Goal #3 Weight gain/maintenance Anticipated Discharge Needs: regular with ONS daily Follow-Up By: 10/27/20 Additional Comments FU for stable intakes
--- NOTE | 2020-10-20 14:47 | Progress Note ---
Assessment and Plan Cultures: Blood culture pending Urine culture pending Wound culture (gluteal wound): MRSA Assessment: 29-year-old male with history of HIV diagnosed in 2010, off ART for 18 months since he loss his insurance due to unemployment, used to be seen by IDP, was on descovy and prezcovix, chronic gluteal cleft ulcer, admitted on 11/05/2020 secondary to 2-month history of worsening dry cough and shortness of breath/GÓMEZ and 40+ pounds weight loss in 6 months: #Sepsis: Present on admission with elevated lactate, tachycardia, tachypnea and hypoxia; likely secondary to bilateral pneumonia. #Bilateral pneumonia: Highly suspicious for moderate PJP pneumonia. pO2>70. SARS-CoV-2 PCR negative. LDH>500. Patient with HIV without any ART for 18 months. #Acute hypoxic respiratory failure: Currently on nasal cannula oxygen. pO2>70. #Mid gluteal cleft chronic ulcer infection and right sided perirectal abscess: Unclear etiology. Patient denies history of genital herpes. CRP 5.5. CT shows small right-sided perirectal abscess 1.5 x 1 x 1 cm. No evidence of osteomyelitis. #HIV: diagnosed in 2010, off ART for 18 months since he loss his insurance due to unemployment, used to be seen by IDP, was on descovy and prezcovix, unknown CD4 and viral load. Recommendations: - IV Bactrim 15-20 mg/kg/day of trimethopin for PJP, when improved enough for discharge can send with Bactrim 2xDS every 8 hours to complete 3 total weeks of Bactrim. - Check Cd4/VL - Check RPR/Crypto ag - Patient has discussed his return to care with his IDP frame aligner. I was in the room for the discussion. ID will sign off. please call with new questions. Nicanor Reynolds MD [facility] O: [phone] F: [phone] Subjective Date of service: 10/20/20 Principal diagnosis: Bilateral pneumonia Interval history: Afebrile, no acute change. Requiring 4 L nasal cannula. Objective - Exam Narrative Exam: Physical Exam: Constitutional: Alert, cooperative. No acute distress. Thin but not cachectic Head, Ears, Nose: Normocephalic, atraumatic. Eyes: Conjunctivae/corneas clear. Neck: Supple, no meningeal signs Oral: dentition fair, no thrush Cardiovascular: S1, S2 normal. Respiratory: Good air entry, clear to auscultation bilaterally GI: Soft, non-tender; bowel sounds normal. No peritoneal signs. Musculoskeletal: No pedal edema, no cyanosis. Skin: No rash or abscess Hem/Lymphatic: No palpable cervical or supraclavicular nodes. Psych: Mood ok. Affect normal Neurological: Awake, alert, oriented. No gross abnormality - Constitutional Vitals: Vital Signs Temp Pulse Resp BP Pulse Ox 98.5 F 113 H 18 158/109 99 10/20/20 13:04 10/20/20 13:04 10/20/20 13:04 10/20/20 13:04 10/20/20 13:04 Temperature -Last 24 Hours Temperature 98.5 F Temperature 98.1 F Temperature 98.0 F Temperature 98.2 F - Labs CBC & Chem 7: 10/16/20 05:17 10/20/20 13:09 Labs: Abnormal lab results 10/20/20 Range/Units 13:09 Sodium 129 L (137-145) mmol/L Chloride 95.1 L (98-107) mmol/L Carbon Dioxide 20 L (22-30) mmol/L Glucose 101 H (75-100) mg/dL
[2020-10-21] MEDS: SMX IV SCH ×3 (00:04→13:05)
[2020-10-21] MEDS: TMP IV SCH ×3 (00:04→13:05)
[2020-10-21] MEDS: WATER IV SCH ×3 (00:04→13:05)
[2020-10-21] MEDS: DEXTROSE 5% IV SCH ×3 (00:04→13:05)
--- NOTE | 2020-10-21 07:46 | Discharge Summary ---
Providers - Providers Date of Admission: 10/09/20 19:48 Date of discharge: 10/21/20 Attending physician: ANGIE ORTIZ MD 10/10/20 00:36 Consult to Wound/ET Nurse [CONS] Routine Reason For Exam: wound eval 10/10/20 06:25 Consult to Physician [CONS] Routine Comment: Consulting Provider: TOYIN EDGAR Physician Instructions: Reason For Exam: HIV/PCP Consult to Physician [CONS] Routine Comment: Consulting Provider: LUIS SOARES Physician Instructions: Reason For Exam: Perirectal abscess 10/10/20 14:15 Consult to Wound/ET Nurse [CONS] Routine Reason For Exam: mid cleft wound eval 10/11/20 09:20 Consult to Physician [CONS] Routine Comment: Consulting Provider: KANE LOVING Physician Instructions: Reason For Exam: dyspnea 10/19/20 07:00 Occupational Therapy Evaluate and Treat [CONS] Routine Comment: Reason For Exam: debility Physical Therapy Evaluation and Treat [CONS] Routine Comment: Reason For Exam: debility 10/19/20 14:42 Physical Therapy Evaluation and Treat [CONS] Stat Comment: Reason For Exam: eval and treat Primary care physician: BI LEAD Hospitalization Reason for admission: respiratory failure Condition: Fair Hospital course: HPI: 29-year-old male with history of HIV diagnosed in 2010, off ART for 18 months since he loss his insurance due to unemployment, used to be seen by IDP, was on descovy and prezcovix, chronic gluteal cleft ulcer, admitted on 11/05/2020 secondary to 2-month history of worsening dry cough and shortness of breath/GÓMEZ and 40+ pounds weight loss in 6 months. Patient feels short of breath on minimal exertion. Patient was hypoxic when he came to the emergency room. Patient had a work-up in facility and is not sure of what the diagnosis was. He states he is not Covid. No exposure to Covid. No other symptoms of HIV. Like chronic diarrhea. All seizures. His main complaint is shortness of breath on minimal exertion for the past 3 months. No penile lesions. Gluteal cleft ulcer 3 to 6 months. Hospital Course Patient was admitted for pneumocystis pneumonia secondary to longstanding HIV infection. Patient had been off of antiretrovirals for at least 18 months. Infectious disease and pulmonary medicine were consulted on this hospital visit. Patient was started on IV Bactrim and IV Solu-Medrol for for worsening pneumonitis. Patient required high flow oxygen which was eventually deescalated to nasal cannula. He also was noted to have a gluteal abscess this admission. He was evaluated by surgery and no intervention was made after a joint decision between surgery and the patient. Patient improved throughout his hospital course with gradually reducing oxygen requirements. However he will continue to need outpatient oxygen so case management was consulted to set up home oxygen as well as home IV antibiotics. Patient's remainder course of steroids was transmitted to his pharmacy. He was instructed to follow-up with the IDP clinic through [facility] as well as his primary care doctor. He was also instructed to follow-up with Dr. Loving outpatient for pulmonary care. Disposition: [id number] HOME UNDER HOME [facility] Final Discharge Diagnosis (Prints w/discharge instructions): acute hypoxic respiratory failure due to pneumocystis pneumonia - Discharge Diagnoses (1) Acute respiratory failure with hypoxia Status: Acute (2) PCP (pneumocystis jiroveci pneumonia) Status: Acute Qualifiers: Laterality: bilateral (3) Rectal abscess Status: Acute (4) Sepsis Status: Acute (5) DVT prophylaxis Status: Acute (6) HIV (human immunodeficiency virus infection) Status: Chronic Qualifiers: HIV symptom status: symptomatic Qualified Code(s): B20 - Human immu nodeficiency virus [HIV] disease Core Measure Documentation - Palliative Care Palliative Care/ Comfort Measures: Not Applicable - Core Measures Any of the following diagnoses?: none Exam - Physical Exam Narrative exam: Physical Exam: GENERAL APPEARANCE: Well developed, well nourished, alert and cooperative, and appears to be in no acute distress. on 3L NC. HEAD: normocephalic. EYES: PERRL, EOMI. Vision is grossly intact. NOSE: No nasal discharge. THROAT: Oral cavity and pharynx normal. No inflammation, swelling, exudate, or lesions. Teeth and gingiva in good general condition. NECK: Neck supple, non-tender without lymphadenopathy, masses or thyromegaly. CARDIAC: Normal S1 and S2. No S3, S4 or murmurs. Rhythm is regular. There is no peripheral edema, cyanosis or pallor. Extremities are warm and well perfused. Capillary refill is less than 2 seconds. No carotid bruits. LUNGS: Clear to auscultation and percussion without rales, rhonchi, wheezing or diminished breath sounds. ABDOMEN: Positive bowel sounds. Soft, nondistended, nontender. No guarding or rebound. No masses. MUSKULOSKELETAL: Adequately aligned spine. ROM intact spine and extremities. No joint erythema or tenderness. Normal muscular development. Normal gait. BACK: Examination of the spine reveals normal gait and posture, no spinal deformity, symmetry of spinal muscles, without tenderness, decreased range of motion or muscular spasm. EXTREMITIES: No significant deformity or joint abnormality. No edema. Peripheral pulses intact. No varicosities. LOWER EXTREMITY: Examination of both feet reveals all toes to be normal in size and symmetry, normal range of motion, normal sensation with distal capillary filling of less than 2 seconds without tenderness, swelling, discoloration, nodules, weakness or deformity; examination of both ankles, knees, legs, and hips reveals normal range of motion, normal sensation without tenderness, swelling, discoloration, crepitus, weakness or deformity. NEUROLOGICAL: CN II-XII intact. Strength and sensation symmetric and intact throughout. Reflexes 2+ throughout. Cerebellar testing normal. SKIN: Skin normal color, texture and turgor with no lesions or eruptions. PSYCHIATRIC: The mental examination revealed the patient was oriented to person, place, and time. The patient was able to demonstrate good judgement and reason, without hallucinations, abnormal affect or abnormal behaviors during the examination. Patient is not suicidal. - Constitutional Vitals: Temp Pulse Resp BP Pulse Ox 97.7 F 101 H 18 147/109 100 10/21/20 04:49 10/21/20 06:00 10/21/20 04:49 10/21/20 04:49 10/21/20 04:49 Plan Activity: advance as tolerated Weight Bearing Status: Full Weight Bearing Diet: regular Durable Medical Equipment Needed Upon Discharge: Oxygen Plan of Treatment: Bill Santoro. You were admitted for pneumocystis pneumonia. We believe this is a complication of your known diagnosis of HIV in the setting of being off of antiretroviral therapy for your HIV. We consulted a 3d specialist and an infect ious disease doctor to evaluate you as well. You were treated with IV Bactrim (antibiotic) and prednisone (steroid) throughout this hospital course and you have continued to improved. You will be discharged home with prescriptions for Bactrim and prednisone. Case management has set up home health care for you. You should also be going home on supplemental oxygen which was set up by case management as well. We recommend you follow-up with a primary care physician in 3 to 5 days. Also we recommend you follow-up with the IDP clinic and your customer leader to have a provider follow you for your HIV and prescribe your antiretroviral therapy. Contact info: Dr. Kane Loving (pulmonology) Address [address] [place] [id number] Contact Information Pulmonary Office [facility] [address] [place] [address] Follow up with: KANE LOVING MD [Staff Physician] - 7 Days PRIMARY CARE, [Primary Care Provider] - 3-5 Days Prescriptions: methylPREDNISolone Sod Suc [Solu-MEDROL] 20 mg PO Q24HR 11 Days #11 tab
--- NOTE | 2020-10-21 09:18 | Progress Note ---
Assessment and Plan 29 y/o male with known HIV, noncompliant with therapy admitted with acute respiratory failure concern for PJP 10/21/20: Patient had discharge order in. No objection to discharge pulmonary hartman once home O2 is arrange. Follow steroid taper as was ordered in house. Can follow up with me in 2 weeks time and will do repeat walk test in the office abx duration per ID. No nebs or inhaler therapy is needed at discharge. 10/20/20: Wean FiO2 for sats >88%. Suggest walk test tomorrow. Maybe ready for discharge as early as tomorrow, or Sunday. 10/19/20: Continue current therapy. Wean FiO2 for sats >88% 10/18/20: Continue current therapy for PJP, oxygen sats better so if bronch is needed, can arrange for later in the week. Will ask ID. 10/15/20: Echo essentially normal. Improving with steroids and abx. Would keep as dry as possible. Continue to wean HFNC for sats >88% 10/14/20: Slow improvement. Continue to wean FiO2 as tolerated for sats >88%. 10/13/20: Continue supplemental oxygen and bipap PRN. Prognosis still remains very guarded. 1. Agree with empiric therapy for PJP 2. Agree with steroids 3. Gave lasix again today, follow up echo 4. Ordered continuous bipap therapy to help ease work of breathing 5. Discussed the possibility of intubation with patient and he is in agreement if this necessary, hopeful we can avoid this. Guarded prognosis. Subjective Date of service: 10/21/20 Principal diagnosis: Bilateral pneumonia Interval history: Room air sat of 86% this am based on RT documentation. This qualifies him for O2. Need to determine how much he needs with exertion to keep his sat above 88%. Objective Vital Signs - 12hr 10/20/20 10/20/20 10/21/20 22:00 22:54 04:49 Temperature 97.9 F 97.7 F Pulse Rate 101 H 96 H Pulse Rate [ 82 Apical] Respiratory 18 18 Rate Blood Pressure 147/109 Blood Pressure 149/106 [Right] O2 Sat by Pulse 98 99 100 Oximetry 10/21/20 10/21/20 10/21/20 06:00 08:54 08:55 Temperature Pulse Rate 101 H Pulse Rate [ Apical] Respiratory Rate Blood Pressure Blood Pressure [Right] O2 Sat by Pulse 94 86 Oximetry Constitutional: no acute distress, alert Eyes: non-icteric Neck: supple Effort: normal Ascultation: Bilateral: rales Cardiovascular: regular rate and rhythm (no mrg) Gastrointestinal: normoactive bowel sounds, soft, non-tender, non-distended Integumentary: normal Extremities: no cyanosis, no edema, pink and warm Neurologic: normal mental status, non-focal exam, pupils equal and round, CN II- XII normal Psychiatric: mood appropriate, affect normal CBC and BMP: 10/16/20 05:17 10/20/20 13:09 ABG, PT/INR, D-dimer: ABG ABG pH 7.403 (7.320-7.450) 10/11/20 09:20 POC ABG pCO2 25.5 mmHg (32.0-48.0) L 10/11/20 09:20 POC ABG pO2 65.7 mmHg (83-108) L 10/11/20 09:20 POC ABG HCO3 15.5 10/11/20 09:20 ABG O2 Saturation 91.8 (0-100) 10/11/20 09:20 PT/INR, D-dimer D-Dimer 365.83 ng/mlDDU (0-234) H 10/09/20 14:22 Abnormal lab findings: Abnormal Labs 10/09/20 10/09/20 10/09/20 13:18 13:18 14:14 WBC RBC 3.54 L Hgb 11.1 L Hct 32.0 L MCHC 35 H Plt Count 562 H Seg Neuts % (Manual) 86.0 H Lymphocytes % (Manual) 11.0 L Lymphocytes # (Manual) 0.6 L D-Dimer ABG pH 7.462 H POC ABG pCO2 22.1 L POC ABG pO2 76.8 L ABG Hemoglobin 11.1 L ABG Oxyhemoglobin 93.8 L ABG Sodium 133.8 L ABG Chloride ABG Glucose Carboxyhemoglobin 0.4 L Sodium 132 L Chloride Carbon Dioxide 16 L Glucose 102 H Lactic Acid Ferritin AST ALT < 5 L Lactate Dehydrogenase C-Reactive Protein Total Protein 8.7 H Albumin 3.1 L Arterial Blood Glucose Arterial Blood Ionized Calcium Ur Specific [place] 10/09/20 10/09/20 10/09/20 14:22 14:22 14:22 WBC RBC Hgb Hct MCHC Plt Count Seg Neuts % (Manual) Lymphocytes % (Manual) Lymphocytes # (Manual) D-Dimer 365.83 H ABG pH POC ABG pCO2 POC ABG pO2 ABG Hemoglobin ABG Oxyhemoglobin ABG Sodium ABG Chloride ABG Glucose Carboxyhemoglobin Sodium Chloride Carbon Dioxide Glucose Lactic Acid Ferritin 1322.0 H AST ALT Lactate Dehydrogenase 581 H C-Reactive Protein 5.50 H Total Protein Albumin Arterial Blood Glucose Arterial Blood Ionized Calcium Ur Specific [place] 10/09/20 10/09/20 10/11/20 16:44 Unknown 09:20 WBC RBC Hgb Hct MCHC Plt Count Seg Neuts % (Manual) Lymphocytes % (Manual) Lymphocytes # (Manual) D-Dimer ABG pH POC ABG pCO2 25.5 L POC ABG pO2 65.7 L ABG Hemoglobin 8.7 L ABG Oxyhemoglobin 90.7 L ABG Sodium 134.1 L ABG Chloride 112.0 H ABG Glucose 101 H Carboxyhemoglobin Sodium Chloride Carbon Dioxide Glucose Lactic Acid 2.40 H* Ferritin AST ALT Lactate Dehydrogenase C-Reactive Protein Total Protein Albumin Arterial Blood Glucose 101 H Arterial Blood Ionized Calcium 4.5 L Ur Specific [place] 1.054 H 10/11/20 10/12/20 10/12/20 13:41 07:02 07:02 WBC RBC 2.74 L Hgb 8.5 L Hct 24.4 L D MCHC 35 H Plt Count 543 H Seg Neuts % (Manual) Lymphocytes % (Manual) Lymphocytes # (Manual) D-Dimer ABG pH POC ABG pCO2 POC ABG pO2 ABG Hemoglobin ABG Oxyhemoglobin ABG Sodium ABG Chloride ABG Glucose Carboxyhemoglobin Sodium 133 L 135 L Chloride Carbon Dioxide 16 L 17 L Glucose 149 H Lactic Acid Ferritin AST 42 H ALT < 5 L Lactate Dehydrogenase C-Reactive Protein Total Protein Albumin 2.8 L Arterial Blood Glucose Arterial Blood Ionized Calcium Ur Specific [place] 10/16/20 10/16/20 10/20/20 05:17 05:17 13:09 WBC 3.9 L RBC 2.92 L Hgb 8.8 L Hct 25.8 L MCHC Plt Count 662 H Seg Neuts % (Manual) Lymphocytes % (Manual) Lymphocytes # (Manual) D-Dimer ABG pH POC ABG pCO2 POC ABG pO2 ABG Hemoglobin ABG Oxyhemoglobin ABG Sodium ABG Chloride ABG Glucose Carboxyhemoglobin Sodium 132 L 129 L Chloride 95.1 L Carbon Dioxide 18 L 20 L Glucose 114 H 101 H Lactic Acid Ferritin AST ALT Lactate Dehydrogenase C-Reactive Protein Total Protein Albumin Arterial Blood Glucose Arterial Blood Ionized Calcium Ur Specific [place]
[2020-10-21] MEDS ORDERED: methylPREDNISolone Sod Succinate 40 MG/1 ML INJ IV SCH (10:00)
[2020-10-21] MEDS: FLORANEX GRANULE PACKET PO SCH (13:04)
[2020-10-21] MEDS: HEPARIN 5,000 UNIT/1 ML VIAL SUB-Q SCH (13:04)
--- NOTE | 2020-10-21 16:01 | Progress Note ---
Assessment and Plan - Patient Problems (1) Acute respiratory failure with hypoxia Current Visit: Yes Status: Acute (2) PCP (pneumocystis jiroveci pneumonia) Current Visit: Yes Status: Acute Qualifiers: Laterality: bilateral (3) Rectal abscess Current Visit: Yes Status: Acute (4) Sepsis Current Visit: Yes Status: Acute (5) DVT prophylaxis Current Visit: Yes Status: Acute (6) HIV (human immunodeficiency virus infection) Current Visit: Yes Status: Chronic Qualifiers: HIV symptom status: symptomatic Qualified Code(s): B20 - Human immunodeficiency virus [HIV] disease (7) Pneumonitis, interstitial Current Visit: Yes Status: Chronic Plan to address problem: -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65-5.03) L 10/16/20 05:17 Hgb 8.8 gm/dl (11.8-15.2) L 10/16/20 05:17 Hct 25.8 % (35.5-45.6) L 10/16/20 05:17 MCV 88 fl (84-94) 10/16/20 05:17 MCH 30 pg (28-32) 10/16/20 05:17 MCHC 34 % (32-34) 10/16/20 05:17 RDW 14.4 % (13.2-15.2) 10/16/20 05:17 Plt Count 662 K/mm3 (140-440) H 10/16/20 05:17 Add Manual Diff Complete 10/09/20 13:18 Total Counted 100 10/09/20 13:18 Seg Neuts % (Manual) 86.0 % (40.0-70.0) H 10/09/20 13:18 Lymphocytes % (Manual) 11.0 % (13.4-35.0) L 10/09/20 13:18 Monocytes % (Manual) 3.0 % (0.0-7.3) 10/09/20 13:18 Nucleated RBC % Not Reportable 10/09/20 13:18 Seg Neutrophils # Man 4.4 K/mm3 (1.8-7.7) 10/09/20 13:18 Band Neutrophils # 0.0 K/mm3 10/09/20 13:18 Lymphocytes # (Manual) 0.6 K/mm3 (1.2-5.4) L 10/09/20 13:18 Abs React Lymphs (Man) 0.0 K/mm3 10/09/20 13:18 Monocytes # (Manual) 0.2 K/mm3 (0.0-0.8) 10/09/20 13:18 Eosinophils # (Manual) 0.0 K/mm3 (0.0-0.4) 10/09/20 13:18 Basophils # (Manual) 0.0 K/mm3 (0.0-0.1) 10/09/20 13:18 Metamyelocytes # 0.0 K/mm3 10/09/20 13:18 Myelocytes # 0.0 K/mm3 10/09/20 13:18 Promyelocytes # 0.0 K/mm3 10/09/20 13:18 Blast Cells # 0.0 K/mm3 10/09/20 13:18 WBC Morphology Not Reportable 10/09/20 13:18 Hypersegmented Neuts Not Reportable 10/09/20 13:18 Hyposegmented Neuts Not Reportable 10/09/20 13:18 Hypogranular Neuts Not Reportable 10/09/20 13:18 Smudge Cells Not Reportable 10/09/20 13:18 Toxic Granulation Not Reportable 10/09/20 13:18 Toxic Vacuolation Not Reportable 10/09/20 13:18 Dohle Bodies Not Reportable 10/09/20 13:18 Pelger-Huet Anomaly Not Reportable 10/09/20 13:18 Yuri Rods Not Reportable 10/09/20 13:18 Platelet Estimate Consistent w auto 10/09/20 13:18 Clumped Platelets Not Reportable 10/09/20 13:18 Plt Clumps, EDTA Not Reportable 10/09/20 13:18 Large Platelets Not Reportable 10/09/20 13:18 Giant Platelets Rare 10/09/20 13:18 Platelet Satelliting Not Reportable 10/09/20 13:18 Plt Morphology Comment Not Reportable 10/09/20 13:18 RBC Morphology Normal 10/09/20 13:18 Dimorphic RBCs Not Reportable 10/09/20 13:18 Polychromasia Not Reportable 10/09/20 13:18 Hypochromasia Not Reportable 10/09/20 13:18 Poikilocytosis Not Reportable 10/09/20 13:18 Anisocytosis Not Reportable 10/09/20 13:18 Microcytosis Not Reportable 10/09/20 13:18 Macrocytosis Not Reportable 10/09/20 13:18 Spherocytes Not Reportable 10/09/20 13:18 Pappenheimer Bodies Not Reportable 10/09/20 13:18 Sickle Cells Not Reportable 10/09/20 13:18 Target Cells Not Reportable 10/09/20 13:18 Tear Drop Cells Not Reportable 10/09/20 13:18 Ovalocytes Not Reportable 10/09/20 13:18 Helmet Cells Not Reportable 10/09/20 13:18 [place] Bodies Not Reportable 10/09/20 13:18 Maynard Rings Not Reportable 10/09/20 13:18 Naz Cells Not Reportable 10/09/20 13:18 Bite Cells Not Reportable 10/09/20 13:18 Crenated Cell Not Reportable 10/09/20 13:18 Elliptocytes Not Reportable 10/09/20 13:18 Acanthocytes (Spur) Not Reportable 10/09/20 13:18 Rouleaux Not Reportable 10/09/20 13:18 Hemoglobin C Crystals Not Reportable 10/09/20 13:18 Schistocytes Not Reportable 10/09/20 13:18 Malaria parasites Not Reportable 10/09/20 13:18 Benigno Bodies Not Reportable 10/09/20 13:18 Hem Pathologist Commnt No 10/09/20 13:18 D-Dimer 365.83 ng/mlDDU (0-234) H 10/09/20 14:22 ABG pH 7.403 (7.320-7.450) 10/11/20 09:20 POC ABG pCO2 25.5 mmHg (32.0-48.0) L 10/11/20 09:20 POC ABG pO2 65.7 mmHg (83-108) L 10/11/20 09:20 POC ABG HCO3 15.5 10/11/20 09:20 ABG O2 Saturation 91.8 (0-100) 10/11/20 09:20 POC ABG Base Excess -8.1 10/11/20 09:20 ABG Hemoglobin 8.7 (12.0-17.5) L 10/11/20 09:20 ABG Oxyhemoglobin 90.7 (94-98) L 10/11/20 09:20 ABG Methemoglobin 0.3 (0.0-1.5) 10/11/20 09:20 ABG Sodium 134.1 mmol/L (136.0-145.0) L 10/11/20 09:20 ABG Potassium 3.7 mmol/L (3.40-4.50) 10/11/20 09:20 ABG Chloride 112.0 mmol/L (98-107) H 10/11/20 09:20 ABG Glucose 101 mg/dL (65-95) H 10/11/20 09:20 ABG Lactate 1.54 (0.18-30.0) 10/09/20 14:14 Carboxyhemoglobin 0.9 (0.5-1.5) 10/11/20 09:20 FiO2 % 68.0 10/11/20 09:20 Sodium 129 mmol/L (137-145) L 10/20/20 13:09 Potassium 4.3 mmol/L (3.6-5.0) 10/20/20 13:09 Chloride 95.1 mmol/L (98-107) L 10/20/20 13:09 Carbon Dioxide 20 mmol/L (22-30) L 10/20/20 13:09 Anion Gap 18 mmol/L 10/20/20 13:09 BUN 13 mg/dL (9-20) 10/20/20 13:09 Creatinine 1.0 mg/dL (0.8-1.3) 10/20/20 13:09 Estimated GFR > 60 ml/min 10/20/20 13:09 BUN/Creatinine Ratio 13 % 10/20/20 13:09 Glucose 101 mg/dL (75-100) H 10/20/20 13:09 Lactic Acid 1.00 mmol/L (0.7-2.0) 10/10/20 06:57 Calcium 8.7 mg/dL (8.4-10.2) 10/20/20 13:09 Ferritin 1322.0 ng/mL (30.0-300.0) H 10/09/20 14:22 Total Bilirubin < 0.20 mg/dL (0.1-1.2) 10/11/20 13:41 AST 42 units/L (5-40) H 10/11/20 13:41 ALT < 5 units/L (7-56) L 10/11/20 13:41 Alkaline Phosphatase 59 units/L (35-129) 10/11/20 13:41 Lactate Dehydrogenase 581 units/L (91-180) H 10/09/20 14:22 Troponin T < 0.010 ng/mL (0.00-0.029) 10/09/20 14:22 C-Reactive Protein 5.50 mg/dL (0.00-1.30) H 10/09/20 14:22 NT-Pro-B Natriuret Pep 47.57 pg/mL (0-450) 10/09/20 14:22 Total Protein 6.7 g/dL (6.3-8.2) D 10/11/20 13:41 Albumin 2.8 g/dL (3.9-5) L 10/11/20 13:41 Albumin/Globulin Ratio 0.7 % 10/11/20 13:41 Procalcitonin 0.07 ng/mL (<0.15) 10/09/20 14:22 Arterial Blood Glucose 101 mg/dL (65-95) H 10/11/20 09:20 Arterial Blood Ionized Calcium 4.5 mg/dL (4.6-5.3) L 10/11/20 09:20 Urine Color Yellow (Yellow) 10/09/20 Unknown Urine Turbidity Clear (Clear) 10/09/20 Unknown Urine pH 6.0 (5.0-7.0) 10/09/20 Unknown Ur Specific [place] 1.054 (1.003-1.030) H 10/09/20 Unknown Urine Protein 30 mg/dl mg/dL (Negative) 10/09/20 Unknown Urine Glucose (UA) Neg mg/dL (Negative) 10/09/20 Unknown Urine Ketones Neg mg/dL (Negative) 10/09/20 Unknown Urine Blood Neg (Negative) 10/09/20 Unknown Urine Nitrite Neg (Negative) 10/09/20 Unknown Urine Bilirubin Neg (Negative) 10/09/20 Unknown Urine Urobilinogen < 2.0 mg/dL (<2.0) 10/09/20 Unknown Ur Leukocyte Esterase Neg (Negative) 10/09/20 Unknown Urine WBC (Auto) 4.0 /HPF (0.0-6.0) 10/09/20 Unknown Urine RBC (Auto) 1.0 /HPF (0.0-6.0) 10/09/20 Unknown U Epithel Cells (Auto) < 1.0 /HPF (0-13.0) 10/09/20 Unknown Urine Mucus Few /HPF 10/09/20 Unknown Vancomycin Trough 9.4 ug/mL (5.0-20.0) 10/16/20 08:04 Coronavirus (PCR) Negative (Negative) 10/10/20 09:50 Lal/IV: Voiding Method Urinal Active Medications - Current Medications Current Medications: Generic Name Dose Route Start Last Admin Trade Name Freq PRN Reason Stop Dose Admin Acetaminophen 650 mg 10/09/20 18:00 10/11/20 09:57 Acetaminophen 325 Mg Tab PO 650 mg Q4H PRN Administration Pain MILD(1-3)/Fever >100.5/LAMA Albuterol 2.5 mg 10/10/20 06:41 10/11/20 07:20 Albuterol 2.5 Mg/3 Ml Nebu IH 2.5 mg Q3HRT PRN Administration Wheezing Heparin Sodium (Porcine) 5,000 unit 10/10/20 10:00 10/21/20 13:04 Heparin 5,000 Unit/1 Ml Vial SUB-Q 5,000 unit Q12HR IRIS Administration Trimethoprim/Sulfamethoxazole 518.75 mls @ 350 mls/hr 10/11/20 11:00 10/21/20 13:05 300 mg/ Dextrose IV 11/01/20 06:29 350 mls/hr Q6H IRIS Administration Protocol Lactobacillus Acidophilus 1 each 10/13/20 22:00 10/21/20 13:04 Floranex Granule Packet PO 1 each BID IRIS Administration Lorazepam 1 mg 10/10/20 19:20 10/15/20 01:27 Lorazepam 2 Mg/Ml Vial IV 1 mg Q6HR PRN Administration Anxiety Methylprednisolone Sodium Succinate 20 mg 10/21/20 10:00 10/21/20 13:03 Methylprednisolone Sod Succinate 40 Mg/1 Ml Inj IV 10/31/20 10:01 20 mg Q24HR IRIS Administration Ondansetron HCl 4 mg 10/09/20 18:00 10/18/20 05:44 Ondansetron 4 Mg/2 Ml Inj IV 4 mg Q8H PRN Administration Nausea And Vomiting Sodium Chloride 10 ml 10/09/20 22:00 10/21/20 13:04 Sodium Chloride 0.9% 10 Ml Flush Syringe IV 10 ml BID IRIS Administration Sodium Chloride 10 ml 10/09/20 18:00 10/16/20 05:12 Sodium Chloride 0.9% 10 Ml Flush Syringe IV 10 ml PRN PRN Administration LINE FLUSH Nutrition/Malnutrition Assess - Dietary Evaluation Nutrition/Malnutrition Findings: Nutrition Notes Start: 10/10/20 09:11 Freq: Status: Active Protocol: Document 10/20/20 13:09 (Rec: 10/20/20 13:13 [id number]) Nutrition Notes Initial or Follow up Reassessment Current Diagnosis Respiratory Failure Other Pertinent Diagnosis HIV, SOB, Pneumocystis jiroveci Pneumonia Current Diet regular Labs/Tests Reviewed Pertinent Medications Reviewed Height 5 ft 6 in Weight 56 kg [place] Body Weight (kg) 64.54 BMI 19.9 Weight Status Underweight Subjective/Other Information FU or intakes. Pt drinking 100 % of 3 ONS daily. He is eating about 60% of meals either from the hospital or from food from friends/family. Percent of energy/protein needs met: 100%/100% Burn Absent Trauma Absent GI Symptoms None Current % PO Fair (50-74%) Minimum of two criteria Yes Energy Intake (non-severe) <75% Estimated Energy Requirement >7 days Interpretation of Weight Loss (severe) >10% in 6 months Body Fat Depletion Mild depletion (non-severe) Muscle Mass Mild Depletion (non-severe) #2 Nutrition Diagnosis Increased nutrient needs ( specify in comment below) Comments: protein Diagnosis Progress(for reassessment Continues documentation) #1 Nutrition Diagnosis Malnutrition As Evidenced by Signs and Symptoms pt meeting 100% protein and energy needs Diagnosis Progress(for reassessment Improved documentation) Is patient on ventilator? No Is Patient Ambulatory and/or Out of Bed No REE-([facility]-confined to bed) [phone] Calculation Used for Recommendations [facility] Additional Notes Protein: (1.25-1.5g/kg) 66-79g Fluid: 1 ml/kcal Nutrition Intervention Change Diet Order: Continue Add Supplement/Snack (indicate name/kcal Ensure Clear TID /protein ) Provides kCal: 720 Provides Protein (gm) 24 Goal #1 Meet at least 80% of protein and energy needs Goal #2 Wound healing Goal #3 Weight gain/maintenance Anticipated Discharge Needs: regular with ONS daily Follow-Up By: 10/27/20 Additional Comments FU for stable intakes
[2020-10-21 18:21] VITALS: BP 137/86
== END 2020-10-21 18:40 | disposition home health service (06) | DRG 974 ==
LOC: ED 12:55 → 3A 19:48 → IMCU 10-11 15:47 → 3A 10-11 22:19
PROVIDERS: ADMIT Internal Medicine; ATTEND Internal Medicine
PROC: 4A033R1 Measurement of Arterial Saturation, Peripheral, Percutaneous Approach (ICD-10-PCS; principal; 2020-10-09)
PROC: 3E0234Z Introduction of Serum, Toxoid and Vaccine into Muscle, Percutaneous Approach (ICD-10-PCS; 2020-10-10)
PROC: 5A09457 Assistance with Respiratory Ventilation, 24-96 Consecutive Hours, Continuous Positive Airway Pressure (ICD-10-PCS; 2020-10-12)
DX: A41.9 Sepsis, unspecified organism (principal); J96.01 Acute respiratory failure with hypoxia; B20 Human immunodeficiency virus [HIV] disease; B59 Pneumocystosis; J18.9 Pneumonia, unspecified organism; K61.1 Rectal abscess; E87.1 Hypo-osmolality and hyponatremia; L98.418 Non-pressure chronic ulcer of buttock with other specified severity; E44.1 Mild protein-calorie malnutrition; Z20.822 Contact with and (suspected) exposure to COVID-19; F12.90 Cannabis use, unspecified, uncomplicated; Z68.1 Body mass index [BMI] 19.9 or less, adult; Z23 Encounter for immunization; Z79.899 Other long term (current) drug therapy; Z72.89 Other problems related to lifestyle; Z82.49 Family history of ischemic heart disease and other diseases of the circulatory system
CPT/HCPCS: 36415; 36600; 71045; 71046; 71275; 74177; 80048; 80053; 80202; 81001; 82140; 82728; 82805; 82947; 83615; 83880; 84145; 84484; 85007; 85025; 85027; 85379; 86140; 87040; 87076; 87086; 87116; 87186; 90732; 93306; 94640; 94644; 94660; 96365; 96375; 99406; G0378; J0456; J0696; J1644; J1940; J2060; J2405; J2920; J3370; J7030; J7050; J7060; J7512; Q9967; U0003

== ENCOUNTER 2021-06-14 06:36 | Emergency (ER) | payer SELFPAY ==
[2021-06-14 07:34] LABS: Basophils % (Auto) 0.5 % (0.0-1.8); Eosinophils % (Auto) 0.3 % (0.0-4.3); Hematocrit 45.7 % (35.5-45.6); Hemoglobin 15.3 gm/dl (11.8-15.2); Lymphocytes # (Auto) 2.3 K/mm3 (1.2-5.4); Lymphocytes % (Auto) 43.7 % (13.4-35.0); Mean Corpuscular HGB Conc 34 % (32-34); Mean Corpuscular Volume 95 fl (84-94); Monocytes # (Auto) 0.6 K/mm3 (0.0-0.8); Monocytes % (Auto) 11.7 % (0.0-7.3); Red Blood Count 4.84 M/mm3 (3.65-5.03); Red Cell Distribution Width 12.8 % (13.2-15.2)
[2021-06-14 07:35] LABS: Platelet Count 263 K/mm3 (140-440)
[2021-06-14 07:57] LABS: Alanine Aminotransferase 17 units/L (7-56); Albumin 4.3 g/dL (3.9-5); BUN/Creatinine Ratio 15; Blood Urea Nitrogen 17 mg/dL (9-20); Calcium 9.3 mg/dL (8.4-10.2); Hemolysis Index 16
[2021-06-14] MEDS ORDERED: SODIUM CHLORIDE 0.9% 1000 ML 1,000 ML IV ONE (08:10)
[2021-06-14] MEDS ORDERED: ONDANSETRON 4 MG/2 ML INJ IV ONE (08:10)
--- NOTE | 2021-06-14 08:13 | Emergency Department Report ---
ED N/V/D HPI - General Chief complaint: Abdominal Pain Stated complaint: EXCESSIVE VOMITING/DIARRHEA/DEHYDRATION Source: patient Mode of arrival: Ambulatory Limitations: No Limitations - History of Present Illness Initial comments: Chief complaint: "I am just having vomiting and diarrhea." HPI: This is a 30-year-old male with history of HIV currently compliant with Biktarvy, bipolar disorder, schizophrenia who presents with vomiting diarrhea for 1 week. He has occasional left upper quadrant discomfort. He denies any pain at this time. He is able to tolerate water and yanet vangie. He is unable to tolerate food. Current medications Biktarvy Bactrim Seroquel. He denies suicidal homicidal ideation. complaint: vomiting, diarrhea -: Gradual, week(s) (1 week) Description of Vomiting: food contents Description of Diarrhea: water Associated Abdominal Pain: No Severity: moderate Consistency: intermittent Improves with: none Worsens with: none Associated Symptoms: denies other symptoms - Related Data Previous Rx's Medication Instructions Recorded Last Taken Type methylPREDNISolone Sod Suc 20 mg PO Q24HR 11 Days #11 tab 10/21/20 Unknown Rx [Solu-MEDROL] Loperamide [Imodium] 2 tab PO QID 2 Days #16 capsule 06/14/21 Unknown Rx Ondansetron [Zofran Odt] 4 mg PO Q8HR PRN #10 tab.rapdis 06/14/21 Unknown Rx Allergies Allergy/AdvReac Type Severity Reaction Status Date / Time No Known Allergies Allergy Verified 12/28/13 04:32 ED Review of Systems ROS: Stated complaint: EXCESSIVE VOMITING/DIARRHEA/DEHYDRATION Other details as noted in HPI Comment: All other systems reviewed and negative Constitutional: denies: chills, fever, malaise Respiratory: denies: cough, shortness of breath Cardiovascular: denies: chest pain Gastrointestinal: nausea, vomiting, diarrhea. denies: abdominal pain ED Past Medical Hx - Past Medical History Previous Medical History?: Yes Hx Congestive Heart Failure: No Hx Diabetes: No Hx Sickle Cell Disease: No Hx COPD: No Hx HIV: Yes Additional medical history: Boils, Left axillary boil, Rectal boil - Surgical History Past Surgical History?: No - Family History Family history: hypertension - Social History Smoking Status: Current Some Day Smoker Substance Use Type: None - Medications Home Medications: Home Medications Medication Instructions Recorded Confirmed Last Taken Type methylPREDNISolone Sod Suc 20 mg PO Q24HR 11 Days #11 tab 10/21/20 Unknown Rx [Solu-MEDROL] Loperamide [Imodium] 2 tab PO QID 2 Days #16 capsule 06/14/21 Unknown Rx Ondansetron [Zofran Odt] 4 mg PO Q8HR PRN #10 tab.rapdis 06/14/21 Unknown Rx ED Physical Exam - General Limitations: No Limitations General appearance: alert, in no apparent distress - Head Head exam: Present: atraumatic, normocephalic - Eye Eye exam: Present: normal appearance - ENT ENT exam: Present: mucous membranes moist - Neck Neck exam: Present: normal inspection, full ROM - Respiratory Respiratory exam: Present: normal lung sounds bilaterally. Absent: respiratory distress, wheezes, rales, rhonchi - Cardiovascular Cardiovascular Exam: Present: regular rate, normal rhythm, normal heart sounds. Absent: systolic murmur, diastolic murmur, rubs, gallop - GI/Abdominal GI/Abdominal exam: Present: soft, normal bowel sounds. Absent: distended, tenderness, guarding, rebound - Rectal Rectal exam: Present: deferred - Extremities Exam Extremities exam: Present: normal inspection - Neurological Exam Neurological exam: Present: alert, oriented X3 - Psychiatric Psychiatric exam: Present: normal affect, normal mood - Skin Skin exam: Present: warm, dry, intact, normal color. Absent: rash ED Course Vital Signs 06/14/21 06:49 Temperature 98.1 F Pulse Rate 78 Respiratory 15 Rate Blood Pressure 133/83 [Right] O2 Sat by Pulse 98 Oximetry ED Medical Decision Making - Lab Data Result diagrams: 06/14/21 07:19 06/14/21 07:19 - Medical Decision Making Mr. Santoro is a 30-year-old male with history of bipolar disorder schizophrenia and HIV who presents with vomiting diarrhea for 1 week. According to electronic medical record patient has had chronic diarrhea. Suspect diarrhea is adverse effect of prescribed medication. No current fever or abdominal pain. Chemistry does reveal hyponatremia which I attribute to hypovolemia. No leukocytosis. CBC within normal limits. Patient received IV hydration with normal saline bolus 1 L in emergency department. He also received IV Zofran and p.o. loperamide. He tolerated water in the emergency department. I prescribed Zofran and loperamide. I recommended follow-up with his ID physician Dr. Mcintyre at the [facility]. Additional considerations irritable bowel syndrome, inflammatory bowel disease. Critical care attestation.: If time is entered above; I have spent that time in minutes in the direct care of this critically ill patient, excluding procedure time. ED Disposition Clinical Impression: Dehydration, Diarrhea Disposition: HOME / SELF CARE / HOMELESS Is pt being admited?: No Does the pt Need Aspirin: No Condition: Stable Instructions: Diarrhea, Adult, [id number] Prescriptions: Loperamide [Imodium] 2 tab PO QID 2 Days #16 capsule Ondansetron [Zofran Odt] 4 mg PO Q8HR PRN #10 tab.rapdis PRN Reason: Nausea Referrals: PRIMARY CARE, [Referring] - 3-5 Days
[2021-06-14] MEDS ORDERED: LOPERAMIDE 2 MG CAP PO ONE (08:16)
[2021-06-14 09:29] LABS: Bilirubin,Urine NEG (Negative); Blood,Urine NEG (Negative); Color,Urine Yellow (Yellow); Mucus,Urine 2+ /HPF; Urobilinogen,Urine < 2.0 mg/dL (<2.0)
[2021-06-14 11:14] VITALS: BP 126/92
== END 2021-06-14 11:15 | disposition home or self-care (01) ==
LOC: ED 06:36
DX: E86.0 Dehydration (principal); R19.7 Diarrhea, unspecified; F17.200 Nicotine dependence, unspecified, uncomplicated
CPT/HCPCS: 36415; 80053; 81001; 83690; 85025; 96361; 96374; 99283; J2405; J7030; Q0162